=== PATIENT | male | born 1955 | race Caucasian/White ===

== ENCOUNTER 2019-06-05 08:30 | Outpatient (RCR) | payer OTHER, SELFPAY | END 2019-07-03 23:59 | disposition home or self-care (01) | LOC: WOUND 08:30 | PROVIDERS: Family Provider Internal Medicine; PCP Internal Medicine; Visit Provider Surgery | DX: E11.621 Type 2 diabetes mellitus with foot ulcer (principal); L97.512 Non-pressure chronic ulcer of other part of right foot with fat layer exposed | CPT/HCPCS: 99212 ==

== ENCOUNTER → 2019-09-10 11:40 | Outpatient (BNVA) | payer OTHER, SELFPAY | PROVIDERS: Family Provider Internal Medicine; PCP Internal Medicine; Referring Provider Family Medicine; Visit Provider Podiatrist Foot & Ankle Surgery | DX: M79.672 Pain in left foot (principal); M85.872 Other specified disorders of bone density and structure, left ankle and foot; M77.32 Calcaneal spur, left foot | CPT/HCPCS: 73630 ==

== ENCOUNTER → 2019-12-29 08:36 | Outpatient (BNVA) | payer OTHER, SELFPAY | PROVIDERS: Family Provider Internal Medicine; PCP Internal Medicine; Referring Provider Family Medicine; Visit Provider Anesthesiology Pain Medicine | DX: M51.36 Other intervertebral disc degeneration, lumbar region (principal); M47.816 Spondylosis without myelopathy or radiculopathy, lumbar region; M43.10 Spondylolisthesis, site unspecified; M54.9 Dorsalgia, unspecified; M62.830 Muscle spasm of back; F17.210 Nicotine dependence, cigarettes, uncomplicated | CPT/HCPCS: 99204 ==

== ENCOUNTER → 2020-01-06 14:04 | Outpatient (BNVA) | payer OTHER, SELFPAY | PROVIDERS: Family Provider Internal Medicine; PCP Family Medicine; Visit Provider Anesthesiology Pain Medicine | DX: M47.816 Spondylosis without myelopathy or radiculopathy, lumbar region (principal); M54.9 Dorsalgia, unspecified; F17.210 Nicotine dependence, cigarettes, uncomplicated | CPT/HCPCS: 64493; 64494; 64495; J3490 ==

== ENCOUNTER → 2020-01-21 08:56 | Outpatient (BNVA) | payer OTHER, SELFPAY | PROVIDERS: Family Provider Internal Medicine; PCP Family Medicine; Visit Provider Anesthesiology Pain Medicine | DX: M47.816 Spondylosis without myelopathy or radiculopathy, lumbar region (principal); M51.36 Other intervertebral disc degeneration, lumbar region; M43.10 Spondylolisthesis, site unspecified; M54.9 Dorsalgia, unspecified; M62.830 Muscle spasm of back; F17.210 Nicotine dependence, cigarettes, uncomplicated | CPT/HCPCS: 99213 ==

== ENCOUNTER 2020-01-25 09:04 | Outpatient (CLI) | payer OTHER, SELFPAY ==
--- NOTE | 2020-01-25 09:30 | CT_ITS ---
WS: [id number] CT ANGIOGRAPHY ABDOMEN AORTA, with and without contrast. HISTORY: Abdomen aortic aneurysm, status post repair TECHNIQUE: Noncontrast CT first performed. CT angiogram is performed during IV injection. Reformation images reviewed. All CT scans at [facility] use at least one of these dose optimization t echniques: automated exposure control; mA and/or kV adjustment per patient size (includes targeted ex ams where dose is matched to clinical indication); or iterative reconstruction. CONTRAST: Omnipaque 350; 150 mL IV. DLP: 2895.33 mGycm COMPARISON: No similar studies. Hyperexpanded lung bases with changes of emphysema. There is some very mild peripheral groundglass at tenuation bilaterally and areas of linear atelectasis. 5 mm nodule at the LEFT lung base. Abdominal aorta: Status post endovascular grafting of the abdominal aorta. Bilateral common iliac art shabbir stents. Maximum transverse diameter of the [place] aneurysm is 5.4 cm. There is no extravasation o f contrast from the center of the graft. No endovascular leak. There is mild enhancement through the lumen. Only mild enhancement is due to phase of injection. Mild atherosclerotic plaque at the origin of the celiac axis and SMA. No occlusions. Poor opacificati on of the renal arteries. The kidneys are enhancing normally. No atrophy or ischemia. No periaortic h ematoma. Mild enlargement of the liver. Spleen is normal size. Normal pancreas and adrenal glands. No renal ob struction or mass. No adenopathy or fluid. Mild increase in lumbar lordosis. No bone destruction. CT/CT angio abdomen 20395 IMPRESSION: 1. Status post endovascular stent graft repair with no complications. No endol uminal leak. 2. No prior CT evaluation. As compared to prior ultrasound and [place] aneurysm has not significantly increased in size. 3. 5 mm noncalcified LEFT lower lobe pulmonary nodule. Recommend follow-up non contrast chest CT in 6-12 months.
[2020-01-25 09:36] LABS: Blood Urea Nitrogen 18 mg/dL (8-23); Glomerular Filtration Rate 85.5 mL/min (90-130)
[2020-01-25] MEDS: iohexol 350 mg/mL 100 mL Btl IV (10:00)
== END 2020-01-25 09:05 | disposition home or self-care (01) ==
LOC: RADWPI 09:06
PROVIDERS: Family Provider Family Medicine; PCP Family Medicine; Visit Provider Internal Medicine Cardiovascular Disease
DX: I71.4 Abdominal aortic aneurysm, without rupture (principal); I48.19 Other persistent atrial fibrillation; R91.1 Solitary pulmonary nodule
CPT/HCPCS: 74175; 82565; 84520; Q9967

== ENCOUNTER 2020-03-21 16:44 | Emergency (ER) | payer OTHER, SELFPAY ==
[2020-03-21 16:59] VITALS: BP 180/84; PULSE 72; RESP 18; TEMP 36.7; O2SAT 96; BMI 37.6
--- NOTE | 2020-03-21 17:29 | XRR_ITS ---
PROCEDURE INFORMATION: Exam: XR Chest, 1 View Exam date and time: 03/21/2020 6:32 PM Age: 64 years old Clinical indication: Shortness of breath; Prior surgery; Surgery type: 2 quad bipass; Additional info: SOB TECHNIQUE: Imaging protocol: XR of the chest Views: 1 view. COMPARISON: CR Chest 1 [place] [id number] 03/31/2018 2:38 PM FINDINGS: Lungs: There is scattered bilateral interstitial pulmonary fibrosis. There is no focal acute consolidation. Pleural space: The right costophrenic angle is blunted but stable in consistent with mild pleural fibrosis. No pneumothorax is seen. Heart/Mediastinum: The patient has undergone coronary bypass surgery. A permanent pacemaker appears intact. The cardiac silhouette is enlarged but unchanged. Bones/joints: Unremarkable. XR/XR chest 1V portable [id number] IMPRESSION: 1. Stable cardiac enlargement. 2. Bilateral pulmonary fibrotic changes. No acute abnormality.
--- NOTE | 2020-03-21 18:30 | ECG_ITS ---
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 Measurements Intervals [place] Rate: 65 P: 49 HI: 161 QRS: -48 QRSD: 120 T: -60 QT: 441 QTc: 461 Interpretive Statements SINUS RHYTHM LEFT AXIS DEVIATION [QRS AXIS < -30] SEPTAL MYOCARDIAL INFARCTION , OF INDETERMINATE AGE [40+ ms Q WAVE IN V1/V2] Compared to ECG 03/31/2018 14:25:46 Left-axis deviation now present Atrial-paced complex(es) or rhythm no longer present Myocardial infarct finding still present Electronically Signed On 03-21-2020 21:45:07 CDT by Miladys Armstrong M.D. [id number]
--- NOTE | 2020-03-21 18:38 | ED_ITS ---
HPI - General Adult General: Chief complaint: General Medical Stated complaint: possible anema Time Seen by Provider: 03/21/20 18:24 Source: patient Mode of arrival: ambulatory Limitations: no limitations History of Present Illness: HPI narrative: 64-year-old male history of congestive heart failure states he has had increased swelling in his legs over the last week. He takes Bumex at home 2.5 mg daily. He states he has had increased dyspnea and pain. Denies any worsening improving factors. He states that his ankles are swollen significantly over the last 5 to 7 days. Associated symptoms: Reports chest pain and dyspnea; Deny headache(s), nausea, rash or vomiting Review of Systems Const: Denies: fever(s), chills, body aches or change in appetite Eyes: Denies: blurry vision or eye discomfort ENMT: Denies: throat pain or dental pain Card: Reports: chest pain Resp: Reports: dyspnea GI: Denies: abdominal pain, nausea, vomiting or diarrhea : Denies: dysuria Musc: Reports: extremity swelling Skin/Breast: Denies: rash Neuro: Denies: headache(s) Psych: Denies: depression Adan/Lymph: Denies: easy bruising All/Imm: Denies: urticaria PFSH ED PFSH: Medical History Abdominal aortic aneurysm (AAA) 3.0 cm to 5.5 cm in diameter in male Allergic rhinitis ASHD (arteriosclerotic heart disease) Atherosclerotic heart disease of [place] coronary artery with other forms of an aretha pectoris Atrial fibrillation Cardiomyopathy CHF (congestive heart failure) DDD (degenerative disc disease) Diabetes Hyperlipidemia Hypertension Presence of permanent cardiac pacemaker Surgical History History of atherectomy History of cardiac radiofrequency ablation Hx of CABG S/P AAA repair October 2017 at the [facility] Family History Other CAD (coronary artery disease) Cancer Social History Smoking and tobacco status: current every day smoker cigarettes [ Other cigarette details: 1/2 pck day ] Alcohol intake: never Physical Exam Const: COMMON NORMALS: no acute distress, patient oriented x3 and healthy appearing HENMT: COMMON NORMALS: normocephalic and atraumatic HEAD & SCALP: normocephalic and atraumatic Eye: COMMON NORMALS: Equal, round and reactive pupils present and EOMs intact bilaterally PUPIL: Yes Equal, round and reactive pupils present Neck/C-Spine: COMMON NORMALS: full ROM and supple Chest: COMMONS NORMALS: normal inspection of the chest and normal palpation of entire chest wall Resp: COMMON NORMALS: normal respiratory effort, No retractions, No use of accessory muscles and clear to auscultation bilaterally AUSCULTATION: clear to auscultation bilaterally Cardio: COMMON NORMALS: regular rate, regular rhythm and No murmurs present (Cardio) RATE: regular rate RHYTHM: regular rhythm GI: COMMON NORMALS: Normal to inspection, nondistended, normoactive bowel sounds present, Soft to palpation, non-tender and no masses PALPATION: Yes Soft to palpation Extremity: COMMON NORMALS: full ROM NARRATIVE EXTREMITY EXAM: 2+ edema bilaterally Neuro: COMMON NORMALS: patient oriented x3, moves all extremities and no focal motor deficits Psych: COMMON NORMALS: mental status grossly normal, Normal thought process present and cooperative THOUGHT PROCESS: Normal thought process present Skin: COMMON NORMALS: no rashes or lesions noted and no wounds GENERAL SKIN EXAM: no rashes or lesions noted Course Vital Signs: Vital signs: Vital Signs Temperature 98.1 F 03/21/20 16:59 Pulse Rate 72 03/21/20 16:59 Respiratory Rate 20 H 03/21/20 19:45 Blood Pressure 178/74 03/21/20 19:45 Pulse Oximetry 95 03/21/20 19:45 MDM - General Adult MDM Narrative: Medical decision making narrative: Patient presents with leg edema with a history of congestive heart failure. Patient is in no respiratory distress here. Patient had a large amount of urination after IV Lasix and states he feels much improved and like to go home. I will double his bumetanide dose and he is to follow-up his PCP in 3 to 5 days. He is to watch his weight and if he has any water weight gain he is to return if worsening. Lab Data: Labs: Lab Results 03/21/20 03/21/20 03/21/20 Range/Units 18:35 18:35 18:35 WBC 8.8 (4.0-10.0) 10^3/ uL RBC 4.62 (4.1-5.3) 10^6/u L Hgb 11.4 L (11.7-16.6) g/dL Hct 39.6 L (42.0-52.0) % MCV 85.7 (80-94) fL MCH 24.7 L (28.0-34.0) pg MCHC 28.8 L (30.0-36.0) g/dL RDW 19.3 H (12.1-15.1) % Plt Count 359 (130-400) 10^3/c mm MPV 10.8 H (7.4-10.4) fL Neut % (Auto) 70.9 % Lymph % (Auto) 20.4 % Walsh % (Auto) 6.6 % Eos % (Auto) 1.6 % Baso % (Auto) 0.3 % Neut # (Auto) 6.24 (1.8-7.7) 10^3/u L Lymph # (Auto) 1.8 (0.8-4.8) 10^3/u L Walsh # (Auto) 0.6 (0.2-0.9) 10^3/u L Eos # (Auto) 0.1 (0.0-0.8) 10^3/u L Baso # (Auto) 0.0 (0.0-0.1) 10^3/u L Nucleated RBC % (a uto) 0 % Nucleated RBCs # 0.0 /100WBC Sodium 138 (136-145) mmol/L Potassium 3.9 (3.5-5.1) mmol/L Chloride 99 (98-107) mmol/L Carbon Dioxide 28 (22-29) mmol/L Anion Gap 14.9 (5-19) BUN 17 (8-23) mg/dL Creatinine 1.0 (0.7-1.2) mg/dL GFR Calculation 75.7 L (90-130) mL/min Glucose 183 H (65-115) mg/dL Calculated Osmolal ity 292 (285-295) mOsm/k g Calcium 8.8 (8.5-10.5) mg/dL Total Bilirubin 0.3 (0.15-1.2) mg/dL AST 27 (0-40) U/L ALT 31 (0-41) U/L Alkaline Phosphata se 139 H (40-130) IU/L Troponin T Baselin e 20 H (0-15) ng/L Troponin T 120 Min [place] (0-15) ng/L Delta Troponin T (0-10) ABS# NT-Pro-B Natriuret Pep 2338 H (0-125) pg/mL Total Protein 7.5 (6.6-8.7) g/dL Albumin 3.9 (3.5-5.2) g/dL Globulin 3.6 (1.3-4.6) g/dL 03/21/20 Range/Units 20:50 WBC (4.0-10.0) 10^3/ uL RBC (4.1-5.3) 10^6/u L Hgb (11.7-16.6) g/dL Hct (42.0-52.0) % MCV (80-94) fL MCH (28.0-34.0) pg MCHC (30.0-36.0) g/dL RDW (12.1-15.1) % Plt Count (130-400) 10^3/c mm MPV (7.4-10.4) fL Neut % (Auto) % Lymph % (Auto) % Walsh % (Auto) % Eos % (Auto) % Baso % (Auto) % Neut # (Auto) (1.8-7.7) 10^3/u L Lymph # (Auto) (0.8-4.8) 10^3/u L Walsh # (Auto) (0.2-0.9) 10^3/u L Eos # (Auto) (0.0-0.8) 10^3/u L Baso # (Auto) (0.0-0.1) 10^3/u L Nucleated RBC % (a uto) % Nucleated RBCs # /100WBC Sodium (136-145) mmol/L Potassium (3.5-5.1) mmol/L Chloride (98-107) mmol/L Carbon Dioxide (22-29) mmol/L Anion Gap (5-19) BUN (8-23) mg/dL Creatinine (0.7-1.2) mg/dL GFR Calculation (90-130) mL/min Glucose (65-115) mg/dL Calculated Osmolal ity (285-295) mOsm/k g Calcium (8.5-10.5) mg/dL Total Bilirubin (0.15-1.2) mg/dL AST (0-40) U/L ALT (0-41) U/L Alkaline Phosphata se (40-130) IU/L Troponin T Baselin e (0-15) ng/L Troponin T 120 Min [place] 20.77 H (0-15) ng/L Delta Troponin T 0.77 (0-10) ABS# NT-Pro-B Natriuret Pep (0-125) pg/mL Total Protein (6.6-8.7) g/dL Albumin (3.5-5.2) g/dL Globulin (1.3-4.6) g/dL Imaging Data^: CXR: Attestation: I personally reviewed and interpreted this imaging study as follows: My impression: Congestive heart failure with slight pulmonary edema EKG Data^: EKG 1: Attestation: I personally reviewed and interpreted this EKG as follows: EKG interpretation date: 03/21/20 EKG interpretation time: 18:51 Interpretation: nsr hr [address] or t wave abnormalities qrs 120 qtc 453 Discharge Plan Discharge Patient Disposition: Home Clinical Impression: CHF (congestive heart failure) Qualifiers: Heart failure type: unspecified Heart failure chronicity: acute on chronic Qualified Code(s): I50.9 - Heart failure, unspecified Condition: Stable Prescriptions: New bumetanide 2 mg tablet 2 mg PO BID Qty: 30 RF: 0 No Action cetirizine [Zyrtec] 10 mg tablet 10 mg PO DAILY RF: 0 pantoprazole [Protonix] 40 mg tablet,delayed release (DR/EC) 40 mg PO DAILY RF: 0 calcium carbonate [Calcium 500] 500 mg calcium (1,250 mg) tablet 500 mg PO DAILY RF: 0 magnesium oxide 400 mg magnesium tablet 400 mg PO BID RF: 0 isosorbide mononitrate 30 mg tablet extended release 24 hr 30 mg PO BID RF: 0 metoprolol tartrate 100 mg tablet 100 mg PO BID RF: 0 ferrous sulfate 325 mg (65 mg iron) tablet 325 mg PO DAILY RF: 0 allopurinol 300 mg tablet 300 mg PO DAILY RF: 0 omega-3 fatty acids 1,000 mg capsule 1,000 mg PO DAILY RF: 0 amiodarone 200 mg tablet 200 mg PO DAILY RF: 0 multivitamin Tablet 1 tab PO DAILY RF: 0 lisinopril-hydrochlorothiazide 10-12.5 mg tablet 1 tab PO DAILY RF: 0 glipizide 10 mg tablet 10 mg PO BID RF: 0 acarbose 50 mg tablet 25 mg PO TID RF: 0 vitamin B complex [B Complex-Vitamin B12] Tablet 1 tab PO DAILY RF: 0 folic acid 1 mg tablet 1 mg PO DAILY RF: 0 gemfibrozil 600 mg tablet 600 mg PO BID RF: 0 cholecalciferol (vitamin D3) 4,000 unit capsule 4,000 unit PO DAILY RF: 0 montelukast [Singulair] 10 mg tablet 10 mg PO DAILY RF: 0 nitroglycerin [Nitrostat] 0.4 mg tablet, sublingual 0.4 mg SUBLINGUAL Q5M PRNRF: 0 aspirin [Adult Low Dose Aspirin] 81 mg tablet,delayed release (DR/EC) 81 mg PO DAILY RF: 0 insulin glargine 100 unit/mL solution 64 unit SUBCUT BID RF: 0 mupirocin 2 % ointment 1 applic TOPICAL BID Qty: 30 RF: 0 pregabalin [Lyrica] 150 mg capsule 150 mg PO BID RF: 0 fluticasone propionate 50 mcg/actuation spray,suspension 1 spray INTRANASAL DAILY RF: 0 albuterol sulfate [ProAir HFA] 90 mcg/actuation HFA aerosol inhaler 1 inh INHALATION ONCE RF: 0 bumetanide 2 mg tablet 2 mg PO DAILY RF: 0 warfarin 2 mg tablet 2 mg PO DAILY RF: 0 budesonide-formoterol [Symbicort] 160-4.5 mcg/actuation HFA aerosol inhaler 2 puff INHALATION BID RF: 0 Spiriva Respimat 2.5 mcg/actuation mist 2 puff INHALATION DAILY RF: 0 tizanidine 4 mg tablet 4 mg PO BID PRN (Reason: muscle spasticity) Qty: 60 RF: 2 Discharge Orders: Discharge Order (Routine); Ordered 03/21/20 Ordered By: Kosta Chester Referrals: Carla Manriquez MD [Primary Care Provider] - 1-3 days Discharge Diet: Advance as tolerated Discharge Activity: Resume usual activity Patient Instructions: Heart Failure (ED), Leg Edema (ED) Activity Restrictions/Additional Instructions: Take 2 pills of your bumetanide daily follow-up with your PCP in 3 to 5 days return if worsening. 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
[2020-03-21 18:44] LABS: Basophils % 0.3 %; Eosinophils # 0.1 10^3/uL (0.0-0.8); Eosinophils % 1.6 %; Hematocrit 39.6 % (42.0-52.0); Hemoglobin 11.4 g/dL (11.7-16.6); Lymphocytes # 1.8 10^3/uL (0.8-4.8); Lymphocytes % 20.4 %; Mean Corpuscular HGB Conc 28.8 g/dL (30.0-36.0); Mean Corpuscular Hemoglobin 24.7 pg (28.0-34.0); Mean Corpuscular Volume 85.7 fL (80-94); Mean Platelet Volume 10.8 fL (7.4-10.4); Monocytes # 0.6 10^3/uL (0.2-0.9); Monocytes % 6.6 %; Neutrophils # 6.24 10^3/uL (1.8-7.7); Neutrophils % 70.9 %; Nucleated Red Blood Cells % 0 %; Platelet Count 359 10^3/cmm (130-400); Red Blood Count 4.62 10^6/uL (4.1-5.3); Red Cell Distribution Width 19.3 % (12.1-15.1); White Blood Count 8.8 10^3/uL (4.0-10.0)
[2020-03-21 19:13] LABS: Alanine Aminotransferase 31 U/L (0-41); Albumin Level 3.9 g/dL (3.5-5.2); Alkaline Phosphatase 139 IU/L (40-130); Anion Gap 14.9 (5-19); Aspartate Amino Transferase 27 U/L (0-40); Blood Urea Nitrogen 17 mg/dL (8-23); Calcium 8.8 mg/dL (8.5-10.5); Carbon Dioxide 28 mmol/L (22-29); Chloride 99 mmol/L (98-107); Globulin 3.6 g/dL (1.3-4.6); Glomerular Filtration Rate 75.7 mL/min (90-130); Glucose 183 mg/dL (65-115); NT Pro B Type Natriuretic Pept 2338 pg/mL (0-125); Osmolality Calculated 292 mOsm/kg (285-295); Potassium 3.9 mmol/L (3.5-5.1); Sodium 138 mmol/L (136-145); Total Bilirubin 0.3 mg/dL (0.15-1.2); Total Protein 7.5 g/dL (6.6-8.7)
[2020-03-21 19:28] LABS: Troponin(5th) Baseline 20 ng/L (0-15)
[2020-03-21 19:34] VITALS: RESP 18; O2SAT 94
[2020-03-21] MEDS: FUROsemide 10 mg/mL SDV 10mL 60 MG IVP (19:34)
[2020-03-21] MEDS: morphine 4 mg/mL SDV 1 mL IVP (19:34)
[2020-03-21 19:45] VITALS: BP 178/74; RESP 20; O2SAT 95
--- NOTE | 2020-03-21 20:30 | ECG_ITS ---
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 Measurements Intervals [place] Rate: 66 P: 49 IA: 169 QRS: -42 QRSD: 125 T: 0 QT: 442 QTc: 465 Interpretive Statements SINUS RHYTHM MARKED LEFT AXIS DEVIATION [QRS AXIS < -30] SEPTAL MYOCARDIAL INFARCTION [40+ ms Q WAVE IN V1/V2], OF INDETERMINATE AGE WARNING: DATA QUALITY MAY AFFECT INTERPRETATION Diffuse nonspecific ST-T changes Compared to ECG 03/31/2018 14:25:46 Left-axis deviation now present Atrial-paced complex(es) or rhythm no longer present Myocardial infarct finding still present Electronically Signed On 03-21-2020 21:48:03 CDT by Miladys Armstrong M.D. [id number] f
[2020-03-21 22:03] LABS: Troponin 5 2HR 20.77 ng/L (0-15); Troponin 5 2HR Delta 0.77 ABS# (0-10)
== END 2020-03-21 23:26 | disposition home or self-care (01) ==
PROVIDERS: Physician Assistant; Emergency Provider Emergency Medicine; PCP Family Medicine
DX: I11.0 Hypertensive heart disease with heart failure (principal); I50.9 Heart failure, unspecified; Z79.01 Long term (current) use of anticoagulants; Z79.82 Long term (current) use of aspirin; Z79.4 Long term (current) use of insulin; I48.91 Unspecified atrial fibrillation; E11.9 Type 2 diabetes mellitus without complications; E78.5 Hyperlipidemia, unspecified; Z95.0 Presence of cardiac pacemaker; F17.210 Nicotine dependence, cigarettes, uncomplicated
CPT/HCPCS: 12345; 36415; 71045; 80053; 83880; 84484; 85025; 93005; 96374; 96375; 99283; J1940; J2270

== ENCOUNTER → 2020-04-14 08:14 | Outpatient (BNVA) | payer OTHER, SELFPAY | PROVIDERS: PCP Family Medicine; Visit Provider Anesthesiology Pain Medicine | DX: Z79.899 Other long term (current) drug therapy (principal); M54.9 Dorsalgia, unspecified; M51.36 Other intervertebral disc degeneration, lumbar region; M62.830 Muscle spasm of back; M47.816 Spondylosis without myelopathy or radiculopathy, lumbar region; F17.210 Nicotine dependence, cigarettes, uncomplicated | CPT/HCPCS: 99213 ==

== ENCOUNTER → 2020-04-21 10:54 | Outpatient (BNVA) | payer OTHER, SELFPAY | PROVIDERS: PCP Family Medicine; Visit Provider Internal Medicine Cardiovascular Disease | DX: R06.02 Shortness of breath (principal); Z95.0 Presence of cardiac pacemaker; I50.33 Acute on chronic diastolic (congestive) heart failure; E11.42 Type 2 diabetes mellitus with diabetic polyneuropathy; E78.2 Mixed hyperlipidemia; I25.118 Atherosclerotic heart disease of native coronary artery with other forms of angina pectoris; I48.19 Other persistent atrial fibrillation; I11.0 Hypertensive heart disease with heart failure; I71.4 Abdominal aortic aneurysm, without rupture | CPT/HCPCS: 80048; 83880 ==

== ENCOUNTER → 2020-05-10 10:50 | Outpatient (BNVA) | payer OTHER, SELFPAY | PROVIDERS: PCP Family Medicine; Visit Provider Internal Medicine Cardiovascular Disease | DX: I50.9 Heart failure, unspecified; I11.0 Hypertensive heart disease with heart failure; I25.10 Atherosclerotic heart disease of native coronary artery without angina pectoris | CPT/HCPCS: 80048; 83880 ==

== ENCOUNTER → 2020-05-24 10:31 | Outpatient (BNVA) | payer OTHER, SELFPAY | PROVIDERS: PCP Family Medicine; Visit Provider Internal Medicine Cardiovascular Disease | DX: I25.10 Atherosclerotic heart disease of native coronary artery without angina pectoris; I50.9 Heart failure, unspecified; I11.0 Hypertensive heart disease with heart failure | CPT/HCPCS: 83880 ==

== ENCOUNTER → 2020-07-07 08:53 | Outpatient (BNVA) | payer OTHER, SELFPAY | PROVIDERS: PCP Family Medicine; Visit Provider Anesthesiology Pain Medicine | DX: M51.36 Other intervertebral disc degeneration, lumbar region (principal); M47.816 Spondylosis without myelopathy or radiculopathy, lumbar region; M43.10 Spondylolisthesis, site unspecified; M54.9 Dorsalgia, unspecified; M62.830 Muscle spasm of back; F17.210 Nicotine dependence, cigarettes, uncomplicated | CPT/HCPCS: 99215 ==

== ENCOUNTER → 2020-07-27 12:43 | Outpatient (BNVA) | payer OTHER, SELFPAY | PROVIDERS: PCP Family Medicine; Visit Provider Anesthesiology Pain Medicine | DX: M47.816 Spondylosis without myelopathy or radiculopathy, lumbar region (principal); M54.9 Dorsalgia, unspecified | CPT/HCPCS: 64493; 64494; 64495; J1030; J3490 ==

== ENCOUNTER → 2020-08-09 08:22 | Outpatient (BNVA) | payer OTHER, SELFPAY | PROVIDERS: PCP Family Medicine; Visit Provider Anesthesiology Pain Medicine | DX: G89.29 Other chronic pain (principal); M54.9 Dorsalgia, unspecified; M51.36 Other intervertebral disc degeneration, lumbar region; M47.816 Spondylosis without myelopathy or radiculopathy, lumbar region; M43.10 Spondylolisthesis, site unspecified; M62.830 Muscle spasm of back; F17.210 Nicotine dependence, cigarettes, uncomplicated | CPT/HCPCS: 99214 ==

== ENCOUNTER → 2020-08-15 13:54 | Outpatient (BNVA) | payer OTHER, SELFPAY | PROVIDERS: PCP Family Medicine; Visit Provider Anesthesiology Pain Medicine | DX: G89.29 Other chronic pain (principal); M53.3 Sacrococcygeal disorders, not elsewhere classified; M54.9 Dorsalgia, unspecified; F17.210 Nicotine dependence, cigarettes, uncomplicated | CPT/HCPCS: 77003; G0260; J1030; J3490 ==

== ENCOUNTER → 2020-09-01 08:19 | Outpatient (BNVA) | payer OTHER, SELFPAY | PROVIDERS: PCP Family Medicine; Visit Provider Anesthesiology Pain Medicine | DX: M48.062 Spinal stenosis, lumbar region with neurogenic claudication (principal); M47.816 Spondylosis without myelopathy or radiculopathy, lumbar region; M51.36 Other intervertebral disc degeneration, lumbar region; M53.3 Sacrococcygeal disorders, not elsewhere classified; M54.9 Dorsalgia, unspecified; M62.830 Muscle spasm of back; F17.210 Nicotine dependence, cigarettes, uncomplicated | CPT/HCPCS: 99214 ==

== ENCOUNTER 2020-09-01 09:44 | Outpatient (CLI) | payer OTHER, SELFPAY ==
--- NOTE | 2020-09-01 09:51 | XR_ITS ---
WS: [id number] LUMBAR SPINE FLEXION AND EXTENSION TECHNIQUE: 3 views of the lumbar spine: Lateral neutral, flexion, and extension views. CLINICAL INFORMATION: M47.816 - Spondylosis without myelopathy or radiculopathy, lumbar region COMPARISON: None. FINDINGS: Osteopenia. Slight anterolisthesis L5 on S1 measuring 5 mm. This increases on flexion to 6.3 mm and d ecreases on extension to 2 mm. Partially visualized aortic endograft. Moderate facet arthropathy L4-L 5 and L5-S1. XR/XR lumbar spine f/e only [id number] IMPRESSION: Grade 1 anterolisthesis L5 on S1 measuring 5 mm with mild instability on flexio n extension.
== END 2020-09-01 09:45 | disposition home or self-care (01) ==
PROVIDERS: PCP Family Medicine; Visit Provider Anesthesiology Pain Medicine
DX: M47.816 Spondylosis without myelopathy or radiculopathy, lumbar region (principal); M53.2X6 Spinal instabilities, lumbar region
CPT/HCPCS: 72120

== ENCOUNTER → 2020-09-16 08:44 | Outpatient (BNVA) | payer OTHER, SELFPAY | PROVIDERS: PCP Family Medicine; Visit Provider Anesthesiology Pain Medicine | DX: M51.36 Other intervertebral disc degeneration, lumbar region (principal); M47.816 Spondylosis without myelopathy or radiculopathy, lumbar region; M54.9 Dorsalgia, unspecified; M62.830 Muscle spasm of back; M43.10 Spondylolisthesis, site unspecified; F17.210 Nicotine dependence, cigarettes, uncomplicated | CPT/HCPCS: 99214 ==

== ENCOUNTER → 2020-10-14 09:07 | Outpatient (BNVA) | payer OTHER, SELFPAY | PROVIDERS: PCP Family Medicine; Visit Provider Anesthesiology Pain Medicine | DX: G89.29 Other chronic pain (principal); M54.9 Dorsalgia, unspecified; M25.561 Pain in right knee; M25.562 Pain in left knee; F17.210 Nicotine dependence, cigarettes, uncomplicated | CPT/HCPCS: 99214 ==

== ENCOUNTER 2020-10-25 12:07 | Emergency (ER) | payer OTHER, SELFPAY ==
[2020-10-25 12:22] VITALS: BP 149/70; PULSE 59; RESP 18; TEMP 36.2; O2SAT 95; BMI 38.0
[2020-10-25 12:28] VITALS: BP 101/69; PULSE 63; PULSE 65; RESP 18; O2SAT 97
--- NOTE | 2020-10-25 13:00 | W.ED.EXTPRO ---
HPI - Extremity Problem General: Chief complaint: Extremity Injury, Lower Stated complaint: LLE PAIN, UNABLE TO BEAR MUCH WEIGHT, SENT BY [place] Time Seen by Provider: 10/25/20 13:00 History of Present Illness: HPI Narrative: Patient comes in for complaints of pain left lower extremity. Patient reports that 2 weeks ago he injured his back when he stood up causing some significant back discomfort. Since then he has been using a cane to walk and about a week ago he hyperextended his left knee which has been persisting and seems to be worsening with pain over the last 2 days. Complaint: extremity pain Onset (ago): day(s) Pain Consistency: intermittent Location: left and knee Quality: aching and sharp Radiation: none Relieving factors: rest Exacerbating factors: range of motion and weight bearing Associated symptoms: Reports arthralgias Review of Systems General: Reports: 10 or more systems reviewed and unremarkable except in HPI and below Musc: Reports: other (Left knee pain) PFS ED PFSH: Medical History Abdominal aortic aneurysm (AAA) 3.0 cm to 5.5 cm in diameter in male Allergic rhinitis ASHD (arteriosclerotic heart disease) Atherosclerotic heart disease of [place] coronary artery with other forms of angina pectoris Atrial fibrillation Cardiomyopathy CHF (congestive heart failure) DDD (degenerative disc disease) Diabetes Hyperlipidemia Hypertension Presence of permanent cardiac pacemaker Surgical History History of atherectomy History of cardiac radiofrequency ablation Hx of CABG S/P AAA repair October 2017 at the [facility] Family History Father Anesthesia complication Cancer Mother CAD (coronary artery disease) Chronic kidney disease (CKD) Brother Diabetes Grandmother Lung disease Denies family history of Clotting disorder Dementia Suicide Bleeding disorder Stroke Social History Smoking and tobacco status: current every day smoker cigarettes [ Other cigarette details: 1/2 pck day ] Alcohol intake: never Lives independently: Yes History of recent travel: No Physical Exam Const: COMMON NORMALS: no acute distress and patient oriented x3 GENERAL APPEARANCE: cooperative HENMT: COMMON NORMALS: normocephalic and Normal external nose present HEAD & SCALP: normal to inspection and normocephalic NOSE: Normal external nose present MOUTH: Normal oral and palatal mucosa present Eye: GENERAL EYE: appearance normal, both eyes and all related structures Neck/C-Spine: COMMON NORMALS: full ROM Lymph: LYMPHATIC: no lymphadenopathy noted Chest: COMMONS NORMALS: normal inspection of the chest Resp: COMMON NORMALS: normal respiratory effort EFFORT & INSPECTION: Yes able to speak in complete sentences Cardio: COMMON NORMALS: regular rate and regular rhythm RATE: regular rate RHYTHM: regular rhythm GI: COMMON NORMALS: non-tender Back/Pelvis: LUMBAR SPINE/LOWER BACK: Yes paraspinal muscle spasm Extremity: OTHER: Tenderness to the proximal joint line on the medial side of the left knee. Guarded movement. Minimal to no swelling. Distal pulses are intact. Neuro: COMMON NORMALS: patient oriented x3 and moves all extremities Psych: COMMON NORMALS: mental status grossly normal and cooperative Skin: COMMON NORMALS: no rashes or lesions noted GENERAL SKIN EXAM: no rashes or lesions noted Course Vital Signs: Vital signs: Vital Signs Temperature 97.1 F L 10/25/20 12:22 Pulse Rate 63 10/25/20 12:28 Respiratory Rate 18 10/25/20 12:28 Blood Pressure 101/69 10/25/20 12:28 Pulse Oximetry 97 10/25/20 12:28 MDM - Extremity (Nontraumatic) MDM Narrative: Medical decision making narrative: 65-year-old male patient comes in with left knee pain. Patient reports hyperextending it about a week ago. Patient was seen at his primary care office, the [facility], and was referred to the ER for further evaluation of the knee. On exam patient has some mild swelling and some guarded range of motion of the knee. Patient has some tenderness to palpation. No obvious deformity or dislocation is noted. Differential diagnosis includes meniscal injury, degenerative joint disease, sprain. X-ray noted significant tricompartmental degenerative joint disease of the knee. Reviewed exam with patient with recommendations for treatment for pain. Patient was recommended to follow-up with primary care for further instruction and referral to orthopedist for further evaluation and treatment. Discharge Plan Discharge Patient Disposition: Home Clinical Impression: Osteoarthritis of left knee Qualifiers: Osteoarthritis type: unspecified Qualified Code(s): M17.12 - Unilateral primary osteoarthritis, left knee Condition: Stable Prescriptions: New hydrocodone-acetaminophen 5-325 mg tablet 1 tab PO Q6H PRN (Reason: pain) Qty: 14 RF: 0 No Action cetirizine [Zyrtec] 10 mg tablet 10 mg PO DAILY RF: 0 pantoprazole [Protonix] 40 mg tablet,delayed release (DR/EC) 40 mg PO DAILY RF: 0 calcium carbonate [Calcium 500] 500 mg calcium (1,250 mg) tablet 500 mg PO DAILY RF: 0 magnesium oxide 400 mg magnesium tablet 400 mg PO BID RF: 0 isosorbide mononitrate 30 mg tablet extended release 24 hr 30 mg PO BID RF: 0 metoprolol tartrate 100 mg tablet 100 mg PO BID RF: 0 ferrous sulfate 325 mg (65 mg iron) tablet 325 mg PO DAILY RF: 0 allopurinol 300 mg tablet 300 mg PO DAILY RF: 0 omega-3 fatty acids 1,000 mg capsule 1,000 mg PO DAILY RF: 0 amiodarone 200 mg tablet 200 mg PO DAILY RF: 0 multivitamin Tablet 1 tab PO DAILY RF: 0 glipizide 10 mg tablet 10 mg PO BID RF: 0 acarbose 50 mg tablet 25 mg PO TID RF: 0 vitamin B complex [B Complex-Vitamin B12] Tablet 1 tab PO DAILY RF: 0 folic acid 1 mg tablet 1 mg PO DAILY RF: 0 gemfibrozil 600 mg tablet 600 mg PO BID RF: 0 cholecalciferol (vitamin D3) 4,000 unit capsule 4,000 unit PO DAILY RF: 0 montelukast [Singulair] 10 mg tablet 10 mg PO DAILY RF: 0 nitroglycerin [Nitrostat] 0.4 mg tablet, sublingual 0.4 mg SUBLINGUAL Q5M PRNRF: 0 aspirin [Adult Low Dose Aspirin] 81 mg tablet,delayed release (DR/EC) 81 mg PO DAILY RF: 0 insulin glargine 100 unit/mL solution 64 unit SUBCUT BID RF: 0 mupirocin 2 % ointment 1 applic TOPICAL BID Qty: 30 RF: 0 fluticasone propionate 50 mcg/actuation spray,suspension 1 spray INTRANASAL DAILY RF: 0 albuterol sulfate [ProAir HFA] 90 mcg/actuation HFA aerosol inhaler 1 inh INHALATION ONCE RF: 0 bumetanide 2 mg tablet 2 mg PO BID RF: 0 levothyroxine [Synthroid] 75 mcg tablet 75 mcg PO DAILY RF: 0 budesonide-formoterol [Symbicort] 160-4.5 mcg/actuation HFA aerosol inhaler 2 puff INHALATION BID RF: 0 Spiriva Respimat 2.5 mcg/actuation mist 2 puff INHALATION DAILY RF: 0 Xarelto 2.5 mg tablet 2.5 mg PO BID RF: 0 lorazepam [Ativan] 0.5 mg tablet 0.5 mg PO DAILY PRN (Reason: anxiety) Qty: 2 RF: 0 methylprednisolone acetate [Depo-Medrol] 40 mg/mL suspension 40 mg intra-articular ONCE Qty: 1 RF: 0 lidocaine (PF) 10 mg/mL (1 %) solution 10 mg intra-articular ONCE Qty: 1 RF: 0 spironolactone 25 mg tablet 25 mg PO DAILY Qty: 90 RF: 3 tizanidine 4 mg tablet 4 mg PO BID PRN (Reason: muscle spasticity) Qty: 60 RF: 2 pregabalin [Lyrica] 150 mg capsule 150 mg PO BID Qty: 60 RF: 2 bumetanide 2 mg tablet 2 mg PO BID Qty: 30 RF: 0 Discharge Orders: Discharge ED (Routine); Ordered 10/25/20 Ordered By: Kane Hartman Referrals: Carla Manriquez MD [Primary Care Provider] - Discharge Diet: Usual diet Discharge Activity: Increase activity as tolerated Patient Instructions: Osteoarthritis (ED), Opioid Safety Activity Restrictions/Additional Instructions: Activity as tolerated. Continue with medication as directed. Use hydrocodone for breakthrough pain. Use acetaminophen 650 mg 3 times a day for control of pain. Follow-up with primary care in 1 week for recheck. Return to the emergency department for new concerns. 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
--- NOTE | 2020-10-25 13:08 | XR_ITS ---
WS: [id number] Exam: XR knee LT 3V* [id number] Date/Time of Exam: 10/25/2020 1:11 PM Reason For Exam: injury No acute fracture or dislocation. Moderate tricompartmental DJD noted. No joint effusion. Spurring of the anterior patella and anterior tibial tubercle. Surgical clips seen in the medial soft tissues of the upper tibia. XR/XR knee LT 3V* [id number] IMPRESSION: 1. Tricompartmental degenerative change. No fracture or dislocation.
[2020-10-25] MEDS: HYDROcodone-acetaminophen 7.5-325 mg Tablet 1 TAB PO (13:22)
[2020-10-25 13:55] VITALS: BP 141/73; PULSE 18; RESP 18; TEMP 36.6; O2SAT 96
== END 2020-10-25 13:57 | disposition home or self-care (01) ==
PROVIDERS: Emergency Provider Nurse Practitioner Family; PCP Family Medicine
DX: M17.12 Unilateral primary osteoarthritis, left knee (principal); Z79.82 Long term (current) use of aspirin; Z79.84 Long term (current) use of oral hypoglycemic drugs; I25.10 Atherosclerotic heart disease of native coronary artery without angina pectoris; I48.91 Unspecified atrial fibrillation; I11.0 Hypertensive heart disease with heart failure; I50.9 Heart failure, unspecified; E11.9 Type 2 diabetes mellitus without complications; E78.5 Hyperlipidemia, unspecified; Z95.0 Presence of cardiac pacemaker; Z95.1 Presence of aortocoronary bypass graft; F17.210 Nicotine dependence, cigarettes, uncomplicated
CPT/HCPCS: 73562; 99283

== ENCOUNTER 2020-11-09 13:12 | Outpatient (CLI) | payer OTHER, SELFPAY ==
--- NOTE | 2020-11-09 13:00 | CT_ITS ---
WS: [id number] CT LUMBAR SPINE TECHNIQUE: Noncontrast CT of the lumbar spine with coronal and sagittal reformatted images. CLINICAL INFORMATION: M54.16 - Radiculopathy, lumbar region COMPARISON: None. DLP: 2153.[address] scans at [facility] use at least one of these dose optimization techniques: automat ed exposure control; mA and/or kV adjustment per patient size (includes targeted exams where dose is matched to clinical indication); or iterative reconstruction. FINDINGS: Mild lumbar curve convex left. No acute compression. Grade 1 anterolisthesis L5 on S1 measuring 3 mm. L1-L2: No significant disc bulging. Moderate facet arthropathy. Spinal canal and foramen are patent. L2-L3: Mild disc bulging with slight narrowing subarticular recess bilaterally. Moderate facet arthro aaron. Spinal canal and foramen are patent. L3-L4: Mild disc bulging with slight effacement of ventral thecal sac. Spinal canal and foramen are p atent. Advanced facet arthropathy. Foramen are patent. L4-L5: Mild disc bulging with osteophytic ridging. Advanced facet arthropathy. Left foraminal disc os teophyte protrusion impinges the proximal exiting left L4 nerve root with moderate left foraminal asher rowing. Right foramen is patent. Advanced facet arthropathy. L5-S1: Mild disc osteophytic ridging. Advanced facet arthropathy worse in the right. Spinal canal and foramen are patent. Partially visualized aortic endograft with biiliac extension. Visualized pelvic bony structures: Normal. Paravertebral soft tissues: Normal. CT/CT lumbar spine wo con* [id number] IMPRESSION: 1. Mild lumbar curve. Grade 1 anterolisthesis L5 on S1. 2. Left foraminal disc osteophyte protrusion L4-5 impinges the proximal exitin g left L4 nerve root with moderate left foraminal narrowing. 3. Advanced facet arthropathy L4-L5 and L5-S1 worse in the right. 4. Partially visualized aortic endograft with biiliac extension.
== END 2020-11-09 13:13 | disposition home or self-care (01) ==
PROVIDERS: PCP Family Medicine; Visit Provider Anesthesiology Pain Medicine
DX: M54.16 Radiculopathy, lumbar region (principal); M25.78 Osteophyte, vertebrae; M51.26 Other intervertebral disc displacement, lumbar region; M47.816 Spondylosis without myelopathy or radiculopathy, lumbar region; M47.817 Spondylosis without myelopathy or radiculopathy, lumbosacral region
CPT/HCPCS: 72131

== ENCOUNTER → 2020-11-11 10:50 | Outpatient (BNVA) | payer OTHER, SELFPAY | PROVIDERS: PCP Family Medicine; Visit Provider Anesthesiology Pain Medicine | DX: G89.29 Other chronic pain (principal); M54.9 Dorsalgia, unspecified; M47.816 Spondylosis without myelopathy or radiculopathy, lumbar region; F17.210 Nicotine dependence, cigarettes, uncomplicated | CPT/HCPCS: 99215 ==

== ENCOUNTER 2020-11-15 07:51 | Outpatient (CLI) | payer OTHER, SELFPAY ==
[2020-11-15 08:06] VITALS: BMI 37.1
--- NOTE | 2020-11-15 08:08 | ECG_ITS ---
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 Interpretive Statements NAME OF STUDY: LEXISCAN SESTAMIBI STRESS TEST INDICATION: Chest Pain PROCEDURE: At the baseline, the EKG revealed normal sinus rhythm with poor R wave progression ;diffuse nonspecific T wave changes. Left axis deviation.. The baseline blood pressure was 157/95 mm Hg with a heart rate of 61 beats/min. Lexiscan was infused over a period of 20 seconds. A total of 0.4 milligrams of Lexiscan was infused. The stress phase was continued for a total of 5 minutes. Heart rate at the end of the stress phase was 60 with a blood pressure 148/67. The EKG at the peak infusion revealed no significant changes. Sestamibi was injected 20 seconds after the Lexiscan infusion. Blood pressure at the end of the recovery phase was 149/77 with a heart rate of 60 per minute. CONCLUSION: 1. No significant EKG changes with the LexiScan infusion 2. No LexiScan induced chest pain or cardiac arrhythmia 3. Normal blood pressure and heart rate response 4. Sestamibi/sestamibi perfusion scan pending; see separate report. Electronically Signed On 11-18-2020 16:19:50 CDT by Miladys Armstrong M.D. [id number]
--- NOTE | 2020-11-15 08:08 | NMCV_ITS ---
NM josette perf SPECT r/s* [id number] Art Madrigal Age: 65 Gender: M : 1955 Exam Date: 11/15/2020 09:05 Ordering Phys: Miladys Armstrong MD ([email or web address]) Technologist: FAWAD Caldwell Exam Location: [facility] [address] Indications: SHORTNESS OF BREATH STRESS TEST Please see separate stress test report in [facility] for full findings IMAGE PROTOCOL Rest/Stress 1 Lexiscan Day Radiopharmaceutical Dose (mCi) Administration Site Administered by Rest: Tc-99m 10.6 IV FAWAD Molina Sestamibi Stress:Tc-99m 33.0 IV FAWAD Molina Sestamibi Rest: 15-Nov-2020 60 Discovery 630 Stress: 15-Nov-2020 30 Discovery 630 0.4mg Lexiscan. Supine position only as patient was unable to lay prone. SPECT RESULTS Technical Quality: Excellent Raw Data Analysis: Soft tissue attenuation Image Corrections: No attenuation or motion correction applied Summed Stress Score: 11 Summed Rest Score: 8 Summed Difference Score: 3 PERFUSION FINDINGS Small to moderate area of decreases uptake in the mid and apical anterior and all the apical segments, including the LV apex. Some reversibility was noted in the mid anterior and apical inferior region FUNCTIONAL RESULTS (calculated via Gated SPECT) Stress Image LV EF (%): 42 Stress EDV (mL):277 TID: 0.99 Stress ESV (mL):160 FUNCTIONAL FINDINGS: Segmental wall motion analysis revealing severe hypokinesia of the mid and apical anterior and the septal segments. IMPRESSIONS 1. Myocardial perfusion imaging revealing small to moderate area of moderately decreased tracer uptake in the mid and apical anterior and all the apical segments including the LV apex with some reversibility in the mid anterior and apical inferior regions, suggestive of myocardial scarring with ischemia in the distribution of the left anterior descending artery predominantly with some involvement of the distal right coronary artery. 2. Diminished LV ejection fraction of 42%. 3. Multiple wall motion normalities as mentioned above. 4. Moderately dilated LV cavity with an end-systolic volume of 160 mL No similar previous studies are available for comparison Dr Miladys Armstrong MD [facility] (Electronically Signed) Final Date: 15 November 2020 12:53 S
[2020-11-15] MEDS: regadenoson 0.4 Mg/5 ml Syringe IVP (10:18)
[2020-11-15 10:37] VITALS: BP 149/77; PULSE 60
== END 2020-11-15 07:52 | disposition home or self-care (01) ==
LOC: CDL 07:52
PROVIDERS: PCP Family Medicine; Visit Provider Internal Medicine Cardiovascular Disease
DX: R07.9 Chest pain, unspecified (principal)
CPT/HCPCS: 78452; 93017; A9500; J2785

== ENCOUNTER → 2020-11-29 13:14 | Outpatient (BNVA) | payer OTHER, SELFPAY | PROVIDERS: PCP Family Medicine; Visit Provider Anesthesiology Pain Medicine | DX: Z01.812 Encounter for preprocedural laboratory examination (principal); E11.9 Type 2 diabetes mellitus without complications; M47.816 Spondylosis without myelopathy or radiculopathy, lumbar region; M54.9 Dorsalgia, unspecified; F17.210 Nicotine dependence, cigarettes, uncomplicated | CPT/HCPCS: 64635; 64636 ==

== ENCOUNTER → 2020-12-08 11:39 | Outpatient (BNVA) | payer OTHER, SELFPAY | PROVIDERS: PCP Family Medicine; Referring Provider Internal Medicine Cardiovascular Disease; Visit Provider Internal Medicine Cardiovascular Disease | DX: Z01.818 Encounter for other preprocedural examination (principal); I65.21 Occlusion and stenosis of right carotid artery; I25.118 Atherosclerotic heart disease of native coronary artery with other forms of angina pectoris; Z20.822 Contact with and (suspected) exposure to COVID-19; R06.02 Shortness of breath; Z79.01 Long term (current) use of anticoagulants | CPT/HCPCS: 80048; 85025; 85610; 86850; 86900; 87635 ==

== ENCOUNTER 2020-12-13 08:02 | Day surgery (SDC) | payer OTHER, SELFPAY ==
[2020-12-13] VITALS (15 sets, daily range): BP systolic 126–157; BP diastolic 55–84; PULSE 60–68; RESP 13–20; TEMP 36.9; O2SAT 90–98; BMI 37.3
--- NOTE | 2020-12-13 07:30 | XACV_ITS ---
Ht: 201 cm Wt: 151 kg BSA: 2.94 m2 Gender: Male : 1955 Any Known Allergies: Other Exam Priority: Routine Procedure(s): Procedure Description: Diagnostic procedure Procedure Description: Left Heart Catheterization Procedure Description: Coronary Angiography Diagnostic Cath Status: Elective Diagnostic Findings * The left main appears to be totally occluded near the ostium. * The right coronary artery also appeared to be totally occluded at the ostium. * Sequential venous graft to the diagonal/obtuse marginal artery was found to be widely patent with no significant stenotic lesions. * Saphenous venous graft to the right coronary artery is subtotally occluded with some trickling of flow. The venous graft appears to be diffusely diseased. * The left internal mammary artery graft to the left artery descending artery was found to be patent. The PRADHAN itself was found to be very tortuous. No significant stenotic lesions were noted. Conclusions 1. Patient has prior CABG. 2. This is a 65-year-old white male with history of hypertension, diabetes, dyslipidemia, atrial fibrillation, status post four-vessel coronary bypass surgery approximately 15 years ago, is present with complaints of chest pain. He had a myocardial perfusion imaging which revealed areas of reversible and reversible defects. Ischemia was found to be mostly in the distribution of the left anterior descending artery with some involvement of the right coronary artery. Because of the patient's ongoing worsening symptoms, in order to further evaluate his coronary status as well as the graft status, a cardiac catheterization was recommended. Patient underwent left heart catheterization with left and right coronary angiogram and graft angiogram today. The findings are as follows.. 3. Left main was totally occluded near the ostium. The right coronary artery was found to be flush occluded at the ostium. The PRADHAN to the LAD was found to be patent. Sequential venous graft to diagonal/obtuse marginal artery also was found to be patent. The venous graft to the distal RCA was found to be subtotally occluded with some trickling of flow into the graft. The graft was found to be diffusely diseased.. 4. I reviewed and discussed the cardiac residual data with the Dr. Heath. Based on the above findings, it was thought to be appropriate to optimize medical treatment at this point. The femoral arteriotomy site was closed with a Perclose device, by Dr. Heath. Patient was transferred back to [facility] for stable condition. Recommendations * Continue current medical management and risk factor modification. Diagnostic RX Recommendation: medical therapy and/or counseling LV EDP: 18 mmHg Left Ventriculography Findings: * The LV gram was not performed. LVEDP was 18 mmHg. Pressures Phase:Rest AO : 114 / 69 ( 87 ) @ 8:45:00 AM LV : 112 / -5 / 18 @ 8:57:00 AM Clinical Evaluation EBL: 5mL-10mL Procedural Details Procedure Consent Obtained. Pre-Procedure Time Out. Identified patient by full name and date of as verbalized by the patient/guarantor. Does the consent match the physician's order: Yes. Accurate & Complete Informed Consent: Yes. Inpatient/Outpatient History & Physical on Chart: Yes. If H&P is completed, is and addenduem needed: N/A; If yes, is the addendum complete: N/A. Visualize and Verify Site with Patient/Guarantor: N/A. Relevant Radiology Images available: Yes. Pre-op teaching completed and patient verbalized understanding. The risks, benefits, and alternatives of sedation and/or procedure were discussed by physician. The patient agrees to continue. Procedure started. Correct patient, site and procedure confirmed by cath team. PERRLA. Strong, equal hand rec therapist bilaterally. Lungs clear x 5 lobes. IV Site on Arrival: 20 gauge in the left anticubital. IV Fluids: 0.9% NaCl at KVO. 0 mL infused prior to agriculture laboratory technician. Pre Procedural Pulses: bilateral dorsalis pedis was 2+. Pre Procedural Pulses: bilateral posterior tibial was 1+. Pre Procedural Pulses: bilateral radial was 3+. Oxygen started at 2liters/min via nasal canula. bilateral groins was prepped with chloroprep then draped in the usual sterile fashion. Physician notified. Equipment: 6F - Femoral. Cardiac Cath Pack. ACIST Manifold Kit Model BT 2000. Heparinized Saline (2 units/mL), 1000 mL bag. Kit, Micropuncture. Baseline sample Acquired. HR: 61 BPM. Physician arrived. Physician scrubbed in. Immediate Pre-Procedure Time Out. Correct Patient: Yes; Correct Procedure: Yes; Correct Site: Yes; Correct Patient Position: Yes; Correct Supplies: Yes; Dried Flammable Prep: Yes; Blood Products Available: No;. Lidocaine 1% infiltrated to the right groin. Arterial access obtained with micropuncture set. A 5 romanian JL4 catheter in over wire. Catheter out. A 5 romanian JL5 catheter in over wire. Multiple views taken of left coronary artery. Catheter out. A 5 romanian JR4 catheter in over wire. SVG's to Diaganol visualized and patent. exchange wire inserted. Inventory is Standard Exchange J-Tip Guidewire .035 260cm. wire out. PRADHAN to LAD visualized. wire inserted. Catheter out. A 5 romanian IM catheter in over wire. Catheter removed over the exchange wire. A 5 romanian RCB catheter in over wire. SVG to RCA occluded. Dr. Heath called. Catheter out. A 5 romanian Angled Pig catheter in over wire. EDP Sample taken: LV Off; HR: 60 BPM; SpO2: 90%. EDP Sample taken: LV 112/-6,18; HR: 60 BPM; SpO2: 95%. Pullback taken: LV Off; AO Off; Mean: , Peak to Peak: , SEP: ; HR: 60 BPM; SpO2: 93%. Side port of sheath attached to Normal Saline flush at KVO to maintain patency. Dr. Heath arrived. ACT drawn. Results 109 seconds. Therapeutic limits - pre-heparin administration 90-150 seconds and monitoring heparin during a vascular procedure >[address] Heath scrubbed in to perform intervention. groin shot. [facility] Clinical Fraility Score: 4: Vulnerable. Cotton Chopper Indications: Worsening Angina. Chest Pain Symptom Assessment: Atypical Angina. Cardiovascular Instability: No. Post-op diagnosis: total occluded svg to rca. A Mynx was successful obtaining hemostatsis at the Right Femoral artery insertion site. Mynx placed without complications. No signs or symptoms of hematoma noted. Sterile dressing applied per usual sterile fashion. Post Procedure: Pulses reassessed and unchanged. PERRLA. Strong, equal hand rec therapist bilaterally. No VTE prophylaxis required. Fluoro: 16:06. Contrast type used: Omnipaque 300 mgI/mL, 500 mL bottle. [id number]. Complications: none. Estimated blood loss: 5mL-10mL. Medication's Wasted: Lidocaine 1% = 2 mL. Medication's Wasted: Heparin = 4500 units. Total IV fluids: 75 mL. Patient transferred by bed to CPRU. Procedure completed. Vital chart was stopped. Access Site Site: Right Femoral artery Sheath Size: 5 Fr Hemostasis Method: Mynx Hemostasis Success: Successful Procedure Medications Start: 9:17 AM Stop: 9:17 AM Medication: Fentanyl Amount: 50 mcg Route: I.V. Start: 9:23 AM Stop: 9:23 AM Medication: Versed Amount: 1 mg Route: I.V. Start: 9:17 AM Stop: 9:17 AM Medication: Versed Amount: 1 mg Route: I.V. Start: 9:27 AM Stop: 9:27 AM Medication: Heparin Amount: 1500 units Route: I.V. Start: 9:31 AM Stop: 9:31 AM Medication: Versed Amount: 1 mg Route: I.V. Start: 9:31 AM Stop: 9:31 AM Medication: Fentanyl Amount: 50 mcg Route: I.V. Start: 9:53 AM Stop: 9:53 AM Medication: Versed Amount: 1 mg Route: I.V. I, the attending physician, have reviewed and verified all procedure medications. Yes, all medications given per verbal order History/Risk Factors Hypertension: Yes Dyslipidemia: Yes Tobacco Use: Current/Recent(w/in 1 year) Prior Interventions CABG: Yes Report Signatures Finalized by Dr Miladys Armstrong MD [facility] on 12/13/2020 11:44 PM
[2020-12-13] MEDS: diphenhydrAMINE 50 mg Capsule PO (08:18)
--- NOTE | 2020-12-13 09:13 | W.PM.OPSUD ---
Surgery/Procedure H&P Update DATE OF PROCEDURE: December 13, 2020 DATE H&P PERFORMED: 11/22/20 H&P UPDATE INFORMATION: I have reviewed H&P completed within last 30 days, I have examined patient prior to procedure and No changes to prior documentation PREOP DIAGNOSIS: ASHDASHD PRIMARY INDICATION FOR PROCEDURE: Chest pain/abnormal MPI PLANNED PROCEDURE: Operation Date: 12/13/20 08:30 Proposed Procedures p left Cardiac Catheterization 91851 i25.10(Left) - Miladys Armstrong MD PATIENT REASSESSED PRIOR TO SEDATION, WITH NO CHANGE NOTED: Yes PHYSICAL EXAM: alert, oriented x 3 and regular rate & rhythm AIRWAY EVAL/ANESTHESIA PLAN: normal airway, see other exam findings, ASA III, Monitored Anesthesia, Local Anesthesia, Risks, benefits & alternatives of sedation and/or procedure discussed and Patient agrees to continue as planned
--- NOTE | 2020-12-13 10:45 | PC.NURSE ---
received pt from blood bank laboratory professional post diagnostic angiogram. mynx closure in place. dressing in place right groin. pt complains of no pain. pt educated on laying still. hooked to monitor and will continue vitals per protocol.
--- NOTE | 2020-12-13 13:49 | PC.NURSE ---
dr fernandez verbal order to change dose of isosorbide mononitrate from 30 mg bid to 60 mg bid. jeferson in called and stated she will get new script to [facility].
== END 2020-12-13 14:10 | disposition home or self-care (01) ==
PROVIDERS: PCP Family Medicine; Visit Provider Internal Medicine Cardiovascular Disease
DX: I25.10 Atherosclerotic heart disease of native coronary artery without angina pectoris (principal); I25.82 Chronic total occlusion of coronary artery; R07.9 Chest pain, unspecified; Z95.1 Presence of aortocoronary bypass graft; I10 Essential (primary) hypertension; E11.9 Type 2 diabetes mellitus without complications; E78.5 Hyperlipidemia, unspecified; I48.91 Unspecified atrial fibrillation
CPT/HCPCS: 36415; 85347; 93459; C1760; C1769; C1887; C1894; J1644; J2250; J3010; J7030; Q0163; Q9967

== ENCOUNTER → 2020-12-20 09:53 | Outpatient (BNVA) | payer OTHER, SELFPAY | PROVIDERS: PCP Family Medicine; Visit Provider Nurse Practitioner Family | DX: I25.118 Atherosclerotic heart disease of native coronary artery with other forms of angina pectoris (principal); Z95.0 Presence of cardiac pacemaker; I50.9 Heart failure, unspecified; F17.200 Nicotine dependence, unspecified, uncomplicated; Z79.891 Long term (current) use of opiate analgesic | CPT/HCPCS: 80048 ==

== ENCOUNTER → 2020-12-22 13:51 | Outpatient (BNVA) | payer OTHER, SELFPAY | PROVIDERS: PCP Family Medicine; Visit Provider Anesthesiology Pain Medicine | DX: Z01.812 Encounter for preprocedural laboratory examination (principal); E11.9 Type 2 diabetes mellitus without complications; M47.816 Spondylosis without myelopathy or radiculopathy, lumbar region | CPT/HCPCS: 64635; 64636 ==

== ENCOUNTER → 2020-12-28 09:47 | Outpatient (BNVA) | payer OTHER, SELFPAY | PROVIDERS: PCP Family Medicine; Visit Provider Internal Medicine Cardiovascular Disease | DX: I25.118 Atherosclerotic heart disease of native coronary artery with other forms of angina pectoris (principal); I50.9 Heart failure, unspecified | CPT/HCPCS: 80048 ==

== ENCOUNTER 2021-01-02 09:41 | Outpatient (RCR) | payer OTHER, SELFPAY | END 2021-01-31 23:59 | disposition home or self-care (01) | LOC: CR 09:41 | PROVIDERS: PCP Family Medicine; Referring Provider Internal Medicine Cardiovascular Disease; Visit Provider Internal Medicine Cardiovascular Disease | DX: I25.118 Atherosclerotic heart disease of native coronary artery with other forms of angina pectoris (principal); I50.9 Heart failure, unspecified | CPT/HCPCS: 93798 ==

== ENCOUNTER → 2021-01-11 10:19 | Outpatient (BNVA) | payer OTHER, SELFPAY | PROVIDERS: PCP Family Medicine; Visit Provider Anesthesiology Pain Medicine | DX: M47.816 Spondylosis without myelopathy or radiculopathy, lumbar region (principal); M51.36 Other intervertebral disc degeneration, lumbar region; M79.604 Pain in right leg; M79.605 Pain in left leg | CPT/HCPCS: 99214 ==

== ENCOUNTER 2021-02-02 13:36 | Outpatient (RCR) | payer OTHER, SELFPAY | END 2021-03-02 23:59 | disposition home or self-care (01) | LOC: CR 13:36 | PROVIDERS: PCP Family Medicine; Referring Provider Internal Medicine Cardiovascular Disease; Visit Provider Internal Medicine Cardiovascular Disease | DX: I50.9 Heart failure, unspecified (principal) | CPT/HCPCS: 93798 ==

== ENCOUNTER 2021-02-13 12:00 | Outpatient (CLI) | payer OTHER, SELFPAY ==
--- NOTE | 2021-02-13 12:00 | USCV_ITS ---
Art Madrigal Age: 65 Gender: M : 1955 Exam Date: 02/13/2021 12:23 Ordering Phys: Miladys Armstrong MD ([email or web address]) Technologist: Paty Gonzalez Exam Location: [facility] [place] Indication: OCCLUSION AND STENOSIS OF CAROTID ARTERIES Risk Factors: Previous Vascular Surgery: Right Brachial BP: / Left Brachial BP: / Right Left Velocity (cm/s) Spectral Plaque Velocity (cm/s) Spectral Plaque Syst/Diast Broadening Syst/Diast Broadening 86.90/ 15.05 Prox CCA 102.60/ 20.50 90.50/ 22.90 Mid CCA 79.10 / 19.80 78.20/ 21.00 Distal CCA 68.70 / 21.80 152.75/47.00 Prox ICA 282.80/ 57.10 206.80/47.30 Mid ICA 117.30/ 35.20 241.55/56.55 Distal ICA 105.50/ 30.80 208.70 ECA 233.20 2.96 ICA/CCA 4.10 Antegrade Vertebral Antegrade 35.40/ 11.80 cm/s 41.10/ 14.50 cm/s Bi Subclavian Bi 166.9 246.5 0 0 FINDINGS Moderate to heavy plaques of the right bifurcation and internal carotid artery. Moderate to heavy diffuse plaques in the right internal carotid artery Heavy heterogeneous plaques of the left bifurcation and proximal lower carotid artery Antegrade flow in the vertebral arteries bilaterally Limited velocities in the external carotid arteries bilaterally Elevated velocity in the left subclavian artery CONCLUSIONS 1. Heavy heterogeneous plaques at the left bifurcation and proximal lower carotid artery with elevated velocities, suggesting greater than 70% stenosis. 2. Moderate to heavy plaques at the right bifurcation and internal carotid artery with elevated velocity, suggesting 50 to 69% stenosis. The distal internal carotid artery on the right side also appears to have hemodynamically significant stenosis. 3. Elevated velocities in the external carotid arteries on both sides, suggestive hemodynamically significant stenosis. 4. Elevated velocity in the left subclavian artery, possibly related to tortuosity. Consider CTA, to better evaluate the distal ICA Mi Roach previous studies available for comparison Dr Miladys Armstrong MD [facility] (Electronically Signed) Final Date: 16 February 2021 23:21 S
== END 2021-02-13 12:01 | disposition home or self-care (01) ==
LOC: US 12:02
PROVIDERS: PCP Family Medicine; Visit Provider Internal Medicine Cardiovascular Disease
DX: I77.9 Disorder of arteries and arterioles, unspecified (principal); I65.23 Occlusion and stenosis of bilateral carotid arteries
CPT/HCPCS: 93880

== ENCOUNTER 2021-02-14 09:35 | Emergency (ER) | payer OTHER, MEDICARE, SELFPAY ==
--- NOTE | 2021-02-14 09:38 | XR_ITS ---
WS: [id number] XR chest 1V portable [id number] REASON FOR EXAM: chest pain FINDINGS: Previous sternotomy, coronary artery bypass surgery. Battery pack overlying the left lateral upper chest with transvenous right subclavian vein leads to t he right atrium and right ventricular apex. The heart is mildly enlarged. Compared to multiple previous examinations there are subtle interstitial changes in both lower lungs that could represent an early congestive heart failure or pneumonitis. Follow-up examination recommen ded. XR/XR chest 1V portable [id number] IMPRESSION: Subtle findings in the lung bases as above. Follow-up chest x-ray recommended.
--- NOTE | 2021-02-14 09:38 | ECG_ITS ---
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 Measurements Intervals [place] Rate: 64 P: 241 AR: 218 QRS: -39 QRSD: 122 T: 87 QT: 462 QTc: 478 Interpretive Statements ELECTRONIC ATRIAL PACEMAKER LEFT AXIS DEVIATION [QRS AXIS < -30] MODERATE INTRAVENTRICULAR CONDUCTION DELAY [110+ ms QRS DURATION] NONSPECIFIC ST & T-WAVE ABNORMALITY PROLONGED QT INTERVAL Compared to ECG 03/21/2020 18:51:33 Intraventricular conduction delay now present T-wave abnormality now present Prolonged QT interval now present Sinus rhythm no longer present Myocardial infarct finding no longer present Electronically Signed On 02-14-2021 23:11:56 CDT by Miladys Armstrong M.D. [id number]
[2021-02-14 09:47] VITALS: BP 123/57; PULSE 61; RESP 20; TEMP 36.6; O2SAT 98; BMI 36.0
[2021-02-14 10:15] VITALS: BP 129/51; PULSE 60; RESP 15; O2SAT 99
[2021-02-14 10:27] LABS: Basophils # 0.1 10^3/uL (0.0-0.1); Basophils % 0.5 %; Eosinophils # 0.2 10^3/uL (0.0-0.8); Hematocrit 32.1 % (42.0-52.0); Lymphocytes # 1.5 10^3/uL (0.8-4.8); Lymphocytes % 16.5 %; Mean Corpuscular Hemoglobin 22.4 pg (28.0-34.0); Mean Corpuscular Volume 79.9 fl (80-94); Mean Platelet Volume 10.7 fL (7.4-10.4); Monocytes # 0.6 10^3/uL (0.2-0.9); Monocytes % 6.9 %; Neutrophils # 6.88 10^3/uL (1.8-7.7); Neutrophils % 73.7 %; Nucleated Red Blood Cells % 0 %; Platelet Count 438 10^3/cmm (130-400); Red Blood Count 4.02 10^6/uL (4.1-5.3); Red Cell Distribution Width 20.2 % (12.1-15.1); White Blood Count 9.3 10^3/uL (4.0-10.0)
--- NOTE | 2021-02-14 10:31 | W.ED.CHESTPA ---
HPI - Chest Pain General: Chief Complaint: Chest Pain Stated Complaint: Chest Pain Time Seen by Provider: 02/14/21 09:56 History of Present Illness: HPI narrative: 65-year-old male with a known history of coronary disease is being treated medically. He still gets chest pain on a fairly regular basis. He states he gets about 2-3 episodes a week requiring sublingual nitro. Earlier this summer about a month ago he had a angiogram done which showed diffuse disease there is no intervention done was decided to treat medically. He went into see his primary care doctor today at the [facility] and had chest discomfort and they advised him to come here. He did take a baby aspirin this morning he is not taken any sublingual nitro at the time I seen the patient symptoms have completely resolved. He had some mild shortness of breath with it MD complaint: chest pain Pertinent past history: coronary artery disease Onset (ago): minute(s) Timing of current episode: episodic Prior episodes: Yes Onset: during exertion Pain location: substernal and left chest Severity: similar to previous episodes Quality: aching and heaviness Relieving factors: nothing Exacerbating factors: exertion Associated symptoms: Reports diaphoresis and dyspnea; Deny abdominal pain, fever(s), leg edema, nausea, palpitations, sense of impending doom, syncope or vomiting Treatment prior to arrival: aspirin Review of Systems Const: Reports: diaphoresis; Denies: fever(s) ENMT: Denies: throat pain, ear or mastoid pain, nasal discharge or nasal congestion Card: Denies: palpitations or syncope Resp: Reports: dyspnea GI: Denies: abdominal pain, nausea or vomiting : Denies: flank pain, dysuria, urinary frequency or urinary urgency Skin/Breast: Denies: rash or pruritus PFSH ED PFSH: Medical History Abdominal aortic aneurysm (AAA) 3.0 cm to 5.5 cm in diameter in male Allergic rhinitis ASHD (arteriosclerotic heart disease) Atherosclerotic heart disease of [place] coronary artery with other forms of angina pectoris Atrial fibrillation Cardiomyopathy CHF (congestive heart failure) DDD (degenerative disc disease) Diabetes Hyperlipidemia Hypertension Opioid contract exists Pacemaker Presence of permanent cardiac pacemaker Smoker Surgical History History of atherectomy History of cardiac radiofrequency ablation Hx of CABG S/P AAA repair October 2017 at the [facility] Family History Father Anesthesia complication Cancer Mother CAD (coronary artery disease) Chronic kidney disease (CKD) Brother Diabetes Grandmother Lung disease Denies family history of Clotting disorder Dementia Suicide Bleeding disorder Stroke Social History Alcohol intake: never Lives independently: Yes History of recent travel: No Physical Exam Const: COMMON NORMALS: no acute distress GENERAL APPEARANCE: cooperative and comfortable ORIENTATION/CONSCIOUSNESS: Yes awake, Yes oriented to person, Yes oriented to place and Yes oriented to time HENMT: COMMON NORMALS: normocephalic, atraumatic and hearing grossly normal bilaterally HEAD & SCALP: normocephalic and atraumatic Neck/C-Spine: COMMON NORMALS: no JVD Resp: COMMON NORMALS: normal respiratory effort, No retractions, No use of accessory muscles and clear to auscultation bilaterally AUSCULTATION: clear to auscultation bilaterally Cardio: COMMON NORMALS: no JVD, regular rate, regular rhythm and No murmurs present (Cardio) RATE: regular rate RHYTHM: regular rhythm GI: COMMON NORMALS: Soft to palpation and No hepatosplenomegaly present AUSCULTATION: Yes normoactive bowel sounds PALPATION: Yes Soft to palpation, No Tenderness to palpation present (GI), No Guarding due to palpation present (GI) and Yes No hepatosplenomegaly present Extremity: COMMON NORMALS: normal to inspection, capillary refill normal, no clubbing, cyanosis or edema, no calf tenderness and no pedal edema Neuro: SENSORIUM/ORIENTATION: Yes oriented to person, Yes oriented to place and Yes oriented to time Skin: COMMON NORMALS: no rashes or lesions noted GENERAL SKIN EXAM: no rashes or lesions noted Course Vital Signs: Vital signs: Vital Signs Temperature 98 F 02/14/21 09:47 Pulse Rate 60 02/14/21 14:35 Respiratory Rate 15 02/14/21 14:35 Blood Pressure 152/59 02/14/21 14:35 Pulse Oximetry 96 02/14/21 14:35 MDM - Chest Pain MDM Narrative: Medical decision making narrative: Reviewed labs and EKGs and imaging on the chart. Discussed the EKG with Dr. Hinds. He is not concerned about the QT prolongation patient has no further symptoms he like to go home he gets recurring episodes of angina. An angiogram earlier this year was decided because of his multivessel disease to treat him medically. He is symptom-free now wishes to go home encourage him to follow-up with Dr. Armstrong later this week return if has further problems. Lab Data: Labs: Lab Results 02/14/21 02/14/21 02/14/21 Range/Units 10:15 10:15 10:15 WBC 9.3 (4.0-10.0) 10^3/ uL RBC 4.02 L (4.1-5.3) 10^6/u L Hgb 9.0 L (11.7-16.6) g/dL Hct 32.1 L (42.0-52.0) % MCV 79.9 L (80-94) fl MCH 22.4 L (28.0-34.0) pg MCHC 28.0 L (30.0-36.0) g/dL RDW 20.2 H (12.1-15.1) % Plt Count 438 H (130-400) 10^3/c mm MPV 10.7 H (7.4-10.4) fL Neut % (Auto) 73.7 % Lymph % (Auto) 16.5 % [place] % (Auto) 6.9 % Eos % (Auto) 2.0 % Baso % (Auto) 0.5 % Neut # (Auto) 6.88 (1.8-7.7) 10^3/u L Lymph # (Auto) 1.5 (0.8-4.8) 10^3/u L [place] # (Auto) 0.6 (0.2-0.9) 10^3/u L Eos # (Auto) 0.2 (0.0-0.8) 10^3/u L Baso # (Auto) 0.1 (0.0-0.1) 10^3/u L Nucleated RBC % (a uto) 0 % Nucleated RBCs # 0.0 /100WBC Sodium 140 (136-145) mmol/L Potassium 4.1 (3.5-5.1) mmol/L Chloride 100 (98-107) mmol/L Carbon Dioxide 29 (22-29) mmol/L Anion Gap 15.1 (5-19) BUN 18 (8-23) mg/dL Creatinine 1.1 (0.7-1.2) mg/dL GFR Calculation 67.6 L (90-130) mL/min Glucose 114 (65-115) mg/dL Calculated Osmolal ity 293 (285-295) mOsm/k g Calcium 8.5 (8.5-10.5) mg/dL Total Bilirubin 0.4 (0.15-1.2) mg/dL AST 34 (0-40) U/L ALT 47 H (0-41) U/L Alkaline Phosphata se 119 (40-130) IU/L Troponin T Baselin e 14 (0-15) ng/L Troponin T 120 Min sun'aq (0-15) ng/L Delta Troponin T (0-10) ABS# Total Protein 7.1 (6.6-8.7) g/dL Albumin 4.0 (3.5-5.2) g/dL Globulin 3.1 (1.3-4.6) g/dL 02/14/21 Range/Units 12:46 WBC (4.0-10.0) 10^3/ uL RBC (4.1-5.3) 10^6/u L Hgb (11.7-16.6) g/dL Hct (42.0-52.0) % MCV (80-94) fl MCH (28.0-34.0) pg MCHC (30.0-36.0) g/dL RDW (12.1-15.1) % Plt Count (130-400) 10^3/c mm MPV (7.4-10.4) fL Neut % (Auto) % Lymph % (Auto) % [place] % (Auto) % Eos % (Auto) % Baso % (Auto) % Neut # (Auto) (1.8-7.7) 10^3/u L Lymph # (Auto) (0.8-4.8) 10^3/u L [place] # (Auto) (0.2-0.9) 10^3/u L Eos # (Auto) (0.0-0.8) 10^3/u L Baso # (Auto) (0.0-0.1) 10^3/u L Nucleated RBC % (a uto) % Nucleated RBCs # /100WBC Sodium (136-145) mmol/L Potassium (3.5-5.1) mmol/L Chloride (98-107) mmol/L Carbon Dioxide (22-29) mmol/L Anion Gap (5-19) BUN (8-23) mg/dL Creatinine (0.7-1.2) mg/dL GFR Calculation (90-130) mL/min Glucose (65-115) mg/dL Calculated Osmolal ity (285-295) mOsm/k g Calcium (8.5-10.5) mg/dL Total Bilirubin (0.15-1.2) mg/dL AST (0-40) U/L ALT (0-41) U/L Alkaline Phosphata se (40-130) IU/L Troponin T Baselin e (0-15) ng/L Troponin T 120 Min sun'aq 12.67 (0-15) ng/L Delta Troponin T -1.33 L (0-10) ABS# Total Protein (6.6-8.7) g/dL Albumin (3.5-5.2) g/dL Globulin (1.3-4.6) g/dL Discharge Plan Discharge Patient Disposition: Home Clinical Impression: Stable angina, ASHD (arteriosclerotic heart disease), Diabetes, Hypertension Condition: Stable Prescriptions: No Action cetirizine [Zyrtec] 10 mg tablet 10 mg PO DAILY RF: 0 pantoprazole [Protonix] 40 mg tablet,delayed release (DR/EC) 40 mg PO DAILY RF: 0 calcium carbonate [Calcium 500] 500 mg calcium (1,250 mg) tablet 500 mg PO DAILY RF: 0 allopurinol 300 mg tablet 300 mg PO DAILY RF: 0 multivitamin Tablet 1 tab PO DAILY RF: 0 glipizide 10 mg tablet 10 mg PO BID RF: 0 acarbose 50 mg tablet 25 mg PO TID RF: 0 vitamin B complex [B Complex-Vitamin B12] Tablet 1 tab PO DAILY RF: 0 folic acid 1 mg tablet 2 mg PO DAILY RF: 0 montelukast [Singulair] 10 mg tablet 10 mg PO DAILY RF: 0 insulin glargine 100 unit/mL solution 64 unit SUBCUT BID RF: 0 fluticasone propionate 50 mcg/actuation spray,suspension 1 spray INTRANASAL DAILY RF: 0 albuterol sulfate [ProAir HFA] 90 mcg/actuation HFA aerosol inhaler 1 inh INHALATION QID PRN (Reason: shortness of breath or wheezing) RF: 0 levothyroxine [Synthroid] 75 mcg tablet 75 mcg PO DAILY RF: 0 budesonide-formoterol [Symbicort] 160-4.5 mcg/actuation HFA aerosol inhaler 2 puff INHALATION BID RF: 0 Spiriva Respimat 2.5 mcg/actuation mist 2 puff INHALATION DAILY RF: 0 tizanidine 4 mg tablet 4 mg PO BID PRN (Reason: muscle spasticity) Qty: 60 RF: 2 Xarelto 20 mg tablet 20 mg PO DAILY Qty: 90 RF: 3 isosorbide mononitrate 60 mg tablet extended release 24 hr 60 mg PO BID Qty: 180 RF: 3 amiodarone 200 mg tablet 200 mg PO DAILY Qty: 90 RF: 3 aspirin [Adult Low Dose Aspirin] 81 mg tablet,delayed release (DR/EC) 81 mg PO DAILY Qty: 90 RF: 3 bumetanide 2 mg tablet 2 mg PO BID Qty: 180 RF: 3 gemfibrozil 600 mg tablet 600 mg PO BID Qty: 180 RF: 3 magnesium oxide 400 mg magnesium tablet 400 mg PO BID Qty: 180 RF: 3 metoprolol tartrate 100 mg tablet 100 mg PO BID Qty: 180 RF: 3 nitroglycerin [Nitrostat] 0.4 mg tablet, sublingual 0.4 mg SUBLINGUAL Q5M PRN (Reason: Chest Pain) Qty: 50 RF: 3 omega-3 fatty acids 1,000 mg capsule 1,000 mg PO DAILY Qty: 90 RF: 3 pregabalin [Lyrica] 150 mg capsule 150 mg PO BID Qty: 60 RF: 2 Vitamin D3 50 mcg (2,000 unit) Tablet 50 mcg PO DAILY RF: 0 selenium 100 mcg Tablet 100 mcg PO DAILY RF: 0 Proventil HFA 90 mcg/actuation Hfa Aerosol Inhaler 2 puff INHALATION QID RF: 0 potassium gluconate 595 mg (99 mg) Tablet 595 mg PO DAILY RF: 0 melatonin 10 mg Tablet 10 mg PO BEDTIME RF: 0 Discharge Orders: Discharge ED (Routine); Ordered 02/14/21 Ordered By: Villa Herman Referrals: Carla Manriquez MD [Primary Care Provider] - Patient Instructions: Opioid Safety Activity Restrictions/Additional Instructions: Case management will contact you to get you in for follow-up with Dr. Armstrong within the week. Return to the emergency room for further problems. Coding Level of Care Code ED Vp [employer] for Roxanne Hartman Exam Comprehensive
[2021-02-14 10:53] LABS: Troponin(5th) Baseline 14 ng/L (0-15)
[2021-02-14 10:58] VITALS: BP 136/56; PULSE 60; RESP 17; O2SAT 96
[2021-02-14 10:58] LABS: Alanine Aminotransferase 47 U/L (0-41); Alkaline Phosphatase 119 IU/L (40-130); Anion Gap 15.1 (5-19); Aspartate Amino Transferase 34 U/L (0-40); Blood Urea Nitrogen 18 mg/dL (8-23); Calcium 8.5 mg/dL (8.5-10.5); Carbon Dioxide 29 mmol/L (22-29); Chloride 100 mmol/L (98-107); Globulin 3.1 g/dL (1.3-4.6); Glomerular Filtration Rate 67.6 mL/min (90-130); Glucose 114 mg/dL (65-115); Osmolality Calculated 293 mOsm/kg (285-295); Potassium 4.1 mmol/L (3.5-5.1); Sodium 140 mmol/L (136-145); Total Bilirubin 0.4 mg/dL (0.15-1.2); Total Protein 7.1 g/dL (6.6-8.7)
[2021-02-14 11:38] VITALS: BP 162/64; PULSE 60; RESP 17; O2SAT 95
--- NOTE | 2021-02-14 11:38 | ECG_ITS ---
[facility] Test Date: 2021-02-14 Pat Name: Art Madrigal Department: Room: Gender: Male [employer] Operator: : 1955 Requested By: Sangita Dean Order Number: [id number] [place] MD: Miladys Armstrong M.D. Measurements Intervals [place] Rate: 63 P: 110 GA: 214 QRS: -39 QRSD: 125 T: 202 QT: 477 QTc: 489 Interpretive Statements ELECTRONIC ATRIAL PACEMAKER LEFT AXIS DEVIATION [QRS AXIS < -30] MODERATE INTRAVENTRICULAR CONDUCTION DELAY [110+ ms QRS DURATION] MODERATE T-WAVE ABNORMALITY, CONSIDER ANTERIOR ISCHEMIA [-0.1+ mV T-WAVE IN V3/V4] Compared to ECG 02/14/2021 09:45:50 Possible ischemia now present Prolonged QT interval no longer present T-wave abnormality still present Electronically Signed On 02-14-2021 23:51:03 CDT by Miladys Armstrong M.D. [id number]
[2021-02-14 12:55] VITALS: BP 144/59; PULSE 60; RESP 16; O2SAT 97
[2021-02-14 13:35] LABS: Troponin 5 2HR 12.67 ng/L (0-15); Troponin 5 2HR Delta -1.33 ABS# (0-10)
[2021-02-14 14:35] VITALS: BP 152/59; PULSE 60; RESP 15; O2SAT 96
--- NOTE | 2021-02-15 09:24 | DCPLANNER ---
ready to wear department manager had message to schedule a follow up appointment for patient with [facility]. ready to wear department manager called [facility], spoke with Johana, gave clinic patients information. A follow up appointment was scheduled for , February 16, 2021 at 2:[address] Armstrong. ready to wear department manager called patient and gave patient the appointment information. Patient has [facility] insurance, case management director emailed patients information to September with [facility], for the authorization process to be started.
--- NOTE | 2021-02-24 08:46 | DCPLANNER ---
Patient had a follow up appointment scheduled for 02.16.21 with [facility] - patient did attend appointment.
== END 2021-02-14 14:36 | disposition home or self-care (01) ==
PROVIDERS: Physician Assistant; Emergency Provider Family Medicine; PCP Family Medicine
DX: I25.118 Atherosclerotic heart disease of native coronary artery with other forms of angina pectoris (principal); E11.9 Type 2 diabetes mellitus without complications; Z79.82 Long term (current) use of aspirin; Z79.4 Long term (current) use of insulin; I11.0 Hypertensive heart disease with heart failure; I50.9 Heart failure, unspecified; E78.5 Hyperlipidemia, unspecified; Z95.0 Presence of cardiac pacemaker; Z95.1 Presence of aortocoronary bypass graft
CPT/HCPCS: 71045; 80053; 84484; 85025; 93005; 99283

== ENCOUNTER 2021-03-03 09:29 | Outpatient (RCR) | payer OTHER, SELFPAY | END 2021-04-02 23:59 | disposition home or self-care (01) | LOC: CR 09:29 | PROVIDERS: PCP Family Medicine; Referring Provider Internal Medicine Cardiovascular Disease; Visit Provider Internal Medicine Cardiovascular Disease | DX: I50.9 Heart failure, unspecified (principal) | CPT/HCPCS: 93798 ==

== ENCOUNTER → 2021-03-13 08:43 | Outpatient (BNVA) | payer OTHER, SELFPAY | PROVIDERS: PCP Family Medicine; Visit Provider Anesthesiology Pain Medicine | DX: G89.29 Other chronic pain (principal); M47.816 Spondylosis without myelopathy or radiculopathy, lumbar region; M51.36 Other intervertebral disc degeneration, lumbar region | CPT/HCPCS: 99212; 99213 ==

== ENCOUNTER 2021-03-23 07:50 | Outpatient (CLI) | payer OTHER, SELFPAY ==
--- NOTE | 2021-03-23 08:00 | CT_ITS ---
WS: [id number] CT ANGIOGRAM CEREBRAL AND CAROTID ARTERIES HISTORY: I65.23 - Occlusion and stenosis of bilateral carotid arteries TECHNIQUE: CT angiogram is performed of the carotid and cerebral arteries. During arterial injection imaging is obtained from the skull vertex to the aortic arch in 1.25 mm imaging. Coronal and sagittal reformats are submitted. Additional multi planar reformats of the carotid and cerebral arteries are submitted, MIP imaging also reviewed. NASCET criteria utilized. [facility] at least one of these dose optimization techniques: automated exposure control; mA and/or kV adjust ment per patient size (includes targeted exams where dose is matched to clinical indication); or iter ative reconstruction. CONTRAST: Omnipaque 350; 95 mL IV. DLP: 3247.94 mGy.cm COMPARISON: Carotid ultrasound 02/13/[address] evaluation is negative for acute intracranial hemorrhage. Mild edema and mild chronic microvascular ischemic disease. Lacunar infarcts in the RIGHT basal ganglia. Carotid Angiogram: Right carotid: Common carotid artery: Focal stenosis in the mid RIGHT common carotid artery. Stenosis calculated at 45%. Internal carotid artery: There is a large amount intimal thickening and plaque beginning at the carot id bifurcation extending into the internal and external carotid arteries. Stenosis calculated at 66%. External carotid artery: Calcified plaque at the proximal artery. Left carotid: Common carotid artery: Scattered calcified plaque and intimal thickening. No high-grade stenosis. Internal carotid artery: Heavy calcified plaque with intimal thickening and high-grade stenosis begin rona at the bifurcation. Stenosis calculated at 68%. External carotid artery: Calcified plaque and intimal thickening at the origin. Right vertebral artery: Unremarkable. Left vertebral artery: No stenosis. Very mild narrowing at the origin of the LEFT vertebral artery. Subclavian arteries: Mild plaque in the subclavian arteries bilaterally. Slightly greater plaque and intimal thickening on the LEFT. No high-grade stenosis. Upper thorax: RIGHT apical pleural thickening and fibrosis. Thyroid gland: Normal. Osseous structures: Cervical spondylosis. Most significant disc space narrowing and osteophytosis at C6-7 and C7-T1. CEREBRAL ANGIOGRAM: Intracranial vertebral arteries: Normal with no significant atherosclerosis. Basilar artery: No significant stenosis or occlusion. No aneurysm. Intracranial Internal carotid arteries: Scattered calcified plaque through the petrous portions of th e intracranial carotid arteries. Calcified plaque and intimal thickening continues through the cavern ous sinuses and supraclinoid carotid arteries. No high-grade stenosis. No aneurysm. Middle cerebral arteries: Normal. Anterior cerebral arteries and ACOM: Normal. Posterior cerebral arteries and PCOM's: Normal. Dural venous sinuses are normally enhancing. Mastoid air cells: Normal. Paranasal sinuses: Normal. Calvarium: Normal. CT/CT angio headneck* [id number] IMPRESSION: 1. LEFT ICA stenosis at the bifurcation and proximal ICA 68%. 2. RIGHT ICA stenosis at the bifurcation and proximal ICA 66%. 3. Mid RIGHT common carotid artery stenosis 45%. 4. Mixture of calcified and noncalcified plaque at the bifurcations causes angelo nosis. 5. Mild atherosclerosis subclavian arteries but no high-grade stenosis.
== END 2021-03-23 07:51 | disposition home or self-care (01) ==
PROVIDERS: PCP Family Medicine; Visit Provider Internal Medicine Cardiovascular Disease
DX: I65.23 Occlusion and stenosis of bilateral carotid arteries (principal); I70.8 Atherosclerosis of other arteries
CPT/HCPCS: 70496; 70498; Q9967

== ENCOUNTER 2021-04-04 13:29 | Outpatient (RCR) | payer OTHER, SELFPAY | END 2021-05-02 23:59 | disposition home or self-care (01) | LOC: CR 13:29 | PROVIDERS: PCP Family Medicine; Referring Provider Internal Medicine Cardiovascular Disease; Visit Provider Internal Medicine Cardiovascular Disease | DX: I50.21 Acute systolic (congestive) heart failure (principal) | CPT/HCPCS: 93798 ==

== ENCOUNTER 2021-04-10 07:35 | Outpatient (CLI) | payer OTHER, SELFPAY ==
[2021-04-10 09:17] LABS: Basophils # 0.1 10^3/uL (0.0-0.1); Basophils % 0.6 %; Eosinophils # 0.2 10^3/uL (0.0-0.8); Eosinophils % 2.2 %; Hematocrit 39.2 % (42.0-52.0); Hemoglobin 11.4 g/dL (11.7-16.6); Lymphocytes # 1.3 10^3/uL (0.8-4.8); Lymphocytes % 16.4 %; Mean Corpuscular HGB Conc 29.1 g/dL (30.0-36.0); Mean Corpuscular Hemoglobin 25.8 pg (28.0-34.0); Mean Corpuscular Volume 88.7 fl (80-94); Mean Platelet Volume 10.8 fL (7.4-10.4); Monocytes # 0.5 10^3/uL (0.2-0.9); Monocytes % 6.3 %; Neutrophils # 5.71 10^3/uL (1.8-7.7); Nucleated Red Blood Cells % 0 %; Platelet Count 420 10^3/cmm (130-400); Red Blood Count 4.42 10^6/uL (4.1-5.3); Red Cell Distribution Width 25.9 % (12.1-15.1); Reticulocyte % 3.9 % (0.5-2.0); White Blood Count 7.7 10^3/uL (4.0-10.0)
[2021-04-10 09:40] LABS: Alanine Aminotransferase 57 U/L (0-41); Albumin Level 3.9 g/dL (3.5-5.2); Alkaline Phosphatase 103 IU/L (40-130); Anion Gap 16.9 (5-19); Aspartate Amino Transferase 58 U/L (0-40); Blood Urea Nitrogen 11 mg/dL (8-23); Calcium 9.1 mg/dL (8.5-10.5); Carbon Dioxide 26 mmol/L (22-29); Chloride 97 mmol/L (98-107); Globulin 3.8 g/dL (1.3-4.6); Glomerular Filtration Rate 85.2 mL/min (90-130); Glucose 134 mg/dL (65-115); Lactate Dehydrogenase 171 U/L (135-225); Osmolality Calculated 283 mOsm/kg (285-295); Potassium 3.9 mmol/L (3.5-5.1); Sodium 136 mmol/L (136-145); Thyroid Stimulating Hormone 1.67 uIU/mL (0.27-4.20); Total Bilirubin 0.5 mg/dL (0.15-1.2); Total Protein 7.7 g/dL (6.6-8.7)
[2021-04-10 10:31] LABS: Ferritin 38 ng/mL (30-400); Iron 144 ug/dL (59-158); Percent Saturation 36.4 % (20-50); Total Iron Binding Capacity 395 mcg/dl; Unsaturated Iron Binding 251 ug/dL (112-347); Vitamin B12 852 pg/mL (232-1245)
--- NOTE | 2021-04-10 12:03 | ONC CON_ITS ---
Dr. Cordoba New Patient Note Patient: Art Madrigal Unit #: [id number]: 1955 Dicatated By: Moise Cordoba M.D.Date of Visit: Apr 10, 2021 Onc MED New Patient/Consult Referring Physician: Carla Manriquez Chief Complaint: Anemia. History of Present Illness: This is a 65-year-old man with moderately severe anemia. The patient has multiple medical illnesses including hypertension, hyperlipidemia, type 2 diabetes, chronic kidney disease, and coronary artery disease. He has associated cardiomyopathy and atrial fibrillation. He has undergone coronary artery bypass surgery on 2 occasions and is undergone repair of abdominal aortic aneurysm on 3 occasions. Other illnesses include COPD, obstructive sleep apnea, and degenerative arthritis. I am asked to see in regard to a moderately severe anemia. The available records from the [facility] include CBC from 02/16/2021 which showed hemoglobin low at 9.2 g with hematocrit 32.4%. The red cell indices were borderline low with MCV 82 and MCH 23. The white blood cell count was 8200 and the platelet count was 437,000. His comprehensive metabolic profile showed elevated creatinine at 1.60 mg/dL and slightly elevated SGOT and SGPT levels. The bilirubin was normal at 0.5 mg/dL. He was started on oral iron supplementation with ferrous sulfate. He indicates that his stool was tested and was Hemoccult negative, though I do not have the actual report available. He has scheduled to have a colonoscopy with Dr. Fuller on 05 May. He says his energy is poor. He has very limited activity, he does just very minimal work at home. His ECOG score is 2. He has good appetite. He does not have fever or night sweats. He has some allergy related sinus symptoms and he does have chronic cough, attributable to COPD. He is short of breath with any activity. He sometimes has chest pain. He does not complain of nausea and he does not had acid reflux symptoms. His bowel movements have been regular. He has not been aware of any blood in the stool. He has nocturia 2 or 3 times. He has no other complaints. He has arthritis pain in his hands and knees, and he also has chronic back pain. He does not complain of headache. He has numbness in his hands and feet associated with diabetic neuropathy. Past Medical History: His medical history includes abdominal aortic aneurysm, anxiety, atrial fibrillation, cardiomyopathy, chronic kidney disease, chronic obstructive pulmonary disease, coronary artery disease, degenerative arthritis, hyperlipidemia, hypertension, obstructive sleep apnea, type II diabetes, and venous insufficiency. Past Surgical History: His surgical/procedural history consists of coronary artery bypass surgery in 1993 and in 2004, excision of cyst from back, left knee repair, left rotator cuff repair, pacemaker placement, repair of dissecting abdominal aortic aneurysm, and repair of skull fracture. Medications: 1Rivaroxaban 1 Tablet (of 20 mg) Oral daily, Albuterol Sulfate HFA 2 Puff(s) (of 108 (90 base) mcg/act) Aerosol, solution Inhalation four times a day PRN, Amiodarone HCl 1 Tablet (of 200 mg) Oral daily, B-12 1 Tablet (of 1000 mcg) Oral daily, Cetirizine HCl 1 Tablet (of 10 mg) Oral daily, Empagliflozin 1 Tablet (of 10 mg) Oral daily, Ferrous Sulfate 1 Tablet (of 325 (65 fe) mg) Oral daily, Fish Oil 2 Capsule (of 1000 mg) Oral daily, Folic Acid 2 Tablet (of 1 mg) Oral daily, glipiZIDE 1 Tablet (of 10 mg) Oral b.i.d., Insulin Glargine 64 Unit(s) (of 100 Units/mL) Subcutaneous b.i.d., Ipratropium [place] HFA 2 Puff(s) (of 17 mcg/act) Aerosol, solution Inhalation four times a day, Isosorbide Mononitrate ER 1 Tablet (of 60 mg) Tablet SR 24 HR Oral b.i.d., Levothyroxine Sodium 1 Tablet (of 100 mcg) Oral every am, Mupirocin (2 %) Ointment Topical t.i.d., Nitroglycerin 1 Tablet (of 0.4 mg) Tablet, sublingual Sublingual q 5 minutes for 2 doses PRN, Pantoprazole Sodium 1 Tablet (of 40 mg) Tablet, enteric coated Oral ac am, Pregabalin 1 Capsule (of 150 mg) Oral b.i.d., Ranolazine ER 1 Tablet (of 500 mg) Tablet SR 12 HR Oral b.i.d., tiZANidine HCl 1 Tablet (of 4 mg) Oral b.i.d. Allergies: Bee Stings and Statins. Social History: Mr. Madrigal is . 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 He is disabled. He has history of smoking since age 12, previously up to 2 packs of cigarettes daily. He has now cut down to 1/2 pack/day. He currently does not drink alcohol. He has had alcohol use in the past, but never heavy. Family History: Father of ALS at age 72. Mother at 82, reportedly of old age . A brother has diabetes and heart disease. A sister at age 33, reportedly due to her blood having jelled . One other sister is in good health. Review Of Symptoms: Constitutional - His energy is poor. He does only minimal work at home. He has good appetite. He has no fever or night sweats. ECOG score is 2, Eyes - No change in vision, ENMT - No hearing loss. He has tinnitus. He has allergy related sinus symptoms. No mouth sores. No sore throat or difficulty swallowing, Hematologic/Lymphatic - No abnormal bruising or bleeding, Respiratory - He is short of breath with any activity. He has chronic cough productive of white sputum. No pleuritic pain or hemoptysis, Cardiovascular - He sometimes has chest pain. He has atrial fibrillation, Gastrointestinal - No nausea or vomiting. No heartburn or acid reflux. His bowel movements are regular. He has not been aware of any blood in the stool or black stools, Genitourinary (M) - No dysuria or hematuria. No urinary frequency. He has nocturia 2 or 3 times. No urgency or incontinence, Musculoskeletal - He has arthritis pain in his knees and hands, and he has chronic back pain, Integumentary - No skin rash or other skin changes, Neurologic - No headache. He is lightheaded if he gets up too quick. He has numbness in his hands and feet. No other focal neurologic symptoms, Psychiatric - No anxiety or depression. He sometimes has difficulty sleeping. Vital Signs: Performed on Apr 10, 2021 08:13: 0, 5, 35.10 (HIGH), 2.75 sq.m, 79 in, 96 %, 82 /min, 18 /min, 138/74 mm(hg), 98.0 F (LOW), and 311.6 lbs (HIGH). Physical Examination: Constitutional - He appears generally weak, and he appears short of breath with effort, Eyes - Sclerae nonicteric. Conjunctivae clear, ENMT - No lesions noted in the oral cavity, Neck - No mass or thyromegaly, Hematologic/Lymphatic - No cervical, clavicular, or axillary adenopathy, Respiratory - Lungs are clear with some decrease in air movement bilaterally, Cardiovascular - Heart rhythm is irregular. There is a II/ systolic murmur. There is no gallop or rub noted, Abdomen - Mildly distended. Liver and spleen are not enlarged. There is no abdominal mass or ascites noted and there is no inguinal adenopathy, Back/Spine - No spine or CVA tenderness noted, Extremities - Slight edema. I am not able to palpate pedal pulses, Integumentary - No rashes. No suspicious skin lesions noted, Neurologic - No focal neurologic deficits noted. Problem List: 1. Moderately severe anemia, most likely iron deficiency. 2. Hypertension. 3. Hyperlipidemia. 4. Type 2 diabetes with neuropathy. 5. Chronic kidney disease. 6. Coronary artery disease with cardiomyopathy. 7. Atrial fibrillation. 8. COPD. 9. Obstructive sleep apnea. 10. He has undergone repair of abdominal aortic aneurysm. 11. Degenerative arthritis. Problems Addressed with this Encounter and Plan: Patient with moderately severe anemia. Based on the red cell indices with his CBC in February 2021, this appears likely to be due to iron deficiency, but I not see where serum iron studies were actually documented. He has been on oral iron supplementation with ferrous sulfate, and he reportedly had a negative stool Hemoccult. At this point I will repeat his CBC along with comprehensive metabolic profile, reticulocyte count, LDH level, serum iron studies, ferritin, B12 and folate levels, and TSH level. If his studies show that he is iron deficient despite oral iron supplementation, he will be given the option to have parenteral iron replacement. Signed By: Moise Cordoba M.D. <<Signature on File>>
== END 2021-04-10 07:36 | disposition home or self-care (01) ==
PROVIDERS: PCP Family Medicine; Visit Provider Internal Medicine Medical Oncology
DX: D50.9 Iron deficiency anemia, unspecified (principal); I10 Essential (primary) hypertension; E78.5 Hyperlipidemia, unspecified; E11.42 Type 2 diabetes mellitus with diabetic polyneuropathy; E11.22 Type 2 diabetes mellitus with diabetic chronic kidney disease; N18.9 Chronic kidney disease, unspecified; E11.59 Type 2 diabetes mellitus with other circulatory complications; I25.10 Atherosclerotic heart disease of native coronary artery without angina pectoris; I42.9 Cardiomyopathy, unspecified; I48.91 Unspecified atrial fibrillation; J44.9 Chronic obstructive pulmonary disease, unspecified; G47.33 Obstructive sleep apnea (adult) (pediatric); I71.4 Abdominal aortic aneurysm, without rupture; M19.90 Unspecified osteoarthritis, unspecified site; Z79.899 Other long term (current) drug therapy
CPT/HCPCS: 36415; 80053; 82607; 82728; 82747; 83540; 83550; 83615; 84443; 85025; 85045; 99204

== ENCOUNTER 2021-04-20 13:05 | Outpatient (CLI) | payer OTHER, SELFPAY ==
[2021-04-20 13:21] VITALS: BP 128/78; PULSE 61; RESP 20; TEMP 36.9; O2SAT 94; BMI 35.0
[2021-04-20 14:08] VITALS: BP 108/64; PULSE 60; RESP 20; TEMP 36.2; O2SAT 95
--- NOTE | 2021-04-20 14:22 | PC.NURSE ---
Assessments and interventions performed by MALINI Valadez and YEIMY Guerra/ Documented by YEIMY Freeman
[2021-04-20 15:05] VITALS: BP 116/64; PULSE 60; RESP 20; TEMP 36.8; O2SAT 93
== END 2021-04-20 13:06 | disposition home or self-care (01) ==
LOC: OPS 13:11
PROVIDERS: PCP Family Medicine; Visit Provider Family Medicine
DX: U07.1 COVID-19 (principal)
CPT/HCPCS: 96365

== ENCOUNTER → 2021-05-08 09:00 | Outpatient (BNVA) | payer OTHER, SELFPAY | PROVIDERS: PCP Family Medicine; Visit Provider Anesthesiology Pain Medicine | DX: G89.29 Other chronic pain (principal); M47.816 Spondylosis without myelopathy or radiculopathy, lumbar region; M51.36 Other intervertebral disc degeneration, lumbar region; M79.604 Pain in right leg; M79.605 Pain in left leg; F17.200 Nicotine dependence, unspecified, uncomplicated | CPT/HCPCS: 99214 ==

== ENCOUNTER 2021-05-12 09:09 | Outpatient (CLI) | payer OTHER, SELFPAY ==
[2021-05-12 09:47] LABS: Basophils % 0.4 %; Eosinophils # 0.3 10^3/uL (0.0-0.8); Eosinophils % 3.3 %; Hematocrit 41.7 % (42.0-52.0); Hemoglobin 12.3 g/dL (11.7-16.6); Lymphocytes # 1.8 10^3/uL (0.8-4.8); Lymphocytes % 23.1 %; Mean Corpuscular HGB Conc 29.5 g/dL (30.0-36.0); Mean Corpuscular Hemoglobin 26.4 pg (28.0-34.0); Mean Corpuscular Volume 89.5 fl (80-94); Mean Platelet Volume 11.3 fL (7.4-10.4); Monocytes # 0.5 10^3/uL (0.2-0.9); Monocytes % 6.8 %; Neutrophils # 5.16 10^3/uL (1.8-7.7); Neutrophils % 66.1 %; Nucleated Red Blood Cells % 0 %; Platelet Count 366 10^3/cmm (130-400); Red Blood Count 4.66 10^6/uL (4.1-5.3); Red Cell Distribution Width 21.2 % (12.1-15.1); White Blood Count 7.8 10^3/uL (4.0-10.0)
[2021-05-12 10:07] LABS: Alanine Aminotransferase 84 U/L (0-41); Albumin Level 3.9 g/dL (3.5-5.2); Alkaline Phosphatase 107 IU/L (40-130); Anion Gap 13.1 (5-19); Aspartate Amino Transferase 73 U/L (0-40); Blood Urea Nitrogen 17 mg/dL (8-23); Calcium 8.5 mg/dL (8.5-10.5); Carbon Dioxide 30 mmol/L (22-29); Chloride 97 mmol/L (98-107); Ferritin 37 ng/mL (30-400); Globulin 4.7 g/dL (1.3-4.6); Glomerular Filtration Rate 85.2 mL/min (90-130); Glucose 176 mg/dL (65-115); Iron 46 ug/dL (59-158); Osmolality Calculated 288 mOsm/kg (285-295); Percent Saturation 11.9 % (20-50); Potassium 4.1 mmol/L (3.5-5.1); Sodium 136 mmol/L (136-145); Total Bilirubin 0.4 mg/dL (0.15-1.2); Total Iron Binding Capacity 385 mcg/dl; Total Protein 8.6 g/dL (6.6-8.7); Unsaturated Iron Binding 339 ug/dL (112-347)
== END 2021-05-12 09:10 | disposition home or self-care (01) ==
LOC: ONCMED 09:11
PROVIDERS: PCP Family Medicine; Visit Provider Internal Medicine Medical Oncology
DX: D64.9 Anemia, unspecified (principal); Z79.899 Other long term (current) drug therapy
CPT/HCPCS: 36415; 80053; 82728; 83540; 83550; 85025

== ENCOUNTER → 2021-05-15 09:49 | Outpatient (BNVA) | payer OTHER, SELFPAY | PROVIDERS: PCP Family Medicine; Visit Provider Surgery | DX: Z20.822 Contact with and (suspected) exposure to COVID-19 (principal) | CPT/HCPCS: 87635 ==

== ENCOUNTER 2021-05-16 06:31 | Outpatient (CLI) | payer OTHER, SELFPAY ==
--- NOTE | 2021-05-20 08:13 | ONC FU_ITS ---
Dr. Cordoba Patient Follow-Up Note Patient: Art Madrigal Unit #: [id number]: 1955 Dicatated By: Moise Cordoba M.D.Date of Visit:May 16, 2021 Onc Med Follow-up/Prog Note Chief Complaint: Anemia. History of Present Illness: This is a 65-year-old man with mild anemia. He has multiple medical illnesses including hypertension, hyperlipidemia, type 2 diabetes, chronic kidney disease, and coronary artery disease. He has associated cardiomyopathy and atrial fibrillation. He has undergone coronary artery bypass surgery on 2 occasions and is undergone repair of abdominal aortic aneurysm on 3 occasions. Other illnesses include COPD, obstructive sleep apnea, and degenerative arthritis. I had seen him initially in April 2021 in regard to moderately severe anemia. [facility] which showed hemoglobin low at 9.2 g with hematocrit 32.4%. The red cell indices were borderline low with MCV 82 and MCH 23. The white blood cell count was 8200 and the platelet count was 437,000. His comprehensive metabolic profile showed elevated creatinine at 1.60 mg/dL and slightly elevated SGOT and SGPT levels. The bilirubin was normal at 0.5 mg/dL. At the time of his visit in April he had started on oral iron supplementation with ferrous sulfate. His hemoglobin ahd increased to 11.4 g. His serum iron studies showed normal transferrin saturation at 36.4%, but his ferritin was still relatively low at 38 ng/mL. B12 was normal 852 pg/mL. He had been scheduled to have a colonoscopy with Dr. Fuller in May. With his anemia improving, he continued his oral iron supplement, which he was tolerating without adverse effects. He is seen for a follow-up visit. He says he feels all right, he just gets tired very quickly. He has limited activity, but he is going to be restarting his cardiac rehab. His ECOG score is 2. His appetite is fair. He has no fever or night sweats. He has some sinus drainage and cough. He is short of breath with activity. He sometimes has chest pain. He has no GI or complaints. He has joint pain, including the knees, elbows, and hands. He also has chronic back pain. He does not complain of headache. He sometimes has dizziness. He has neuropathy in his feet and to a lesser extent in his arms/hands. Medications: 1Rivaroxaban 1 Tablet (of 20 mg) Oral daily, Albuterol Sulfate HFA 2 Puff(s) (of 108 (90 base) mcg/act) Aerosol, solution Inhalation four times a day PRN, Amiodarone HCl 1 Tablet (of 200 mg) Oral daily, B-12 1 Tablet (of 1000 mcg) Oral daily, Cetirizine HCl 1 Tablet (of 10 mg) Oral daily, Empagliflozin 1 Tablet (of 10 mg) Oral daily, Ferrous Sulfate 1 Tablet (of 325 (65 fe) mg) Oral daily, Fish Oil 2 Capsule (of 1000 mg) Oral daily, Folic Acid 2 Tablet (of 1 mg) Oral daily, glipiZIDE 1 Tablet (of 10 mg) Oral b.i.d., Insulin Glargine 64 Unit(s) (of 100 Units/mL) Subcutaneous b.i.d., Ipratropium [place] HFA 2 Puff(s) (of 17 mcg/act) Aerosol, solution Inhalation four times a day, Isosorbide Mononitrate ER 1 Tablet (of 60 mg) Tablet SR 24 HR Oral b.i.d., Levothyroxine Sodium 1 Tablet (of 100 mcg) Oral every am, Mupirocin (2 %) Ointment Topical t.i.d., Nitroglycerin 1 Tablet (of 0.4 mg) Tablet, sublingual Sublingual q 5 minutes for 2 doses PRN, Pantoprazole Sodium 1 Tablet (of 40 mg) Tablet, enteric coated Oral ac am, Pregabalin 1 Capsule (of 150 mg) Oral b.i.d., Ranolazine ER 1 Tablet (of 500 mg) Tablet SR 12 HR Oral b.i.d., tiZANidine HCl 1 Tablet (of 4 mg) Oral b.i.d. Allergies: Bee Stings and Statins. Vital Signs: Performed on May 16, 2021 09:35 Height - 79.00 in Weight - 303.8 lbs (LOW) BSA - 2.72 sq.m BMI - 34.22 (HIGH) Temperature - 98.3 F (LOW) Pulse - 94 /min Respiration - 20 /min BP - 126/74 mm(hg) O2 Sat - 95 % (LOW) Pain - 4 Fatigue - 7 Physical Examination: Constitutional - He appears generally weak, Eyes - Sclerae nonicteric. Conjunctivae clear, ENMT - No lesions noted in the oral cavity, Hematologic/Lymphatic - No cervical or clavicular adenopathy, Respiratory - Lungs souond clear with diminished air movement bilaterally, Cardiovascular - Heart rhythm is irregular. There is a II/ systolic murmur. There is no gallop or rub noted, Breasts - There is mild gynecomastia, both breasts are slightly tender. There is no mass palpable. There is no axillary adenopathy noted, Abdomen - Mildly distended. There is tenderness in the right upper quadrant medially. Liver and spleen are not enlarged. There is no abdominal mass or ascites noted and there is no inguinal adenopathy, Extremities - No edema, Neurologic - No focal neurologic deficits noted. Lab/Imaging: Test performed on May 12, 2021 09:22 Ferritin 37 ng/mL Iron 46 mcg/dL Sodium 136 mmol/L Iron Binding Capacity (TIBC) 385 mcg/dl Potassium 4.1 mmol/L % Iron Saturation 11.9 % Chloride 97 mmol/L CO2 30 mmol/L UIBC 339 mcg/dL Anion Gap 13.1 BUN 17 mg/dL Creatinine 0.9 mg/dL Cr Clearance (Est) 167.9500 mL/min eGFR 85.2 mL/min Glucose 176 mg/dL Osmolality - Calculated 288 mOsm/kg Calcium 8.5 mg/dL Protein, Total 8.6 g/dL Albumin 3.9 g/dL Globulin 4.7 g/dL Bilirubin, Total 0.4 mg/dL ALT (SGPT) 84 U/L AST (SGOT) 73 U/L Alkaline Phosphatase 107 IU/L WBC 7.8 10 3/uL RBC 4.66 10 6/uL HGB 12.3 g/dL HCT 41.7 % MCV 89.5 fl MCH 26.4 pg MCHC 29.5 g/dL RDW 21.2 % Platelet Count 366 10 3/cmm MPV 11.3 fL Neutrophils 5.16 10 3/uL Lymphocytes 1.8 10 3/uL Monocytes 0.5 10 3/uL Eosinophils 0.3 10 3/uL Basophils 0.0 10 3/uL Neutrophil % 66.1 % Lymphocyte % 23.1 % Monocyte % 6.8 % Eosinophil % 3.3 % Basophils % 0.4 % NRBC % 0 % Problem List: 1. Iron deficiency anemia. 2. Hypertension. 3. Hyperlipidemia. 4. Type 2 diabetes with neuropathy. 5. Chronic kidney disease. 6. Coronary artery disease with cardiomyopathy. 7. Atrial fibrillation. 8. COPD. 9. Obstructive sleep apnea. 10. He has undergone repair of abdominal aortic aneurysm. 11. Degenerative arthritis. Problems Addressed with this Encounter and Plan: Patient with moderately severe anemia. His laboratory findings were consistent with iron deficiency, and his anemia has been showing gradual correction on oral iron supplementation. As such, he will continue ferrous sulfate 325 mg daily. He has seen Dr. Fuller, and he is scheduled to have GI endoscopy studies this month. I will see him for a follow-up visit in 3 months. Signed By: Moise Cordoba M.D. <<Signature on File>>
== END 2021-05-16 06:32 | disposition home or self-care (01) ==
LOC: ONCMED 06:32
PROVIDERS: PCP Family Medicine; Visit Provider Internal Medicine Medical Oncology
DX: D50.9 Iron deficiency anemia, unspecified (principal); I10 Essential (primary) hypertension; E78.5 Hyperlipidemia, unspecified; E11.40 Type 2 diabetes mellitus with diabetic neuropathy, unspecified; I12.9 Hypertensive chronic kidney disease with stage 1 through stage 4 chronic kidney disease, or unspecified chronic kidney disease; N18.9 Chronic kidney disease, unspecified; I25.10 Atherosclerotic heart disease of native coronary artery without angina pectoris; J44.9 Chronic obstructive pulmonary disease, unspecified; I48.91 Unspecified atrial fibrillation; Z79.84 Long term (current) use of oral hypoglycemic drugs; Z79.899 Other long term (current) drug therapy
CPT/HCPCS: G0463

== ENCOUNTER 2021-05-19 06:09 | Day surgery (SDC) | payer OTHER, SELFPAY ==
[2021-05-17 13:40] VITALS: BMI 34.9
--- NOTE | 2021-05-19 07:11 | ANES.PREANE2 ---
Pre-Anesthetic Assessment Pre-Anesthetic Assessment: Height/Weight: Height 2.01 m Weight 140.614 kg Preop Diagnosis: diagnostic Proposed Procedure: Operation Date: 05/19/21 08:15 Proposed Procedures p EGD/Colon 46658 D50.9(Not Applicable) - Abdoul Fuller MD s Colonoscopy 50690 D50.9(Not Applicable) - Abdoul Fuller MD Was Beta Otis taken within 24 hours: Yes Was Clonidine taken within 24 hours: N/A Social: Social History: Tobacco and No alcohol Exam: Pre-Anes Outpt Exam: alert, oriented x 3, clear to auscultation bilaterally and regular rate & rhythm Airway: Submandibular: WNL Cervical ROM: WNL MP: 2 Dentition: False Pulmonary: Pulmonary: COPD CV/HEM: CV/HEM: Afib, Anemia, CAD, CHF, HTN and PVD Comments: Pacemaker, AAA GI: GI: GERD Metabolic: Metabolic: DM, Morbid obesity and Thyroid Musc/skel: Musc/skel: Lower Back Pain and OA/DJD Neuropsych: Neuropsych: Neuropathy Anesthetic Plan: ASA status: 3 Anesthesia: MAC Risk of > 500 ml blood loss (7ml/kg in children): No PFSH Anesthesia PFSH: Medical History Abdominal aortic aneurysm (AAA) 3.0 cm to 5.5 cm in diameter in male Allergic rhinitis ASHD (arteriosclerotic heart disease) Atherosclerotic heart disease of [place] coronary artery with other forms of angina pectoris Atrial fibrillation CHF (congestive heart failure) DDD (degenerative disc disease) Diabetes Hyperlipidemia Hypertension Surgical History History of atherectomy History of cardiac radiofrequency ablation History of colonoscopy Hx of CABG Hx of knee surgery Hx of shoulder surgery Pacemaker S/P AAA repair October 2017 at the [facility] Family History Father Anesthesia complication Cancer Mother CAD (coronary artery disease) Chronic kidney disease (CKD) Brother Diabetes Grandmother Lung disease Denies family history of Clotting disorder Dementia Suicide Bleeding disorder Stroke Social History Alcohol intake: never Lives independently: Yes History of recent travel: No Data Anesthesia Cardiac Studies: No Data to Display
[2021-05-19 07:30] VITALS: BP 152/71; PULSE 76; RESP 18; TEMP 36.1; O2SAT 98
[2021-05-19] MEDS: sodium chloride 0.9% 1,000 ML 30 ML IV (07:30)
--- NOTE | 2021-05-19 08:12 | P.HP_ITS ---
Same Day Surgery H&P Indication for Procedure/HPI DATE OF PROCEDURE: May 19, 2021 CHIEF COMPLAINT/INDICATIONFOR SURGICAL PROCEDURE: egd/colon PREOP DIAGNOSIS: diagnostic PLANNED PROCEDRUE: Operation Date: 05/19/21 08:15 Proposed Procedures p EGD/Colon 15608 D50.9(Not Applicable) - Abdoul Fuller MD s Colonoscopy 88984 D50.9(Not Applicable) - Abdoul Fuller MD Medications/Allergies* Home Medications Medication Instructions Recorded Confirmed Type acarbose 50 mg tablet 25 mg PO TID tab 08/06/19 05/19/21 History allopurinol 300 mg tablet 300 mg PO DAILY 08/06/19 05/19/21 History calcium carbonate 500 mg calcium 500 mg PO DAILY 08/06/19 05/19/21 History (1,250 mg) tablet cetirizine 10 mg tablet 10 mg PO DAILY 08/06/19 05/19/21 History folic acid 1 mg tablet 2 mg PO DAILY 08/06/19 05/19/21 History glipizide 10 mg tablet 10 mg PO BID 08/06/19 05/19/21 History montelukast 10 mg tablet 10 mg PO DAILY 08/06/19 05/19/21 History multivitamin 1 tab PO DAILY 08/06/19 05/19/21 History pantoprazole 40 mg tablet,delayed 40 mg PO DAILY 08/06/19 05/19/21 History release vitamin B complex 1 tab PO DAILY 08/06/19 05/19/21 History fluticasone propionate 50 1 spray INTRANASAL DAILY 12/29/19 05/19/21 History mcg/actuation nasal spray,suspension budesonide-formoterol HFA 160 2 puff INHALATION BID 01/21/20 05/19/21 History mcg-4.5 mcg/actuation aerosol inhaler tiotropium bromide 2.5 2 puff INHALATION DAILY 01/21/20 05/19/21 History mcg/actuation mist for inhalation insulin glargine 100 unit/mL 64 unit SUBCUT BID ml 02/11/20 05/19/21 History subcutaneous solution levothyroxine 75 mcg tablet 75 mcg PO DAILY 09/01/20 05/19/21 History albuterol sulfate 90 mcg/actuation 1 inh INHALATION QID PRN g 11/22/20 05/19/21 History aerosol inhaler albuterol sulfate [Proventil HFA] 2 puff INHALATION QID 02/14/21 05/19/21 History cholecalciferol (vitamin D3) 50 mcg PO DAILY 02/14/21 05/19/21 History [Vitamin D3] melatonin 10 mg PO BEDTIME 02/14/21 05/19/21 History potassium gluconate 595 mg PO DAILY 02/14/21 05/19/21 History selenium 100 mcg PO DAILY 02/14/21 05/19/21 History ferrous sulfate 325 mg (65 mg 325 mg PO DAILY 03/13/21 05/19/21 History iron) tablet isosorbide mononitrate 60 mg PO BID 05/17/21 05/19/21 History omega-3 fatty acids 2,000 mg PO DAILY 05/17/21 05/19/21 History tizanidine 10 mg PO BID PRN 05/17/21 05/19/21 History Allergies/Adverse Reactions Allergy/AdvReac Type Severity Reaction Status Date / Time bee venom protein (honey bee) Allergy Severe SOB, Verified 05/17/21 13:34 SWELLING AT SITE Mxahynm-[id number]-CmR Reductase Allergy Unknown unknown Verified 05/17/21 13:34 Inhibitor [Jzbeywk-Twl-Uop Reductase Inhibitor] Current Medications: Generic Name Dose Route Start Last Admin Trade Name Freq PRN Reason Stop Dose Admin Sodium Chloride 1,000 mls @ 30 mls/hr 05/19/21 06:15 05/19/21 07:30 Sodium Chloride 0.9% IV 05/20/21 06:14 30 mls/hr .Q24H ADARSH Administration Pertinent History/Comorbid Conditions* Medical History (Updated 03/28/21 @ 09:13 by Abdoul Fuller MD) Abdominal aortic aneurysm (AAA) 3.0 cm to 5.5 cm in diameter in male Allergic rhinitis ASHD (arteriosclerotic heart disease) Atherosclerotic heart disease of [place] coronary artery with other forms of angina pectoris Atrial fibrillation CHF (congestive heart failure) DDD (degenerative disc disease) Diabetes Hyperlipidemia Hypertension Surgical History (Updated 03/28/21 @ 09:11 by Abdoul Fuller MD) History of atherectomy History of cardiac radiofrequency ablation History of colonoscopy Hx of CABG Hx of knee surgery Hx of shoulder surgery Pacemaker S/P AAA repair October 2017 at the [facility] Family History (Updated 10/19/20 @ 11:59 by Tierra Londono RN) Diabetes Brother CAD (coronary artery disease) Mother Chronic kidney disease (CKD) Mother Anesthesia complication Father Lung disease Grandmother Cancer Father Denies family history of Clotting disorder Dementia Suicide Bleeding disorder Stroke Social History Alcohol intake: never Lives independently: Yes History of recent travel: No Pertinent Exam Findings alert, oriented x 3 and regular rate & rhythm Recommendations Surgery/Procedure today Coding Level of Care Code Acute Storage Management Architect for Roxanne Hartman
[2021-05-19 08:53] VITALS: BP 104/64; PULSE 68; RESP 18; TEMP 36.1; O2SAT 93
[2021-05-19 09:07] VITALS: BP 114/68; PULSE 63; RESP 17; O2SAT 94
--- NOTE | 2021-05-19 13:19 | ANE.PACU2 ---
Inpatient post-anesthesia follow up: Airway intact: Yes Vital signs: Temperature 97.0 F Pulse Rate 63 Respiratory Rate 17 Blood Pressure 114/68 Pulse Oximetry 94 Oxygen Delivery Me thod Room Air Oxygen Flow Rate 6 Fraction of Inspir ed Oxygen Hydration adequate: Yes Nausea and vomiting: No Pain level: 1 Mental status: Baseline
== END 2021-05-19 09:19 | disposition home or self-care (01) ==
PROVIDERS: PCP Family Medicine; Visit Provider Surgery
PROC: 0DJ08ZZ Inspection of Upper Intestinal Tract, Via Natural or Artificial Opening Endoscopic (ICD-10-PCS; CPT 43235; principal; 2021-05-19 08:15)
PROC: 0DJD8ZZ Inspection of Lower Intestinal Tract, Via Natural or Artificial Opening Endoscopic (ICD-10-PCS; CPT 45378; 2021-05-19 08:15)
DX: D50.9 Iron deficiency anemia, unspecified (principal); Z79.01 Long term (current) use of anticoagulants; D12.2 Benign neoplasm of ascending colon; K64.8 Other hemorrhoids; K29.70 Gastritis, unspecified, without bleeding; J44.9 Chronic obstructive pulmonary disease, unspecified; I48.91 Unspecified atrial fibrillation; I25.10 Atherosclerotic heart disease of native coronary artery without angina pectoris; I11.0 Hypertensive heart disease with heart failure; I50.9 Heart failure, unspecified; Z95.0 Presence of cardiac pacemaker; E11.40 Type 2 diabetes mellitus with diabetic neuropathy, unspecified; E78.5 Hyperlipidemia, unspecified
CPT/HCPCS: 43239; 45380; 88305; 96360; 96361; J2704; J7030

== ENCOUNTER 2021-07-19 09:15 | Outpatient (CLI) | payer OTHER, SELFPAY ==
--- NOTE | 2021-07-19 09:30 | USCV_ITS ---
Art Madrigal Age: 66 Gender: M : 1955 Exam Date: 07/19/2021 09:44 Ordering Phys: Miladys Armstrong MD ([email or web address]) Technologist: NISSA Exam Location: [facility] [place] Indication: c/o CHRONIC shortness of breath. Hx CABG 1993. Hx CABG 2004. s/p 5 Ablations. Has Pacer since 2017. BP: / HR: 59 Rhythm: Sinus Technical Quality: Adequate MEASUREMENTS (Male / Female) Normal Values 2D ECHO LV Diastolic Diameter PLAX 5.6 cm 4.2 - 5.9 / 3.9 - 5.3 cm LV Systolic Diameter PLAX 4.2 cm IVS Diastolic Thickness 1.5 cm 0.6 - 1.0 / 0.6 - 0.9 cm IVS Systolic Thickness 2.0 cm LVPW Diastolic Thickness 1.7 cm 0.6 - 1.0 / 0.6 - 0.9 cm LVPW Systolic Thickness 1.6 cm LVOT Diameter 2.4 cm LV Ejection Fraction 2D Teich 49.1 % LV Ejection Fraction MOD 2C 37.5 % LV Ejection Fraction 2C AL 36.0 % LA Diameter 5.5 cm LA Width 5.6 cm LA Height 7.0 cm RA Width 4.9 cm RA Height 4.5 cm Aorta at Sinotubular Diameter 3.5 cm M-MODE Aortic Annulus Diameter 4.4 cm LA Ao Ratio MM 1.3 MV E Point Septal Separation 1.1 cm DOPPLER AV Peak Velocity 127.0 cm/s LVOT Peak Velocity 73.0 cm/s AV Area Cont Eq vti 2.5 cm squared AV Area Cont Eq pk 2.5 cm squared MV Area PHT 2.3 cm squared Mitral E to A Ratio 1.2 MV E' Velocity 53.5 cm/s Mitral E to MV E' Ratio 16.9 Mitral E to LV E' Lateral Ratio 26.4 Mitral E to LV E' Septal Ratio 12.4 TV Peak E Velocity 35.0 cm/s PV Peak Velocity 94.0 cm/s RV Acceleration Time 0.1 s RV Ejection Time 0.4 s RV AcT/ET 0.2 FINDINGS Left Ventricle Normal left ventricular size. LV systolic function is mild to moderately reduced with EF of 40-45%. Mild to moderate global hypokinesis is noted Right Ventricle The right ventricle is normal in size and function. Likely pacemaker wire seen in the RV Right Atrium The right atrium is normal in size. Likely pacemaker wire seen in the RA Left Atrium The left atrium is severely dilated Mitral Valve Structurally normal mitral valve without significant stenosis or prolapse. There is no mitral regurgitation. Aortic Valve Thickened aortic valve without significant stenosis. There is no aortic regurgitation. Tricuspid Valve Grossly normal. Insufficient TR jet to calculate RVSP Pulmonic Valve Not well visualized Pericardium Normal pericardium without effusion. Aorta Normal ascending aorta dimension. CONCLUSIONS LV systolic function is mild to moderately reduced with EF of 40-45%. Mild to moderate global hypokinesis noted Left atrium is severely dilated Aortic valve is thickened. Compared to prior echocardiogram from 04/05/2016, no significant changes are noted Contreras Carvajal MD (Electronically Signed) Final Date: 25 July 2021 11:08 S
== END 2021-07-19 09:16 | disposition home or self-care (01) ==
LOC: RAD 09:18
PROVIDERS: PCP Family Medicine; Visit Provider Internal Medicine Cardiovascular Disease
DX: I25.5 Ischemic cardiomyopathy (principal); R06.00 Dyspnea, unspecified; Z95.1 Presence of aortocoronary bypass graft; Z95.0 Presence of cardiac pacemaker; I35.8 Other nonrheumatic aortic valve disorders
CPT/HCPCS: 93306

== ENCOUNTER → 2021-08-07 09:36 | Outpatient (BNVA) | payer OTHER, SELFPAY | PROVIDERS: PCP Family Medicine; Visit Provider Anesthesiology Pain Medicine | DX: M47.816 Spondylosis without myelopathy or radiculopathy, lumbar region (principal); M51.36 Other intervertebral disc degeneration, lumbar region; F17.210 Nicotine dependence, cigarettes, uncomplicated | CPT/HCPCS: 99214 ==

== ENCOUNTER 2021-08-28 08:28 | Outpatient (CLI) | payer OTHER, SELFPAY ==
[2021-08-28 09:07] LABS: Basophils # 0.1 10^3/uL (0.0-0.1); Basophils % 0.7 %; Eosinophils # 0.2 10^3/uL (0.0-0.8); Eosinophils % 3.1 %; Hematocrit 43.5 % (42.0-52.0); Hemoglobin 13.2 g/dL (11.7-16.6); Lymphocytes # 1.8 10^3/uL (0.8-4.8); Mean Corpuscular HGB Conc 30.3 g/dL (30.0-36.0); Mean Corpuscular Hemoglobin 27.6 pg (28.0-34.0); Mean Platelet Volume 10.7 fL (7.4-10.4); Monocytes # 0.6 10^3/uL (0.2-0.9); Neutrophils # 4.69 10^3/uL (1.8-7.7); Neutrophils % 63.8 %; Nucleated Red Blood Cells % 0 %; Platelet Count 352 10^3/cmm (130-400); Red Blood Count 4.78 10^6/uL (4.1-5.3); Red Cell Distribution Width 20.1 % (12.1-15.1); White Blood Count 7.4 10^3/uL (4.0-10.0)
[2021-08-28 09:34] LABS: Alanine Aminotransferase 45 U/L (0-41); Alkaline Phosphatase 118 IU/L (40-130); Anion Gap 17.9 (5-19); Aspartate Amino Transferase 29 U/L (0-40); Blood Urea Nitrogen 17 mg/dL (8-23); Calcium 9.5 mg/dL (8.5-10.5); Carbon Dioxide 26 mmol/L (22-29); Chloride 97 mmol/L (98-107); Ferritin 36 ng/mL (30-400); Globulin 4.3 g/dL (1.3-4.6); Glomerular Filtration Rate 75.2 mL/min (90-130); Glucose 136 mg/dL (65-115); Iron 35 ug/dL (59-158); Osmolality Calculated 288 mOsm/kg (285-295); Percent Saturation 9.1 % (20-50); Potassium 3.9 mmol/L (3.5-5.1); Sodium 137 mmol/L (136-145); Total Bilirubin 0.3 mg/dL (0.15-1.2); Total Iron Binding Capacity 382 mcg/dl; Total Protein 8.3 g/dL (6.6-8.7); Unsaturated Iron Binding 347 ug/dL (112-347)
--- NOTE | 2021-09-05 18:37 | ONC FU_ITS ---
Rosi Hackett Progress Note Patient: Art Madrigal Unit #: [id number]: 1955 Dicatated By: Rosi Hackett N.P.Date of Visit:Aug 28, 2021 Onc MED Follow-up/Prog Note Chief Complaint: Anemia. History of Present Illness: This is a 65-year-old man with mild anemia. He has multiple medical illnesses including hypertension, hyperlipidemia, type 2 diabetes, chronic kidney disease, and coronary artery disease. He has associated cardiomyopathy and atrial fibrillation. He has undergone coronary artery bypass surgery on 2 occasions and is undergone repair of abdominal aortic aneurysm on 3 occasions. Other illnesses include COPD, obstructive sleep apnea, and degenerative arthritis. I had seen him initially in April 2021 in regard to moderately severe anemia. The available records from the [facility] included a CBC from 02/16/2021 which showed hemoglobin low at 9.2 g with hematocrit 32.4%. The red cell indices were borderline low with MCV 82 and MCH 23. The white blood cell count was 8200 and the platelet count was 437,000. His comprehensive metabolic profile showed elevated creatinine at 1.60 mg/dL and slightly elevated SGOT and SGPT levels. The bilirubin was normal at 0.5 mg/dL. At the time of his visit in April he had started on oral iron supplementation with ferrous sulfate. His hemoglobin ahd increased to 11.4 g. His serum iron studies showed normal transferrin saturation at 36.4%, but his ferritin was still relatively low at 38 ng/mL. B12 was normal 852 pg/mL. He had been scheduled to have a colonoscopy with Dr. Fuller in May. With his anemia improving, he continued his oral iron supplement, which he was tolerating without adverse effects. He presents today for a follow-up visit. He continues to have moderate fatigue. his appetite has been good. No shortness of breath or cough. No GI or problems. He has chronic joint and back pain. He has neuropathy in bilateral lower extremities. He has been taking oral iron.His iron studies continue to be low with his iron saturation at 9.1 and his iron at 35. His ferritin is normal at 36. Review Of Symptoms: see above. Past Medical History: Abdominal aortic aneurysm Anxiety Atrial fibrillation Cardiomyopathy Chronic kidney disease Chronic obstructive pulmonary disease Coronary artery disease Degenerative arthritis Hyperlipidemia Hypertension Obstructive sleep apnea Type II diabetes Venous insufficiency Covid virus in 2020 Past Surgical History: Coronary artery bypass surgery in 1993 and in 2004 Excision of cyst from back Left knee repair Left rotator cuff repair Pacemaker placement Repair of dissecting abdominal aortic aneurysm Repair of skull fracture Allergies: Bee Stings and Statins. Medications: 1Rivaroxaban 1 Tablet (of 20 mg) Oral daily Albuterol Sulfate HFA 2 Puff(s) (of 108 (90 base) mcg/act) Aerosol, solution Inhalation four times a day PRN Amiodarone HCl 1 Tablet (of 200 mg) Oral daily B-12 1 Tablet (of 1000 mcg) Oral daily Cetirizine HCl 1 Tablet (of 10 mg) Oral daily Empagliflozin 1 Tablet (of 10 mg) Oral daily Ferrous Sulfate 1 Tablet (of 325 (65 fe) mg) Oral daily Fish Oil 2 Capsule (of 1000 mg) Oral daily Folic Acid 2 Tablet (of 1 mg) Oral daily glipiZIDE 1 Tablet (of 10 mg) Oral b.i.d. Insulin Glargine 64 Unit(s) (of 100 Units/mL) Subcutaneous b.i.d. Ipratropium [place] HFA 2 Puff(s) (of 17 mcg/act) Aerosol, solution Inhalation four times a day Isosorbide Mononitrate ER 1 Tablet (of 60 mg) Tablet SR 24 HR Oral b.i.d. Levothyroxine Sodium 1 Tablet (of 100 mcg) Oral every am Mupirocin (2 %) Ointment Topical t.i.d. Nitroglycerin 1 Tablet (of 0.4 mg) Tablet, sublingual Sublingual q 5 minutes for 2 doses PRN Pantoprazole Sodium 1 Tablet (of 40 mg) Tablet, enteric coated Oral ac am Pregabalin 1 Capsule (of 150 mg) Oral b.i.d. Ranolazine ER 1 Tablet (of 500 mg) Tablet SR 12 HR Oral b.i.d. tiZANidine HCl 1 Tablet (of 4 mg) Oral b.i.d. Family History: Mr. Madrigal's mother at age 82. Mr. Madrigal's father at age 72: Carole Gehrigs disease. Father of ALS at age 72. Mother at 82, reportedly of old age . A brother has diabetes and heart disease. A sister at age 33, reportedly due to her blood having jelled . One other sister is in good health. Social History: Mr. Madrigal is and he is retired. He is a daily smoker who has smoked 0.5 packs/day for 54 years. He has indicated exposure to the following products: cigarettes. 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 He is disabled. He has history of smoking since age 12, previously up to 2 packs of cigarettes daily. He has now cut down to 1/2 pack/day. He currently does not drink alcohol. He has had alcohol use in the past, but never heavy. Physical Examination: Performed on Aug 28, 2021 10:58: Height - 79.00 in, Weight - 301.8 lbs (LOW), BSA - 2.71 sq.m, BMI - 34.00 (HIGH), Temperature - 98.6 F, Pulse - 92 /min, Respiration - 16 /min, BP - 129/74 mm(hg), O2 Sat - 96 %, Pain - 6, and Fatigue - 5. Performance Status: 2 - Ambulatory/capable of all self-care, unable to perform any work activities. Up and about more than 50% of waking hours. (ECOG) Constitutional Alert, cooperative, oriented. Mood and affect appropriate. Appears close to chronological age. Well nourished. Well developed. Head Normocephalic; no scars. Respiratory Lungs are clear to auscultation without rhonchi or wheezing. Cardiovascular Regular rate and rhythm of heart without murmurs, gallops or rubs. Abdomen Non-tender, non-distended, no masses, ascites or hepatosplenomegaly. Good bowel sounds. No guarding or rebound tenderness. Musculoskeletal No tenderness or swelling, normal range of motion without obvious weakness. Psychiatric Alert and oriented times three. Coherent speech. Verbalizes understanding of our discussions today. Laboratory: Test performed on Aug 28, 2021 08:56 Ferritin 36 ng/mL Iron 35 mcg/dL Sodium 137 mmol/L Iron Binding Capacity (TIBC) 382 mcg/dl Potassium 3.9 mmol/L % Iron Saturation 9.1 % Chloride 97 mmol/L CO2 26 mmol/L UIBC 347 mcg/dL Anion Gap 17.9 BUN 17 mg/dL Creatinine 1.0 mg/dL Cr Clearance (Est) 144.50 mL/min eGFR 75.2 mL/min Glucose 136 mg/dL Osmolality - Calculated 288 mOsm/kg Calcium 9.5 mg/dL Protein, Total 8.3 g/dL Albumin 4.0 g/dL Globulin 4.3 g/dL Bilirubin, Total 0.3 mg/dL ALT (SGPT) 45 U/L AST (SGOT) 29 U/L Alkaline Phosphatase 118 IU/L WBC 7.4 10 3/uL RBC 4.78 10 6/uL HGB 13.2 g/dL HCT 43.5 % MCV 91.0 fl MCH 27.6 pg MCHC 30.3 g/dL RDW 20.1 % Platelet Count 352 10 3/cmm MPV 10.7 fL Neutrophils 4.69 10 3/uL Lymphocytes 1.8 10 3/uL Monocytes 0.6 10 3/uL Eosinophils 0.2 10 3/uL Basophils 0.1 10 3/uL Neutrophil % 63.8 % Lymphocyte % 24.0 % Monocyte % 8.0 % Eosinophil % 3.1 % Basophils % 0.7 % NRBC % 0 % Test performed on Apr 10, 2021 08:50 LDH (Total) 171 U/L TSH 1.67 uIU/mL Vitamin B12 852 pg/mL Retic Count % 3.9 % Impression: 1. Iron deficiency anemia. 2. Hypertension. 3. Hyperlipidemia. 4. Type 2 diabetes with neuropathy. 5. Chronic kidney disease. 6. Coronary artery disease with cardiomyopathy. 7. Atrial fibrillation. 8. COPD. 9. Obstructive sleep apnea. 10. He has undergone repair of abdominal aortic aneurysm. 11. Degenerative arthritis. Plan: Patient presents today with moderately severe iron deficiency anemia. He has been taking oral iron for more than 3 months. He continues to be iron deficient. We will plan 1 dose of Injectafer 750 mg and he will return to the clinic in 1 month with CBC and iron studies. Signed By: Rosi Lew, N.P. <<Signature on File>>
== END 2021-08-28 08:29 | disposition home or self-care (01) ==
PROVIDERS: PCP Family Medicine; Visit Provider Nurse Practitioner Family
DX: D50.9 Iron deficiency anemia, unspecified (principal); E78.5 Hyperlipidemia, unspecified; E11.40 Type 2 diabetes mellitus with diabetic neuropathy, unspecified; I12.9 Hypertensive chronic kidney disease with stage 1 through stage 4 chronic kidney disease, or unspecified chronic kidney disease; N18.9 Chronic kidney disease, unspecified; I25.10 Atherosclerotic heart disease of native coronary artery without angina pectoris; I48.91 Unspecified atrial fibrillation; J44.9 Chronic obstructive pulmonary disease, unspecified; G47.33 Obstructive sleep apnea (adult) (pediatric); Z79.899 Other long term (current) drug therapy
CPT/HCPCS: 36415; 80053; 82728; 83540; 83550; 85025; 99214

== ENCOUNTER 2021-08-29 12:24 | Outpatient (CLI) | payer OTHER, SELFPAY ==
[2021-08-29] MEDS: sodium chloride 0.9% (100 ml) 100 ML 75 ML (13:45)
[2021-08-29] MEDS: ferric carboxy (IVPB) 750 MG in sodium chloride 0.9% (100 ml) 100 ML 460 MG IV (13:45)
== END 2021-08-29 12:25 | disposition home or self-care (01) ==
PROVIDERS: PCP Family Medicine; Visit Provider Internal Medicine Medical Oncology
DX: D50.9 Iron deficiency anemia, unspecified (principal)
CPT/HCPCS: 96365; J1439

== ENCOUNTER 2021-09-19 10:20 | Outpatient (RCR) | payer OTHER, SELFPAY | END 2021-09-30 23:59 | disposition home or self-care (01) | LOC: SPT 10:20 | PROVIDERS: PCP Family Medicine; Referring Provider Family Medicine; Visit Provider Family Medicine | DX: M54.50 Low back pain, unspecified (principal) | CPT/HCPCS: 97161 ==

== ENCOUNTER 2021-09-27 11:19 | Outpatient (CLI) | payer OTHER, SELFPAY ==
[2021-09-27 11:42] LABS: Basophils # 0.1 10^3/uL (0.0-0.1); Basophils % 0.7 %; Eosinophils # 0.3 10^3/uL (0.0-0.8); Eosinophils % 2.9 %; Hematocrit 47.7 % (42.0-52.0); Hemoglobin 14.5 g/dL (11.7-16.6); Lymphocytes % 22.2 %; Mean Corpuscular HGB Conc 30.4 g/dL (30.0-36.0); Mean Corpuscular Hemoglobin 28.4 pg (28.0-34.0); Mean Corpuscular Volume 93.5 fl (80-94); Mean Platelet Volume 11.3 fL (7.4-10.4); Monocytes # 0.6 10^3/uL (0.2-0.9); Monocytes % 6.4 %; Neutrophils # 6.01 10^3/uL (1.8-7.7); Neutrophils % 67.5 %; Nucleated Red Blood Cells % 0 %; Platelet Count 321 10^3/cmm (130-400); Red Cell Distribution Width 19.7 % (12.1-15.1); White Blood Count 8.9 10^3/uL (4.0-10.0)
[2021-09-27 12:37] LABS: Ferritin 102 ng/mL (30-400); Iron 75 ug/dL (59-158); Percent Saturation 21.8 % (20-50); Total Iron Binding Capacity 343 mcg/dl; Unsaturated Iron Binding 268 ug/dL (112-347)
--- NOTE | 2021-09-27 13:23 | ONC FU_ITS ---
Rosi Hackett Progress Note Patient: Art Madrigla Unit #: [id number]: [id number] Dicatated By: Rosi Hackett N.P.Date of Visit:Sep 27, 2021 Onc MED Follow-up/Prog Note Chief Complaint: Anemia. History of Present Illness: This is a 65-year-old man with mild anemia. He has multiple medical illnesses including hypertension, hyperlipidemia, type 2 diabetes, chronic kidney disease, and coronary artery disease. He has associated cardiomyopathy and atrial fibrillation. He has undergone coronary artery bypass surgery on 2 occasions and is undergone repair of abdominal aortic aneurysm on 3 occasions. Other illnesses include COPD, obstructive sleep apnea, and degenerative arthritis. I had seen him initially in April 2021 in regard to moderately severe anemia. The available records from the [facility] included a CBC from 02/16/2021 which showed hemoglobin low at 9.2 g with hematocrit 32.4%. The red cell indices were borderline low with MCV 82 and MCH 23. The white blood cell count was 8200 and the platelet count was 437,000. His comprehensive metabolic profile showed elevated creatinine at 1.60 mg/dL and slightly elevated SGOT and SGPT levels. The bilirubin was normal at 0.5 mg/dL. At the time of his visit in April he had started on oral iron supplementation with ferrous sulfate. His hemoglobin ahd increased to 11.4 g. His serum iron studies showed normal transferrin saturation at 36.4%, but his ferritin was still relatively low at 38 ng/mL. B12 was normal 852 pg/mL. He had been scheduled to have a colonoscopy with Dr. Fuller in May. With his anemia improving, he continued his oral iron supplement, which he was tolerating without adverse effects. Patient presents today for follow-up. He continues to have fatigue although he thinks it is a little bit better. His appetite has been good. He denies fever, chills, night sweats. No sinus drainage or mouth sores. No shortness of breath, cough, chest pain. He has been having trouble with constipation in the past but that is now resolved since he no longer has to take iron tablets. No urinary problems. He has low back pain which is chronic in nature. No headaches or dizziness. He received Injectafer 1 month ago and is here for follow-up for that. Review Of Symptoms: See above. Past Medical History: Abdominal aortic aneurysm Anxiety Atrial fibrillation Cardiomyopathy Chronic kidney disease Chronic obstructive pulmonary disease Coronary artery disease Degenerative arthritis Hyperlipidemia Hypertension Obstructive sleep apnea Type II diabetes Venous insufficiency Covid virus in 2020 Past Surgical History: Coronary artery bypass surgery in 1993 and in 2004 Excision of cyst from back Left knee repair Left rotator cuff repair Pacemaker placement Repair of dissecting abdominal aortic aneurysm Repair of skull fracture Allergies: Bee Stings and Statins. Medications: 1Rivaroxaban 1 Tablet (of 20 mg) Oral daily Albuterol Sulfate HFA 2 Puff(s) (of 108 (90 base) mcg/act) Aerosol, solution Inhalation four times a day PRN Amiodarone HCl 1 Tablet (of 200 mg) Oral daily B-12 1 Tablet (of 1000 mcg) Oral daily Cetirizine HCl 1 Tablet (of 10 mg) Oral daily Empagliflozin 1 Tablet (of 10 mg) Oral daily Ferrous Sulfate 1 Tablet (of 325 (65 fe) mg) Oral daily Fish Oil 2 Capsule (of 1000 mg) Oral daily Folic Acid 2 Tablet (of 1 mg) Oral daily glipiZIDE 1 Tablet (of 10 mg) Oral b.i.d. Insulin Glargine 64 Unit(s) (of 100 Units/mL) Subcutaneous b.i.d. Ipratropium [place] HFA 2 Puff(s) (of 17 mcg/act) Aerosol, solution Inhalation four times a day Isosorbide Mononitrate ER 1 Tablet (of 60 mg) Tablet SR 24 HR Oral b.i.d. Levothyroxine Sodium 1 Tablet (of 100 mcg) Oral every am Mupirocin (2 %) Ointment Topical t.i.d. Nitroglycerin 1 Tablet (of 0.4 mg) Tablet, sublingual Sublingual q 5 minutes for 2 doses PRN Pantoprazole Sodium 1 Tablet (of 40 mg) Tablet, enteric coated Oral ac am Pregabalin 1 Capsule (of 150 mg) Oral b.i.d. Ranolazine ER 1 Tablet (of 500 mg) Tablet SR 12 HR Oral b.i.d. tiZANidine HCl 1 Tablet (of 4 mg) Oral b.i.d. Family History: Mr. Madrigal's mother at age 82. Mr. Madrigal's father at age 72: Carole Gehrigs disease. Father of ALS at age 72. Mother at 82, reportedly of old age . A brother has diabetes and heart disease. A sister at age 33, reportedly due to her blood having jelled . One other sister is in good health. Social History: Mr. Madrigal is and he is retired. He is a daily smoker who has smoked 0.5 packs/day for 54 years. He has indicated exposure to the following products: cigarettes. 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 He is disabled. He has history of smoking since age 12, previously up to 2 packs of cigarettes daily. He has now cut down to 1/2 pack/day. He currently does not drink alcohol. He has had alcohol use in the past, but never heavy. Physical Examination: Performed on Sep 27, 2021 13:03: Height - 79.00 in, Weight - 305.8 lbs (HIGH), BSA - 2.73 sq.m, BMI - 34.45 (HIGH), Temperature - 99.0 F (HIGH), Pulse - 88 /min, Respiration - 17 /min, BP - 145/81 mm(hg) (HIGH), O2 Sat - 98 %, Pain - 8, and Fatigue - 7. Performance Status: 1 - No physically strenuous activity, but ambulatory and able to carry out light or sedentary work (e.g. office work, light house work). (ECOG) Constitutional Alert, cooperative, oriented. Mood and affect appropriate. Appears close to chronological age. Well nourished. Well developed. Head Normocephalic; no scars. Respiratory Lungs are clear to auscultation without rhonchi or wheezing. Cardiovascular Regular rate and rhythm of heart without murmurs, gallops or rubs. Abdomen Non-tender, non-distended, no masses, ascites or hepatosplenomegaly. Good bowel sounds. No guarding or rebound tenderness. Musculoskeletal No tenderness or swelling, normal range of motion without obvious weakness. Psychiatric Alert and oriented times three. Coherent speech. Verbalizes understanding of our discussions today. Laboratory: Test performed on Sep 27, 2021 11:30 Ferritin 102 ng/mL Iron 75 mcg/dL Iron Binding Capacity (TIBC) 343 mcg/dl % Iron Saturation 21.8 % UIBC 268 mcg/dL WBC 8.9 10 3/uL RBC 5.10 10 6/uL HGB 14.5 g/dL HCT 47.7 % MCV 93.5 fl MCH 28.4 pg MCHC 30.4 g/dL RDW 19.7 % Platelet Count 321 10 3/cmm MPV 11.3 fL Neutrophils 6.01 10 3/uL Lymphocytes 2.0 10 3/uL Monocytes 0.6 10 3/uL Eosinophils 0.3 10 3/uL Basophils 0.1 10 3/uL Neutrophil % 67.5 % Lymphocyte % 22.2 % Monocyte % 6.4 % Eosinophil % 2.9 % Basophils % 0.7 % NRBC % 0 % Test performed on Aug 28, 2021 08:56 Sodium 137 mmol/L Potassium 3.9 mmol/L Chloride 97 mmol/L CO2 26 mmol/L Anion Gap 17.9 BUN 17 mg/dL Creatinine 1.0 mg/dL Cr Clearance (Est) 144.50 mL/min eGFR 75.2 mL/min Glucose 136 mg/dL Osmolality - Calculated 288 mOsm/kg Calcium 9.5 mg/dL Protein, Total 8.3 g/dL Albumin 4.0 g/dL Globulin 4.3 g/dL Bilirubin, Total 0.3 mg/dL ALT (SGPT) 45 U/L AST (SGOT) 29 U/L Alkaline Phosphatase 118 IU/L Test performed on Apr 10, 2021 08:50 LDH (Total) 171 U/L TSH 1.67 uIU/mL Vitamin B12 852 pg/mL Retic Count % 3.9 % Impression: 1. Iron deficiency anemia. 2. Hypertension. 3. Hyperlipidemia. 4. Type 2 diabetes with neuropathy. 5. Chronic kidney disease. 6. Coronary artery disease with cardiomyopathy. 7. Atrial fibrillation. 8. COPD. 9. Obstructive sleep apnea. 10. He has undergone repair of abdominal aortic aneurysm. 11. Degenerative arthritis. Plan: Patient presents today for follow-up. He has a history of iron deficiency anemia and was taking oral iron but it was not effective. It was also causing severe constipation. He was given 1 dose of Injectafer on 08/29/2021 and his lab studies are now within normal limits with his iron at 75 and his iron saturation at 21.8%. Patient was instructed to discontinue oral iron due to intolerance. He will return to the clinic in 3 months with CBC and iron studies. Signed By: Rosi Hackett N.P. <<Signature on File>> 8
== END 2021-09-27 11:20 | disposition home or self-care (01) ==
PROVIDERS: PCP Family Medicine; Visit Provider Nurse Practitioner Family
DX: D50.9 Iron deficiency anemia, unspecified (principal); I12.9 Hypertensive chronic kidney disease with stage 1 through stage 4 chronic kidney disease, or unspecified chronic kidney disease; E11.22 Type 2 diabetes mellitus with diabetic chronic kidney disease; N18.9 Chronic kidney disease, unspecified; E11.40 Type 2 diabetes mellitus with diabetic neuropathy, unspecified; F17.210 Nicotine dependence, cigarettes, uncomplicated; I25.10 Atherosclerotic heart disease of native coronary artery without angina pectoris; I42.9 Cardiomyopathy, unspecified; I48.91 Unspecified atrial fibrillation; J44.9 Chronic obstructive pulmonary disease, unspecified; G47.33 Obstructive sleep apnea (adult) (pediatric); Z95.828 Presence of other vascular implants and grafts; M19.90 Unspecified osteoarthritis, unspecified site
CPT/HCPCS: 36415; 82728; 83540; 83550; 85025; 99214

== ENCOUNTER → 2021-09-29 09:14 | Outpatient (BNVA) | payer OTHER, SELFPAY | PROVIDERS: PCP Family Medicine; Visit Provider Internal Medicine Critical Care Medicine | DX: J43.9 Emphysema, unspecified (principal); J84.10 Pulmonary fibrosis, unspecified; I25.5 Ischemic cardiomyopathy; G47.33 Obstructive sleep apnea (adult) (pediatric); F17.210 Nicotine dependence, cigarettes, uncomplicated; I10 Essential (primary) hypertension; E78.5 Hyperlipidemia, unspecified; E11.8 Type 2 diabetes mellitus with unspecified complications | CPT/HCPCS: 99204 ==

== ENCOUNTER 2021-10-01 06:00 | Outpatient (RCR) | payer OTHER, SELFPAY | END 2021-10-31 23:59 | disposition home or self-care (01) | LOC: SPT 06:00 | PROVIDERS: PCP Family Medicine; Referring Provider Family Medicine; Visit Provider Family Medicine | DX: M54.50 Low back pain, unspecified (principal) | CPT/HCPCS: 97113 ==

== ENCOUNTER 2021-11-01 06:00 | Outpatient (RCR) | payer OTHER, SELFPAY | END 2021-11-30 23:59 | disposition home or self-care (01) | LOC: SPT 06:00 | PROVIDERS: PCP Family Medicine; Referring Provider Family Medicine; Visit Provider Family Medicine | DX: M54.50 Low back pain, unspecified (principal) | CPT/HCPCS: 97113 ==

== ENCOUNTER 2021-11-07 12:53 | Outpatient (CLI) | payer OTHER, SELFPAY ==
--- NOTE | 2021-11-07 13:10 | CT_ITS ---
WS: [id number] CT CHEST CT-HIGH RESOLUTION, NONCONTRAST. HISTORY: Interstitial lung disease. Technique: High-resolution chest CT is performed in inspiration, expiration, supine and prone positio rona. All CT scans at [facility] use at least one of these dose optimization techniques: automated exposure control; mA and/or kV adjustment per patient size (includes targeted exams where dose is mat ched to clinical indication); or iterative reconstruction. DLP: 2298.59 mGy-cm. COMPARISON: Lung screening 08/22/2021 Findings: Hyperexpanded lungs. There are mild bilateral peripheral prominent reticulations throughout both lungs but greatest towards the lung bases and continued within the periphery. No honeycombing o r bronchiectasis. No dense area of consolidation. There is mild thickening and very slight nodularity along the fissures, greatest involving the RIGHT middle lobe fissure. No focal area of persistent or worsening groundglass attenuation. No mass. With expiration no mosaic pattern or air trapping is identified. There is normal loss of volume with expiration. No significant change with prone positioning of the peripheral reticulations. No mediastinal or hilar adenopathy. Prior CABG. Mild cardiomegaly. Mild atherosclerosis aorta. No per icardial or pleural effusions. No adrenal mass. The visualized liver is negative. CT/CT chest wo con [id number] Impression: 1. No evidence for UIP at this time. There is no honeycombing or bronchiectasi s. 2. Mild peripheral septal thickening with reticulations throughout the lungs. Probably due to pulmonary fibrosis. 3. No adenopathy. 4. No air trapping.
== END 2021-11-07 12:54 | disposition home or self-care (01) ==
LOC: RAD 12:56
PROVIDERS: PCP Family Medicine; Visit Provider Internal Medicine Critical Care Medicine
DX: R06.02 Shortness of breath (principal)
CPT/HCPCS: 71250

== ENCOUNTER → 2021-11-10 09:23 | Outpatient (BNVA) | payer OTHER, SELFPAY | PROVIDERS: PCP Family Medicine; Visit Provider Internal Medicine Critical Care Medicine | DX: R06.02 Shortness of breath (principal); J43.9 Emphysema, unspecified; J84.10 Pulmonary fibrosis, unspecified; I25.5 Ischemic cardiomyopathy; G47.33 Obstructive sleep apnea (adult) (pediatric); F17.210 Nicotine dependence, cigarettes, uncomplicated; I25.10 Atherosclerotic heart disease of native coronary artery without angina pectoris; I10 Essential (primary) hypertension; E11.8 Type 2 diabetes mellitus with unspecified complications | CPT/HCPCS: 82085; 82550; 84182; 85651; 86038; 86140; 86200; 86235; 86431; 99214 ==

== ENCOUNTER 2021-11-23 07:46 | Outpatient (CLI) | payer OTHER, SELFPAY ==
--- NOTE | 2021-11-23 08:36 | MM_ITS ---
WS: [id number] DIAGNOSTIC BILATERAL DIGITAL BREAST TOMOSYNTHESIS MAMMOGRAPHY WITH CAD LEFT breast ultrasound, limited. HISTORY: LT BREAST Nodule; gynecomastia COMPARISON: 09/03/2014 RIGHT mammogram. TECHNIQUE: Bilateral craniocaudad, mediolateral oblique, and mediolateral views are submitted with to mosjolynn and SM. Computer aided detection utilized. Breast composition: There are scattered areas of fibroglandular density. Marker is placed in the cent ral LEFT breast near 3:00. This nodular area is not posterior or close to the nipple. No underlying m ass identified. Dense fibroglandular tissue bilaterally within each breast posterior to the nipple re lated to gynecomastia. Patient is not describing any interval change in these areas. LEFT breast ultrasound, limited. Ultrasound is directed to the palpable area only. At 3:00, 2 cm from nipple no abnormality is identif ied. MM/[place] [id number] IMPRESSION: BI-RADS: 2-Benign FOLLOW UP: See Report No abnormality noted at the palpable site, 3:00 LEFT breast.
== END 2021-11-23 07:47 | disposition home or self-care (01) ==
LOC: RAD 07:47
PROVIDERS: PCP Family Medicine; Visit Provider Family Medicine
DX: N63.0 Unspecified lump in unspecified breast (principal); N62 Hypertrophy of breast
CPT/HCPCS: 76642; 77062

== ENCOUNTER 2021-11-23 07:46 | Outpatient (CLI) | payer OTHER, SELFPAY ==
--- NOTE | 2021-11-23 14:34 | PFTS_ITS ---
Date of Study:11/23/21 Date of Dictation: MECHANICS: Forced vital capacity (FVC) is reduced. Forced expiratory volume in one second (FEV1) is reduced. FEV1/FVC is normal. FLOW VOLUME LOOP: Reduced flow at all lung volumes without significant scooping. LUNG VOLUMES: Total lung capacity (TLC) is normal. Residual volume (RV) is normal. DIFFUSING CAPACITY FOR CARBON MONOXIDE: Normal. INTERPRETATION: The pulmonary function tests are consistent with nonspecific ventilatory limitations. There is no significant postbronchodilator response. The spirometry is consistent with mild restriction however the lung volumes are normal. Gas exchange (DLCO) is normal. MTDD
== END 2021-11-23 07:47 | disposition home or self-care (01) ==
LOC: RT 07:47
PROVIDERS: PCP Family Medicine; Visit Provider Internal Medicine Critical Care Medicine
DX: J43.9 Emphysema, unspecified (principal)
CPT/HCPCS: 94060; 94618; 94726; 94729; J7614

== ENCOUNTER → 2021-11-28 13:57 | Outpatient (BNVA) | payer OTHER, SELFPAY | PROVIDERS: PCP Family Medicine; Visit Provider Internal Medicine Cardiovascular Disease | DX: I25.118 Atherosclerotic heart disease of native coronary artery with other forms of angina pectoris (principal); Z98.890 Other specified postprocedural states; I65.21 Occlusion and stenosis of right carotid artery; I25.5 Ischemic cardiomyopathy; G47.33 Obstructive sleep apnea (adult) (pediatric); J84.10 Pulmonary fibrosis, unspecified; E78.2 Mixed hyperlipidemia; E11.42 Type 2 diabetes mellitus with diabetic polyneuropathy; I48.19 Other persistent atrial fibrillation; Z95.0 Presence of cardiac pacemaker; F17.210 Nicotine dependence, cigarettes, uncomplicated; Z95.1 Presence of aortocoronary bypass graft; Z79.4 Long term (current) use of insulin | CPT/HCPCS: 99214 ==

== ENCOUNTER 2021-12-01 06:00 | Outpatient (RCR) | payer OTHER, SELFPAY | END 2021-12-31 23:59 | disposition home or self-care (01) | LOC: SPT 06:00 | PROVIDERS: PCP Family Medicine; Referring Provider Family Medicine; Visit Provider Family Medicine | DX: M54.50 Low back pain, unspecified (principal) | CPT/HCPCS: 97113 ==

== ENCOUNTER → 2021-12-11 08:13 | Outpatient (BNVA) | payer OTHER, SELFPAY | PROVIDERS: PCP Family Medicine; Visit Provider Anesthesiology Pain Medicine | DX: M47.816 Spondylosis without myelopathy or radiculopathy, lumbar region (principal); M51.36 Other intervertebral disc degeneration, lumbar region; M79.604 Pain in right leg; M79.605 Pain in left leg; F17.210 Nicotine dependence, cigarettes, uncomplicated; Z79.891 Long term (current) use of opiate analgesic | CPT/HCPCS: 99214 ==

== ENCOUNTER → 2021-12-15 11:10 | Outpatient (BNVA) | payer OTHER, SELFPAY | PROVIDERS: PCP Family Medicine; Visit Provider Internal Medicine Cardiovascular Disease | DX: Z45.010 Encounter for checking and testing of cardiac pacemaker pulse generator [battery] (principal) | CPT/HCPCS: 93280 ==

== ENCOUNTER → 2021-12-25 13:46 | Outpatient (BNVA) | payer OTHER, SELFPAY | PROVIDERS: PCP Family Medicine; Visit Provider Anesthesiology Pain Medicine | DX: M54.16 Radiculopathy, lumbar region (principal); F17.210 Nicotine dependence, cigarettes, uncomplicated; Z79.891 Long term (current) use of opiate analgesic | CPT/HCPCS: 64483; 64484; J1100; J3490 ==

== ENCOUNTER 2021-12-25 18:27 | Emergency (ER) | payer OTHER, SELFPAY ==
[2021-12-25 18:32] VITALS: BP 129/88; PULSE 89; RESP 16; TEMP 36.3; O2SAT 94; BMI 34.7
--- NOTE | 2021-12-25 18:36 | CTR_ITS ---
PROCEDURE INFORMATION: Exam: CT Head Without Contrast Exam date and time: 12/25/2021 7:04 PM Age: 66 years old Clinical indication: Injury or trauma; Fall; Laceration; Without loss of consciousness; Without residual foreign body; Forehead; Prior surgery; Surgery date: 6+ months; Surgery type: Skull surgery; Additional info: Head injury TECHNIQUE: Imaging protocol: Computed tomography of the head without contrast. Radiation optimization: All CT scans at this facility use at least one of these dose optimization techniques: automated exposure control; mA and/or kV adjustment per patient size (includes targeted exams where dose is matched to clinical indication); or iterative reconstruction. COMPARISON: CT angio headneck* [id number] 03/23/2021 8:03 AM RADIATION DOSE METRICS: Total DLP (mGy-cm): 1101.18 FINDINGS: Brain: The brain is unremarkable. There is no mass effect or significant white matter disease. There is no acute intracranial hemorrhage. Cerebral ventricles: There is no significant ventricular dilation. The basal cisterns are unremarkable. Paranasal sinuses: The paranasal sinuses are clear. Mastoid air cells: The mastoid air cells are clear. Bones/joints: Intact repair of the left frontal calvarium. Intact repair of the left maxilla. No acute fracture. Soft tissues: Left frontal scalp laceration. CT/CT head wo con* [id number] IMPRESSION: No acute intracranial abnormality.
--- NOTE | 2021-12-25 18:37 | XRR_ITS ---
PROCEDURE INFORMATION: Exam: XR Right Knee Exam date and time: 12/25/2021 7:17 PM Age: 66 years old Clinical indication: Pain; Knee; Right; Additional info: Fall, knee injury TECHNIQUE: Imaging protocol: Radiologic exam of the Right knee. Views: 3 views. COMPARISON: No relevant prior studies available. FINDINGS: Bones/joints: Bones are osteopenic. Alignment is normal. No acute fracture. No joint effusion. There is smooth endosteal cortical thickening along the posterior aspect of the femoral shaft which is partially imaged. Soft tissues: Vascular calcification is present. Visible soft tissues are unremarkable otherwise. XR/XR knee RT 3V* [id number] IMPRESSION: 1. No acute findings. 2. Abnormal thickening in the femoral diaphyseal cortex. Recommend follow-up radiographs of the right femur.
--- NOTE | 2021-12-25 19:07 | ED_ITS ---
HPI - Fall General: Chief Complaint: Fall Stated Complaint: KNEE PAIN/ HEAD LAC Time Seen by Provider: 12/25/21 19:06 History of Present Illness: 66-year-old male patient was going outside when his right knee gave out on him causing him to fall into the screen door. Patient sustained a laceration to the left parietal scalp and complaints of right knee pain. Patient reports that he has had problems with his knee for the last month and is scheduled to see a orthopedist in [place], [place] on Saturday. Associated symptoms-after fall: Denies abdominal pain Review of Systems General: Reports: 10 or more systems reviewed and unremarkable except in HPI and below Resp: Denies: dyspnea GI: Denies: abdominal pain : Denies: difficulty urinating Musc: Reports: joint pain (Right knee pain) Skin/Breast: Reports: new lesions PFSH ED PFSH: Medical History Abdominal aortic aneurysm (AAA) 3.0 cm to 5.5 cm in diameter in male Allergic rhinitis ASHD (arteriosclerotic heart disease) Atherosclerotic heart disease of [place] coronary artery with other forms of a ngina pectoris Atrial fibrillation CHF (congestive heart failure) DDD (degenerative disc disease) Diabetes Hyperlipidemia Hypertension Surgical History H/O esophagogastroduodenoscopy (05/19/21) History of atherectomy History of cardiac radiofrequency ablation History of colonoscopy Hx of CABG Hx of knee surgery Hx of shoulder surgery Pacemaker S/P AAA repair October 2017 at the [facility] Status post colonoscopy (05/19/21) Family History Father Anesthesia complication Cancer Mother CAD (coronary artery disease) Chronic kidney disease (CKD) Brother Diabetes Grandmother Lung disease Denies family history of Clotting disorder Dementia Suicide Bleeding disorder Stroke Social History Smoking and tobacco status: current every day smoker cigarettes Packs smoked per day: 0.5 Years cigarettes smoked: 50 [ Other cigarette details: Started at age 15] Alcohol intake: never Lives independently: Yes History of recent travel: No Physical Exam Const: COMMON NORMALS: alert HENMT: COMMON NORMALS: Normal external nose present HEAD & SCALP: laceration (Irregular 4 cm left parietal scalp) NOSE: Normal external nose present MOUTH: Normal oral and palatal mucosa present Eye: GENERAL EYE: appearance normal, both eyes and all related structures Neck/C-Spine: COMMON NORMALS: full ROM CERVICAL SPINE: No Cervical spine tenderness Resp: COMMON NORMALS: normal respiratory effort and clear to auscultation bilaterally AUSCULTATION: clear to auscultation bilaterally Cardio: COMMON NORMALS: regular rate and regular rhythm RATE: regular rate RHYTHM: regular rhythm Extremity: RIGHT LOWER EXTREMITY: Yes knee joint (Tenderness to palpation, minimal swelling) Right knee: Yes inspection, Yes palpation and Yes ROM (Decreased range of motion due to pain) Neuro: SENSORIUM/ORIENTATION: Yes alert Skin: TRAUMA: laceration (Left side irregular parietal scalp laceration 4 cm) Procedures Laceration Laceration 1: Site: scalp Side (If applicable): left Size (cm): 4 Description: irregular Depth: simple, single layer Local Anesthetic: lidocaine 2% and with epi Amount of anesthesia used (mL): 6 Pre-repair: wound explored and irrigated extensively Skin layer closed with: nylon Size (cm): 5-0 Number of sutures: 8 Course Vital Signs: Vital signs: Vital Signs Temperature 98.1 F 12/25/21 19:24 Pulse Rate 75 12/25/21 20:30 Respiratory Rate 18 12/25/21 20:30 Blood Pressure 136/83 12/25/21 20:30 Pulse Oximetry 94 12/25/21 20:30 MDM - Fall Medical Decision Making 66-year-old comes in today after a fall at home. On exam patient has no neck pain on palpation of the cervical spine. No rib pain is noted on palpation. Abdomen soft nontender. Patient moves all extremities well. Patient also has a irregular 4 cm laceration to the scalp left parietal side. Differential diagnosis includes skull fracture, intracranial bleeding, knee injury, fracture. Laceration was repaired with sutures. X-rays of the knee and CT of the head indicated no fractures or intracranial bleeding. X-ray of the knee recommended a femur x-ray to rule out fracture due to a abnormality of the distal femur. X- ray showed no signs of fracture. Reviewed exam with patient with recommendations for treatment and follow-up. Patient reported understanding and agreed to plan. Lab Data Radiology Impressions Head CT 12/25/21 18:36 IMPRESSION: No acute intracranial abnormality. Knee X-Ray 12/25/21 18:37 IMPRESSION: 1. No acute findings. 2. Abnormal thickening in the femoral diaphyseal cortex. Recommend follow-up radiographs of the right femur. Femur X-Ray 12/25/21 20:05 IMPRESSION: No acute fracture or dislocation. Discharge Plan Discharge Patient Disposition: Home Clinical Impression: Fall Qualifiers: Encounter type: initial encounter Qualified Code(s): W19.XXXA - Unspecified fall, initial encounter Laceration of scalp Qualifiers: Encounter type: initial encounter Qualified Code(s): S01.01XA - Laceration without foreign body of scalp, initial encounter Knee pain, right Qualifiers: Chronicity: unspecified Qualified Code(s): M25.561 - Pain in right knee Condition: Stable Prescriptions: New hydrocodone-acetaminophen 5-325 mg tablet 1 tab PO Q6H PRN (Reason: pain (scale score 7-10)) Qty: 14 0RF No Action cetirizine [Zyrtec] 10 mg tablet 10 mg PO DAILY 0RF pantoprazole [Protonix] 40 mg tablet,delayed release (DR/EC) 40 mg PO DAILY 0RF calcium carbonate [Calcium 500] 500 mg calcium (1,250 mg) tablet 500 mg PO DAILY 0RF allopurinol 300 mg tablet 300 mg PO DAILY 0RF multivitamin Tablet 1 tab PO DAILY 0RF glipizide 10 mg tablet 10 mg PO BID 0RF acarbose 50 mg tablet 25 mg PO TID 0RF folic acid 1 mg tablet 2 mg PO DAILY 0RF montelukast [Singulair] 10 mg tablet 10 mg PO DAILY 0RF insulin glargine 100 unit/mL solution 64 unit SUBCUT BID 0RF fluticasone propionate 50 mcg/actuation spray,suspension 1 spray INTRANASAL DAILY 0RF Rx Instructions: administer into each nostril albuterol sulfate [ProAir HFA] 90 mcg/actuation HFA aerosol inhaler 1 inh INHALATION QID PRN (Reason: shortness of breath or wheezing) 0RF levothyroxine [Synthroid] 75 mcg tablet 75 mcg PO DAILY 0RF tramadol 50 mg tablet 50 mg PO BID PRN (Reason: pain) Qty: 45 0RF budesonide-formoterol [Symbicort] 160-4.5 mcg/actuation HFA aerosol inhaler 2 puff INHALATION BID 0RF Spiriva Respimat 2.5 mcg/actuation mist 2 puff INHALATION DAILY 0RF cyanocobalamin (vitamin B-12) 1,000 mcg/15 mL liquid 1,000 mcg PO DAILY 0RF amiodarone 200 mg tablet 200 mg PO DAILY Qty: 90 3RF albuterol sulfate 2.5 mg /3 mL (0.083 %) solution for nebulization 2.5 mg inhalation QID PRN (Reason: shortness of breath or wheezing) 30 Days Qty: 360 4RF (DME) nebulizer See Rx Instructions .Route .MEDSUPPLY Qty: 1 0RF Rx Instructions: Nebulizer and supplies As directed tramadol 50 mg tablet 50 mg PO BID PRN (Reason: pain) 7 Days Qty: 14 0RF dexamethasone sodium phos (PF) 10 mg/mL solution 8 mg Infiltration ONCE Qty: 0.8 0RF Xarelto 20 mg tablet 20 mg PO DAILY Qty: 90 3RF Rx Instructions: must administer with evening meal aspirin [Adult Low Dose Aspirin] 81 mg tablet,delayed release (DR/EC) 81 mg PO DAILY Qty: 90 3RF bumetanide 2 mg tablet 2 mg PO BID Qty: 180 3RF gemfibrozil 600 mg tablet 600 mg PO BID Qty: 180 3RF magnesium oxide 400 mg magnesium tablet 400 mg PO BID Qty: 180 3RF metoprolol tartrate 100 mg tablet 100 mg PO BID Qty: 180 3RF nitroglycerin [Nitrostat] 0.4 mg tablet, sublingual 0.4 mg SUBLINGUAL Q5M PRN (Reason: Chest Pain) Qty: 50 3RF Jardiance 10 mg tablet 10 mg PO DAILY Qty: 90 3RF Entresto 24-26 mg tablet 1 tab PO BID Qty: 180 1RF ranolazine 500 mg tablet extended release 12 hr See Rx Instructions .ROUTE .COMPLEX Qty: 180 3RF Dose Instruction: TAKE ONE TABLET BY MOUTH TWICE A DAY FOR HEART. *SWALLOW WHOLE- DO NOT CRUSH,BREAK OR CHEW* Rx Instructions: TAKE ONE TABLET BY MOUTH TWICE A DAY FOR HEART. *SWALLOW WHOLE- DO NOT CRUSH,BREAK OR CHEW* cholecalciferol (vitamin D3) [Vitamin D3] 50 mcg (2,000 unit) Tablet 50 mcg PO DAILY 0RF selenium 100 mcg Tablet 100 mcg PO DAILY 0RF potassium gluconate 595 mg (99 mg) Tablet 595 mg PO DAILY 0RF melatonin 10 mg Tablet 10 mg PO BEDTIME 0RF omega-3 fatty acids 1,000 mg capsule 2,000 mg PO DAILY 0RF tizanidine 4 mg tablet 10 mg PO BID PRN (Reason: muscle spasticity) 0RF isosorbide mononitrate 60 mg tablet extended release 24 hr 60 mg PO BID 0RF Discharge Orders: Discharge ED (Routine); Ordered 12/25/21 Ordered By: Kane Hartman Referrals: Carla Manriquez MD [Primary Care Provider] - Discharge Diet: Usual diet Discharge Activity: Increase activity as tolerated Patient Instructions: Laceration (ED) Activity Restrictions/Additional Instructions: Keep wound clean and dry. Activity as tolerated. Take medications as directed. Follow-up with primary care for further instructions. Return to ER for new concerns Coding Level of Care Code ED Help Desk Support for Roxanne Fwd Exam Comprehensive
[2021-12-25 19:24] VITALS: BP 138/8; PULSE 62; RESP 18; TEMP 36.7; O2SAT 96
[2021-12-25] MEDS: HYDROcodone-acetaminophen 7.5-325 mg Tablet 1 TAB PO (19:46)
[2021-12-25 19:59] VITALS: BP 138/68; PULSE 60; RESP 18; O2SAT 100
--- NOTE | 2021-12-25 20:05 | XRR_ITS ---
PROCEDURE INFORMATION: Exam: XR Right Femur Exam date and time: 12/25/2021 8:15 PM Age: 66 years old Clinical indication: Injury or trauma; Fall; Blunt trauma; Thigh or upper leg; Right TECHNIQUE: Imaging protocol: Radiologic exam of the Right femur. Views: 2 views. COMPARISON: CR (LOW EXM, ) 12/25/2021 7:17 PM FINDINGS: Bones/joints: There are moderate to severe degenerative changes in the right hip and knee. Postoperative clips are noted medial to the knee. No knee joint effusion. No acute fracture or dislocation. Incidental note is made of 0 prominent nutrient vascular channel posterior mid diaphysis of the femur on the lateral view. No acute fracture or dislocation. Soft tissues: Unremarkable. Vasculature: There are vascular calcifications. XR/XR femur RT min 2V* [id number] IMPRESSION: No acute fracture or dislocation.
[2021-12-25 20:30] VITALS: BP 136/83; PULSE 75; RESP 18; O2SAT 94
[2021-12-25 22:07] VITALS: BP 136/74; PULSE 64; RESP 18; O2SAT 94
== END 2021-12-25 22:12 | disposition home or self-care (01) ==
PROVIDERS: Emergency Provider Nurse Practitioner Family; PCP Family Medicine
DX: S01.01XA Laceration without foreign body of scalp, initial encounter (principal); M25.561 Pain in right knee; Z79.84 Long term (current) use of oral hypoglycemic drugs; Z79.82 Long term (current) use of aspirin; Z79.4 Long term (current) use of insulin; I25.10 Atherosclerotic heart disease of native coronary artery without angina pectoris; I11.0 Hypertensive heart disease with heart failure; I50.9 Heart failure, unspecified; E11.9 Type 2 diabetes mellitus without complications; E78.5 Hyperlipidemia, unspecified; Z95.1 Presence of aortocoronary bypass graft; F17.210 Nicotine dependence, cigarettes, uncomplicated; W18.39XA Other fall on same level, initial encounter
CPT/HCPCS: 12002; 70450; 73552; 73562; 99285

== ENCOUNTER 2022-01-08 13:46 | Oncology outpatient (recurring) (ONCR) | payer OTHER, SELFPAY ==
[2022-01-08 14:36] LABS: Basophils # 0.1 10^3/uL (0.0-0.1); Basophils % 0.6 %; Eosinophils # 0.2 10^3/uL (0.0-0.8); Eosinophils % 1.7 %; Hematocrit 44.4 % (42.0-52.0); Hemoglobin 13.8 g/dL (11.7-16.6); Lymphocytes # 2.1 10^3/uL (0.8-4.8); Lymphocytes % 20.9 %; Mean Corpuscular HGB Conc 31.1 g/dL (30.0-36.0); Mean Corpuscular Hemoglobin 27.7 pg (28.0-34.0); Mean Platelet Volume 11.2 fL (7.4-10.4); Monocytes # 0.8 10^3/uL (0.2-0.9); Monocytes % 7.8 %; Neutrophils # 6.75 10^3/uL (1.8-7.7); Neutrophils % 68.7 %; Nucleated Red Blood Cells % 0 %; Platelet Count 351 10^3/cmm (130-400); Red Blood Count 4.99 10^6/uL (4.1-5.3); Red Cell Distribution Width 19.7 % (12.1-15.1); White Blood Count 9.8 10^3/uL (4.0-10.0)
[2022-01-08 16:44] LABS: Ferritin 30 ng/mL (30-400); Iron 42 ug/dL (59-158); Percent Saturation 12.1 % (20-50); Total Iron Binding Capacity 346 mcg/dl; Unsaturated Iron Binding 304 ug/dL (112-347)
== END 2022-01-31 23:59 | disposition home or self-care (01) ==
PROVIDERS: Nurse Practitioner Family; PCP Family Medicine; Visit Provider Internal Medicine Medical Oncology
DX: D50.9 Iron deficiency anemia, unspecified (principal); F17.210 Nicotine dependence, cigarettes, uncomplicated; K29.60 Other gastritis without bleeding
CPT/HCPCS: 36415; 82728; 83540; 83550; 85025; 99214; G0463

== ENCOUNTER → 2022-01-09 08:40 | Outpatient (BNVA) | payer OTHER, SELFPAY | PROVIDERS: PCP Family Medicine; Visit Provider Internal Medicine | DX: R76.8 Other specified abnormal immunological findings in serum (principal); M25.9 Joint disorder, unspecified; R53.1 Weakness; Z11.59 Encounter for screening for other viral diseases | CPT/HCPCS: 36415; 72100; 73120; 73522; 80053; 81003; 82533; 82550; 82607; 83516; 83735; 84100; 84403; 84443; 85651; 86140; 86160; 86162; 86200; 86235; 86255; 86376; 86431; 86704; 86803; 87340; 99204 ==

== ENCOUNTER → 2022-01-17 08:41 | Outpatient (BNVA) | payer OTHER, SELFPAY | PROVIDERS: PCP Family Medicine; Visit Provider Anesthesiology Pain Medicine | DX: M25.551 Pain in right hip (principal); F17.210 Nicotine dependence, cigarettes, uncomplicated; M47.816 Spondylosis without myelopathy or radiculopathy, lumbar region; M51.36 Other intervertebral disc degeneration, lumbar region | CPT/HCPCS: 99214 ==

== ENCOUNTER → 2022-01-25 09:15 | Outpatient (BNVA) | payer OTHER, SELFPAY | PROVIDERS: PCP Family Medicine; Visit Provider Nurse Practitioner Family | DX: I11.0 Hypertensive heart disease with heart failure (principal); I50.9 Heart failure, unspecified; I48.19 Other persistent atrial fibrillation; I25.10 Atherosclerotic heart disease of native coronary artery without angina pectoris; F17.210 Nicotine dependence, cigarettes, uncomplicated | CPT/HCPCS: 99214 ==

== ENCOUNTER 2022-01-30 16:07 | Outpatient (CLI) | payer OTHER, SELFPAY ==
--- NOTE | 2022-01-30 17:15 | USCV_ITS ---
Art Madrigal Age: 66 Gender: M : 1955 Exam Date: 01/30/2022 16:25 Ordering Phys: Miladys Armstrong MD ([email or web address]) Technologist: MOE Exam Location: [facility] [place] Indication: CAROTID STENOSIS Risk Factors: Previous Vascular Surgery: Right Brachial BP: / Left Brachial BP: / Right Left Velocity (cm/s) Spectral Plaque Velocity (cm/s) Spectral Plaque Syst/Diast Broadening Syst/Diast Broadening 61.10/ 15.80 Prox CCA 80.30 / 17.90 105.10/22.20 Mid CCA 88.90 / 22.20 109.40/19.70 Distal CCA 99.10 / 23.10 137.80/36.40 Prox ICA 340.80/ 59.20 141.10/35.30 Mid ICA 98.10 / 29.80 87.00/ 24.90 Distal ICA 81.50 / 21.10 206.60 ECA 234.70 1.29 ICA/CCA 3.44 Vertebral 31.60/ 7.60 cm/s 38.60/ 12.90 cm/s Subclavian 249.8 143.5 0 0 FINDINGS Comparison:. 02/13/21. Diffuse bilateral scattered calcified plaque and intimal thickening throughout the common carotid arteries and extending through the bifurcation. Surface of the plaque is irregular. Antegrade vertebal arteries. Elevated velocity with turbulence, bilateral but greater on the left. Left ICA stensois similar to the prior exam. Right ICA velocity is not as elevated. CONCLUSIONS Left ICA stenosis 70-99%. Closer to 70% , no diastolic velocity increase. Right ICA stenosis < 50%. Diffuse atherosclerotic plaque. Dr. Anupama Goldsmith DO (Electronically Signed) Final Date: 31 January 2022 08:10 S
== END 2022-01-30 16:08 | disposition home or self-care (01) ==
LOC: RAD 16:09
PROVIDERS: PCP Family Medicine; Visit Provider Internal Medicine Cardiovascular Disease
DX: I65.23 Occlusion and stenosis of bilateral carotid arteries (principal); I77.9 Disorder of arteries and arterioles, unspecified
CPT/HCPCS: 93880

== ENCOUNTER 2022-02-01 06:00 | Outpatient (RCR) | payer OTHER, SELFPAY | END 2022-03-02 23:59 | disposition home or self-care (01) | LOC: SPT 06:00 | PROVIDERS: PCP Family Medicine; Referring Provider Family Medicine; Visit Provider Family Medicine | DX: M54.50 Low back pain, unspecified (principal) | CPT/HCPCS: 97113 ==

== ENCOUNTER → 2022-02-15 08:46 | Outpatient (BNVA) | payer OTHER, SELFPAY | PROVIDERS: PCP Family Medicine; Visit Provider Anesthesiology Pain Medicine | DX: M47.816 Spondylosis without myelopathy or radiculopathy, lumbar region (principal); M51.36 Other intervertebral disc degeneration, lumbar region; M79.604 Pain in right leg; M79.605 Pain in left leg; F17.210 Nicotine dependence, cigarettes, uncomplicated | CPT/HCPCS: 99214 ==

== ENCOUNTER 2022-02-21 11:30 | Outpatient (CLI) | payer OTHER, SELFPAY ==
[2022-02-21 12:30] LABS: Blood Urea Nitrogen 23 mg/dL (8-23); Glomerular Filtration Rate 55.6 mL/min (90-130)
== END 2022-02-21 11:31 | disposition home or self-care (01) ==
PROVIDERS: Absent Provider Nurse Practitioner Family; PCP Family Medicine; Visit Provider Internal Medicine Cardiovascular Disease
DX: Z01.812 Encounter for preprocedural laboratory examination (principal)
CPT/HCPCS: 82565; 84520

== ENCOUNTER → 2022-02-22 14:46 | Outpatient (BNVA) | payer OTHER, SELFPAY | PROVIDERS: PCP Family Medicine; Visit Provider Internal Medicine | DX: R94.31 Abnormal electrocardiogram [ECG] [EKG] (principal); Z95.0 Presence of cardiac pacemaker; I25.2 Old myocardial infarction; R76.8 Other specified abnormal immunological findings in serum; M25.9 Joint disorder, unspecified; R53.1 Weakness; N18.9 Chronic kidney disease, unspecified; R79.89 Other specified abnormal findings of blood chemistry | CPT/HCPCS: 93005; 99214 ==

== ENCOUNTER 2022-02-27 06:07 | Outpatient (CLI) | payer OTHER, SELFPAY ==
--- NOTE | 2022-02-27 06:30 | CT_ITS ---
WS: [id number] CT ANGIOGRAM CEREBRAL AND CAROTID ARTERIES HISTORY: Carotid occlusion TECHNIQUE: CT angiogram is performed of the carotid and cerebral arteries. During arterial injection imaging is obtained from the skull vertex to the aortic arch in 1.25 mm imaging. Coronal and sagittal reformats are submitted. Additional multi planar reformats of the carotid and cerebral arteries are submitted, MIP imaging also reviewed. NASCET criteria utilized. All CT scans at [facility] us e at least one of these dose optimization techniques: automated exposure control; mA and/or kV adjust ment per patient size (includes targeted exams where dose is matched to clinical indication); or iter ative reconstruction. CONTRAST: Omnipaque 350; 95 mL IV. DLP: 626.83 mGy.cm COMPARISON: 03/23/[address] head is first performed. No significant mass effect or hemorrhage. Carotid Angiogram: Right carotid: Common carotid artery: Atherosclerotic plaque and intimal thickening beginning within the mid common carotid artery and extends to the bifurcation. Stenosis in the common carotid artery is less than 50% . Internal carotid artery: Increasing plaque and stenosis involving the RIGHT bifurcation. High-grade s tenosis involving the origin of the RIGHT ICA is approximately 70% without a significant increase. External carotid artery: Patent. Left carotid: Common carotid artery: Calcification at the origin of the common carotid artery from the aorta. Internal carotid artery: Intimal thickening and calcified plaque at the bifurcation high-grade stenos is at the origin of the LEFT ICA is approximately 70%. External carotid artery: Patent. Right vertebral artery: Unremarkable. Left vertebral artery: Unremarkable. Arises normally from the subclavian artery. Subclavian arteries: RIGHT subclavian is poorly visualized due to the incoming contrast causing artif act. Intimal thickening and calcification in the LEFT subclavian but no high-grade stenosis or occlus ion. Upper thorax: Chronic emphysema. Atherosclerosis aortic arch. Thyroid gland: Normal. Osseous structures: Moderate spondylitic changes throughout the cervical spine. CEREBRAL ANGIOGRAM: Intracranial vertebral arteries: Normal with no significant atherosclerosis. Basilar artery: No significant stenosis or occlusion. No aneurysm. Intracranial Internal carotid arteries: Scattered plaque throughout the intracranial carotid arteries . Greater distribution in the cavernous sinuses. No occlusion. Stenosis less than 50%. Middle cerebral arteries: Normal. Anterior cerebral arteries and ACOM: Normal. Posterior cerebral arteries and PCOM's: Normal. Dural venous sinuses are normally enhancing. Mastoid air cells: Normal. Paranasal sinuses: Normal. Calvarium: Prior LEFT frontal sinus repair. CT/CT angio headneck* [id number] IMPRESSION: 1. Bilateral significant stenoses involving the origins of the cervical wildlife biology internship al carotid arteries at 70%. Not significantly progressed since the prior study. Stenosis due to combination of calcified plaque and intimal thickening. 2. Mild atherosclerotic plaque through the intracranial carotid arteries but n o high-grade stenosis or occlusion. 3. Atherosclerotic plaque at the arch of the thoracic aorta. 4. Focal mild atherosclerotic plaque in the mid RIGHT common carotid artery is unchanged.
[2022-02-27] MEDS: iohexol 350 mg/mL 100 mL Btl IV (06:44)
== END 2022-02-27 06:08 | disposition home or self-care (01) ==
LOC: RAD 06:08
PROVIDERS: PCP Family Medicine; Visit Provider Internal Medicine Cardiovascular Disease
DX: I65.23 Occlusion and stenosis of bilateral carotid arteries (principal); I70.0 Atherosclerosis of aorta
CPT/HCPCS: 70496; 70498

== ENCOUNTER 2022-03-03 06:00 | Outpatient (RCR) | payer OTHER, SELFPAY | END 2022-04-02 23:59 | disposition home or self-care (01) | LOC: SPT 06:00 | PROVIDERS: PCP Family Medicine; Visit Provider Family Medicine | DX: M54.50 Low back pain, unspecified (principal) | CPT/HCPCS: 97113 ==

== ENCOUNTER → 2022-03-09 10:52 | Outpatient (BNVA) | payer OTHER, SELFPAY | PROVIDERS: PCP Family Medicine; Visit Provider Internal Medicine Critical Care Medicine | DX: R06.02 Shortness of breath (principal); J84.10 Pulmonary fibrosis, unspecified; I25.5 Ischemic cardiomyopathy; G47.33 Obstructive sleep apnea (adult) (pediatric); J43.2 Centrilobular emphysema; F17.210 Nicotine dependence, cigarettes, uncomplicated; Z95.1 Presence of aortocoronary bypass graft | CPT/HCPCS: 99214 ==

== ENCOUNTER → 2022-03-19 13:09 | Outpatient (BNVA) | payer OTHER, SELFPAY | PROVIDERS: PCP Family Medicine; Visit Provider Anesthesiology Pain Medicine | DX: M47.816 Spondylosis without myelopathy or radiculopathy, lumbar region (principal); E11.42 Type 2 diabetes mellitus with diabetic polyneuropathy; Z79.4 Long term (current) use of insulin; F17.210 Nicotine dependence, cigarettes, uncomplicated | CPT/HCPCS: 36416; 64635; 64636; 82962; J1030 ==

== ENCOUNTER → 2022-04-05 14:26 | Outpatient (BNVA) | payer OTHER, SELFPAY | PROVIDERS: PCP Family Medicine; Visit Provider Thoracic Surgery (Cardiothoracic Vascular Surgery) | DX: I65.23 Occlusion and stenosis of bilateral carotid arteries (principal); F17.210 Nicotine dependence, cigarettes, uncomplicated | CPT/HCPCS: 99203 ==

== ENCOUNTER → 2022-04-09 13:17 | Outpatient (BNVA) | payer OTHER, SELFPAY | PROVIDERS: PCP Family Medicine; Visit Provider Anesthesiology Pain Medicine | DX: M47.816 Spondylosis without myelopathy or radiculopathy, lumbar region (principal); M51.36 Other intervertebral disc degeneration, lumbar region; F17.210 Nicotine dependence, cigarettes, uncomplicated | CPT/HCPCS: 64635; 99214 ==

== ENCOUNTER → 2022-04-11 09:27 | Outpatient (BNVA) | payer OTHER, SELFPAY | PROVIDERS: PCP Family Medicine; Visit Provider Internal Medicine | DX: R76.8 Other specified abnormal immunological findings in serum (principal); R79.89 Other specified abnormal findings of blood chemistry; M25.9 Joint disorder, unspecified; R53.1 Weakness; N18.9 Chronic kidney disease, unspecified; J84.10 Pulmonary fibrosis, unspecified | CPT/HCPCS: 85651; 86140; 99214 ==

== ENCOUNTER 2022-04-25 11:34 | Oncology outpatient (recurring) (ONCR) | payer OTHER, SELFPAY ==
[2022-04-11 14:34] LABS: Erythrocyte Sedimentation Rate 22 mm/hr (0-10)
[2022-04-11 14:56] LABS: C Reactive Protein 25.5 mg/L (0.0-4.9)
[2022-04-25 11:51] LABS: Basophils % 0.4 %; Eosinophils # 0.1 10^3/uL (0.0-0.8); Hematocrit 42.3 % (42.0-52.0); Hemoglobin 12.7 g/dL (11.7-16.6); Lymphocytes # 1.9 10^3/uL (0.8-4.8); Lymphocytes % 27.3 %; Mean Corpuscular Hemoglobin 26.8 pg (28.0-34.0); Mean Corpuscular Volume 89.4 fl (80-94); Mean Platelet Volume 10.1 fL (7.4-10.4); Monocytes # 0.7 10^3/uL (0.2-0.9); Monocytes % 9.8 %; Neutrophils # 4.13 10^3/uL (1.8-7.7); Neutrophils % 60.4 %; Nucleated Red Blood Cells % 0 %; Platelet Count 370 10^3/cmm (130-400); Red Blood Count 4.73 10^6/uL (4.1-5.3); Red Cell Distribution Width 19.8 % (12.1-15.1); White Blood Count 6.9 10^3/uL (4.0-10.0)
[2022-04-25 12:17] LABS: Alanine Aminotransferase 11 U/L (0-41); Albumin Level 3.8 g/dL (3.5-5.2); Alkaline Phosphatase 134 U/L (40-130); Anion Gap 15.1 (5-19); Aspartate Amino Transferase 15 U/L (0-40); Blood Urea Nitrogen 21 mg/dL (8-23); Calcium 9.2 mg/dL (8.5-10.5); Carbon Dioxide 27 mmol/L (22-29); Chloride 99 mmol/L (98-107); Ferritin 55 ng/mL (30-400); Globulin 4.5 g/dL (1.3-4.6); Glucose 125 mg/dL (65-115); Iron 48 ug/dL (59-158); Osmolality Calculated 288 mOsm/kg (285-295); Percent Saturation 13.9 % (20-50); Potassium 4.1 mmol/L (3.5-5.1); Sodium 137 mmol/L (136-145); Total Bilirubin 0.3 mg/dL (0.15-1.2); Total Iron Binding Capacity 344 mcg/dl; Total Protein 8.3 g/dL (6.6-8.7); Unsaturated Iron Binding 296 ug/dL (112-347)
== END 2022-05-02 23:59 | disposition home or self-care (01) ==
PROVIDERS: Internal Medicine; PCP Family Medicine; Visit Provider Internal Medicine Medical Oncology
DX: D50.9 Iron deficiency anemia, unspecified (principal); F17.210 Nicotine dependence, cigarettes, uncomplicated; K52.9 Noninfective gastroenteritis and colitis, unspecified; R53.83 Other fatigue; Z79.899 Other long term (current) drug therapy
CPT/HCPCS: 36415; 80053; 82728; 83540; 83550; 85025; 99214

== ENCOUNTER → 2022-05-10 14:34 | Outpatient (BNVA) | payer OTHER, SELFPAY | PROVIDERS: PCP Family Medicine; Visit Provider Thoracic Surgery (Cardiothoracic Vascular Surgery) | DX: I65.23 Occlusion and stenosis of bilateral carotid arteries (principal); F17.210 Nicotine dependence, cigarettes, uncomplicated | CPT/HCPCS: 99213 ==

== ENCOUNTER 2022-05-11 10:00 | Oncology outpatient (recurring) (ONCR) | payer OTHER, SELFPAY ==
[2022-05-04] MEDS: ferric carboxy (IVPB) 750 MG in sodium chloride 0.9% (100 ml) 100 ML 345 MG IV (10:00)
[2022-05-04 10:25] VITALS: BP 103/59; PULSE 65; RESP 16; TEMP 36.7; O2SAT 94
[2022-05-11] MEDS: ferric carboxy (IVPB) 750 MG in sodium chloride 0.9% (100 ml) 100 ML 345 MG IV (10:30)
[2022-05-11] MEDS: sodium chloride 0.9% 250 ML 100 ML IV (10:30)
[2022-05-11 11:03] VITALS: BP 148/65; PULSE 71; TEMP 36.2; O2SAT 97
== END 2022-06-02 23:59 | disposition home or self-care (01) ==
PROVIDERS: PCP Family Medicine; Visit Provider Internal Medicine Medical Oncology
DX: D50.8 Other iron deficiency anemias (principal); Z79.899 Other long term (current) drug therapy; Z53.9 Procedure and treatment not carried out, unspecified reason
CPT/HCPCS: 96365; J1439; J7050

== ENCOUNTER 2022-05-15 06:00 | Outpatient (RCR) | payer OTHER, SELFPAY | END 2022-06-02 23:59 | disposition home or self-care (01) | LOC: TPT 06:00 | PROVIDERS: PCP Family Medicine; Visit Provider Orthopaedic Surgery | DX: Z47.1 Aftercare following joint replacement surgery (principal); Z96.651 Presence of right artificial knee joint | CPT/HCPCS: 97110; 97162 ==

== ENCOUNTER 2022-06-03 06:00 | Outpatient (RCR) | payer OTHER, SELFPAY | END 2022-07-03 23:59 | disposition home or self-care (01) | LOC: TPT 06:00 | PROVIDERS: PCP Family Medicine; Visit Provider Orthopaedic Surgery | DX: Z47.1 Aftercare following joint replacement surgery (principal); Z96.651 Presence of right artificial knee joint | CPT/HCPCS: 97110; 97140 ==

== ENCOUNTER → 2022-06-05 14:16 | Outpatient (BNVA) | payer OTHER, SELFPAY | PROVIDERS: PCP Family Medicine; Referring Provider Internal Medicine; Visit Provider Internal Medicine | DX: Z12.5 Encounter for screening for malignant neoplasm of prostate (principal); E11.9 Type 2 diabetes mellitus without complications; I25.118 Atherosclerotic heart disease of native coronary artery with other forms of angina pectoris; E78.2 Mixed hyperlipidemia; R79.89 Other specified abnormal findings of blood chemistry | CPT/HCPCS: 99204 ==

== ENCOUNTER 2022-06-06 09:25 | Outpatient (CLI) | payer OTHER, SELFPAY ==
[2022-06-06 11:17] LABS: Chol HDL Ratio 6.16 mg/dL (1.0-5.00); Cholesterol 197 mg/dL (0-200); HDL Cholesterol 32 mg/dL (60-100); Prostate Specific Antigen Scr 0.32 ng/mL (0-4); Testosterone Total 171.7 ng/dL (193-740); Triglycerides 436 mg/dL (0-150)
[2022-06-06 11:30] LABS: LDL Cholesterol Direct 97 mg/dL (0-100)
[2022-06-06 14:23] LABS: Luteinizing Hormone 7.5 mIU/mL (1.7-8.6)
[2022-06-11 04:39] LABS: Testosterone, Free 22.5 pg/mL (46.0-224.0)
== END 2022-06-06 09:26 | disposition home or self-care (01) ==
LOC: LAB 09:28
PROVIDERS: PCP Family Medicine; Visit Provider Internal Medicine
DX: Z12.5 Encounter for screening for malignant neoplasm of prostate (principal); E78.2 Mixed hyperlipidemia; R79.89 Other specified abnormal findings of blood chemistry; I25.10 Atherosclerotic heart disease of native coronary artery without angina pectoris
CPT/HCPCS: 80061; 83001; 83002; 83721; 84146; 84402; 84403; G0103

== ENCOUNTER 2022-06-11 12:00 | Outpatient (CLI) | payer OTHER, SELFPAY ==
[2022-06-11 12:40] LABS: Basophils % 0.4 %; Eosinophils # 0.1 10^3/uL (0.0-0.8); Eosinophils % 1.5 %; Hematocrit 46.6 % (42.0-52.0); Hemoglobin 14.5 g/dL (11.7-16.6); Lymphocytes % 27.2 %; Mean Corpuscular HGB Conc 31.1 g/dL (30.0-36.0); Mean Corpuscular Hemoglobin 28.6 pg (28.0-34.0); Mean Corpuscular Volume 91.9 fl (80-94); Mean Platelet Volume 11.1 fL (7.4-10.4); Monocytes # 0.6 10^3/uL (0.2-0.9); Monocytes % 7.8 %; Neutrophils # 4.56 10^3/uL (1.8-7.7); Neutrophils % 62.8 %; Nucleated Red Blood Cells % 0 %; Platelet Count 364 10^3/cmm (130-400); Red Blood Count 5.07 10^6/uL (4.1-5.3); White Blood Count 7.3 10^3/uL (4.0-10.0)
[2022-06-11 13:08] LABS: Ferritin 150 ng/mL (30-400); Iron 73 ug/dL (59-158); Percent Saturation 28.2 % (20-50); Total Iron Binding Capacity 258 mcg/dl; Unsaturated Iron Binding 185 ug/dL (112-347)
== END 2022-06-11 12:01 | disposition home or self-care (01) ==
PROVIDERS: PCP Family Medicine; Visit Provider Internal Medicine Medical Oncology
DX: D50.8 Other iron deficiency anemias (principal)
CPT/HCPCS: 36415; 82728; 83540; 83550; 85025

== ENCOUNTER 2022-06-11 12:57 | Oncology outpatient (recurring) (ONCR) | payer OTHER, SELFPAY | END 2022-07-03 23:59 | disposition home or self-care (01) | LOC: ONCMED 12:57 | PROVIDERS: PCP Family Medicine; Visit Provider Internal Medicine Medical Oncology | DX: Z79.899 Other long term (current) drug therapy; F17.210 Nicotine dependence, cigarettes, uncomplicated; D50.9 Iron deficiency anemia, unspecified; R53.83 Other fatigue | CPT/HCPCS: 99213 ==

== ENCOUNTER → 2022-06-13 10:40 | Outpatient (BNVA) | payer OTHER, SELFPAY | PROVIDERS: PCP Family Medicine; Visit Provider Internal Medicine Cardiovascular Disease | DX: I65.23 Occlusion and stenosis of bilateral carotid arteries (principal); G47.33 Obstructive sleep apnea (adult) (pediatric); J84.10 Pulmonary fibrosis, unspecified; I13.0 Hypertensive heart and chronic kidney disease with heart failure and stage 1 through stage 4 chronic kidney disease, or unspecified chronic kidney disease; E11.22 Type 2 diabetes mellitus with diabetic chronic kidney disease; N18.9 Chronic kidney disease, unspecified; I50.9 Heart failure, unspecified; F17.210 Nicotine dependence, cigarettes, uncomplicated; Z79.84 Long term (current) use of oral hypoglycemic drugs; I25.5 Ischemic cardiomyopathy; Z79.01 Long term (current) use of anticoagulants; Z98.890 Other specified postprocedural states; I25.118 Atherosclerotic heart disease of native coronary artery with other forms of angina pectoris; E11.42 Type 2 diabetes mellitus with diabetic polyneuropathy; E78.2 Mixed hyperlipidemia; E11.65 Type 2 diabetes mellitus with hyperglycemia; I48.19 Other persistent atrial fibrillation; Z95.0 Presence of cardiac pacemaker | CPT/HCPCS: 99214 ==

== ENCOUNTER → 2022-06-19 09:30 | Outpatient (BNVA) | payer OTHER, SELFPAY | PROVIDERS: PCP Family Medicine; Visit Provider Anesthesiology Pain Medicine | DX: M47.816 Spondylosis without myelopathy or radiculopathy, lumbar region (principal); M51.36 Other intervertebral disc degeneration, lumbar region; M79.604 Pain in right leg; M79.605 Pain in left leg; Z12.5 Encounter for screening for malignant neoplasm of prostate; R79.89 Other specified abnormal findings of blood chemistry; E78.2 Mixed hyperlipidemia; I25.118 Atherosclerotic heart disease of native coronary artery with other forms of angina pectoris; Z79.890 Hormone replacement therapy | CPT/HCPCS: 99214 ==

== ENCOUNTER 2022-07-04 06:00 | Outpatient (RCR) | payer OTHER, SELFPAY | END 2022-07-31 23:59 | disposition home or self-care (01) | LOC: TPT 06:00 | PROVIDERS: PCP Family Medicine; Visit Provider Orthopaedic Surgery | DX: Z47.1 Aftercare following joint replacement surgery (principal); Z96.651 Presence of right artificial knee joint | CPT/HCPCS: 97110 ==

== ENCOUNTER → 2022-07-05 10:51 | Day surgery (SDC) | payer OTHER, SELFPAY ==
[2022-06-21 09:53] VITALS: BMI 34.3
--- NOTE | 2022-06-21 10:20 | ECG_ITS ---
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 Measurements Intervals Tol[place]oy Rate: 60 P: 180 GA: 233 QRS: 109 QRSD: 130 T: -31 QT: 460 QTc: 460 Interpretive Statements ELECTRONIC ATRIAL PACEMAKER RIGHT AXIS DEVIATION [QRS AXIS > 100] SEPTAL MYOCARDIAL INFARCTION , OF INDETERMINATE AGE [40+ ms Q WAVE IN V1/V2] POSSIBLE INFERIOR MYOCARDIAL INFARCTION , OF INDETERMINATE AGE [30 ms Q WAVE IN II/aVF] Compared to ECG 02/14/2021 12:11:23 Right-axis deviation now present Myocardial infarct finding now present Left-axis deviation no longer present Intraventricular conduction delay no longer present T-wave abnormality no longer present Possible ischemia no longer present Electronically Signed On 06-21-2022 14:47:43 INSIDE SALES PERSON by Contreras Carvajal M.D. [id number]
[2022-06-21 11:03] LABS: INR 1.49 (0.8-1.2)
[2022-06-21 11:10] LABS: Alanine Aminotransferase 13 U/L (0-41); Albumin Level 4.3 g/dL (3.5-5.2); Alkaline Phosphatase 146 U/L (40-130); Anion Gap 16.1 (5-19); Aspartate Amino Transferase 12 U/L (0-40); Blood Urea Nitrogen 17 mg/dL (8-23); Carbon Dioxide 26 mmol/L (22-29); Chloride 98 mmol/L (98-107); Globulin 3.3 g/dL (1.3-4.6); Glomerular Filtration Rate 75.2 mL/min (90-130); Glucose 143 mg/dL (65-115); Osmolality Calculated 286 mOsm/kg (285-295); Potassium 4.1 mmol/L (3.5-5.1); Sodium 136 mmol/L (136-145); Total Bilirubin 0.4 mg/dL (0.15-1.2); Total Protein 7.6 g/dL (6.6-8.7)
--- NOTE | 2022-06-21 15:46 | ANES.PREANE2 ---
Pre-Anesthetic Assessment Height/Weight: Height 2.01 m Weight 138.346 kg Preop Diagnosis: diagnostic Operation Date: 06/26/22 07:00 Proposed Procedures p LEFT CAROTID 62740,I65.23(Left) - Kane Be MD Familial anesthetic complications: none Was Beta Otis taken within 24 hours: Yes Was Clonidine taken within 24 hours: N/A Social No alcohol and No tobacco (h/o smoking) Exam alert, oriented x 3 and regular rate & rhythm Airway Submandibular: within normal limits Cervical ROM: within normal limits Mallampati: Class II Dentition: false Pulmonary Chronic Obstructive Pulmonary Disease and Sleep Apnea pulmonary fibrosis CV/HEM Coronary Artery Disease (CABG), Congestive Heart Failure, Hypertension and Peripheral Vascular Disease (AAA, carotid dz) Pacemaker CONCLUSIONS ?LV systolic function is mild to moderately reduced with EF of ?40-45%. Mild to moderate global hypokinesis noted ?Left atrium is severely dilated ?Aortic valve is thickened. ?Compared to prior echocardiogram from 04/05/2016, no significant ?changes are noted ?Contreras Carvajal MD ?(Electronically Signed) ?Final Date:? ? ? 25 July 2021 ?CONCLUSIONS ?Left ICA stenosis 70-99%.? Closer to 70% , no diastolic velocity? ?increase. ?Right ICA stenosis < 50%. ?Diffuse atherosclerotic plaque. ?Dr. Anupama Goldsmith DO ?(Electronically Signed) ?Final Date:? ? ? 31 January 2022 Chronic Renal Insufficiency Metabolic Diabetes Mellitus, Morbid Obesity and Thyroid Disease [facility]/skel Lower Back Pain, Osteoarthritis/DJD and Weakness Anesthetic Plan ASA status: 3 Anesthesia: General Other: A.line Medications/Allergies Home Medications Medication Instructions Recorded Confirmed Last Taken Type allopurinol 300 mg tablet 300 mg PO DAILY 08/06/19 06/21/22 05/18/21 History calcium carbonate 500 mg calcium 500 mg PO DAILY 08/06/19 06/21/22 05/18/21 History (1,250 mg) tablet (Calcium 500) cetirizine 10 mg tablet (Zyrtec) 10 mg PO DAILY 08/06/19 06/21/22 05/18/21 History folic acid 1 mg tablet 2 mg PO DAILY 08/06/19 06/21/22 05/18/21 History glipizide 10 mg tablet 10 mg PO BID 08/06/19 06/21/22 05/18/21 History montelukast 10 mg tablet 10 mg PO DAILY 08/06/19 06/21/22 05/18/21 History (Singulair) multivitamin 1 tab PO DAILY 08/06/19 06/21/22 05/18/21 History pantoprazole 40 mg tablet,delayed 40 mg PO DAILY 08/06/19 06/21/22 05/18/21 History release (Protonix) fluticasone propionate 50 1 spray intranasal DAILY 12/29/19 06/21/22 05/18/21 History mcg/actuation nasal spray,suspension budesonide-formoterol HFA 160 2 puff inhalation BID 01/21/20 06/21/22 05/18/21 History mcg-4.5 mcg/actuation aerosol inhaler (Symbicort) tiotropium bromide 2.5 2 puff inhalation DAILY 01/21/20 06/21/22 05/18/21 History mcg/actuation mist for inhalation (Spiriva Respimat) levothyroxine 75 mcg tablet 75 mcg PO DAILY 09/01/20 06/21/22 05/19/21 History (Synthroid) albuterol sulfate 90 mcg/actuation 1 inh inhalation QID PRN shortness 11/22/20 06/21/22 05/18/21 History aerosol inhaler (ProAir HFA) of breath or wheezing cholecalciferol (vitamin D3) 50 50 mcg PO DAILY 02/14/21 06/21/22 05/18/21 History mcg (2,000 unit) tablet (Vitamin D3) melatonin 10 mg tablet 10 mg PO BEDTIME 02/14/21 06/21/22 05/18/21 History selenium 100 mcg tablet 100 mcg PO DAILY 02/14/21 06/21/22 05/18/21 History cyanocobalamin (vitamin B-12) 1,000 mcg PO DAILY 08/07/21 06/21/22 Unknown History 1,000 mcg/15 mL oral liquid nebulizer #1 ea 11/10/21 06/19/22 Unknown Rx empagliflozin 10 mg tablet 10 mg PO DAILY #90 tabs 01/25/22 06/21/22 Unknown Rx (Jardiance) gemfibrozil 600 mg tablet 600 mg PO BID #180 tabs 01/25/22 06/21/22 Unknown Rx sulfasalazine 500 mg tablet 0.5 g PO DAILY #90 tabs 03/12/22 06/21/22 Unknown Rx albuterol sulfate 2.5 mg/3 mL 2.5 mg (3 mL) inhalation QID PRN 05/10/22 06/21/22 Unknown Rx (0.083 %) solution for nebulization shortness of breath or wheezing #360 mL aspirin 81 mg tablet,delayed See Rx Instructions .Route 05/10/22 06/21/22 Unknown Rx release .COMPLEX #100 tabs bumetanide 1 mg tablet 2 mg PO BID #360 tabs 05/10/22 06/21/22 Unknown Rx insulin glargine 100 unit/mL 52 unit SUBCUT BID 05/10/22 06/21/22 Unknown History subcutaneous solution magnesium oxide 400 mg (241.3 mg See Rx Instructions .Route 05/10/22 06/21/22 Unknown Rx magnesium) tablet .COMPLEX #240 tabs rivaroxaban 20 mg tablet (Xarelto) 20 mg PO DAILY #90 tabs 05/10/22 06/21/22 Unknown Rx Milk thisle PO 06/13/22 06/19/22 Unknown History Tumeric 1,500 mg PO DAILY 06/13/22 06/21/22 Unknown History amiodarone 200 mg tablet 200 mg PO DAILY #90 tabs 06/13/22 06/21/22 Unknown Rx isosorbide mononitrate 60 mg 60 mg PO BID #180 tabs 06/13/22 06/21/22 Unknown Rx tablet,extended release 24 hr metoprolol tartrate 50 mg tablet 50 mg PO BID #180 tabs 06/13/22 06/21/22 Unknown Rx nitroglycerin 0.4 mg sublingual 0.4 mg sublingual Q5M PRN Chest 06/13/22 06/21/22 Unknown Rx tablet (Nitrostat) Pain #50 tabs omega-3 fatty acids 1,000 mg 2,000 mg PO BID 06/13/22 06/21/22 Unknown History capsule ranolazine 500 mg tablet,extended See Rx Instructions .Route 06/13/22 06/21/22 Unknown Rx release,12 hr .COMPLEX #180 tabs sacubitril 49 mg-valsartan 51 mg 1 tab PO BID #180 tabs 06/13/22 06/21/22 Unknown Rx tablet testosterone 2 mg/24 hour 1 patch transdermal DAILY #60 ea 06/19/22 06/21/22 Unknown Rx transdermal 24 hour patch tramadol 50 mg tablet 50 mg PO BID PRN pain #60 tabs 06/19/22 06/21/22 Unknown Rx Allergies Allergy/AdvReac Type Severity Reaction Status Date / Time bee venom protein (honey bee) Allergy Severe SOB, Verified 06/19/22 14:37 SWELLING AT SITE Yjjhwvc-SEC-NwB Reductase Allergy Unknown unknown Verified 06/19/22 14:37 Inhibitor [Jeqqtaa-Yxy-Idn Reductase Inhibitor] [facility] Anesthesia Medical History Abdominal aortic aneurysm (AAA) 3.0 cm to 5.5 cm in diameter in male Allergic rhinitis Anxiety ASHD (arteriosclerotic heart disease) Atrial fibrillation Carotid stenosis, right CHF (congestive heart failure) COPD (chronic obstructive pulmonary disease) DDD (degenerative disc disease) Degenerative arthritis Hyperlipidemia Hypertension Iron deficiency anemia Ischemic cardiomyopathy Obstructive sleep apnea Peripheral neuropathy Prolonged QT interval Pulmonary fibrosis Type 2 diabetes mellitus Venous insufficiency Surgical History H/O esophagogastroduodenoscopy (05/19/21) History of atherectomy History of cardiac radiofrequency ablation History of colonoscopy History of cranioplasty Hx of CABG Hx of knee surgery Hx of shoulder surgery Pacemaker S/P AAA repair October 2017 at the [facility] Status post colonoscopy (05/19/21) Family History Father Anesthesia complication Cancer Mother CAD (coronary artery disease) Chronic kidney disease (CKD) Brother Diabetes Grandmother Lung disease Denies family history of Clotting disorder Dementia Suicide Bleeding disorder Stroke Social History Smoking and tobacco status: current every day smoker cigarettes Packs smoked per day: 0.5 Years cigarettes smoked: 50 [ Other cigarette details: Started at age 15] Alcohol intake: never Lives independently: Yes History of recent travel: No Data Anesthesia 06/21/22 10:25 BMP 06/21/22 10:25 Sodium 136 Potassium 4.1 Chloride 98 Carbon Dioxide 26 BUN 17 Creatinine 1.0 Glucose 143 H Calcium 9.0 Liver Function 06/21/22 Range/Units 10:25 Total Bilirubin 0.4 (0.15-1.2) mg/dL AST 12 (0-40) U/L ALT 13 (0-41) U/L Alkaline Phosphatase 146 H (40-130) U/L Albumin 4.3 (3.5-5.2) g/dL Blood Bank 06/21/22 10:25 Blood Type O Positive Rho(D) Type Positive Antibody Screen Negative Coags 06/21/22 10:25 PT 18.40 H INR 1.49 H Cardiac Studies: Echocardiogram 07/19/21 Sestamibi Stress Test (Cardiology) 11/15/20
== END ==
PROVIDERS: Anesthesiology; PCP Family Medicine; Visit Provider Thoracic Surgery (Cardiothoracic Vascular Surgery)
DX: Z01.818 Encounter for other preprocedural examination (principal)
CPT/HCPCS: 80053; 85610; 86850; 86900; 86920; 93005

== ENCOUNTER → 2022-07-24 09:24 | Outpatient (BNVA) | payer OTHER, SELFPAY | PROVIDERS: PCP Family Medicine; Visit Provider Anesthesiology Pain Medicine | DX: M47.816 Spondylosis without myelopathy or radiculopathy, lumbar region (principal); M51.36 Other intervertebral disc degeneration, lumbar region | CPT/HCPCS: 99214 ==

== ENCOUNTER 2022-08-08 06:00 | Outpatient (RCR) | payer OTHER, SELFPAY | END 2022-08-31 23:59 | disposition home or self-care (01) | LOC: TPT 06:00 | PROVIDERS: PCP Family Medicine; Visit Provider Family Medicine | DX: M25.562 Pain in left knee (principal); M25.561 Pain in right knee | CPT/HCPCS: 97110; 97161 ==

== ENCOUNTER → 2022-08-21 10:07 | Outpatient (BNVA) | payer OTHER, SELFPAY | PROVIDERS: PCP Family Medicine; Visit Provider Anesthesiology Pain Medicine | DX: M47.816 Spondylosis without myelopathy or radiculopathy, lumbar region (principal); M51.36 Other intervertebral disc degeneration, lumbar region | CPT/HCPCS: 99214 ==

== ENCOUNTER 2022-09-01 06:00 | Outpatient (RCR) | payer OTHER, SELFPAY | END 2022-09-30 23:59 | disposition home or self-care (01) | LOC: TPT 06:00 | PROVIDERS: PCP Family Medicine; Visit Provider Family Medicine | DX: M25.569 Pain in unspecified knee (principal) | CPT/HCPCS: 97110 ==

== ENCOUNTER → 2022-09-06 12:19 | Outpatient (BNVA) | payer OTHER, SELFPAY | PROVIDERS: PCP Family Medicine; Visit Provider Internal Medicine Pulmonary Disease | DX: J43.2 Centrilobular emphysema (principal); F17.210 Nicotine dependence, cigarettes, uncomplicated; J84.10 Pulmonary fibrosis, unspecified; I25.5 Ischemic cardiomyopathy; G47.33 Obstructive sleep apnea (adult) (pediatric) | CPT/HCPCS: 99214 ==

== ENCOUNTER → 2022-09-12 13:50 | Outpatient (BNVA) | payer OTHER, SELFPAY | PROVIDERS: PCP Family Medicine; Visit Provider Internal Medicine | DX: M25.9 Joint disorder, unspecified (principal); R76.8 Other specified abnormal immunological findings in serum; M47.816 Spondylosis without myelopathy or radiculopathy, lumbar region; R79.89 Other specified abnormal findings of blood chemistry; R94.31 Abnormal electrocardiogram [ECG] [EKG]; N18.9 Chronic kidney disease, unspecified; R53.1 Weakness | CPT/HCPCS: 36415; 80053; 82657; 85025; 85651; 86140; 99214 ==

== ENCOUNTER → 2022-09-25 10:08 | Outpatient (BNVA) | payer OTHER, SELFPAY | PROVIDERS: PCP Family Medicine; Visit Provider Internal Medicine Cardiovascular Disease | DX: Z01.810 Encounter for preprocedural cardiovascular examination (principal); I25.118 Atherosclerotic heart disease of native coronary artery with other forms of angina pectoris; I77.9 Disorder of arteries and arterioles, unspecified; G47.33 Obstructive sleep apnea (adult) (pediatric); J84.10 Pulmonary fibrosis, unspecified; I25.5 Ischemic cardiomyopathy; Z79.01 Long term (current) use of anticoagulants; Z98.890 Other specified postprocedural states; E11.42 Type 2 diabetes mellitus with diabetic polyneuropathy; E78.2 Mixed hyperlipidemia; E11.65 Type 2 diabetes mellitus with hyperglycemia; I11.0 Hypertensive heart disease with heart failure; I50.9 Heart failure, unspecified; I48.19 Other persistent atrial fibrillation; Z95.0 Presence of cardiac pacemaker; F17.210 Nicotine dependence, cigarettes, uncomplicated; Z79.4 Long term (current) use of insulin | CPT/HCPCS: 99214 ==

== ENCOUNTER 2022-10-01 06:00 | Outpatient (RCR) | payer OTHER, SELFPAY | END 2022-10-12 23:59 | disposition home or self-care (01) | LOC: TPT 06:00 | PROVIDERS: PCP Family Medicine; Visit Provider Family Medicine | DX: M25.562 Pain in left knee (principal); M25.561 Pain in right knee | CPT/HCPCS: 97110 ==

== ENCOUNTER 2022-10-11 07:49 | Outpatient (CLI) | payer OTHER, SELFPAY ==
[2022-10-11 08:14] VITALS: PULSE 69; RESP 18; O2SAT 98
[2022-10-11] MEDS: albuterol 2.5 mg/3 mL Neb INHALATION (08:14)
[2022-10-11 08:19] VITALS: PULSE 66
== END 2022-10-11 07:50 | disposition home or self-care (01) ==
PROVIDERS: PCP Family Medicine; Visit Provider Internal Medicine Critical Care Medicine
DX: J43.9 Emphysema, unspecified (principal); J84.10 Pulmonary fibrosis, unspecified; R06.02 Shortness of breath
CPT/HCPCS: 94060; 94618; 94726; 94729; J7613

== ENCOUNTER → 2022-11-01 09:18 | Outpatient (BNVA) | payer OTHER, SELFPAY | PROVIDERS: PCP Family Medicine; Referring Provider Family Medicine; Visit Provider Orthopaedic Surgery | DX: M43.17 Spondylolisthesis, lumbosacral region (principal); M54.9 Dorsalgia, unspecified; M48.061 Spinal stenosis, lumbar region without neurogenic claudication; M51.36 Other intervertebral disc degeneration, lumbar region; M47.816 Spondylosis without myelopathy or radiculopathy, lumbar region | CPT/HCPCS: 72110; 99204 ==

== ENCOUNTER → 2022-11-21 09:22 | Outpatient (BNVA) | payer OTHER, SELFPAY | PROVIDERS: PCP Family Medicine; Visit Provider Anesthesiology Pain Medicine | DX: M51.36 Other intervertebral disc degeneration, lumbar region (principal); M47.816 Spondylosis without myelopathy or radiculopathy, lumbar region; M54.16 Radiculopathy, lumbar region | CPT/HCPCS: 99214 ==

== ENCOUNTER 2022-11-27 09:18 | Oncology outpatient (recurring) (ONCR) | payer OTHER, SELFPAY ==
[2022-11-27 09:30] VITALS: BP 101/55; PULSE 78; RESP 18; TEMP 36.4; O2SAT 94
[2022-11-27 09:45] LABS: Basophils % 0.5 %; Eosinophils # 0.1 10^3/uL (0.0-0.8); Eosinophils % 1.9 %; Hematocrit 35.1 % (42.0-52.0); Hemoglobin 10.1 g/dL (11.7-16.6); Lymphocytes # 1.1 10^3/uL (0.8-4.8); Lymphocytes % 15.3 %; Mean Corpuscular HGB Conc 28.8 g/dL (30.0-36.0); Mean Corpuscular Hemoglobin 25.1 pg (28.0-34.0); Mean Corpuscular Volume 87.3 fl (80-94); Monocytes # 0.6 10^3/uL (0.2-0.9); Monocytes % 7.9 %; Neutrophils # 5.46 10^3/uL (1.8-7.7); Nucleated Red Blood Cells % 0 %; Platelet Count 335 10^3/cmm (130-400); Red Blood Count 4.02 10^6/uL (4.1-5.3); Red Cell Distribution Width 18.2 % (12.1-15.1); White Blood Count 7.4 10^3/uL (4.0-10.0)
[2022-11-27 10:03] LABS: Alanine Aminotransferase 14 U/L (0-41); Albumin Level 4.3 g/dL (3.5-5.2); Alkaline Phosphatase 102 U/L (40-130); Anion Gap 15.6 (5-19); Aspartate Amino Transferase 14 U/L (0-40); Blood Urea Nitrogen 20 mg/dL (8-23); Calcium 8.4 mg/dL (8.5-10.5); Carbon Dioxide 26 mmol/L (22-29); Chloride 99 mmol/L (98-107); Ferritin 9 ng/mL (30-400); Globulin 3.3 g/dL (1.3-4.6); Glomerular Filtration Rate 55.4 mL/min (90-130); Glucose 138 mg/dL (65-115); Iron 36 ug/dL (59-158); Osmolality Calculated 289 mOsm/kg (285-295); Percent Saturation 9.6 % (20-50); Potassium 3.6 mmol/L (3.5-5.1); Sodium 137 mmol/L (136-145); Total Bilirubin 0.3 mg/dL (0.15-1.2); Total Iron Binding Capacity 374 mcg/dl; Total Protein 7.6 g/dL (6.6-8.7); Unsaturated Iron Binding 338 ug/dL (112-347)
[2022-11-27 11:49] VITALS: BP 103/56; PULSE 84; RESP 16; TEMP 36.6; O2SAT 96
[2022-11-27] MEDS: ferric carboxy (IVPB) 750 MG in sodium chloride 0.9% (100 ml) 100 ML 345 MG IV (12:26)
[2022-11-27 13:48] VITALS: BP 102/47; PULSE 63; RESP 16; TEMP 36.9; O2SAT 94
== END 2022-11-30 23:59 | disposition home or self-care (01) ==
PROVIDERS: PCP Family Medicine; Visit Provider Internal Medicine Medical Oncology
DX: Z79.899 Other long term (current) drug therapy (principal); F17.210 Nicotine dependence, cigarettes, uncomplicated; D50.9 Iron deficiency anemia, unspecified
CPT/HCPCS: 80053; 82728; 83540; 83550; 85025; 96365; 99214; J1439

== ENCOUNTER 2022-12-05 07:35 | Oncology outpatient (recurring) (ONCR) | payer OTHER, SELFPAY ==
[2022-12-05 08:07] VITALS: BP 115/61; PULSE 60; RESP 18; TEMP 36.1; O2SAT 96
[2022-12-05] MEDS: ferric carboxy (IVPB) 750 MG in sodium chloride 0.9% (100 ml) 100 ML 345 MG IV (08:31)
[2022-12-05 09:07] VITALS: BP 109/59; PULSE 61; RESP 18; TEMP 36.4; O2SAT 97
== END 2022-12-31 23:59 | disposition home or self-care (01) ==
PROVIDERS: PCP Family Medicine; Visit Provider Internal Medicine Medical Oncology
DX: D50.8 Other iron deficiency anemias (principal)
CPT/HCPCS: 96365; J1439

== ENCOUNTER 2022-12-13 06:20 | Outpatient (CLI) | payer OTHER, SELFPAY ==
[2022-12-13 06:41] VITALS: BMI 35.4
--- NOTE | 2022-12-13 06:42 | NMCV_ITS ---
NM josette perf SPECT r/s* [id number] Art Madrigal Age: 67 Gender: M : 1955 Exam Date: 12/13/2022 07:43 Ordering Phys: Baljit Guerra MD ([email or web address]) Technologist: FAWAD Caldwell Exam Location: [facility] Indications: ATHEROSCLEROTIC HEART DISEASE STRESS TEST [facility] IMAGE PROTOCOL Rest/Stress 1 Lexiscan Day Radiopharmaceutical Dose (mCi) Administration Site Administered by Rest: Tc-99m 10.9 IV FAWAD Molina Sestamibi Stress:Tc-99m 33.0 IV FAWAD Molina Sestamibi Rest: 13-Dec-2022 60 Discovery 630 Stress: 13-Dec-2022 30 Discovery 630 0.4mg Lexiscan. Images obtained in supine and prone position. SPECT RESULTS Technical Quality: Excellent Raw Data Analysis: Normal Image Corrections: No attenuation or motion correction applied Summed Stress Score: 7 Summed Rest Score: 3 Summed Difference Score: 5 PERFUSION FINDINGS Small sized perfusion abnormality of moderate severity of mid inferolateral and apical anterior wall on rest images with reversibility in basal to apical anterior and apical zhou on stress images. FUNCTIONAL RESULTS (calculated via Gated SPECT) Stress Image LV EF (%): 38 Stress EDV (mL):237 TID: 1.1 Stress ESV (mL):146 FUNCTIONAL FINDINGS: The left ventricle is normal in size. Transient Ischemia Dilatation of 1.1. The left ventricular ejection fraction is moderately reduced with a value of 38%. There is moderate global hypokinesis with severe hypokinesis of mid to apical anterior zhou. Markedly increased end-diastolic and end-systolic volumes. IMPRESSIONS 1. Small sized reversible perfusion abnormality of moderate severity of basal to apical anterior and apical zhou. This is suggestive of ischemia in left anterior descending artery territory. 2. The left ventricular ejection fraction is moderately reduced with a value of 38%. 3. There is moderate global hypokinesis with severe hypokinesis of mid to apical anterior zhou. 4. No EKG changes with Lexiscan infusion. Refer to separate report for details. Lashon Enriquez MD (Electronically Signed) Final Date: 13 December 2022 15:35 S
--- NOTE | 2022-12-13 06:42 | ECG_ITS ---
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 Interpretive Statements NAME OF STUDY: LEXISCAN SESTAMIBI STRESS TEST INDICATION: Pre Operative Clearance PROCEDURE: At the baseline, the blood pressure was 107/79 mmHg with a heart rate of 61 bpm. The electrocardiogram showed A paced rhythm, left anterior fascicular block. Possible old anteroseptal infarct. The Lexiscan was infused over a period of 20 seconds. A total of 0.4 milligrams of Lexiscan was infused. The stress phase was continued for a total of 5 minutes. Heart rate at the end of the stress phase was 62 bpm with a blood pressure 99/50 mmHg. The EKG at the peak infusion revealed no significant ST-T wave changes. Sestamibi was injected 20 seconds after the Lexiscan infusion. Blood pressure at the end of the recovery phase was 100/55 mmHg with a heart rate of 60 beats per minute. CONCLUSION: 1. No significant EKG changes with the LexiScan infusion. 2. No LexiScan induced chest pain or cardiac arrhythmia. 3. Normal blood pressure and heart rate response. 4. Sestamibi/sestamibi perfusion scan pending; see separate report. SEND RESULTS TO DR. BARRERA PER DR. GUERRA ORDERS Electronically Signed On 12-13-2022 15:36:14 CDT by Lashon Enriquez M.D. [id number]
[2022-12-13] MEDS: regadenoson 0.4 Mg/5 ml Syringe IVP (08:15)
[2022-12-13 08:38] VITALS: BP 100/55; PULSE 60
== END 2022-12-13 06:21 | disposition home or self-care (01) ==
LOC: CDL 06:22
PROVIDERS: PCP Family Medicine; Visit Provider Internal Medicine Cardiovascular Disease
DX: Z01.818 Encounter for other preprocedural examination (principal); I51.89 Other ill-defined heart diseases
CPT/HCPCS: 36415; 78452; 93017; 96374; 99214; A9500; J2785

== ENCOUNTER 2022-12-14 16:30 | Outpatient (CLI) | payer OTHER, SELFPAY ==
--- NOTE | 2022-12-14 17:00 | CTR_ITS ---
PROCEDURE INFORMATION: Exam: CT Lumbar Spine Without Contrast Exam date and time: 12/14/2022 4:44 PM Age: 67 years old Clinical indication: Low back pain; Additional info: M51.36 - other intervertebral disc degeneration, lumbar R. . . TECHNIQUE: Imaging protocol: Computed tomography of the lumbar spine without contrast. Radiation optimization: All CT scans at this facility use at least one of these dose optimization techniques: automated exposure control; mA and/or kV adjustment per patient size (includes targeted exams where dose is matched to clinical indication); or iterative reconstruction. REPORTING DATA: Count of CT and Cardiac NM exams in prior 12 months: This patient has received 6 known CTs and 0 known cardiac nuclear medicine studies in the 12 months prior to the current study. COMPARISON: CT lumbar spine wo con* [id number] 11/09/2020 1:32 PM RADIATION DOSE METRICS: Total DLP (mGy-cm): 1288.1 FINDINGS: Tubes, catheters and devices: There is a bifurcated endograft within the distal abdominal aortic aneurysm with greatest transverse measurement of 5.3 cm decreased from 5.5 cm previously. No retroperitoneal fluid. Bones/joints: Mild interval progression of severe facet degenerative changes L4-L5 and especially L5-S1. No acute fracture. Unchanged minimal grade 1 spondylolisthesis of L5 on S1. At L2-L3, there is unchanged mild disc bulge without stenosis or significant foraminal narrowing. At L3-L4, unchanged mild disc bulge with mild flattening of the ventral thecal sac but no critical central canal stenosis and unchanged mild bilateral foraminal narrowing mostly due to facet hypertrophy. At L4-L5, unchanged disc left lateral osteophyte complex with minimal narrowing of the central canal and unchanged severe left foraminal narrowing accentuated by facet hypertrophy. At L5-S1, there is unchanged facet arthropathy but no disc protrusion or critical stenosis. Kidneys and ureters: There is punctate right nephrolithiasis. No hydronephrosis. Soft tissues: Unremarkable. CT/CT lumbar spine wo con* [id number] IMPRESSION: 1. Mild interval progression of severe facet degenerative changes L4-L5 and especially L5-S1. No acute fracture. 2. No new disc bulge protrusion or stenosis. Unchanged marked left foraminal narrowing at L4-L5 due to disc osteophyte complex and facet hypertrophy.
== END 2022-12-14 16:31 | disposition home or self-care (01) ==
LOC: RAD 16:32
PROVIDERS: PCP Family Medicine; Visit Provider Anesthesiology Pain Medicine
DX: M47.816 Spondylosis without myelopathy or radiculopathy, lumbar region (principal); M51.36 Other intervertebral disc degeneration, lumbar region; M54.16 Radiculopathy, lumbar region
CPT/HCPCS: 72131

== ENCOUNTER → 2022-12-18 14:21 | Outpatient (BNVA) | payer OTHER, SELFPAY | PROVIDERS: PCP Family Medicine; Visit Provider Anesthesiology Pain Medicine | DX: M47.816 Spondylosis without myelopathy or radiculopathy, lumbar region (principal); M51.36 Other intervertebral disc degeneration, lumbar region | CPT/HCPCS: 64493; 64494; 64495; J1030; J3490 ==

== ENCOUNTER → 2022-12-26 10:03 | Outpatient (BNVA) | payer OTHER, SELFPAY | PROVIDERS: PCP Family Medicine; Visit Provider Internal Medicine Cardiovascular Disease | DX: I25.118 Atherosclerotic heart disease of native coronary artery with other forms of angina pectoris (principal); Z98.890 Other specified postprocedural states; E11.42 Type 2 diabetes mellitus with diabetic polyneuropathy; E78.2 Mixed hyperlipidemia; I48.19 Other persistent atrial fibrillation; I65.21 Occlusion and stenosis of right carotid artery; F17.210 Nicotine dependence, cigarettes, uncomplicated; I11.0 Hypertensive heart disease with heart failure; I50.9 Heart failure, unspecified; Z95.1 Presence of aortocoronary bypass graft; Z79.4 Long term (current) use of insulin | CPT/HCPCS: 99214 ==

== ENCOUNTER → 2023-01-03 11:00 | Outpatient (BNVA) | payer OTHER, SELFPAY | PROVIDERS: PCP Family Medicine; Visit Provider Anesthesiology Pain Medicine | DX: M47.816 Spondylosis without myelopathy or radiculopathy, lumbar region; M51.36 Other intervertebral disc degeneration, lumbar region | CPT/HCPCS: 99214 ==

== ENCOUNTER → 2023-01-07 13:39 | Outpatient (BNVA) | payer OTHER, SELFPAY | PROVIDERS: PCP Family Medicine; Visit Provider Internal Medicine Pulmonary Disease | DX: J43.9 Emphysema, unspecified; J84.10 Pulmonary fibrosis, unspecified; I25.5 Ischemic cardiomyopathy; G47.33 Obstructive sleep apnea (adult) (pediatric); F17.210 Nicotine dependence, cigarettes, uncomplicated | CPT/HCPCS: 99214 ==

== ENCOUNTER 2023-01-08 08:03 | Outpatient (CLI) | payer OTHER, MEDICAID, SELFPAY ==
--- NOTE | 2023-01-08 08:00 | CTR_ITS ---
PROCEDURE INFORMATION: Exam: CTA Abdomen and Pelvis With Contrast Exam date and time: 01/08/2023 8:21 AM Age: 67 years old Clinical indication: Condition or disease; Other: Aaa repair; Prior surgery; Surgery date: 6+ months; Surgery type: Aaa, heart, pacemaker TECHNIQUE: Imaging protocol: Computed tomographic angiography of the abdomen and pelvis with contrast. Exam focused on the arteries. 3D rendering (Not supervised by radiologist): MIP and/or 3D reconstructed images were created by the technologist. Radiation optimization: All CT scans at this facility use at least one of these dose optimization techniques: automated exposure control; mA and/or kV adjustment per patient size (includes targeted exams where dose is matched to clinical indication); or iterative reconstruction. Contrast material: OMNI 350; Contrast volume: 200 ml; Contrast route: INTRAVENOUS (IV); REPORTING DATA: Count of CT and Cardiac NM exams in prior 12 months: This patient has received 6 known CTs and 0 known cardiac nuclear medicine studies in the 12 months prior to the current study. COMPARISON: CT angio abdomen [id number] 01/25/2020 9:41 AM RADIATION DOSE METRICS: Total DLP (mGy-cm): 3998.87 FINDINGS: Tubes, catheters and devices: There is a bifurcated aortoiliac endograft. The [place] sac measures up to 5.2 x 4.6 cm, unchanged since 10/26/2022. There is no contrast filling of the [place] sac to suggest endoleak. Lungs: Minimal subpleural scarring or atelectasis in the lung bases. Heart: Unremarkable. No cardiomegaly. No pericardial effusion. Aorta: There is mild aortic atherosclerotic disease. Celiac trunk and mesenteric arteries: The inferior mesenteric artery is occluded at its origin but is filled by the [place]. Superior mesenteric artery is widely patent. There is less than 50% stenosis at the celiac artery origin. Hepatic and splenic arteries are patent. Renal arteries: Bilateral renal arteries are patent. No stenosis is visible. The vessel origins are poorly evaluated due to the aortic graft. Right iliac arteries: Patent right common iliac artery. Mild calcific plaque without significant stenosis in the distal right common iliac and right external iliac arteries. Right internal iliac artery is patent. Left iliac arteries: Patent left common iliac artery stent. Mild calcific plaque in the left common and external iliac arteries without significant stenosis. Left internal iliac artery is patent. Liver: The liver has a nodular surface and there is relative hypertrophy of the left and caudate lobe consistent with cirrhosis. There is no focal liver abnormality. Gallbladder and bile ducts: The gallbladder is normal. There is no biliary dilation. Pancreas: The pancreas is unremarkable. Spleen: The spleen is unremarkable. Adrenal glands: The adrenal glands are unremarkable. Kidneys and ureters: There is a nonobstructive stone in the right kidney. There is no hydronephrosis or ureteral dilation. The left kidney and ureter are unremarkable. Stomach and bowel: The stomach is decompressed, preventing meaningful evaluation of wall thickness. The small bowel is nondilated. There is mild sigmoid colonic diverticulosis without evidence of diverticulitis. Appendix: The appendix is normal. Intraperitoneal space: There is no free air or significant intraperitoneal free fluid. Lymph nodes: There is no lymphadenopathy in the retroperitoneum, mesentery, pelvis or inguinal regions. Urinary bladder: The urinary bladder is unremarkable. Reproductive: The prostate and seminal vesicles are unremarkable. Bones/joints: There is mild degenerative disease in the lumbar spine. There is mild degenerative disease of both hips. The bony pelvis is intact. Soft tissues: There is a small fat containing left inguinal hernia. CT/CT angio abdomen pelvis [id number] IMPRESSION: 1. Patent bifurcated aortoiliac endograft with stable size of the [place] sac and no sign of endoleak. 2. Morphologic features of the liver are consistent with cirrhosis. 3. Incidental findings above.
--- NOTE | 2023-01-08 08:11 | XR_ITS ---
WS: [id number] XR thoracic spine 3V* [id number] REASON FOR EXAM: M54.6 - Pain in thoracic spine FINDINGS: No significant scoliosis or kyphosis. Moderate wedge-shaped compression deformity of T7. This compression deformity is present on the previ ous CT scan of the chest 09/07/2022. Mild narrowing of the disc spaces with mild anterior osteophytosis in the mid and lower thoracic spin e. IMPRESSION: Degenerative spondylosis. Compression deformity of T7 present on examination of 09/07/2022.
[2023-01-08] MEDS: iohexol 350 mg/mL 500 mL Btl (per mL) IV (08:40)
== END 2023-01-08 08:04 | disposition home or self-care (01) ==
PROVIDERS: PCP Family Medicine; Referring Provider Anesthesiology Pain Medicine; Visit Provider Internal Medicine Cardiovascular Disease
DX: Z98.890 Other specified postprocedural states (principal); Z86.79 Personal history of other diseases of the circulatory system; M47.814 Spondylosis without myelopathy or radiculopathy, thoracic region; M48.54XA Collapsed vertebra, not elsewhere classified, thoracic region, initial encounter for fracture; Z95.828 Presence of other vascular implants and grafts
CPT/HCPCS: 72072; 74174; 99214; Q9967

== ENCOUNTER 2023-01-08 14:00 | Oncology outpatient (recurring) (ONCR) | payer OTHER, SELFPAY ==
[2023-01-02 12:07] VITALS: BMI 35.6
[2023-01-02 12:08] VITALS: BP 76/40; PULSE 80; RESP 17; TEMP 36.8; O2SAT 94
[2023-01-02 12:33] LABS: Basophils % 0.5 %; Eosinophils # 0.1 10^3/uL (0.0-0.8); Eosinophils % 1.7 %; Hematocrit 42.1 % (42.0-52.0); Lymphocytes # 1.1 10^3/uL (0.8-4.8); Mean Corpuscular HGB Conc 30.9 g/dL (30.0-36.0); Mean Corpuscular Hemoglobin 28.5 pg (28.0-34.0); Mean Corpuscular Volume 92.3 fl (80-94); Mean Platelet Volume 10.4 fL (7.4-10.4); Monocytes # 0.6 10^3/uL (0.2-0.9); Monocytes % 7.2 %; Neutrophils # 5.92 10^3/uL (1.8-7.7); Neutrophils % 76.2 %; Nucleated Red Blood Cells % 0 %; Platelet Count 309 10^3/cmm (130-400); Red Blood Count 4.56 10^6/uL (4.1-5.3); Red Cell Distribution Width 23.8 % (12.1-15.1); White Blood Count 7.8 10^3/uL (4.0-10.0)
[2023-01-02 13:03] LABS: Alanine Aminotransferase 17 U/L (0-41); Albumin Level 3.9 g/dL (3.5-5.2); Alkaline Phosphatase 98 U/L (40-130); Anion Gap 18.4 (5-19); Aspartate Amino Transferase 12 U/L (0-40); Blood Urea Nitrogen 21 mg/dL (8-23); Calcium 9.1 mg/dL (8.5-10.5); Carbon Dioxide 23 mmol/L (22-29); Chloride 99 mmol/L (98-107); Ferritin 63 ng/mL (30-400); Globulin 3.3 g/dL (1.3-4.6); Glomerular Filtration Rate 55.4 mL/min (90-130); Glucose 191 mg/dL (65-115); Iron 55 ug/dL (59-158); Osmolality Calculated 290 mOsm/kg (285-295); Percent Saturation 18.5 % (20-50); Potassium 4.4 mmol/L (3.5-5.1); Sodium 136 mmol/L (136-145); Total Bilirubin 0.2 mg/dL (0.15-1.2); Total Iron Binding Capacity 296 mcg/dl; Total Protein 7.2 g/dL (6.6-8.7); Unsaturated Iron Binding 241 ug/dL (112-347)
[2023-01-08 14:30] VITALS: BP 98/60; PULSE 69; RESP 18; TEMP 36.7; O2SAT 95
[2023-01-08] MEDS: ferric carboxy (IVPB) 750 MG in sodium chloride 0.9% (100 ml) 100 ML 345 MG IV (14:34)
[2023-01-08 15:00] VITALS: BP 126/62; PULSE 63; RESP 17; TEMP 36.2; O2SAT 94
== END 2023-01-31 23:59 | disposition home or self-care (01) ==
PROVIDERS: PCP Family Medicine; Visit Provider Internal Medicine Medical Oncology
DX: E61.1 Iron deficiency (principal); D50.9 Iron deficiency anemia, unspecified; E11.9 Type 2 diabetes mellitus without complications; Z79.899 Other long term (current) drug therapy
CPT/HCPCS: 80053; 82728; 83540; 83550; 85025; 96365; 99214; J1439

== ENCOUNTER → 2023-01-17 14:11 | Outpatient (BNVA) | payer OTHER, MEDICAID, SELFPAY | PROVIDERS: PCP Family Medicine; Visit Provider Internal Medicine | DX: M25.9 Joint disorder, unspecified; R76.8 Other specified abnormal immunological findings in serum; R53.1 Weakness; N18.9 Chronic kidney disease, unspecified; J44.9 Chronic obstructive pulmonary disease, unspecified; F17.210 Nicotine dependence, cigarettes, uncomplicated; E29.1 Testicular hypofunction | CPT/HCPCS: 99214 ==

== ENCOUNTER 2023-01-18 10:47 | Outpatient (CLI) | payer OTHER, MEDICAID, SELFPAY ==
--- NOTE | 2023-01-18 10:57 | XR_ITS ---
WS: [id number] Lateral views of cervical spine in the flexion, extension and neutral positions. 01/18/2023 Clinical Data: M62.830 - Muscle spasm of back Comparison: Cervical spine, 02/05/2007 Findings: There is degenerative disc narrowing at C5-C6 and C6-C7 with anterior osteophytes. No prevertebral so ft tissue swelling is seen. On flexion and extension there is no subluxation but there is slight limi tation of motion. The patient has had surgery in the maxillary region with a small plate and screws. There are radiopaque items overlying the C1 level and mastoid region. Impression: 1. Degenerative disc narrowing at C5-C6 with anterior osteophytes. 2. On flexion and extension there is no subluxation but there is slight limitation of motion.
== END 2023-01-18 10:48 | disposition home or self-care (01) ==
PROVIDERS: PCP Family Medicine; Visit Provider Internal Medicine
DX: M62.830 Muscle spasm of back (principal); M50.322 Other cervical disc degeneration at C5-C6 level; M43.10 Spondylolisthesis, site unspecified; M47.816 Spondylosis without myelopathy or radiculopathy, lumbar region; M25.78 Osteophyte, vertebrae
CPT/HCPCS: 72040

== ENCOUNTER 2023-01-29 08:01 | Outpatient (CLI) | payer OTHER, SELFPAY ==
--- NOTE | 2023-01-29 09:00 | CT_ITS ---
WS: [id number] CT LUMBAR SPINE TECHNIQUE: Contrast-enhanced CT of the lumbar spine with coronal and sagittal reformatted images. CLINICAL INFORMATION: patient cant do an MRI due to a pacemaker COMPARISON: Noncontrast CT 12/14/2022 DLP: 1533.[address] scans at [facility] use at least one of these dose optimization techniques: automated e xposure control; mA and/or kV adjustment per patient size (includes targeted exams where dose is matc hed to clinical indication); or iterative reconstruction. FINDINGS: Partially visualized aortic endograft. Adrenal glands are normal. Slight anterolisthesis L5 on S1 amy suring 4 mm. L1-L2: Normal. L2-L3: Moderate facet arthropathy. Spinal canal and foramen are patent. L3-L4: Slight retrolisthesis. Mild annular bulging with slight effacement of the thecal sac. Moderate facet arthropathy. Tiny RIGHT foraminal protrusion with mild RIGHT foraminal narrowing. LEFT foramen is patent. L4-L5: Mild annular bulging with osteophytic ridging. Slight effacement of the ventral thecal sac. Mo derate LEFT foraminal narrowing impinges the exiting L4 nerve root. RIGHT foramen is patent. Moderate facet arthropathy. L5-S1: Grade 1 anterolisthesis. Moderate to advanced facet arthropathy. Foramen are patent. Spinal ca nal is patent. Visualized pelvic bony structures: Normal. Paravertebral soft tissues: Normal. IMPRESSION: 1. Grade 1 anterolisthesis L5 on S1. 2. LEFT foraminal protrusion L4-5 with osteophytic ridging impinges the exiting LEFT L4 nerve root w ith moderate LEFT foraminal narrowing. 3. Tiny RIGHT foraminal protrusion L3-4 with mild RIGHT foraminal narrowing and slight contact exiti ng RIGHT L3 nerve root. 4. Moderate facet arthropathy L4-L5 and advanced facet arthropathy L5-S1. 5. Partially evaluated aortic endograft with excluded aneurysm sac stable since the recent CTA 023.
--- NOTE | 2023-01-29 09:00 | IR_ITS ---
WS: [id number] MYELOGRAM LUMBAR SPINE Fluoroscopic guided lumbar myelogram CLINICAL INFORMATION: Patient cant do the MRI due to pacemaker COMPARISON: None. TECHNIQUE: The procedure, including risks, benefits, and complications, were discussed with the patie nt who agreed to proceed. A timeout was performed to confirm correct patient, procedure, and site. Using sterile technique, the patient was prepped and draped in the usual sterile fashion. After admin istration of local anesthesia using 1% preservative-free lidocaine and using fluoroscopic guidance, a 22-gauge spinal needle was advanced into the subarachnoid space at the L3-L4 level. Subsequently 12 cc of Omnipaque 300 was administered into the thecal sac. The needle was removed and hemostasis was a chieved. Spot fluoroscopic images were obtained. FLUOROSCOPIC TIME: 3min [id number] # of spot films: Spot fluoroscopic images demonstrate aortic endograft biiliac extension. Grade 1 anterolisthesis L5 o n S1. Disc space heights are well-preserved. No acute compression fractures. Mild lumbar curve. Osteo penia. Advanced arthropathy lower lumbar spine. IMPRESSION: Uncomplicated lumbar myelogram. Please see CT myelogram report for additional detail.
== END 2023-01-29 08:02 | disposition home or self-care (01) ==
PROVIDERS: PCP Family Medicine; Visit Provider Orthopaedic Surgery
DX: M47.816 Spondylosis without myelopathy or radiculopathy, lumbar region (principal)
CPT/HCPCS: 62304; 72132; Q9967

== ENCOUNTER 2023-02-05 09:46 | Oncology outpatient (recurring) (ONCR) | payer OTHER, SELFPAY ==
[2023-02-05 10:32] VITALS: BP 121/68; PULSE 77; RESP 18; TEMP 36.8; O2SAT 93
[2023-02-05 10:54] LABS: Basophils % 0.4 %; Eosinophils # 0.1 10^3/uL (0.0-0.8); Eosinophils % 0.9 %; Lymphocytes % 11.7 %; Mean Corpuscular HGB Conc 31.3 g/dL (30-55); Mean Corpuscular Hemoglobin 29.2 pg (27-33); Mean Corpuscular Volume 93.2 fl (82-101); Mean Platelet Volume 10.1 fL (7.4-10.4); Monocytes # 0.6 10^3/uL (0.2-0.9); Monocytes % 6.8 %; Neutrophils # 6.74 10^3/uL (1.8-7.7); Neutrophils % 79.6 %; Nucleated Red Blood Cells % 0 %; Platelet Count 269 10^3/cmm (157-399); Red Blood Count 4.83 10^6/uL (3.85-5.65); Red Cell Distribution Width 20.6 % (12.1-15.1); White Blood Count 8.47 10^3/uL (3.29-11.43)
[2023-02-05 11:09] LABS: Ferritin 92 ng/mL (30-400); Iron 73 ug/dL (59-158); Percent Saturation 27.1 % (20-50); Total Iron Binding Capacity 269 mcg/dl; Unsaturated Iron Binding 196 ug/dL (112-347)
== END 2023-03-02 23:59 | disposition home or self-care (01) ==
PROVIDERS: Nurse Practitioner Family; PCP Family Medicine; Visit Provider Internal Medicine Medical Oncology
DX: E61.1 Iron deficiency (principal); R53.83 Other fatigue; E11.42 Type 2 diabetes mellitus with diabetic polyneuropathy; Z79.899 Other long term (current) drug therapy; F17.210 Nicotine dependence, cigarettes, uncomplicated; Z79.4 Long term (current) use of insulin; Z79.84 Long term (current) use of oral hypoglycemic drugs; M47.816 Spondylosis without myelopathy or radiculopathy, lumbar region; M51.36 Other intervertebral disc degeneration, lumbar region; Z53.9 Procedure and treatment not carried out, unspecified reason
CPT/HCPCS: 36415; 82728; 83540; 83550; 85025; 99214

== ENCOUNTER → 2023-02-12 08:17 | Outpatient (BNVA) | payer OTHER, SELFPAY | PROVIDERS: PCP Family Medicine; Visit Provider Podiatrist Foot & Ankle Surgery | DX: E11.42 Type 2 diabetes mellitus with diabetic polyneuropathy (principal); L60.3 Nail dystrophy; L81.9 Disorder of pigmentation, unspecified; L84 Corns and callosities; Z79.4 Long term (current) use of insulin | CPT/HCPCS: 11055; 11721 ==

== ENCOUNTER 2023-03-18 13:26 | Oncology outpatient (recurring) (ONCR) | payer OTHER, SELFPAY ==
[2023-03-18 13:51] VITALS: BP 143/75; PULSE 78; RESP 20; TEMP 37.1; O2SAT 95
[2023-03-18 14:04] LABS: Basophils # 0.1 10^3/uL (0.0-0.1); Basophils % 0.7 %; Eosinophils # 0.1 10^3/uL (0.0-0.8); Eosinophils % 1.5 %; Hematocrit 44.8 % (37-53); Lymphocytes # 1.7 10^3/uL (0.8-4.8); Lymphocytes % 23.2 %; Mean Corpuscular HGB Conc 30.8 g/dL (30-55); Mean Corpuscular Hemoglobin 28.5 pg (27-33); Mean Corpuscular Volume 92.6 fl (82-101); Mean Platelet Volume 10.1 fL (7.4-10.4); Monocytes # 0.6 10^3/uL (0.2-0.9); Monocytes % 7.8 %; Neutrophils # 4.85 10^3/uL (1.8-7.7); Neutrophils % 66.4 %; Nucleated Red Blood Cells % 0 %; Platelet Count 261 10^3/cmm (157-399); Red Blood Count 4.84 10^6/uL (3.85-5.65); Red Cell Distribution Width 17.2 % (12.1-15.1)
[2023-03-18 14:26] LABS: Alanine Aminotransferase 14 U/L (0-41); Albumin Level 4.1 g/dL (3.5-5.2); Alkaline Phosphatase 104 U/L (40-130); Anion Gap 15.5 (5-19); Aspartate Amino Transferase 13 U/L (0-40); Blood Urea Nitrogen 20 mg/dL (8-23); Calcium 9.1 mg/dL (8.5-10.5); Carbon Dioxide 27 mmol/L (22-29); Chloride 102 mmol/L (98-107); Creatinine Clr Calc Pharmacy 92.8642; Glomerular Filtration Rate 60.8 mL/min (90-130); Glucose 159 mg/dL (65-115); Osmolality Calculated 296 mOsm/kg (285-295); Potassium 4.5 mmol/L (3.5-5.1); Sodium 140 mmol/L (136-145); Total Bilirubin 0.2 mg/dL (0.15-1.2); Total Protein 7.1 g/dL (6.6-8.7)
[2023-03-18 15:53] LABS: Ferritin 48 ng/mL (30-400); Iron 52 ug/dL (59-158); Percent Saturation 19.6 % (20-50); Total Iron Binding Capacity 265 mcg/dl; Unsaturated Iron Binding 213 ug/dL (112-347)
== END 2023-04-02 23:59 | disposition home or self-care (01) ==
PROVIDERS: Nurse Practitioner Family; PCP Family Medicine; Visit Provider Internal Medicine Medical Oncology
DX: D50.9 Iron deficiency anemia, unspecified
CPT/HCPCS: 36415; 80053; 82728; 83540; 83550; 85025; 99214

== ENCOUNTER → 2023-04-08 10:03 | Outpatient (BNVA) | payer OTHER, SELFPAY | PROVIDERS: PCP Family Medicine; Visit Provider Anesthesiology Pain Medicine | DX: M47.816 Spondylosis without myelopathy or radiculopathy, lumbar region; M51.36 Other intervertebral disc degeneration, lumbar region; M43.16 Spondylolisthesis, lumbar region | CPT/HCPCS: 99214 ==

== ENCOUNTER → 2023-04-15 13:08 | Outpatient (BNVA) | payer OTHER, SELFPAY | PROVIDERS: PCP Family Medicine; Visit Provider Podiatrist Foot & Ankle Surgery | DX: E11.42 Type 2 diabetes mellitus with diabetic polyneuropathy (principal); L60.3 Nail dystrophy; L81.9 Disorder of pigmentation, unspecified; L85.1 Acquired keratosis [keratoderma] palmaris et plantaris; Z79.4 Long term (current) use of insulin | CPT/HCPCS: 11721; 17110 ==

== ENCOUNTER 2023-04-17 12:17 | Oncology outpatient (recurring) (ONCR) | payer OTHER, SELFPAY ==
[2023-04-17 13:10] VITALS: BP 102/62; PULSE 87; RESP 16; TEMP 36.8; O2SAT 95
[2023-04-17 13:18] LABS: Basophils % 0.4 %; Eosinophils # 0.1 10^3/uL (0.0-0.8); Eosinophils % 1.2 %; Hematocrit 42.8 % (37-53); Lymphocytes % 14.1 %; Mean Corpuscular HGB Conc 31.8 g/dL (30-55); Mean Corpuscular Hemoglobin 28.3 pg (27-33); Mean Corpuscular Volume 89.2 fl (82-101); Mean Platelet Volume 10.6 fL (7.4-10.4); Monocytes # 0.5 10^3/uL (0.2-0.9); Monocytes % 7.3 %; Neutrophils # 5.65 10^3/uL (1.8-7.7); Neutrophils % 76.7 %; Nucleated Red Blood Cells % 0 %; Platelet Count 301 10^3/cmm (157-399); Red Cell Distribution Width 18.4 % (12.1-15.1); White Blood Count 7.37 10^3/uL (3.29-11.43)
[2023-04-17 13:37] LABS: Ferritin 53 ng/mL (30-400); Iron 103 ug/dL (59-158); Percent Saturation 37.8 % (20-50); Total Iron Binding Capacity 272 mcg/dl; Unsaturated Iron Binding 169 ug/dL (112-347)
== END 2023-05-02 23:59 | disposition home or self-care (01) ==
LOC: ONCMED 12:18
PROVIDERS: Nurse Practitioner Family; PCP Family Medicine; Visit Provider Internal Medicine Medical Oncology
DX: D50.8 Other iron deficiency anemias (principal)
CPT/HCPCS: 36415; 82728; 83540; 83550; 85025

== ENCOUNTER → 2023-04-18 12:06 | Outpatient (BNVA) | payer OTHER, SELFPAY | PROVIDERS: PCP Family Medicine; Visit Provider Internal Medicine | DX: M54.2 Cervicalgia (principal); M25.9 Joint disorder, unspecified; R76.8 Other specified abnormal immunological findings in serum; N18.9 Chronic kidney disease, unspecified; R79.89 Other specified abnormal findings of blood chemistry; M47.816 Spondylosis without myelopathy or radiculopathy, lumbar region | CPT/HCPCS: 64493; 64494; 64495; 99214; J1030; J3490 ==

== ENCOUNTER → 2023-05-08 09:24 | Outpatient (BNVA) | payer OTHER, SELFPAY | PROVIDERS: PCP Family Medicine; Visit Provider Anesthesiology Pain Medicine | DX: M47.816 Spondylosis without myelopathy or radiculopathy, lumbar region; M51.36 Other intervertebral disc degeneration, lumbar region; M51.26 Other intervertebral disc displacement, lumbar region; M43.16 Spondylolisthesis, lumbar region | CPT/HCPCS: 99214 ==

== ENCOUNTER 2023-05-15 13:01 | Oncology outpatient (recurring) (ONCR) | payer OTHER, SELFPAY ==
[2023-05-15 13:56] VITALS: BP 119/72; PULSE 64; RESP 18; TEMP 36.6; O2SAT 97
[2023-05-15 14:22] LABS: Basophils % 0.4 %; Eosinophils # 0.1 10^3/uL (0.0-0.8); Eosinophils % 0.6 %; Lymphocytes # 0.7 10^3/uL (0.8-4.8); Lymphocytes % 8.6 %; Mean Corpuscular HGB Conc 31.2 g/dL (30-55); Mean Corpuscular Hemoglobin 29.1 pg (27-33); Mean Corpuscular Volume 93.2 fl (82-101); Mean Platelet Volume 10.4 fL (7.4-10.4); Monocytes # 0.5 10^3/uL (0.2-0.9); Monocytes % 5.7 %; Neutrophils # 7.07 10^3/uL (1.8-7.7); Neutrophils % 84.3 %; Nucleated Red Blood Cells % 0 %; Platelet Count 275 10^3/cmm (157-399); Red Cell Distribution Width 18.6 % (12.1-15.1); White Blood Count 8.38 10^3/uL (3.29-11.43)
[2023-05-15 14:40] LABS: Alanine Aminotransferase 15 U/L (0-41); Alkaline Phosphatase 98 U/L (40-130); Anion Gap 17.4 (5-19); Aspartate Amino Transferase 18 U/L (0-40); Blood Urea Nitrogen 12 mg/dL (8-23); Calcium 8.6 mg/dL (8.5-10.5); Carbon Dioxide 25 mmol/L (22-29); Chloride 99 mmol/L (98-107); Ferritin 43 ng/mL (30-400); Globulin 2.8 g/dL (1.3-4.6); Glomerular Filtration Rate 55.4 mL/min (90-130); Glucose 197 mg/dL (65-115); Osmolality Calculated 291 mOsm/kg (285-295); Potassium 3.4 mmol/L (3.5-5.1); Sodium 138 mmol/L (136-145); Total Bilirubin 0.4 mg/dL (0.15-1.2); Total Protein 6.8 g/dL (6.6-8.7)
[2023-05-15 16:11] LABS: Iron 55 ug/dL (59-158); Total Iron Binding Capacity 261 mcg/dl; Unsaturated Iron Binding 206 ug/dL (112-347)
== END 2023-06-02 23:59 | disposition home or self-care (01) ==
LOC: ONCMED 13:02
PROVIDERS: PCP Family Medicine; Visit Provider Internal Medicine Medical Oncology
DX: E61.1 Iron deficiency (principal)
CPT/HCPCS: 36415; 80053; 82728; 83540; 83550; 85025

== ENCOUNTER → 2023-06-20 09:10 | Outpatient (BNVA) | payer OTHER, SELFPAY | PROVIDERS: PCP Family Medicine; Visit Provider Internal Medicine | DX: E78.2 Mixed hyperlipidemia (principal); R79.89 Other specified abnormal findings of blood chemistry; I25.118 Atherosclerotic heart disease of native coronary artery with other forms of angina pectoris; Z79.4 Long term (current) use of insulin | CPT/HCPCS: 99214 ==

== ENCOUNTER 2023-06-21 07:56 | Outpatient (CLI) | payer OTHER, SELFPAY ==
[2023-06-21 09:00] LABS: Basophils # 0.1 10^3/uL (0.0-0.1); Basophils % 0.8 %; Eosinophils # 0.2 10^3/uL (0.0-0.8); Eosinophils % 2.5 %; Hematocrit 44.2 % (37-53); Lymphocytes # 1.4 10^3/uL (0.8-4.8); Lymphocytes % 22.1 %; Mean Corpuscular HGB Conc 30.8 g/dL (30-55); Mean Corpuscular Hemoglobin 28.2 pg (27-33); Mean Corpuscular Volume 91.5 fl (82-101); Mean Platelet Volume 10.1 fL (7.4-10.4); Monocytes # 0.6 10^3/uL (0.2-0.9); Monocytes % 9.5 %; Neutrophils # 4.06 10^3/uL (1.8-7.7); Neutrophils % 64.6 %; Nucleated Red Blood Cells % 0 %; Platelet Count 349 10^3/cmm (157-399); Red Blood Count 4.83 10^6/uL (3.85-5.65); Red Cell Distribution Width 17.5 % (12.1-15.1); White Blood Count 6.29 10^3/uL (3.29-11.43)
[2023-06-21 09:30] LABS: Alanine Aminotransferase 13 U/L (0-41); Albumin Level 4.1 g/dL (3.5-5.2); Alkaline Phosphatase 106 U/L (40-130); Anion Gap 14.4 (5-19); Aspartate Amino Transferase 14 U/L (0-40); Blood Urea Nitrogen 22 mg/dL (8-23); Calcium 8.8 mg/dL (8.5-10.5); Carbon Dioxide 30 mmol/L (22-29); Chloride 97 mmol/L (98-107); Chol HDL Ratio 6.14 mg/dL (1.0-5.00); Cholesterol 221 mg/dL (0-200); Ferritin 20 ng/mL (30-400); Globulin 3.4 g/dL (1.3-4.6); Glomerular Filtration Rate 55.4 mL/min (90-130); Glucose 118 mg/dL (65-115); HDL Cholesterol 36 mg/dL (60-100); Iron 35 ug/dL (59-158); LDL Cholesterol Calculated 118 mg/dL (50-129); LDL HDL Ratio 3.28 RATIO (0.00-3.22); Osmolality Calculated 290 mOsm/kg (285-295); Percent Saturation 10.6 % (20-50); Potassium 3.4 mmol/L (3.5-5.1); Prostate Specific Antigen Scr 0.27 ng/mL (0-4); Sodium 138 mmol/L (136-145); Total Bilirubin 0.2 mg/dL (0.15-1.2); Total Iron Binding Capacity 329 mcg/dl; Total Protein 7.5 g/dL (6.6-8.7); Triglycerides 334 mg/dL (0-150); Unsaturated Iron Binding 294 ug/dL (112-347)
== END 2023-06-21 07:57 | disposition home or self-care (01) ==
PROVIDERS: PCP Family Medicine; Visit Provider Internal Medicine
DX: E78.2 Mixed hyperlipidemia (principal); R79.89 Other specified abnormal findings of blood chemistry; I25.118 Atherosclerotic heart disease of native coronary artery with other forms of angina pectoris; D50.8 Other iron deficiency anemias
CPT/HCPCS: 36415; 80053; 80061; 82728; 83540; 83550; 85025; G0103

== ENCOUNTER 2023-06-26 11:53 | Oncology outpatient (recurring) (ONCR) | payer OTHER, SELFPAY ==
[2023-06-26 12:23] VITALS: BP 123/67; PULSE 70; RESP 16; TEMP 36.8; O2SAT 93
[2023-06-26 12:43] LABS: Basophils % 0.5 %; Eosinophils # 0.2 10^3/uL (0.0-0.8); Eosinophils % 2.4 %; Hematocrit 45.9 % (37-53); Lymphocytes # 1.5 10^3/uL (0.8-4.8); Lymphocytes % 19.9 %; Mean Corpuscular HGB Conc 30.9 g/dL (30-55); Mean Corpuscular Hemoglobin 27.7 pg (27-33); Mean Corpuscular Volume 89.6 fl (82-101); Mean Platelet Volume 10.6 fL (7.4-10.4); Monocytes # 0.6 10^3/uL (0.2-0.9); Monocytes % 8.3 %; Neutrophils # 5.04 10^3/uL (1.8-7.7); Neutrophils % 68.6 %; Nucleated Red Blood Cells % 0 %; Platelet Count 427 10^3/cmm (157-399); Red Blood Count 5.12 10^6/uL (3.85-5.65); Red Cell Distribution Width 17.4 % (12.1-15.1); White Blood Count 7.35 10^3/uL (3.29-11.43)
[2023-06-26 12:58] LABS: Alanine Aminotransferase 14 U/L (0-41); Albumin Level 4.3 g/dL (3.5-5.2); Alkaline Phosphatase 110 U/L (40-130); Anion Gap 15.2 (5-19); Aspartate Amino Transferase 15 U/L (0-40); Blood Urea Nitrogen 21 mg/dL (8-23); Calcium 9.2 mg/dL (8.5-10.5); Carbon Dioxide 28 mmol/L (22-29); Chloride 97 mmol/L (98-107); Globulin 3.6 g/dL (1.3-4.6); Glomerular Filtration Rate 55.4 mL/min (90-130); Glucose 212 mg/dL (65-115); Osmolality Calculated 291 mOsm/kg (285-295); Potassium 4.2 mmol/L (3.5-5.1); Sodium 136 mmol/L (136-145); Total Bilirubin 0.3 mg/dL (0.15-1.2); Total Protein 7.9 g/dL (6.6-8.7)
[2023-06-26] MEDS: ferric carboxy (IVPB) 750 MG in sodium chloride 0.9% (100 ml) 100 ML 345 MG IV (15:25)
== END 2023-07-03 23:59 | disposition home or self-care (01) ==
LOC: ONCMED 11:53
PROVIDERS: Nurse Practitioner Family; PCP Family Medicine; Visit Provider Internal Medicine Medical Oncology
DX: D50.8 Other iron deficiency anemias (principal); Z79.899 Other long term (current) drug therapy
CPT/HCPCS: 36415; 80053; 85025; 96365; 99214; J1439

== ENCOUNTER 2023-06-28 08:08 | Outpatient (CLI) | payer OTHER, SELFPAY ==
[2023-06-28 09:35] LABS: Testosterone Total 225.9 ng/dL (193-740)
[2023-07-02 15:11] LABS: Testosterone, Free 33.6 pg/mL (46.0-224.0)
== END 2023-06-28 08:09 | disposition home or self-care (01) ==
PROVIDERS: PCP Family Medicine; Visit Provider Internal Medicine
DX: R79.89 Other specified abnormal findings of blood chemistry (principal)
CPT/HCPCS: 84402; 84403

== ENCOUNTER → 2023-07-10 08:45 | Outpatient (BNVA) | payer OTHER, SELFPAY | PROVIDERS: PCP Family Medicine; Visit Provider Nurse Practitioner Family | DX: I48.19 Other persistent atrial fibrillation (principal); I11.0 Hypertensive heart disease with heart failure; I50.9 Heart failure, unspecified; I25.10 Atherosclerotic heart disease of native coronary artery without angina pectoris; Z95.0 Presence of cardiac pacemaker; F17.210 Nicotine dependence, cigarettes, uncomplicated; Z79.01 Long term (current) use of anticoagulants | CPT/HCPCS: 99214 ==

== ENCOUNTER 2023-07-11 15:37 | Outpatient (CLI) | payer OTHER, SELFPAY ==
--- NOTE | 2023-07-11 16:00 | CT_ITS ---
WS: [id number] CT ANGIOGRAM CEREBRAL AND CAROTID ARTERIES HISTORY: Carotid stenosis TECHNIQUE: CT angiogram is performed of the carotid and cerebral arteries. During arterial injection imaging is obtained from the skull vertex to the aortic arch in 1.25 mm imaging. Coronal and sagittal reformats are submitted. Additional multi planar reformats of the carotid and cerebral arteries are submitted, MIP imaging also reviewed. NASCET criteria utilized. [facility] CT [facility] at least one of these dose optimization techniques: automated exposure control; mA and/or kV adjust ment per patient size (includes targeted exams where dose is matched to clinical indication); or iter ative reconstruction. CONTRAST: Omnipaque 350; 100 mL IV. DLP: 1397.90 mGy.cm COMPARISON: 02/27/2022 and 03/23/[address] head: No acute hemorrhage or edema. Mild atrophy and very mild small vessel disease. Carotid Angiogram: Right carotid: Common carotid artery: Normal arises from the innominate artery. There is calcified plaque throughout the cervical carotid artery. There does appear to be a slight progression in the amount of plaque bu t there is no high-grade stenosis. Increasing plaque towards the bifurcation. Internal carotid artery: Increasing calcified plaque and intimal thickening at the carotid bifurcatio n. There is a high-grade stenosis at the origin of the RIGHT carotid artery which is at 70% or just g reater than 70%. Similar to the prior study. I suspect there probably is also a small ulcerated plaqu e present. External carotid artery: Patent with atherosclerotic disease. Left carotid: Common carotid artery: Normally arises from the aorta. Minimal plaque. Internal carotid artery: Increasing plaque at the bifurcation and intimal thickening. There is a high -grade stenosis involving the origin of the LEFT ICA with poststenotic dilatation. External carotid artery: Moderate plaque at the origin of the external carotid artery. Right vertebral artery: Unremarkable. Left vertebral artery: Unremarkable. Arises normally from the subclavian artery. Subclavian arteries: Mild atherosclerotic disease. There is more significant plaque and intimal thick ening involving the LEFT subclavian artery but there is no high-grade stenosis. Upper thorax: Chronic emphysema. Thyroid gland: Normal. Osseous structures: Advanced degenerative changes in the cervical spine. CEREBRAL ANGIOGRAM: Intracranial vertebral arteries: Advanced spondylitic changes in the cervical spine. Basilar artery: No significant stenosis or occlusion. No aneurysm. Intracranial Internal carotid arteries: Increasing plaque through the cavernous sinuses and supraclin oid carotid arteries. There is near 50% stenosis involving the LEFT ICA through the cavernous sinus. Middle cerebral arteries: Normal. Anterior cerebral arteries and ACOM: Normal. Posterior cerebral arteries and PCOM's: Normal. Dural venous sinuses are normally enhancing. Mastoid air cells: Normal. Paranasal sinuses: Normal. Calvarium: Postsurgical plate and screw over the LEFT frontal sinus. No acute osseous abnormality. IMPRESSION: 1. Continued high-grade stenosis around 70% involving the origins of the LEFT and RIGHT ICAs. Mild p oststenotic dilatation on the LEFT. 2. 50% stenosis involving the RIGHT cavernous ICA. 3. No obvious progression of the stenosis. 4. Middle cerebral arteries are patent with no aneurysm or stenosis.
[2023-07-11] MEDS: iohexol 350 mg/mL 500 mL Btl (per mL) IV (16:43)
== END 2023-07-11 15:38 | disposition home or self-care (01) ==
LOC: RAD 15:38
PROVIDERS: PCP Family Medicine; Visit Provider Surgery
DX: I65.23 Occlusion and stenosis of bilateral carotid arteries (principal)
CPT/HCPCS: 70496; 70498; Q9967

== ENCOUNTER → 2023-07-17 12:42 | Outpatient (BNVA) | payer OTHER, SELFPAY | PROVIDERS: PCP Family Medicine; Visit Provider Podiatrist Foot & Ankle Surgery | DX: E11.42 Type 2 diabetes mellitus with diabetic polyneuropathy (principal); L60.3 Nail dystrophy; L81.9 Disorder of pigmentation, unspecified; L85.1 Acquired keratosis [keratoderma] palmaris et plantaris; Z79.4 Long term (current) use of insulin | CPT/HCPCS: 11721; 17110 ==

== ENCOUNTER → 2023-08-07 09:59 | Outpatient (BNVA) | payer OTHER, SELFPAY | PROVIDERS: PCP Family Medicine; Visit Provider Anesthesiology Pain Medicine | DX: M47.816 Spondylosis without myelopathy or radiculopathy, lumbar region; M51.36 Other intervertebral disc degeneration, lumbar region; M43.17 Spondylolisthesis, lumbosacral region; M25.551 Pain in right hip; M25.552 Pain in left hip | CPT/HCPCS: 99214 ==

== ENCOUNTER 2023-08-13 12:51 | Outpatient (CLI) | payer OTHER, SELFPAY ==
--- NOTE | 2023-08-13 12:53 | XRR_ITS ---
PROCEDURE INFORMATION: Exam: XR Bilateral Hips Exam date and time: 08/13/2023 1:09 PM Age: 68 years old Clinical indication: Hip pain; Bilateral; Additional info: M16.9 - osteoarthritis of hip, unspecified TECHNIQUE: Imaging protocol: Radiologic exam of the bilateral hips. Views: 2 views of hips with pelvis when performed. COMPARISON: CT angio abdomen pelvis [id number] 01/08/2023 8:21 AM FINDINGS: Bones/joints: Large bilateral superolateral acetabular lips with slight buttressing of both femoral heads laterally. This can result in femoroacetabular impingement. Mild arthritis both hips. Otherwise, unremarkable. Soft tissues: Otherwise, unremarkable. Vasculature: Arterial calcification. XR/XR hip BI 3-4V wo/w pel [id number] IMPRESSION: 1. Bilateral femoroacetabular impingement is suspected. 2. Mild bilateral hip arthritis.
== END 2023-08-13 12:52 | disposition home or self-care (01) ==
LOC: RAD 12:52
PROVIDERS: PCP Family Medicine; Visit Provider Anesthesiology Pain Medicine
DX: M16.0 Bilateral primary osteoarthritis of hip (principal); R93.6 Abnormal findings on diagnostic imaging of limbs
CPT/HCPCS: 73522

== ENCOUNTER → 2023-09-03 08:51 | Outpatient (BNVA) | payer OTHER, SELFPAY | PROVIDERS: PCP Family Medicine; Referring Provider Family Medicine; Visit Provider Specialist | DX: E11.42 Type 2 diabetes mellitus with diabetic polyneuropathy (principal); E78.2 Mixed hyperlipidemia; R79.89 Other specified abnormal findings of blood chemistry; I25.118 Atherosclerotic heart disease of native coronary artery with other forms of angina pectoris; Z79.890 Hormone replacement therapy; Z79.4 Long term (current) use of insulin; Z79.84 Long term (current) use of oral hypoglycemic drugs | CPT/HCPCS: 36415; 80053; 80061; 84403; 95910; 95913; 99214 ==

== ENCOUNTER 2023-09-29 13:55 | Observation (INO) | payer OTHER, SELFPAY ==
[2023-09-29] VITALS (16 sets, daily range): BP systolic 96–135; BP diastolic 47–82; PULSE 68–95; RESP 16–18; TEMP 36.5–36.8; O2SAT 95–99; BMI 34.9
--- NOTE | 2023-09-29 15:30 | XRR_ITS ---
PROCEDURE INFORMATION: Exam: XR Chest Exam date and time: 09/29/2023 3:56 PM Age: 68 years old Clinical indication: Shortness of breath; Prior surgery; Surgery date: 6+ months; Surgery type: Cabg/pacemaker; Patient HX: SOB; Pain in neck/shoulders; Dizziness; Afib TECHNIQUE: Imaging protocol: Radiologic exam of the chest. Views: 1 view. COMPARISON: CT chest [facility] [id number] 09/07/2022 8:16 AM FINDINGS: Tubes, catheters and devices: Cardiac pacemaker on the left with leads in satisfactory position. Lungs: See Heart/Mediastinum finding. Pleural spaces: Unremarkable. No pleural effusion. No pneumothorax. Heart/Mediastinum: There is evidence of cardiomegaly and both lungs demonstrate chronic interstitial coarsening. No lung mass or infiltrate. Bones/joints: Sternal sutures are noted. XR/XR chest 1V portable [id number] IMPRESSION: No acute findings.
--- NOTE | 2023-09-29 15:43 | ECG_ITS ---
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 Measurements Intervals [place] Rate: 73 P: -7 IN: 152 QRS: -28 QRSD: 116 T: 163 QT: 433 QTc: 479 Interpretive Statements SINUS RHYTHM BORDERLINE LEFT AXIS DEVIATION [QRS AXIS < -20] MODERATE INTRAVENTRICULAR CONDUCTION DELAY [110+ ms QRS DURATION] ST DEVIATION AND MODERATE T-WAVE ABNORMALITY, CONSIDER ANTEROLATERAL ISCHEMIA [-0.1+ mV T-WAVE IN V3-V6] INTERPRETATION BASED ON A DEFAULT AGE OF 40 YEARS Compared to ECG 06/21/2022 10:31:13.Intraventricular conduction delay now present T-wave abnormality now present.Possible ischemia now present Atrial-paced complex(es) or rhythm no longer present.Right-axis deviation no longer present.Myocardial infarct finding no longer present Electronically Signed On 09-29-2023 22:48:19 CDT by Miladys Armstrong M.D. [id number]
--- NOTE | 2023-09-29 15:44 | W.ED.SOB ---
HPI - SOB/Dyspnea General: Chief Complaint: Shortness of Breath/Dyspnea Stated Complaint: dizzy, sob, pain in neck/shoulders Time Seen by Provider: 09/29/23 15:42 History of Present Illness: HPI Narrative: 68-year-old male presents emergency department with complaints of increased fatigue and malaise as well as exertional dyspnea. He states that he feels like he has become much more short of breath over the previous several days. He states he also feels like he has some tightness to his upper back and neck. 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 He states today he was able to walk into his adventism assisted and had to have a wheelchair to take him out at the end of his sermon that he shortened because of his dyspnea. He states he does have an extensive cardiac history and has had several coronary artery bypass grafts, as well as history of hypertension hyperlipidemia, congestive heart failure, COPD iron deficiency anemia and type 2 diabetes. Associated symptoms: Reports dizziness; Deny chest pain Review of Systems General: Reports: 10 or more systems reviewed and unremarkable except in HPI and below Const: Reports: fatigue and malaise Card: Denies: chest pain Resp: Reports: dyspnea; Denies: productive cough or non-productive cough Neuro: Reports: dizziness PFSH ED PFSH: Medical History Cervicalgia Prolonged QT interval COPD (chronic obstructive pulmonary disease) Degenerative arthritis Anxiety Venous insufficiency Peripheral neuropathy Type 2 diabetes mellitus Iron deficiency anemia Obstructive sleep apnea Pulmonary fibrosis Ischemic cardiomyopathy Carotid stenosis, right Abdominal aortic aneurysm (AAA) 3.0 cm to 5.5 cm in diameter in male s/p repair ASHD (arteriosclerotic heart disease) Hyperlipidemia Hypertension DDD (degenerative disc disease) CHF (congestive heart failure) Atrial fibrillation Allergic rhinitis Surgical History History of cranioplasty Status post colonoscopy (05/19/21) H/O esophagogastroduodenoscopy (05/19/21) Hx of knee surgery Hx of shoulder surgery History of colonoscopy Pacemaker Hx of CABG History of atherectomy History of cardiac radiofrequency ablation S/P AAA repair October [address] [facility] Family History Father Anesthesia complication Cancer Mother CAD (coronary artery disease) Chronic kidney disease (CKD) Brother Diabetes Grandmother Lung disease Denies family history of Clotting disorder Dementia Suicide Bleeding disorder Stroke Social History Smoking and tobacco/nicotine status: current every day tobacco/nicotine user cigarettes Packs smoked per day: 0.5 Years cigarettes smoked: 50 [ Other cigarette details: Started at age 15] Alcohol intake: never Substance/Drug Use: never Lives independently: Yes Physical Exam Narrative: EXAM NARRATIVE: Constitutional: the patient appears well nourished and of normal development. Vital signs as documented. No acute distress at present. Alert and oriented-to person, place, time and situation. Head, eyes, ears, nose, mouth, throat: Normocephalic, atraumatic. Pupils-equal, round, reactive to light. No scleral icterus. Normal-appearing external ears. Normal appearing nasal turbinates, no drainage. No obvious oral lesions, posterior oropharynx without erythema or exudates. Neck: Supple, trachea is midline, no lymphadenopathy, no jugular venous distension, thyromegaly, or carotid bruits. Carotid upstrokes are brisk bilaterally. Lungs: clear to auscultation to all lung elizabeth. Symmetrical rise and fall of chest, no obvious signs of increased work of breathing at present. Cardiac: Regular rate and rhythm, positive S1, S2. No murmurs, rubs or gallops that I can appreciate Abdomen: Soft, non-tender to palpation, normal active bowel sounds to all quadrants. No palpable masses, no organomegaly and abdominal bruits. Extremities: 2+ pulses in the upper extremities that are equal bilaterally, 2+ pulses in the lower extremities that are equal bilaterally. Non-edematous. Moves all extremities well, sensation to all extremities are noted. Skin: Warm, dry, intact. Course Vital Signs: Vital signs: Vital Signs Temperature 97.9 F 09/29/23 14:06 Pulse Rate 95 09/29/23 18:00 Respiratory Rate 17 09/29/23 18:00 Blood Pressure 106/50 09/29/23 18:00 Pulse Oximetry 95 09/29/23 18:00 Oxygen Delivery Me thod Room Air 09/29/23 18:00 MDM - SOB/Dyspnea Medical Decision Making Physical exam completed and documented I did did obtain a CBC and CMP as well as cardiac enzymes and twelve-lead EKG and chest x-ray. The patient's hemoglobin is significantly low at 7.9 and his previous hemoglobin on June 26, 2023 was 14.2. He denies any active bleeding. His platelets are 482. He does have a slightly elevated white count at 12.5. CMP was obtained and demonstrates a BUN of 56 and a creatinine of 1.5. He does have a BNP of 1201. patient states he has seen Dr. Cordoba in the past for his chronic anemia. 14: 55 I did discuss the patient's laboratory findings as well as the need to transfuse 2 units of packed red blood cells given his significant cardiac history and his current symptoms of exertional dyspnea. I have contacted the hospital medicine service to request admission and currently we are awaiting a return phone call for acceptance. Medical Records I reviewed the patient's medical records. Lab Data I reviewed the patient's lab results. 09/29/23 18:16 09/29/23 15:57 Labs/Radiology: Radiology Impressions Chest X-Ray 09/29/23 15:30 IMPRESSION: No acute findings. Laboratory Results WBC 12.56 10^3/uL (3.29-11.43) H 09/29/23 15:57 RBC 2.79 10^6/uL (3.85-5.65) L 09/29/23 15:57 Hgb 7.70 g/dL (11.27-16.99) L 09/29/23 18:16 Hct 26.0 % (37-53) L 09/29/23 18:16 MCV 92.1 fl (82-101) 09/29/23 15:57 MCH 28.3 pg (27-33) 09/29/23 15:57 MCHC 30.7 g/dL (30-55) 09/29/23 15:57 RDW 19.8 % (12.1-15.1) H 09/29/23 15:57 Plt Count 482 10^3/cmm (157-399) H 09/29/23 15:57 MPV 10.1 fL (7.4-10.4) 09/29/23 15:57 Neut % (Auto) 76.5 % 09/29/23 15:57 Lymph % (Auto) 15.6 % 09/29/23 15:57 [place] % (Auto) 5.9 % 09/29/23 15:57 Eos % (Auto) 0.6 % 09/29/23 15:57 Baso % (Auto) 0.3 % 09/29/23 15:57 Neut # (Auto) 9.60 10^3/uL (1.8-7.7) H 09/29/23 15:57 Lymph # (Auto) 2.0 10^3/uL (0.8-4.8) 09/29/23 15:57 [place] # (Auto) 0.7 10^3/uL (0.2-0.9) 09/29/23 15:57 Eos # (Auto) 0.1 10^3/uL (0.0-0.8) 09/29/23 15:57 Baso # (Auto) 0.0 10^3/uL (0.0-0.1) 09/29/23 15:57 Nucleated RBC % (auto) 0.2 % 09/29/23 15:57 Nucleated RBCs # 0.0 /100WBC 09/29/23 15:57 PT 17.40 SECONDS (12.1-14.9) H 09/29/23 15:57 INR 1.38 (0.8-1.2) H 09/29/23 15:57 APTT 34.5 SECONDS (23.9-36.7) 09/29/23 15:57 Sodium 138 mmol/L (136-145) 09/29/23 15:57 Potassium 4.1 mmol/L (3.5-5.1) 09/29/23 15:57 Chloride 101 mmol/L (98-107) 09/29/23 15:57 Carbon Dioxide 25 mmol/L (22-29) 09/29/23 15:57 Anion Gap 16.1 (5-19) 09/29/23 15:57 BUN 56 mg/dL (8-23) H 09/29/23 15:57 Creatinine 1.5 mg/dL (0.7-1.2) H 09/29/23 15:57 GFR Calculation 46.8 mL/min (90-130) L 09/29/23 15:57 Glucose 105 mg/dL (65-115) 09/29/23 15:57 Calculated Osmolality 302 mOsm/kg (285-295) H 09/29/23 15:57 Calcium 8.5 mg/dL (8.5-10.5) 09/29/23 15:57 Iron 74 ug/dL (59-158) 09/29/23 15:57 TIBC 315 mcg/dl 09/29/23 15:57 % Saturation 23.4 % (20-50) 09/29/23 15:57 Unsat Iron Binding 241 ug/dL (112-347) 09/29/23 15:57 Ferritin 15 ng/mL (30-400) L 09/29/23 15:57 Total Bilirubin 0.2 mg/dL (0.15-1.2) 09/29/23 15:57 AST 8 U/L (0-40) 09/29/23 15:57 ALT 9 U/L (0-41) 09/29/23 15:57 Alkaline Phosphatase 79 U/L (40-130) 09/29/23 15:57 Troponin T Baseline 22 ng/L (0-15) H 09/29/23 15:57 NT-Pro-B Natriuret Pep 1201 pg/mL (0-125) H 09/29/23 15:57 Total Protein 6.5 g/dL (6.6-8.7) L 09/29/23 15:57 Albumin 3.9 g/dL (3.5-5.2) 09/29/23 15:57 Globulin 2.6 g/dL (1.3-4.6) 09/29/23 15:57 Blood Type O Positive 09/29/23 17:14 Rho(D) Type Rh positive 09/29/23 17:14 Antibody Screen Negative 09/29/23 17:14 Crossmatch See Detail 09/29/23 17:14 All radiology interpretation(s) finalized by discharge EKG Data EKG 1: Interpretation: Twelve-lead EKG obtained at 1417 reviewed at 1420 demonstrates sinus rhythm, ventricular rate of 73 bpm, [place] interval 152, QRS duration 116, QT 433 QTc 459 at present there is no ST elevation or depression to demonstrate acute ischemia or infarction. Patient does have inverted T waves noted in leads V2, V3, V4, V5, and V6. As well as lead I and lead II. Discharge Plan Discharge Patient Disposition: Admitted As Inpatient Clinical Impression: SOUTH (dyspnea on exertion), Acute on chronic kidney failure Anemia Qualifiers: Anemia type: unspecified type Qualified Code(s): D64.9 - Anemia, unspecified Condition: Stable Coding Level of Care Code ED Helicopter Specialist for Roxanne Hartman
[2023-09-29 16:07] LABS: Basophils % 0.3 %; Eosinophils # 0.1 10^3/uL (0.0-0.8); Eosinophils % 0.6 %; Hematocrit 25.7 % (37-53); Lymphocytes % 15.6 %; Mean Corpuscular HGB Conc 30.7 g/dL (30-55); Mean Corpuscular Hemoglobin 28.3 pg (27-33); Mean Corpuscular Volume 92.1 fl (82-101); Mean Platelet Volume 10.1 fL (7.4-10.4); Monocytes # 0.7 10^3/uL (0.2-0.9); Monocytes % 5.9 %; Neutrophils % 76.5 %; Nucleated Red Blood Cells % 0.2 %; Platelet Count 482 10^3/cmm (157-399); Red Blood Count 2.79 10^6/uL (3.85-5.65); Red Cell Distribution Width 19.8 % (12.1-15.1); White Blood Count 12.56 10^3/uL (3.29-11.43)
[2023-09-29 16:32] LABS: Alanine Aminotransferase 9 U/L (0-41); Albumin Level 3.9 g/dL (3.5-5.2); Alkaline Phosphatase 79 U/L (40-130); Anion Gap 16.1 (5-19); Aspartate Amino Transferase 8 U/L (0-40); Blood Urea Nitrogen 56 mg/dL (8-23); Calcium 8.5 mg/dL (8.5-10.5); Carbon Dioxide 25 mmol/L (22-29); Chloride 101 mmol/L (98-107); Globulin 2.6 g/dL (1.3-4.6); Glomerular Filtration Rate 46.8 mL/min (90-130); Glucose 105 mg/dL (65-115); NT Pro B Type Natriuretic Pept 1201 pg/mL (0-125); Osmolality Calculated 302 mOsm/kg (285-295); Potassium 4.1 mmol/L (3.5-5.1); Sodium 138 mmol/L (136-145); Total Bilirubin 0.2 mg/dL (0.15-1.2); Total Protein 6.5 g/dL (6.6-8.7)
[2023-09-29 16:44] LABS: Creatinine Clr Calc Pharmacy 77.0598
[2023-09-29 17:08] LABS: INR 1.38 (0.8-1.2)
[2023-09-29 17:09] LABS: Partial Thromboplastin Time 34.5 SECONDS (23.9-36.7)
[2023-09-29 17:19] LABS: Troponin(5th) Baseline 22 ng/L (0-15)
--- NOTE | 2023-09-29 18:05 | PM.HP ---
Providers/Chief Complaint Primary Care Provider: Carla Manriquez MD Chief Complaint: dizzy, sob, pain in neck/shoulders History of Present Illness Art Madrigal is a 68 year old male with a past medical history of iron deficient anemia, history of anemia, history of type 2 diabetes mellitus recent history of carotid artery surgery, was on therapeutic Lovenox for short while, back on Xarelto, currently on aspirin, Plavix, Xarelto, history of atrial fibrillation, CAD, history of cabg, CHF, who presents to [facility] due to fatigue, malaise, lightheadedness, dizziness, shortness of breath. 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, short of breath with exertion, Review of Systems Const: Reports: fatigue and malaise Card: Reports: chest pain Resp: Reports: dyspnea GI: Denies: abdominal pain : Denies: flank pain Musc: Denies: back pain Neuro: Reports: dizziness; Denies: headache(s) Endo: Denies: polyuria or polydipsia Medications/Allergies Home Medications Medication Instructions Recorded Confirmed Last Taken Type allopurinol 300 mg tablet 300 mg PO DAILY 08/06/19 09/03/23 05/18/21 History calcium carbonate (Calcium 500) 500 mg PO DAILY 08/06/19 09/03/23 05/18/21 History cetirizine 10 mg tablet (Zyrtec) 10 mg PO DAILY 08/06/19 09/03/23 05/18/21 History folic acid 1 mg tablet 2 mg PO DAILY 08/06/19 09/03/23 05/18/21 History glipizide 10 mg tablet 10 mg PO BID 08/06/19 09/03/23 05/18/21 History montelukast 10 mg tablet 10 mg PO DAILY 08/06/19 09/03/23 05/18/21 History (Singulair) multivitamin 1 tab PO DAILY 08/06/19 09/03/23 05/18/21 History pantoprazole 40 mg tablet,delayed 40 mg PO DAILY 08/06/19 09/03/23 05/18/21 History release (Protonix) fluticasone propionate 50 1 spray intranasal DAILY 12/29/19 09/03/23 05/18/21 History mcg/actuation nasal spray,suspension budesonide-formoterol HFA 160 2 puff inhalation BID 01/21/20 09/03/23 05/18/21 History mcg-4.5 mcg/actuation aerosol inhaler (Symbicort) tiotropium bromide 2.5 2 puff inhalation DAILY 01/21/20 09/03/23 05/18/21 History mcg/actuation mist for inhalation (Spiriva Respimat) albuterol sulfate 90 mcg/actuation 1 inh inhalation QID PRN shortness 11/22/20 09/03/23 05/18/21 History aerosol inhaler (ProAir HFA) of breath or wheezing cholecalciferol (vitamin D3) 50 50 mcg PO DAILY 02/14/21 09/03/23 05/18/21 History mcg (2,000 unit) tablet (Vitamin D3) melatonin 10 mg tablet 10 mg PO BEDTIME 02/14/21 09/03/23 05/18/21 History selenium 100 mcg tablet 100 mcg PO DAILY 02/14/21 09/03/23 05/18/21 History cyanocobalamin (vitamin B-12) 1,000 mcg PO DAILY 08/07/21 09/03/23 Unknown History 1,000 mcg/15 mL oral liquid nebulizer #1 ea 11/10/21 09/03/23 Unknown Rx gemfibrozil 600 mg tablet 600 mg PO BID #180 tabs 01/25/22 09/03/23 Unknown Rx albuterol sulfate 2.5 mg/3 mL 2.5 mg (3 mL) inhalation QID PRN 05/10/22 09/03/23 Unknown Rx (0.083 %) solution for nebulization shortness of breath or wheezing #360 mL insulin glargine 100 unit/mL 52 unit SUBCUT BID 05/10/22 09/03/23 Unknown History subcutaneous solution magnesium oxide 400 mg (241.3 mg See Rx Instructions .Route 05/10/22 09/03/23 Unknown Rx magnesium) tablet .COMPLEX #240 tabs rivaroxaban 20 mg tablet (Xarelto) 20 mg PO DAILY #90 tabs 05/10/22 09/03/23 Unknown Rx Milk thisle PO 06/13/22 09/03/23 Unknown History Tumeric 1,500 mg PO DAILY 06/13/22 09/03/23 Unknown History amiodarone 200 mg tablet 200 mg PO DAILY #90 tabs 06/13/22 09/03/23 Unknown Rx isosorbide mononitrate 60 mg 60 mg PO BID #180 tabs 06/13/22 09/03/23 Unknown Rx tablet,extended release 24 hr omega-3 fatty acids 1,000 mg 2,000 mg PO BID 06/13/22 09/03/23 Unknown History capsule ranolazine 500 mg tablet,extended See Rx Instructions .Route 06/13/22 09/03/23 Unknown Rx release,12 hr .COMPLEX #180 tabs levothyroxine 75 mcg tablet 100 mcg PO DAILY 09/25/22 09/03/23 Unknown History (Synthroid) metoprolol tartrate 25 mg tablet 25 mg PO BID 30 days #180 tabs 12/26/22 09/03/23 Unknown Rx prednisone 5 mg tablet 5 mg PO DAILY #30 tabs 01/17/23 09/03/23 Unknown Rx sulfasalazine 500 mg tablet 1 g (2 x 500 mg) PO BID #360 tabs 01/17/23 09/03/23 Unknown Rx empagliflozin 10 mg tablet See Rx Instructions .Route 03/14/23 09/03/23 Unknown Rx (Jardiance) .COMPLEX #90 tabs mometasone-formoterol HFA 200 2 puff inhalation BID 03/18/23 09/03/23 Unknown History mcg-5 mcg/actuation aerosol inhaler (Dulera) 12 pairs of diabetic socks #1 ea 04/15/23 09/03/23 Unknown Rx Diabetic shoes with custom insoles #1 ea 04/15/23 09/03/23 Unknown Rx bumetanide 1 mg tablet 2 mg (2 x 1 mg) PO BID #360 tabs 04/24/23 09/03/23 Unknown Rx prednisone 5 mg tablet See Rx Instructions PO DAILY #30 04/29/23 09/03/23 Unknown Rx tabs sacubitril 49 mg-valsartan 51 mg 1 tab PO BID #180 tabs 06/17/23 09/03/23 Unknown Rx tablet testosterone cypionate 200 mg/mL 50 mg (0.25 mL) SUBCUT Q7D #3 mL 07/03/23 09/03/23 Unknown Rx intramuscular oil (Depo-Testosterone) tramadol 50 mg tablet 50 mg PO BID PRN pain #60 tabs 08/07/23 09/03/23 Unknown Rx nitroglycerin 0.4 mg sublingual 0.4 mg sublingual Q5M PRN Chest 08/21/23 09/03/23 Unknown Rx tablet (Nitrostat) Pain #50 tabs enoxaparin 120 mg/0.8 mL 120 mg (0.8 mL) SUBCUT Q12H #4 mL 09/06/23 Unknown Rx subcutaneous syringe Allergies Allergy/AdvReac Type Severity Reaction Status Date / Time bee venom protein (honey bee) Allergy Severe SOB, Verified 09/03/23 10:48 SWELLING AT SITE Cvmtzbz-VAA-OmJ Reductase Allergy Unknown unknown Verified 09/03/23 10:48 Inhibitor [Vdttcrz-Yee-Tvc Reductase Inhibitor] PFSH Acute PFSH: Medical History Cervicalgia Prolonged QT interval COPD (chronic obstructive pulmonary disease) Degenerative arthritis Anxiety Venous insufficiency Peripheral neuropathy Type 2 diabetes mellitus Iron deficiency anemia Obstructive sleep apnea Pulmonary fibrosis Ischemic cardiomyopathy Carotid stenosis, right Abdominal aortic aneurysm (AAA) 3.0 cm to 5.5 cm in diameter in male s/p repair ASHD (arteriosclerotic heart disease) Hyperlipidemia Hypertension DDD (degenerative disc disease) CHF (congestive heart failure) Atrial fibrillation Allergic rhinitis Surgical History History of cranioplasty Status post colonoscopy (05/19/21) H/O esophagogastroduodenoscopy (05/19/21) Hx of knee surgery Hx of shoulder surgery History of colonoscopy Pacemaker Hx of CABG History of atherectomy History of cardiac radiofrequency ablation S/P AAA repair October 2017 at the [facility] Family History Father Anesthesia complication Cancer Mother CAD (coronary artery disease) Chronic kidney disease (CKD) Brother Diabetes Grandmother Lung disease Denies family history of Clotting disorder Dementia Suicide Bleeding disorder Stroke Social History Smoking and tobacco/nicotine status: current every day tobacco/nicotine user cigarettes Packs smoked per day: 0.5 Years cigarettes smoked: 50 [ Other cigarette details: Started at age 15] Alcohol intake: never Substance/Drug Use: never Lives independently: Yes Vitals/I&O/Wt Last Vital Signs Temp 97.9 F 09/29/23 14:06 Pulse 70 09/29/23 16:00 Resp 16 09/29/23 16:00 BP 132/82 09/29/23 16:00 Pulse Ox 96 09/29/23 16:00 O2 Del Method Room Air 09/29/23 16:00 Weight last 48 hrs Weight 140.614 kg Physical Exam Const: COMMON NORMALS: no acute distress and patient oriented x3 HENMT: COMMON NORMALS: normocephalic HEAD & SCALP: normocephalic OTHER: Right carotid surgery site looks clean and dry Eye: CONJUNCTIVA: Yes conjunctival abnormal OTHER: Conjunctival pallor Neck/C-Spine: COMMON NORMALS: no JVD Resp: COMMON NORMALS: normal respiratory effort, No retractions, No use of accessory muscles and clear to auscultation bilaterally AUSCULTATION: clear to auscultation bilaterally Cardio: COMMON NORMALS: no JVD, regular rate, regular rhythm, S1 normal heart sound present and S2 normal heart sound present RATE: regular rate RHYTHM: regular rhythm HEART SOUNDS: S1 normal heart sound present and S2 normal heart sound present GI: COMMON NORMALS: Normal to inspection, nondistended, normoactive bowel sounds present, Soft to palpation and non-tender Extremity: COMMON NORMALS: no calf tenderness and no pedal edema Neuro: COMMON NORMALS: patient oriented x3, CN's II-XII intact bilaterally and moves all extremities Psych: COMMON NORMALS: mental status grossly normal Data 09/29/23 15:57 09/29/23 15:57 A&P Assessment and plan (1) Acute anemia: (2) CHF (congestive heart failure): Qualifiers: Heart failure type: unspecified Heart failure chronicity: acute on chronic Qualified Code(s): I50.9 - Heart failure, unspecified (3) Ischemic cardiomyopathy: (4) ASHD (arteriosclerotic heart disease): (5) Atrial fibrillation: Qualifiers: Atrial fibrillation type: other persistent Qualified Code(s): I48.19 - Other persistent atrial fibrillation (6) Carotid stenosis, right: (7) Hyperlipidemia: Qualifiers: Hyperlipidemia type: mixed hyperlipidemia Qualified Code(s): E78.2 - Mixed hyperlipidemia (8) Chronic anticoagulation: (9) Diabetes: Qualifiers: Diabetes mellitus type: type 2 Diabetes mellitus care home insulin use: without superintendent [employer] use Diabetes mellitus complication status: with hyperglycemia Qualified Code(s): E11.65 - Type 2 diabetes mellitus with hyperglycemia (10) CKD (chronic kidney disease): (11) Iron deficiency: (12) Pulmonary fibrosis: (13) Obstructive sleep apnea: (14) Acute gastrointestinal hemorrhage: Plan Acute anemia, concerns for slow GI bleed ? Protonix 40 IV twice daily, Carafate 1 g every 6 hours p.o. ? Clear liquids for now ? N.p.o. over midnight ? General surgery consulted for concern for EGD ? Will receive 1 unit PRBC ? Monitor hemoglobin every 4 hours ? Iron studies, will consider iron transfusion based on clinical progress ? Hold all antiplatelet anticoagulant therapy ? Patient does confirm that at home although he uses his aspirin, Plavix, Eliquis he is not using Lovenox currently -LDSS -recent history of right carotid surgery ? Full code ? SCDs for DVT prophylaxis Attestations Medical Necessity Statement*: Patient requires hospitalization for acute anemia, concerns for slow GI bleed, outpatient with observation Diagnoses Acute anemia D64.9 Chronic diastolic congestive heart failure I50.9 Heart failure type: unspecified Heart failure chronicity: acute on chronic Ischemic cardiomyopathy I25.5 ASHD (arteriosclerotic heart disease) I25.10 Other persistent atrial fibrillation I48.19 Atrial fibrillation type: other persistent Carotid stenosis, right I65.21 Mixed hyperlipidemia E78.2 Hyperlipidemia type: mixed hyperlipidemia Chronic anticoagulation Z79.01 Type 2 diabetes mellitus with hyperglycemia, without long-term current use of insulin E11.65 Diabetes mellitus type: type 2 Diabetes mellitus care home insulin use: without superintendent [employer] use Diabetes mellitus complication status: with hyperglycemia CKD (chronic kidney disease) N18.9 Iron deficiency E61.1 Pulmonary fibrosis J84.10 Obstructive sleep apnea G47.33 Acute gastrointestinal hemorrhage K92.2
[2023-09-29 18:24] LABS: Ferritin 15 ng/mL (30-400); Iron 74 ug/dL (59-158); Percent Saturation 23.4 % (20-50); Total Iron Binding Capacity 315 mcg/dl; Unsaturated Iron Binding 241 ug/dL (112-347)
--- NOTE | 2023-09-29 18:33 | PM.CONSULT ---
Providers/Reason For Consult Consulting Physician/Specialty*: General surgery Reason for Consult*: GI bleeding Primary Care Provider: Carla Manriquez MD History of Present Illness History of Present Illness Art Madrigal is a 68 year old male who has history of multiple medical comorbidities the recent carotid intervention for which he takes 3 different anticoagulants. Patient presented today with exertional dyspnea and hemoglobin was noted to be 7, his baseline is 14. Patient states that he also has seen black his stool over the last 48 to 72 hours. Patient last colonoscopy was less than 4 months ago done at [facility] and was negative for evidence of malignancy. Review of Systems General: Reports: 10 or more systems reviewed and unremarkable except in HPI and below Medications/Allergies Home Medications Medication Instructions Recorded Confirmed Last Taken Type allopurinol 300 mg tablet 300 mg PO DAILY 08/06/19 09/03/23 05/18/21 History calcium carbonate (Calcium 500) 500 mg PO DAILY 08/06/19 09/03/23 05/18/21 History cetirizine 10 mg tablet (Zyrtec) 10 mg PO DAILY 08/06/19 09/03/23 05/18/21 History folic acid 1 mg tablet 2 mg PO DAILY 08/06/19 09/03/23 05/18/21 History glipizide 10 mg tablet 10 mg PO BID 08/06/19 09/03/23 05/18/21 History montelukast 10 mg tablet 10 mg PO DAILY 08/06/19 09/03/23 05/18/21 History (Singulair) multivitamin 1 tab PO DAILY 08/06/19 09/03/23 05/18/21 History pantoprazole 40 mg tablet,delayed 40 mg PO DAILY 08/06/19 09/03/23 05/18/21 History release (Protonix) fluticasone propionate 50 1 spray intranasal DAILY 12/29/19 09/03/23 05/18/21 History mcg/actuation nasal spray,suspension budesonide-formoterol HFA 160 2 puff inhalation BID 01/21/20 09/03/23 05/18/21 History mcg-4.5 mcg/actuation aerosol inhaler (Symbicort) tiotropium bromide 2.5 2 puff inhalation DAILY 01/21/20 09/03/23 05/18/21 History mcg/actuation mist for inhalation (Spiriva Respimat) albuterol sulfate 90 mcg/actuation 1 inh inhalation QID PRN shortness 11/22/20 09/03/23 05/18/21 History aerosol inhaler (ProAir HFA) of breath or wheezing cholecalciferol (vitamin D3) 50 50 mcg PO DAILY 02/14/21 09/03/23 05/18/21 History mcg (2,000 unit) tablet (Vitamin D3) melatonin 10 mg tablet 10 mg PO BEDTIME 02/14/21 09/03/23 05/18/21 History selenium 100 mcg tablet 100 mcg PO DAILY 02/14/21 09/03/23 05/18/21 History cyanocobalamin (vitamin B-12) 1,000 mcg PO DAILY 08/07/21 09/03/23 Unknown History 1,000 mcg/15 mL oral liquid nebulizer #1 ea 11/10/21 09/03/23 Unknown Rx gemfibrozil 600 mg tablet 600 mg PO BID #180 tabs 01/25/22 09/03/23 Unknown Rx albuterol sulfate 2.5 mg/3 mL 2.5 mg (3 mL) inhalation QID PRN 05/10/22 09/03/23 Unknown Rx (0.083 %) solution for nebulization shortness of breath or wheezing #360 mL insulin glargine 100 unit/mL 52 unit SUBCUT BID 05/10/22 09/03/23 Unknown History subcutaneous solution magnesium oxide 400 mg (241.3 mg See Rx Instructions .Route 05/10/22 09/03/23 Unknown Rx magnesium) tablet .COMPLEX #240 tabs rivaroxaban 20 mg tablet (Xarelto) 20 mg PO DAILY #90 tabs 05/10/22 09/03/23 Unknown Rx Milk thisle PO 06/13/22 09/03/23 Unknown History Tumeric 1,500 mg PO DAILY 06/13/22 09/03/23 Unknown History amiodarone 200 mg tablet 200 mg PO DAILY #90 tabs 06/13/22 09/03/23 Unknown Rx isosorbide mononitrate 60 mg 60 mg PO BID #180 tabs 06/13/22 09/03/23 Unknown Rx tablet,extended release 24 hr omega-3 fatty acids 1,000 mg 2,000 mg PO BID 06/13/22 09/03/23 Unknown History capsule ranolazine 500 mg tablet,extended See Rx Instructions .Route 06/13/22 09/03/23 Unknown Rx release,12 hr .COMPLEX #180 tabs levothyroxine 75 mcg tablet 100 mcg PO DAILY 09/25/22 09/03/23 Unknown History (Synthroid) metoprolol tartrate 25 mg tablet 25 mg PO BID 30 days #180 tabs 12/26/22 09/03/23 Unknown Rx prednisone 5 mg tablet 5 mg PO DAILY #30 tabs 01/17/23 09/03/23 Unknown Rx sulfasalazine 500 mg tablet 1 g (2 x 500 mg) PO BID #360 tabs 01/17/23 09/03/23 Unknown Rx empagliflozin 10 mg tablet See Rx Instructions .Route 03/14/23 09/03/23 Unknown Rx (Jardiance) .COMPLEX #90 tabs mometasone-formoterol HFA 200 2 puff inhalation BID 03/18/23 09/03/23 Unknown History mcg-5 mcg/actuation aerosol inhaler (Dulera) 12 pairs of diabetic socks #1 ea 04/15/23 09/03/23 Unknown Rx Diabetic shoes with custom insoles #1 ea 04/15/23 09/03/23 Unknown Rx bumetanide 1 mg tablet 2 mg (2 x 1 mg) PO BID #360 tabs 04/24/23 09/03/23 Unknown Rx prednisone 5 mg tablet See Rx Instructions PO DAILY #30 04/29/23 09/03/23 Unknown Rx tabs sacubitril 49 mg-valsartan 51 mg 1 tab PO BID #180 tabs 06/17/23 09/03/23 Unknown Rx tablet testosterone cypionate 200 mg/mL 50 mg (0.25 mL) SUBCUT Q7D #3 mL 07/03/23 09/03/23 Unknown Rx intramuscular oil (Depo-Testosterone) tramadol 50 mg tablet 50 mg PO BID PRN pain #60 tabs 08/07/23 09/03/23 Unknown Rx nitroglycerin 0.4 mg sublingual 0.4 mg sublingual Q5M PRN Chest 08/21/23 09/03/23 Unknown Rx tablet (Nitrostat) Pain #50 tabs enoxaparin 120 mg/0.8 mL 120 mg (0.8 mL) SUBCUT Q12H #4 mL 09/06/23 Unknown Rx subcutaneous syringe Allergies Allergy/AdvReac Type Severity Reaction Status Date / Time bee venom protein (honey bee) Allergy Severe SOB, Verified 09/03/23 10:48 SWELLING AT SITE Rjuttre-LYD-VlO Reductase Allergy Unknown unknown Verified 09/03/23 10:48 Inhibitor [Tzxtufj-Hyc-Ntz Reductase Inhibitor] PFSH Acute PFSH: Medical History Cervicalgia Prolonged QT interval COPD (chronic obstructive pulmonary disease) Degenerative arthritis Anxiety Venous insufficiency Peripheral neuropathy Type 2 diabetes mellitus Iron deficiency anemia Obstructive sleep apnea Pulmonary fibrosis Ischemic cardiomyopathy Carotid stenosis, right Abdominal aortic aneurysm (AAA) 3.0 cm to 5.5 cm in diameter in male s/p repair ASHD (arteriosclerotic heart disease) Hyperlipidemia Hypertension DDD (degenerative disc disease) CHF (congestive heart failure) Atrial fibrillation Allergic rhinitis Surgical History History of cranioplasty Status post colonoscopy (05/19/21) H/O esophagogastroduodenoscopy (05/19/21) Hx of knee surgery Hx of shoulder surgery History of colonoscopy Pacemaker Hx of CABG History of atherectomy History of cardiac radiofrequency ablation S/P AAA repair October 2017 at [facility] Family History Father Anesthesia complication Cancer Mother CAD (coronary artery disease) Chronic kidney disease (CKD) Brother Diabetes Grandmother Lung disease Denies family history of Clotting disorder Dementia Suicide Bleeding disorder Stroke Social History Smoking and tobacco/nicotine status: current every day tobacco/nicotine user cigarettes Packs smoked per day: 0.5 Years cigarettes smoked: 50 [ Other cigarette details: Started at age 15] Alcohol intake: never Substance/Drug Use: never Lives independently: Yes Vitals/I&O/Wt Last Vital Signs Temp 97.9 F 09/29/23 14:06 Pulse 95 09/29/23 18:00 Resp 17 09/29/23 18:00 BP 106/50 09/29/23 18:00 Pulse Ox 95 09/29/23 18:00 O2 Del Method Room Air 09/29/23 18:00 Weight last 48 hrs Weight 310 lb Physical Exam Narrative: General : Patient is well developed , no acute distress, oriented x3 Head : Normal cephalic, a-traumatic. Nose : Mucous membranes are without erythema. Lungs : Equal chest rise bilaterally, no use of accessory muscles, trachea is midline. CV : Rate and rhythm are normal. Abdomen : Soft, ND, NT, no g/r/m Extremities : No edema. Upper extremities are normal bilaterally. Back : non-tender to palpation, no CVA tenderness. Data 09/29/23 18:16 09/29/23 15:57 A&P Assessment and plan (1) Acute gastrointestinal hemorrhage: (2) Chronic anticoagulation: Plan After complete history, physical examination and review of all available clinical data the following is my assessment. Patient symptoms may be related to upper GI bleeding despite the fact that the patient has not Vomited or abdominal pain there is a possibility of a duodenal ulcer that may be causing his symptoms. I have discussed with the patient the possibility of doing an upper endoscopy I discussed all the risk and benefits including the risk of perforation of the esophagus stomach or duodenum requiring surgical intervention and transfer to higher level of care. Patient showed understanding and agrees to proceed with upper endoscopy. Patient will be made n.p.o. after midnight, we will plan for upper endoscopy tomorrow. In the interim patient will receive resuscitation by medical team blood products as needed and will be placed on twice a day PPI. Anticoagulant should be hold. -Upper endoscopy tomorrow, patient Recent colonoscopy, no need for additional lower endoscopy -N.p.o. after midnight -Twice daily PPI, Carafate 4 times a day -Medical management for per hospitalist team -Please hold anticoagulation. Coding Level of Care Code 33998 Diagnoses Acute gastrointestinal hemorrhage K92.2 Chronic anticoagulation Z79.01
[2023-09-29 18:39] LABS: Troponin 5 2HR 18.45 ng/L (0-15); Troponin 5 2HR Delta -3.55 ABS# (0-10)
[2023-09-29 18:40] LABS: Vitamin B12 553 pg/mL (232-1245)
[2023-09-29] MEDS: sodium chloride 0.9% 100 mL Bag 50 ML IV (18:40)
[2023-09-29 18:46] LABS: Folate Level 7.7 ng/mL (4.5-32.2)
--- NOTE | 2023-09-29 18:54 | ECG_ITS ---
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 Measurements Intervals [place] Rate: 71 P: -10 [place]: 158 QRS: -32 QRSD: 119 T: 140 QT: 434 QTc: 472 Interpretive Statements SINUS RHYTHM LEFT AXIS DEVIATION [QRS AXIS < -30] ANTERIOR MYOCARDIAL INFARCTION , OF INDETERMINATE AGE [40+ ms Q WAVE AND/OR ST/T ABNORMALITY IN V3/V4] MODERATE T-WAVE ABNORMALITY, CONSIDER LATERAL ISCHEMIA [-0.1+ mV T-WAVE IN I/aVL/V5/V6] Compared to ECG 09/29/2023 14:17:53 Myocardial infarct finding now present Intraventricular conduction delay no longer present T-wave abnormality still present Possible ischemia still present Electronically Signed On 09-29-2023 22:52:14 CDT by Miladys Armstrong M.D. [id number]
[2023-09-29 20:30] LABS: Glucose Point of Care 150 mg/dL (70-110)
[2023-09-29 20:37] LABS: Thyroid Stimulating Hormone 6.49 uIU/mL (0.27-4.20)
[2023-09-29] MEDS: pantoprazole 40 mg SDV IVP (20:42)
[2023-09-29] MEDS: sucralfate 1 gm/10 mL Oral Liq UDC PO (20:42)
--- NOTE | 2023-09-29 21:08 | ECG_ITS ---
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 Measurements Intervals [place] Rate: 79 P: 0 [place]: 159 QRS: -12 QRSD: 121 T: 128 QT: 440 QTc: 507 Interpretive Statements SINUS RHYTHM WITH OCCASIONAL VENTRICULAR PREMATURE COMPLEXES SEPTAL MYOCARDIAL INFARCTION , OF INDETERMINATE AGE [40+ ms Q WAVE IN V1/V2] MODERATE T-WAVE ABNORMALITY, CONSIDER ANTEROLATERAL ISCHEMIA [-0.1+ mV T-WAVE IN V3-V6] Compared to ECG 09/29/2023 18:20:34 Ventricular premature complex(es) now present Left-axis deviation no longer present Myocardial infarct finding still present T-wave abnormality still present Possible ischemia still present Electronically Signed On 09-29-2023 22:49:48 CDT by Miladys Armstrong M.D. [id number]
[2023-09-29] MEDS: morphine 4 mg/mL SDV 1 mL 2 MG IVP (21:34)
[2023-09-29 22:06] LABS: Troponin 5 6HR 18.78 ng/L (0-15)
[2023-09-29 22:08] LABS: Troponin 5 6HR Delta -3.22 ng/L (0-12)
[2023-09-29 23:33] LABS: Hematocrit 28.3 % (37-53)
[2023-09-30] VITALS (19 sets, daily range): BP systolic 89–151; BP diastolic 43–72; PULSE 69–90; RESP 12–18; TEMP 36.4–36.9; O2SAT 94–100
[2023-09-30] MEDS: morphine 4 mg/mL SDV 1 mL 2 MG IVP (01:02)
[2023-09-30] MEDS: sucralfate 1 gm/10 mL Oral Liq UDC PO ×4 (02:21→23:58)
[2023-09-30 04:59] LABS: Basophils % 0.4 %; Eosinophils # 0.1 10^3/uL (0.0-0.8); Eosinophils % 1.4 %; Hematocrit 26.3 % (37-53); Mean Corpuscular HGB Conc 31.2 g/dL (30-55); Mean Corpuscular Volume 92.9 fl (82-101); Mean Platelet Volume 9.8 fL (7.4-10.4); Monocytes # 0.7 10^3/uL (0.2-0.9); Monocytes % 6.9 %; Neutrophils # 6.99 10^3/uL (1.8-7.7); Neutrophils % 70.4 %; Nucleated Red Blood Cells % 0 %; Platelet Count 357 10^3/cmm (157-399); Red Blood Count 2.83 10^6/uL (3.85-5.65); Red Cell Distribution Width 19.3 % (12.1-15.1); White Blood Count 9.92 10^3/uL (3.29-11.43)
[2023-09-30 05:15] LABS: Anion Gap 13.4 (5-19); Blood Urea Nitrogen 46 mg/dL (8-23); Calcium 7.8 mg/dL (8.5-10.5); Carbon Dioxide 25 mmol/L (22-29); Chloride 102 mmol/L (98-107); Creatinine Clr Calc Pharmacy 88.1691; Glomerular Filtration Rate 55.2 mL/min (90-130); Glucose 101 mg/dL (65-115); Osmolality Calculated 296 mOsm/kg (285-295); Potassium 3.4 mmol/L (3.5-5.1); Sodium 137 mmol/L (136-145)
[2023-09-30 05:29] LABS: NT Pro B Type Natriuretic Pept 682 pg/mL (0-125)
--- NOTE | 2023-09-30 06:29 | P.HPUD_ITS ---
Surgery/Procedure H&P Update DATE OF PROCEDURE: September 30, 2023 DATE H&P PERFORMED: 03/28/21 H&P UPDATE INFORMATION: I have reviewed H&P completed within last 30 days, I have examined patient prior to procedure, No changes to prior documentation and H&P is in [facility] EMR on date indicated PLANNED PROCEDURE: Operation Date: 09/30/23 13:00 Proposed Procedures p EGD(Not Applicable) - John House MD
[2023-09-30 06:41] LABS: Glucose Point of Care 123 mg/dL (70-110)
--- NOTE | 2023-09-30 07:35 | PC.PHAR ---
PT IS [facility] FOR MED LIST 09/30/23 7:35AM
[2023-09-30 08:03] LABS: Glucose Point of Care 151 mg/dL (70-110)
--- NOTE | 2023-09-30 08:03 | P.ANESASSM_ITS ---
Pre-Anesthetic Assessment Height/Weight: Height 2.01 m Weight 138.255 kg Temp Pulse Resp BP Pulse Ox O2 Del Method FiO2 97.6 F 69 17 114/65 97 Room Air 21 09/30/23 04:00 09/30/23 05:05 09/30/23 04:00 09/30/23 04:00 09/30/23 04:00 09/29/23 21:39 09/29/23 21:18 Preop Diagnosis: GI bleed Operation Date: 09/30/23 08:45 Proposed Procedures p EGD(Not Applicable) - Jonh House MD Familial anesthetic complications: bobe Was Beta Otis taken within 24 hours: Yes Was Clonidine taken within 24 hours: N/A Social Tobacco and No alcohol 1 pack(s) per day 50 pack years Exam alert, oriented x 3, clear to auscultation bilaterally and regular rate & rhythm Airway Submandibular: within normal limits Cervical ROM: within normal limits Mallampati: Class I Dentition: false Pulmonary Asthma, Chronic Obstructive Pulmonary Disease, Exertional Dyspnea and Sleep Apnea CV/HEM Anemia, Stable Angina, Coronary Artery Disease, Congestive Heart Failure (40- 45%), Hypertension and Myocardial Infarction CABG surgery x 2 (4 vessel each time per patient) multiple ablations pacemaker carotid stenosis both None reported Hepatic None reported GI Gastroesophageal Reflux Disease Metabolic Diabetes Mellitus, Hyperlipidemia, Morbid Obesity and Thyroid Disease Musc/skel Lower Back Pain and Weakness (bilateral lower extremities) Neuropsych None reported Anesthetic Plan ASA status: 3 Anesthesia: MAC Risk of > 500 ml blood loss (7ml/kg in children): No Medications/Allergies Home Medications Medication Instructions Recorded Confirmed Last Taken Type allopurinol 300 mg tablet 300 mg PO DAILY 08/06/19 09/03/23 05/18/21 History calcium carbonate (Calcium 500) 500 mg PO DAILY 08/06/19 09/03/23 05/18/21 History cetirizine 10 mg tablet (Zyrtec) 10 mg PO DAILY 08/06/19 09/03/23 05/18/21 History folic acid 1 mg tablet 2 mg PO DAILY 08/06/19 09/03/23 05/18/21 History glipizide 10 mg tablet 10 mg PO BID 08/06/19 09/03/23 05/18/21 History montelukast 10 mg tablet 10 mg PO DAILY 0309/03/23 05/18/21 History (Singulair) multivitamin 1 tab PO DAILY 08/06/19 09/03/23 05/18/21 History pantoprazole 40 mg tablet,delayed 40 mg PO DAILY 08/06/19 09/03/23 05/18/21 History release (Protonix) fluticasone propionate 50 1 spray intranasal DAILY 12/29/19 09/03/23 05/18/21 History mcg/actuation nasal spray,suspension budesonide-formoterol HFA 160 2 puff inhalation BID 01/21/20 09/03/23 05/18/21 History mcg-4.5 mcg/actuation aerosol inhaler (Symbicort) tiotropium bromide 2.5 2 puff inhalation DAILY 01/21/20 09/03/23 05/18/21 History mcg/actuation mist for inhalation (Spiriva Respimat) albuterol sulfate 90 mcg/actuation 1 inh inhalation QID PRN shortness 11/22/20 09/03/23 05/18/21 History aerosol inhaler (ProAir HFA) of breath or wheezing cholecalciferol (vitamin D3) 50 50 mcg PO DAILY 02/14/21 09/03/23 05/18/21 History mcg (2,000 unit) tablet (Vitamin D3) melatonin 10 mg tablet 10 mg PO BEDTIME 02/14/21 09/03/23 05/18/21 History selenium 100 mcg tablet 100 mcg PO DAILY 02/14/21 09/03/23 05/18/21 History cyanocobalamin (vitamin B-12) 1,000 mcg PO DAILY 08/07/21 09/03/23 Unknown History 1,000 mcg/15 mL oral liquid nebulizer #1 ea 11/10/21 09/03/23 Unknown Rx gemfibrozil 600 mg tablet 600 mg PO BID #180 tabs 01/25/22 09/03/23 Unknown Rx albuterol sulfate 2.5 mg/3 mL 2.5 mg (3 mL) inhalation QID PRN 05/10/22 09/03/23 Unknown Rx (0.083 %) solution for nebulization shortness of breath or wheezing #360 mL insulin glargine 100 unit/mL 52 unit SUBCUT BID 05/10/22 09/03/23 Unknown History subcutaneous solution magnesium oxide 400 mg (241.3 mg See Rx Instructions .Route 05/10/22 09/03/23 Unknown Rx magnesium) tablet .COMPLEX #240 tabs rivaroxaban 20 mg tablet (Xarelto) 20 mg PO DAILY #90 tabs 05/10/22 09/03/23 Unknown Rx Milk thisle PO 06/13/22 09/03/23 Unknown History Tumeric 1,500 mg PO DAILY 06/13/22 09/03/23 Unknown History amiodarone 200 mg tablet 200 mg PO DAILY #90 tabs 06/13/22 09/03/23 Unknown Rx isosorbide mononitrate 60 mg 60 mg PO BID #180 tabs 06/13/22 09/03/23 Unknown Rx tablet,extended release 24 hr omega-3 fatty acids 1,000 mg 2,000 mg PO BID 06/13/22 09/03/23 Unknown History capsule ranolazine 500 mg tablet,extended See Rx Instructions .Route 06/13/22 09/03/23 Unknown Rx release,12 hr .COMPLEX #180 tabs levothyroxine 75 mcg tablet 100 mcg PO DAILY 09/25/22 09/03/23 Unknown History (Synthroid) metoprolol tartrate 25 mg tablet 25 mg PO BID 30 days #180 tabs 12/26/22 09/03/23 Unknown Rx prednisone 5 mg tablet 5 mg PO DAILY #30 tabs 01/17/23 09/03/23 Unknown Rx sulfasalazine 500 mg tablet 1 g (2 x 500 mg) PO BID #360 tabs 01/17/23 09/03/23 Unknown Rx empagliflozin 10 mg tablet See Rx Instructions .Route 03/14/23 09/03/23 Unknown Rx (Jardiance) .COMPLEX #90 tabs mometasone-formoterol HFA 200 2 puff inhalation BID 03/18/23 09/03/23 Unknown History mcg-5 mcg/actuation aerosol inhaler (Dulera) 12 pairs of diabetic socks #1 ea 04/15/23 09/03/23 Unknown Rx Diabetic shoes with custom insoles #1 ea 04/15/23 09/03/23 Unknown Rx bumetanide 1 mg tablet 2 mg (2 x 1 mg) PO BID #360 tabs 04/24/23 09/03/23 Unknown Rx prednisone 5 mg tablet See Rx Instructions PO DAILY #30 04/29/23 09/03/23 Unknown Rx tabs sacubitril 49 mg-valsartan 51 mg 1 tab PO BID #180 tabs 06/17/23 09/03/23 Unknown Rx tablet testosterone cypionate 200 mg/mL 50 mg (0.25 mL) SUBCUT Q7D #3 mL 07/03/23 09/03/23 Unknown Rx intramuscular oil (Depo-Testosterone) tramadol 50 mg tablet 50 mg PO BID PRN pain #60 tabs 08/07/23 09/03/23 Unknown Rx nitroglycerin 0.4 mg sublingual 0.4 mg sublingual Q5M PRN Chest 08/21/23 09/03/23 Unknown Rx tablet (Nitrostat) Pain #50 tabs enoxaparin 120 mg/0.8 mL 120 mg (0.8 mL) SUBCUT Q12H #4 mL 09/06/23 Unknown Rx subcutaneous syringe Allergies Allergy/AdvReac Type Severity Reaction Status Date / Time bee venom protein (honey bee) Allergy Severe SOB, Verified 09/03/23 10:48 SWELLING AT SITE [id number]-FoC Reductase Allergy Unknown unknown Verified 09/03/23 10:48 Inhibitor [Ojjqinm-Gkb-Tmf Reductase Inhibitor] Current Medications Generic Name Dose Route Start Last Admin Trade Name Freq PRN Reason Stop Dose Admin Sodium Chloride 1,000 mls @ 75 mls/hr 09/29/23 20:04 09/30/23 01:30 Sodium Chloride 0.9% IV Not Given .[id number] ADARSH Sodium Chloride 1,000 mls @ 30 mls/hr 09/29/23 20:27 09/29/23 23:01 Sodium Chloride 0.9% IV 09/30/23 20:26 Not Given .Q24H ONE Pantoprazole Sodium 40 mg 09/29/23 20:04 09/29/23 20:42 Pantoprazole 40 Mg Sdv IVP 40 mg Q12H ADARSH Administration Sodium Chloride 50 ml 09/29/23 16:53 09/29/23 18:40 Sodium Chloride 0.9% 100 Ml Bag IV 09/30/23 16:54 50 ml PRN PRN Administration Blood transfusion prime and flush Sucralfate 1 gm 09/29/23 20:04 09/30/23 02:21 Sucralfate 1 Gm/10 Ml Oral Liq Udc PO 1 gm Q6H ADARSH Administration PFSH Anesthesia Medical History Cervicalgia Prolonged QT interval COPD (chronic obstructive pulmonary disease) Degenerative arthritis Anxiety Venous insufficiency Peripheral neuropathy Type 2 diabetes mellitus Iron deficiency anemia Obstructive sleep apnea Pulmonary fibrosis Ischemic cardiomyopathy Carotid stenosis, right Abdominal aortic aneurysm (AAA) 3.0 cm to 5.5 cm in diameter in male s/p repair ASHD (arteriosclerotic heart disease) Hyperlipidemia Hypertension DDD (degenerative disc disease) CHF (congestive heart failure) Atrial fibrillation Allergic rhinitis Surgical History History of cranioplasty Status post colonoscopy (05/19/21) H/O esophagogastroduodenoscopy (05/19/21) Hx of knee surgery Hx of shoulder surgery History of colonoscopy Pacemaker Hx of CABG History of atherectomy History of cardiac radiofrequency ablation S/P AAA repair October 2017 at the [facility] Family History Father Anesthesia complication Cancer Mother CAD (coronary artery disease) Chronic kidney disease (CKD) Brother Diabetes Grandmother Lung disease Denies family history of Clotting disorder Dementia Suicide Bleeding disorder Stroke Social History Smoking and tobacco/nicotine status: current every day tobacco/nicotine user cigarettes Packs smoked per day: 0.5 Years cigarettes smoked: 50 [ Other cigarette details: Started at age 15] Alcohol intake: never Substance/Drug Use: never Lives independently: Yes Data Anesthesia 09/30/23 04:49 09/30/23 04:49 Short CBC 09/29/23 09/29/23 09/29/23 Range/Units 15:57 18:16 23:26 WBC 12.56 H (3.29-11.43) 10^3/uL Hgb 7.90 L 7.70 L 8.80 L (11.27-16.99) g/dL Hct 25.7 L 26.0 L 28.3 L (37-53) % MCV 92.1 (82-101) fl Plt Count 482 H (157-399) 10^3/cmm Neut % (Auto) 76.5 % Neut # (Auto) 9.60 H (1.8-7.7) 10^3/uL 09/30/23 Range/Units 04:49 WBC 9.92 (3.29-11.43) 10^3/uL Hgb 8.20 L (11.27-16.99) g/dL Hct 26.3 L (37-53) % MCV 92.9 (82-101) fl Plt Count 357 (157-399) 10^3/cmm Neut % (Auto) 70.4 % Neut # (Auto) 6.99 (1.8-7.7) 10^3/uL BMP 09/29/23 09/30/23 15:57 04:49 Sodium 138 137 Potassium 4.1 3.4 L Chloride 101 102 Carbon Dioxide 25 25 BUN 56 H 46 H Creatinine 1.5 H 1.3 H Glucose 105 101 Calcium 8.5 7.8 L Cardiac Enzymes 09/29/23 09/29/23 09/29/23 Range/Units 15:57 18:16 21:43 Troponin T Baseline 22 H (0-15) ng/L Troponin T 120 Minute 18.45 H (0-15) ng/L Delta Troponin T -3.55 L (0-10) ABS# Troponin T Hi Sens 6Hr 18.78 H (0-15) ng/L Troponin T Hi Sens 6Hr Delta -3.22 L (0-12) ng/L NT-Pro-B Natriuret Pep 1201 H (0-125) pg/mL 09/30/23 Range/Units 04:49 Troponin T Baseline (0-15) ng/L Troponin T 120 Minute (0-15) ng/L Delta Troponin T (0-10) ABS# Troponin T Hi Sens 6Hr (0-15) ng/L Troponin T Hi Sens 6Hr Delta (0-12) ng/L NT-Pro-B Natriuret Pep 682 H (0-125) pg/mL Liver Function 09/29/23 Range/Units 15:57 Total Bilirubin 0.2 (0.15-1.2) mg/dL AST 8 (0-40) U/L ALT 9 (0-41) U/L Alkaline Phosphatase 79 (40-130) U/L Albumin 3.9 (3.5-5.2) g/dL Blood Bank 09/29/23 17:14 Blood Type O Positive Rho(D) Type Rh positive Antibody Screen Negative Coags 09/29/23 15:57 PT 17.40 H INR 1.38 H APTT 34.5 Cardiac Studies: 2 Echocardiogram 07/19/21 Sestamibi Stress Test (Cardiology) 12/13
[2023-09-30] MEDS: sodium chloride 0.9% 1,000 ML 30 ML IV (08:30)
--- NOTE | 2023-09-30 08:50 | PM.MISC ---
Miscellaneous Note Purpose of Documentation: Update on patient care Note: Endoscopy was done today, there is evidence of erosive gastritis with multiple erosions in the prepyloric area. No biopsies were taken as patient had a recent anticoagulation there was no currently any significant active bleeding or any other features concerning for malignancy. Patient can continue on twice a day PPI and Carafate 4 times a day for the next 4 to 6 weeks, at that time we will proceed with a repeat upper endoscopy to ensure healing and to obtain biopsies after we stop the anticoagulant for an appropriate amount of time. Can advance diet as tolerated and continue management per medical team from our standpoint.
[2023-09-30] MEDS: sodium chloride 0.9% 1,000 ML 75 ML IV (09:39)
[2023-09-30 09:58] LABS: Hematocrit 27.9 % (37-53)
[2023-09-30 11:14] LABS: Glucose Point of Care 160 mg/dL (70-110)
--- NOTE | 2023-09-30 13:47 | ANE.PACU2 ---
Inpatient post-anesthesia follow up: Vital signs: Temperature 97.7 F Pulse Rate 74 Respiratory Rate 18 Blood Pressure 143/71 Pulse Oximetry 96 Oxygen Delivery Me thod Room Air Oxygen Flow Rate Fraction of Inspir ed Oxygen 21 Hydration adequate: Yes Nausea and vomiting: No Pain level: 4 Mental status: Baseline
--- NOTE | 2023-09-30 13:54 | PM.PN ---
Subjective Subjective: Erosive gastritis Hemoglobin 8.5 Patient tolerating diet Plan to discharge home tomorrow Most likely will discharge him on Eliquis and Plavix discontinue aspirin Biopsy was not done because he was on triple anticoagulating/antiplatelet therapy Vitals/I&O/Wt Last Vital Signs Temp 97.7 F 09/30/23 11:27 Pulse 74 09/30/23 11:27 Resp 18 09/30/23 11:27 BP 143/71 09/30/23 11:27 Pulse Ox 96 09/30/23 11:27 O2 Del Method Room Air 09/30/23 11:27 FiO2 21 09/29/23 21:18 09/29/23 09/30/23 09/30/23 22:59 06:59 14:59 Intake Total 250 / 250 470 / 720 100 / 100 Output Total 1425 / 1425 925 / 2350 500 / 500 Balance -1175 / -1175 -455 / -1630 -400 / -400 Weight last 48 hrs Weight 138.255 kg Weight 140.614 kg Weight 140.614 kg Physical Exam Narrative: Pleasant cooperative Nonfocal neuroexam Sitting at the bedside Hemodynamically stable Getting IV fluids Abdomen soft Pleasant cooperative Abdomen soft S1, S2 Currently on room air Data 09/30/23 09:34 09/30/23 04:49 A&P Assessment and plan (1) Presence of permanent cardiac pacemaker: (2) History of AAA (abdominal aortic aneurysm) repair: (3) Carotid disease, bilateral: (4) SOUTH (dyspnea on exertion): (5) Chronic anticoagulation: (6) Diabetes: Qualifiers: Diabetes mellitus type: type 2 Diabetes mellitus nursing home insulin use: without nursing home use Diabetes mellitus complication status: with hyperglycemia Qualified Code(s): E11.65 - Type 2 diabetes mellitus with hyperglycemia (7) Acute gastrointestinal hemorrhage: (8) Iron deficiency: (9) Anemia: Qualifiers: Anemia type: unspecified type Qualified Code(s): D64.9 - Anemia, unspecified (10) Obstructive sleep apnea: Plan Status post EGD which showed erosive gastritis Biopsy was not done because he was already on antiplatelet anticoagulating agent Will need another EGD outpatient after 6 weeks Hemoglobin stable Monitor for 1 more day Continue Xarelto and Plavix Currently on GI soft diet Plan to discharge home tomorrow Attestations Medical Necessity Statement*: Discharge home tomorrow Diagnoses Presence of permanent cardiac pacemaker Z95.0 History of AAA (abdominal aortic aneurysm) repair Z98.890 Carotid disease, bilateral I77.9 SOUTH (dyspnea on exertion) R06.09 Chronic anticoagulation Z79.01 Type 2 diabetes mellitus with hyperglycemia, without long-term current use of insulin E11.65 Diabetes mellitus type: type 2 Diabetes mellitus 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
[2023-09-30] MEDS: ipratropium-albuterol 3 mL Neb INHALATION ×2 (14:05→20:08)
[2023-09-30] MEDS: morphine 4 mg/mL SDV 1 mL 1 MG IVP ×2 (14:26→23:21)
[2023-09-30 16:04] LABS: Glucose Point of Care 235 mg/dL (70-110)
[2023-09-30] MEDS: magnesium oxide 400 mg tablet PO (17:19)
[2023-09-30] MEDS: insulin lispro 100 unit/1 mL SUBCUT (17:19)
--- NOTE | 2023-09-30 19:34 | PC.NURSE ---
Patient is c/o pain in his shoulders and back. He has PRN Tylenol and PRN Morphine 1 mg q4 hour. He takes Oxy PRN and Tramadol PRN at home, which is not ordered here. Dr. Garcia notified.
[2023-09-30] MEDS: TRAMadol 50 mg Tablet PO (20:00)
[2023-09-30] MEDS: pantoprazole 40 mg SDV IVP (20:00)
[2023-09-30] MEDS: budesonide 0.5 mg/2 mL Neb INHALATION (20:08)
[2023-09-30 20:47] LABS: Glucose Point of Care 191 mg/dL (70-110)
--- NOTE | 2023-09-30 23:00 | ECG_ITS ---
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 Measurements Intervals [place] Rate: 82 P: 66 GA: 171 QRS: -13 QRSD: 130 T: 128 QT: 414 QTc: 485 Interpretive Statements SINUS RHYTHM MODERATE INTRAVENTRICULAR CONDUCTION DELAY [105+ ms QRS DURATION, 80+ ms Q/S IN V1/V2, NO Q AND 60+ ms R IN I/aVL/V5/V6] ST DEVIATION AND MODERATE T-WAVE ABNORMALITY, CONSIDER LATERAL ISCHEMIA [-0.1+ mV T-WAVE IN I/aVL/V5/V6] Compared to ECG 09/29/2023 21:13:24 Intraventricular conduction delay now present Ventricular premature complex(es) no longer present Myocardial infarct finding no longer present T-wave abnormality still present Possible ischemia still present Electronically Signed On 10-01-2023 17:19:57 CDT by Contreras Carvajal M.D. [email or web address]
--- NOTE | 2023-09-30 23:27 | PC.NURSE ---
Patient said the Tramadol didn't help. He said it is in his chest and shoulder blades now. He said it hurts so bad that it is taking his breath away. Patient states he has had this pain for 2 days and hasn't been able to sleep for 2 days because of it. EKG taken. PRN Morphine administered. Patient's heart rate and oxygen saturation WNL. Dr. Garcia notified. Home dose of Oxycodone ordered.
[2023-09-30] MEDS: oxyCODONE 5 mg IR Tab/Cap 10 MG PO (23:55)
[2023-10-01] VITALS (8 sets, daily range): BP systolic 104–124; BP diastolic 70–74; PULSE 67–86; RESP 16–18; TEMP 36.4–37.1; O2SAT 96–100
[2023-10-01] MEDS: acetaminophen 325 mg Tablet 650 MG PO (02:36)
[2023-10-01] MEDS: TRAMadol 50 mg Tablet PO (02:36)
[2023-10-01 05:58] LABS: Basophils % 0.4 %; Eosinophils # 0.1 10^3/uL (0.0-0.8); Eosinophils % 1.2 %; Hematocrit 26.6 % (37-53); Lymphocytes # 1.6 10^3/uL (0.8-4.8); Lymphocytes % 18.5 %; Mean Corpuscular HGB Conc 30.8 g/dL (30-55); Mean Corpuscular Hemoglobin 29.1 pg (27-33); Mean Corpuscular Volume 94.3 fl (82-101); Mean Platelet Volume 10.3 fL (7.4-10.4); Monocytes # 0.7 10^3/uL (0.2-0.9); Monocytes % 8.1 %; Neutrophils # 5.95 10^3/uL (1.8-7.7); Neutrophils % 70.6 %; Nucleated Red Blood Cells % 0 %; Platelet Count 378 10^3/cmm (157-399); Red Blood Count 2.82 10^6/uL (3.85-5.65); Red Cell Distribution Width 20.1 % (12.1-15.1); White Blood Count 8.42 10^3/uL (3.29-11.43)
[2023-10-01] MEDS: oxyCODONE 5 mg IR Tab/Cap 10 MG PO (06:03)
[2023-10-01 06:41] LABS: Glucose Point of Care 157 mg/dL (70-110)
--- NOTE | 2023-10-01 07:06 | PM.DCS ---
Discharge Providers Date of Admission: 09/29/23 18:49 Date of Discharge: October 01, 2023 Attending Provider at Admission: Osmin Poe MD Attending Provider at Discharge: Julianne Brown MD Primary Care Provider: Carla Manriquez MD Diagnoses at Discharge Discharge Diagnosis (1) Presence of permanent cardiac pacemaker: Status: Acute (2) History of AAA (abdominal aortic aneurysm) repair: Status: Acute (3) Carotid disease, bilateral: Status: Acute (4) SOUTH (dyspnea on exertion): Status: Acute (5) Chronic anticoagulation: Status: Acute (6) Diabetes: Status: Acute Qualifiers: Diabetes mellitus complication status: with hyperglycemia Diabetes mellitus snf insulin use: without longwall foreman use Diabetes mellitus type: type 2 Qualified Code(s): E11.65 - Type 2 diabetes mellitus with hyperglycemia (7) Acute gastrointestinal hemorrhage: Status: Acute (8) Iron deficiency: Status: Acute (9) Anemia: Status: Acute Qualifiers: Anemia type: unspecified type Qualified Code(s): D64.9 - Anemia, unspecified (10) Obstructive sleep apnea: Status: Acute Reason for Visit Reason for Visit: dizzy, sob, pain in neck/shoulders Hospital Course Hospital Course 68-year-old male who was admitted for management evaluation of abdominal discomfort, melanotic stools, patient was on dual antiplatelet therapy along with Xarelto. Patient received 1 unit PRBC along Protonix. EGD showed erosive gastritis no significant bleeding ulcers or visible bleeding vessels. Biopsy was not obtained because he was on significant antiplatelet anticoagulating agent. Dr. Virginia Owen is planning for EGD after 6 weeks for biopsy as well, I will discontinue aspirin keep patient on Xarelto and Eliquis at the time of discharge. Physical Exam Narrative: Hemodynamically stable Currently movement Pleasant cooperative GCS 15 S1, S2 Abdomen soft Discharge Data Studies Completed and Pending Completed Studies During Hospitalization Category Date Time Status XR chest 1V portable [id number] Stat Exams 09/29/23 15:30 Completed Pending at discharge Category Date Time Status Leukocyte Reduced RBC Stat Lab 09/29/23 17:14 Results Occult Blood Stool [Immunochemical Fecal OCB] Routine Lab 09/29/23 20:04 Uncollected Type and Screen Stat Lab 09/29/23 17:14 Results Radiology Impressions Chest X-Ray 09/29/23 15:30 IMPRESSION: No acute findings. Laboratory Results WBC 8.42 10^3/uL (3.29-11.43) 10/01/23 04:49 RBC 2.82 10^6/uL (3.85-5.65) L 10/01/23 04:49 Hgb 8.20 g/dL (11.27-16.99) L 10/01/23 04:49 Hct 26.6 % (37-53) L 10/01/23 04:49 MCV 94.3 fl (82-101) 10/01/23 04:49 MCH 29.1 pg (27-33) 10/01/23 04:49 MCHC 30.8 g/dL (30-55) 10/01/23 04:49 RDW 20.1 % (12.1-15.1) H 10/01/23 04:49 Plt Count 378 10^3/cmm (157-399) 10/01/23 04:49 MPV 10.3 fL (7.4-10.4) 10/01/23 04:49 Neut % (Auto) 70.6 % 10/01/23 04:49 Lymph % (Auto) 18.5 % 10/01/23 04:49 [place] % (Auto) 8.1 % 10/01/23 04:49 Eos % (Auto) 1.2 % 10/01/23 04:49 Baso % (Auto) 0.4 % 10/01/23 04:49 Neut # (Auto) 5.95 10^3/uL (1.8-7.7) 10/01/23 04:49 Lymph # (Auto) 1.6 10^3/uL (0.8-4.8) 10/01/23 04:49 [place] # (Auto) 0.7 10^3/uL (0.2-0.9) 10/01/23 04:49 Eos # (Auto) 0.1 10^3/uL (0.0-0.8) 10/01/23 04:49 Baso # (Auto) 0.0 10^3/uL (0.0-0.1) 10/01/23 04:49 Nucleated RBC % (auto) 0 % 10/01/23 04:49 Nucleated RBCs # 0.0 /100WBC 10/01/23 04:49 PT 17.40 SECONDS (12.1-14.9) H 09/29/23 15:57 INR 1.38 (0.8-1.2) H 09/29/23 15:57 APTT 34.5 SECONDS (23.9-36.7) 09/29/23 15:57 Sodium 137 mmol/L (136-145) 09/30/23 04:49 Potassium 3.4 mmol/L (3.5-5.1) L 09/30/23 04:49 Chloride 102 mmol/L (98-107) 09/30/23 04:49 Carbon Dioxide 25 mmol/L (22-29) 09/30/23 04:49 Anion Gap 13.4 (5-19) 09/30/23 04:49 BUN 46 mg/dL (8-23) H 09/30/23 04:49 Creatinine 1.3 mg/dL (0.7-1.2) H 09/30/23 04:49 GFR Calculation 55.2 mL/min (90-130) L 09/30/23 04:49 Glucose 101 mg/dL (65-115) 09/30/23 04:49 POC Glucose 157 mg/dL (70-110) H 10/01/23 06:33 Calculated Osmolality 296 mOsm/kg (285-295) H 09/30/23 04:49 Calcium 7.8 mg/dL (8.5-10.5) L 09/30/23 04:49 Iron 74 ug/dL (59-158) 09/29/23 15:57 TIBC 315 mcg/dl 09/29/23 15:57 % Saturation 23.4 % (20-50) 09/29/23 15:57 Unsat Iron Binding 241 ug/dL (112-347) 09/29/23 15:57 Ferritin 15 ng/mL (30-400) L 09/29/23 15:57 Total Bilirubin 0.2 mg/dL (0.15-1.2) 09/29/23 15:57 AST 8 U/L (0-40) 09/29/23 15:57 ALT 9 U/L (0-41) 09/29/23 15:57 Alkaline Phosphatase 79 U/L (40-130) 09/29/23 15:57 Troponin T Baseline 22 ng/L (0-15) H 09/29/23 15:57 Troponin T 120 Minute 18.45 ng/L (0-15) H 09/29/23 18:16 Delta Troponin T -3.55 ABS# (0-10) L 09/29/23 18:16 Troponin T Hi Sens 6Hr 18.78 ng/L (0-15) H 09/29/23 21:43 Troponin T Hi Sens 6Hr Delta -3.22 ng/L (0-12) L 09/29/23 21:43 NT-Pro-B Natriuret Pep 682 pg/mL (0-125) H 09/30/23 04:49 Total Protein 6.5 g/dL (6.6-8.7) L 09/29/23 15:57 Albumin 3.9 g/dL (3.5-5.2) 09/29/23 15:57 Globulin 2.6 g/dL (1.3-4.6) 09/29/23 15:57 Vitamin B12 553 pg/mL (232-1245) 09/29/23 15:57 Folate 7.7 ng/mL (4.5-32.2) 09/29/23 15:57 TSH 6.49 uIU/mL (0.27-4.20) H 09/29/23 18:16 Blood Type O Positive 09/29/23 17:14 Rho(D) Type Rh positive 09/29/23 17:14 Antibody Screen Negative 09/29/23 17:14 Crossmatch See Detail 09/29/23 17:14 Vitals Last Vital Signs Temp 98.7 F 10/01/23 05:30 Pulse 67 10/01/23 05:30 Resp 16 10/01/23 06:03 BP 124/74 10/01/23 05:30 Pulse Ox 96 10/01/23 05:30 O2 Del Method Room Air 10/01/23 05:30 FiO2 21 09/29/23 21:18 Discharge Plan Discharge Patient Disposition: Home Condition: Stable Prescriptions: New sucralfate 100 mg/mL Suspension 1 g PO BID Qty: 420 1RF pantoprazole [Protonix] 40 mg tablet,delayed release (DR/EC) 40 mg PO BID 56 Days Qty: 112 1RF Continued cetirizine [Zyrtec] 10 mg tablet 10 mg PO DAILY pantoprazole [Protonix] 40 mg tablet,delayed release (DR/EC) 40 mg PO DAILY allopurinol 300 mg tablet 300 mg PO DAILY multivitamin Tablet 1 tab PO DAILY glipizide 10 mg tablet 10 mg PO BID montelukast [Singulair] 10 mg tablet 10 mg PO QPM insulin glargine 100 unit/mL solution 64 unit SUBCUT BID fluticasone propionate 50 mcg/actuation spray,suspension 1 spray INTRANASAL DAILY Rx Instructions: administer into each nostril Spiriva Respimat 2.5 mcg/actuation mist 2 puff INHALATION DAILY cyanocobalamin (vitamin B-12) 1,000 mcg/15 mL liquid 1,000 mcg PO DAILY [place] [place] nebulizer See Rx Instructions .Route .MEDSUPPLY Qty: 1 0RF Rx Instructions: Nebulizer and supplies As directed gemfibrozil 600 mg tablet 600 mg PO BID Qty: 180 3RF Dulera 200-5 mcg/actuation HFA aerosol inhaler 2 puff inhalation BID tramadol 50 mg tablet 50 mg PO BID PRN (Reason: pain) Qty: 60 2RF Milk thisle 500 mg PO DAILY Tumeric capsule 1,500 mg PO DAILY isosorbide mononitrate 60 mg tablet extended release 24 hr 60 mg PO BID Qty: 180 3RF ranolazine 500 mg tablet extended release 12 hr See Rx Instructions .ROUTE .COMPLEX Qty: 180 3RF Dose Instruction: TAKE ONE TABLET BY MOUTH TWICE A DAY FOR HEART. *SWALLOW WHOLE- DO NOT CRUSH,BREAK OR CHEW* Rx Instructions: TAKE ONE TABLET BY MOUTH TWICE A DAY FOR HEART. *SWALLOW WHOLE- DO NOT CRUSH,BREAK OR CHEW* metoprolol tartrate 25 mg tablet 25 mg PO BID 30 Days Qty: 180 3RF sulfasalazine 500 mg tablet 1 g PO BID Qty: 360 1RF Rx Instructions: give with food (meal/snack) [place] [place] 12 pairs of diabetic socks See Rx Instructions .Route .MEDSUPPLY Qty: 1 0RF Rx Instructions: [facility] directed [facility] [place] [place] Diabetic shoes with custom insoles See Rx Instructions .Route .MEDSUPPLY Qty: 1 0RF Rx Instructions: As directed BY ME and [facility] magnesium oxide 400 mg (241.3 mg magnesium) tablet See Rx Instructions .ROUTE .COMPLEX Qty: 240 3RF Dose Instruction: TAKE ONE TABLET BY MOUTH TWICE A DAY Rx Instructions: TAKE ONE TABLET BY MOUTH TWICE A DAY Xarelto 20 mg tablet 20 mg PO DAILY Qty: 90 3RF Rx Instructions: must administer with evening meal sacubitril-valsartan 49-51 mg tablet 1 tab PO BID Qty: 180 3RF nitroglycerin [Nitrostat] 0.4 mg tablet, sublingual 0.4 mg SUBLINGUAL Q5M PRN (Reason: Chest Pain) Qty: 50 3RF testosterone cypionate [Depo-Testosterone] 200 mg/mL oil 50 mg SUBCUT Q7D Qty: 3 0RF cholecalciferol (vitamin D3) [Vitamin D3] 50 mcg (2,000 unit) Tablet 50 mcg PO DAILY melatonin 10 mg Tablet 10 mg PO BEDTIME omega-3 fatty acids 1,000 mg capsule 2,000 mg PO TID ketoconazole 2 % Shampoo See Rx Instructions .ROUTE .COMPLEX Rx Instructions: USE SHAMPOO TO AFFECTED AREAS(S) DIRECTED. A WASH TO AFFECTEDA AREAS ON FACE/SCALP/ LATHER, ALLOW TO SIT 1-2 MINUTES BEFORE RINSING. FOLLOW WITH NORMAL FACE WASH. USE TWICE WEEKLY FOR 4 WEEKS. ketotifen fumarate 0.025 % (0.035 %) Drops 1 drp OPHTHALMIC (EYE) BID Rx Instructions: administer at least 8 hours apart clopidogrel 75 mg Tablet 75 mg PO DAILY Guaifenesin DM 10-100 mg/5 mL Syrup 10 ml PO Q4H PRN (Reason: COUOGH/CONGESTION) guaifenesin 100 mg/5 mL Liquid 200 mg PO QID PRN (Reason: MUCUS) pentoxifylline 400 mg Tablet Extended Release 400 mg PO BID Rx Instructions: must administer with a meal/food levothyroxine 100 mcg Tablet 100 mcg PO QAM Percocet 10-325 mg Tablet 1 tab PO Q4H PRN (Reason: Pain (Scale Score 7-10)) carboxymethylcellulose sodium 0.5 % Drops 1 drp OPHTHALMIC (EYE) QID carbamide peroxide 6.5 % Drops 1 drp otic (ear) .[id number] bumetanide 1 mg Tablet See Rx Instructions .ROUTE .COMPLEX Rx Instructions: TAKE 2 TABLETS BY MOUTH IN THE MORNING AND 1 TABLET EVERY EVENING. ezetimibe 10 mg Tablet 10 mg PO DAILY ipratropium bromide 17 mcg/actuation Hfa Aerosol Inhaler 1 puff INHALATION QID vitamin E (dl, acetate) 180 mg (400 unit) Capsule 180 mg PO DAILY empagliflozin 25 mg Tablet 12.5 mg PO QAM alirocumab 150 mg/mL Pen Injector 150 mg SUBCUT .[id number] Magy Aerosphere 160-9-4.8 mcg/actuation Hfa Aerosol Inhaler 2 inh INHALATION BID Discharge Orders: Discharge Order (Routine); Ordered 10/01/23 Ordered By: Julianne Brown Referrals: John House MD [Physician] - 6 Weeks Carla Manriquez MD [Primary Care Provider] - 10/22/23 8:30 am ([phone] ) Discharge Diet: Low Salt, Low Cholesterol and Low Fat Discharge Activity: Increase activity as tolerated Patient Instructions: GI Discharge Instructions, Opioid Safety Discharge Attestations Time Spent in Discharge Care*: greater than 30 min Quality Metrics Clinical Quality Measures [ No reported AMI, CVA or VTE this stay] Coding Level of Care Code Acute Code for Chg Fwd Diagnoses Presence of permanent cardiac pacemaker Z95.0 History of AAA (abdominal aortic aneurysm) repair Z98.890 Carotid disease, bilateral I77.9 SOUTH (dyspnea on exertion) R06.09 Chronic anticoagulation Z79.01 Type 2 diabetes mellitus with hyperglycemia, without long-term current use of insulin E11.65 Diabetes mellitus complication status: with hyperglycemia Diabetes mellitus longwall foreman insulin use: without snf use Diabetes mellitus type: type 2 Acute gastrointestinal hemorrhage K92.2 Iron deficiency E61.1 Anemia D64.9 Anemia type: unspecified type Obstructive sleep apnea G47.33
[2023-10-01] MEDS: cyanocobalamin 1,000 mcg Tablet 1000 MCG PO (08:03)
[2023-10-01] MEDS: multivitamin therapeutic Tablet 1 TAB PO (08:03)
[2023-10-01] MEDS: amiodarone 200 mg Tablet PO (08:03)
[2023-10-01] MEDS: sucralfate 1 gm/10 mL Oral Liq UDC PO (08:03)
[2023-10-01] MEDS: levothyroxine 50 mcg Tablet 100 MCG PO (08:03)
[2023-10-01] MEDS: magnesium oxide 400 mg tablet PO (08:03)
[2023-10-01] MEDS: folic acid 1 mg Tablet 2 MG PO (08:03)
[2023-10-01] MEDS: clopidogrel 75 mg Tablet PO (08:03)
[2023-10-01] MEDS: rivaroxaban 10 mg Tablet 20 MG PO (08:03)
[2023-10-01] MEDS: insulin lispro 100 unit/1 mL SUBCUT (08:04)
[2023-10-01] MEDS: pantoprazole 40 mg SDV IVP (08:04)
[2023-10-01] MEDS: budesonide 0.5 mg/2 mL Neb INHALATION (08:21)
== END 2023-10-01 11:22 | disposition home or self-care (01) ==
LOC: ER 18:03 → MEDSURG 19:07
PROVIDERS: Emergency Medicine; Internal Medicine; Surgery; Admitting Provider Family Medicine; Emergency Provider Internal Medicine; PCP Family Medicine; Visit Provider Internal Medicine
PROC: 0DJ08ZZ Inspection of Upper Intestinal Tract, Via Natural or Artificial Opening Endoscopic (ICD-10-PCS; CPT 43235; principal; 2023-09-30 08:45)
DX: D64.9 Anemia, unspecified (principal); Z95.0 Presence of cardiac pacemaker; Z98.890 Other specified postprocedural states; I77.9 Disorder of arteries and arterioles, unspecified; R06.09 Other forms of dyspnea; Z79.01 Long term (current) use of anticoagulants; E11.65 Type 2 diabetes mellitus with hyperglycemia; E61.1 Iron deficiency; G47.33 Obstructive sleep apnea (adult) (pediatric); Z79.02 Long term (current) use of antithrombotics/antiplatelets; K29.80 Duodenitis without bleeding; K29.70 Gastritis, unspecified, without bleeding; G47.30 Sleep apnea, unspecified; Z95.1 Presence of aortocoronary bypass graft; I11.0 Hypertensive heart disease with heart failure; I50.9 Heart failure, unspecified; I25.2 Old myocardial infarction; E11.9 Type 2 diabetes mellitus without complications; E66.01 Morbid (severe) obesity due to excess calories; Z68.34 Body mass index [BMI] 34.0-34.9, adult; I48.91 Unspecified atrial fibrillation; F17.210 Nicotine dependence, cigarettes, uncomplicated
CPT/HCPCS: 36415; 36416; 36430; 43235; 71045; 80048; 80053; 82607; 82728; 82746; 82962; 83540; 83550; 83880; 84443; 84484; 85014; 85018; 85025; 85610; 85730; 86850; 86900; 86920; 93005; 94640; 94664; 96372; 99285; C9113; G0378; J1815; J2270; J2371; J2704; J7030; J7626; P9040

== ENCOUNTER 2023-10-02 13:24 | Inpatient (IN) | payer OTHER, SELFPAY ==
[2023-10-02] VITALS (13 sets, daily range): BP systolic 76–129; BP diastolic 40–72; PULSE 60–81; RESP 18–20; TEMP 36.4–36.8; O2SAT 91–100; BMI 34.7
--- NOTE | 2023-10-02 13:26 | XR_ITS ---
WS: [id number] XR chest 1V portable [id number] REASON FOR EXAM: SOB FINDINGS: Sternal sutures. 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 Cardiac device over the left chest with leads trans left subclavian to the right atrium and right dianna tricular apex. Moderate tortuosity to the thoracic aorta. The heart is at the upper limits of normal in size. Promin ent central pulmonary veins. The interstitial lung opacities in both lower lung elizabeth appear to be chronic. XR/XR chest 1V portable [id number] IMPRESSION: Stable abnormal chest. The findings appear to be secondary to chronic congestiv e heart failure. Definite acute abnormality is not readily identifiable.
--- NOTE | 2023-10-02 13:27 | ECG_ITS ---
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 Measurements Intervals [place] Rate: 70 P: 128 [place]: 215 QRS: 14 QRSD: 133 T: 146 QT: 445 QTc: 482 Interpretive Statements ELECTRONIC ATRIAL PACEMAKER INTRAVENTRICULAR CONDUCTION DELAY [130+ ms QRS DURATION] Compared to ECG 09/30/2023 23:07:04 Sinus rhythm no longer present T-wave abnormality no longer present Possible ischemia no longer present Electronically Signed On 10-02-2023 16:48:50 CDT by Contreras Carvajal M.D. [email or web address] [id number]
--- NOTE | 2023-10-02 13:40 | ED_ITS ---
Documented by User: SHILPI Theodore 10/02/23 15:36 HPI - SOB/Dyspnea 2 General: Chief Complaint: Shortness of Breath/Dyspnea Stated Complaint: weakness, SOB Time Seen by Provider: 10/02/23 13:25 Source: patient Mode of arrival: ambulatory Limitations: no limitations History of Present Illness: HPI Narrative: Patient is a 68-year-old male who presents to the emergency department via EMS due to shortness of breath for the past few days. He was initially seen on 09/28 in the emergency department for the same symptoms, was found to be anemic and admitted to the hospital. Here he had transfusion of 1 unit of packed red blood cells, and had EGD with Dr. House that showed erosive gastritis, however biopsies not obtained at that time due to his anticoagulation status. He was discharged on Protonix and discontinued aspirin, and states he felt better until this morning his breathing got worse and is associated with dizziness and weakness. He is not complaining of any chest pain at this time. He notes significant medical history including multiple quadruple bypass surgeries, pacemaker, congestive heart failure, multiple heart attacks, a stroke, and COPD. He is not on O2 at home. He is also reporting a new headache. He states that his shortness of breath began today while at rest, and has been constant. MD elicited complaint: shortness of breath Pertinent past history: COPD and diabetes Onset (ago): hour(s) Context: other (Recent hospitalization for same, found to be anemic) Timing: constant Severity: severe Relieving factors: nothing Known history of: COPD, congestive heart failure and diabetes Associated symptoms: Reports cough and dizziness; Deny abdominal pain, chest pain, fever(s), lightheadedness, nausea, palpitations or vomiting Related Data: Home oxygen amount: none Review of Systems 2 General: Reports: 10 or more systems reviewed and unremarkable except in HPI and below Const: Denies: fever(s), chills or fatigue Eyes: Denies: change in vision ENMT: Denies: throat pain, ear or mastoid pain or nasal discharge Card: Denies: chest pain, palpitations, swelling of feet/ankles or lightheadedness Resp: Reports: dyspnea and non-productive cough; Denies: wheezing GI: Denies: abdominal pain, nausea, vomiting, diarrhea or constipation : Denies: flank pain, difficulty urinating, dysuria or urinary frequency Musc: Denies: neck pain, back pain or joint pain Skin/Breast: Denies: rash Neuro: Reports: headache(s) and dizziness; Denies: numbness in extremities or weakness in extremities PFSH ED 2 PFSH: Medical History (Updated 10/02/23 @ 21:34 by Miladys Armstrong MD) Presence of permanent cardiac pacemaker Carotid disease, bilateral Hyperlipidemia Acute gastrointestinal hemorrhage Acute anemia Anemia Acute on chronic kidney failure SOUTH (dyspnea on exertion) Iron deficiency CKD (chronic kidney disease) Chronic anticoagulation Diabetes Cervicalgia Prolonged QT interval COPD (chronic obstructive pulmonary disease) Degenerative arthritis Anxiety Venous insufficiency Peripheral neuropathy Type 2 diabetes mellitus Iron deficiency anemia Obstructive sleep apnea Pulmonary fibrosis Ischemic cardiomyopathy Carotid stenosis, right Abdominal aortic aneurysm (AAA) 3.0 cm to 5.5 cm in diameter in male s/p repair ASHD (arteriosclerotic heart disease) Hypertension DDD (degenerative disc disease) CHF (congestive heart failure) Atrial fibrillation Allergic rhinitis Surgical History History of AAA (abdominal aortic aneurysm) repair History of cranioplasty Status post colonoscopy (05/19/21) H/O esophagogastroduodenoscopy (05/19/21) Hx of knee surgery Hx of shoulder surgery History of colonoscopy Pacemaker Hx of CABG History of atherectomy History of cardiac radiofrequency ablation S/P AAA repair October 2017 at the [facility] Family History Father Anesthesia complication Cancer Mother CAD (coronary artery disease) Chronic kidney disease (CKD) Brother Diabetes Grandmother Lung disease Denies family history of Clotting disorder Dementia Suicide Bleeding disorder Stroke Social History Smoking and tobacco/nicotine status: current every day tobacco/nicotine user cigarettes Packs smoked per day: 0.5 Years cigarettes smoked: 50 [ Other cigarette details: Started at age 15] Alcohol intake: never Substance/Drug Use: never Lives independently: Yes Physical Exam 2 Const: COMMON NORMALS: patient oriented x3 and no limitations GENERAL APPEARANCE: cooperative and in distress (Respiratory, on oxygen) NUTRITIONAL APPEARANCE: obese ORIENTATION/CONSCIOUSNESS: Yes awake, Yes oriented to person, Yes oriented to place and Yes oriented to time HENMT: COMMON NORMALS: normocephalic, atraumatic and Normal external nose present HEAD & SCALP: normal to inspection, normocephalic and atraumatic F NGOZI & SINUS: normal facial exam NOSE: Normal external nose present MOUTH: Normal oral and palatal mucosa present Eye: COMMON NORMALS: Equal, round and reactive pupils present, EOMs intact bilaterally, conjunctivae normal and no scleral icterus CONJUNCTIVA: Yes conjunctivae normal PUPIL: Yes Equal, round and reactive pupils present Neck/C-Spine: COMMON NORMALS: full ROM, supple, no meningeal signs and no JVD Chest: OTHER: Presence of midline sternotomy scar, pacemaker scar Resp: COMMON NORMALS: No retractions and No use of accessory muscles EFFORT & INSPECTION: Yes able to speak in complete sentences, Yes tachypneic and Yes Actively coughing AUSCULTATION: wheezes expiratory wheezes and throughout Cardio: COMMON NORMALS: no JVD, regular rate (Paced), regular rhythm (Paced) and Peripheral pulses 2+ throughout RATE: regular rate (Paced) RHYTHM: r egular rhythm (Paced) HEART SOUNDS: Murmur heart sound present PERIPHERAL PULSES: Peripheral pulses 2+ throughout GI: COMMON NORMALS: Soft to palpation and non-tender INSPECTION: Yes central obesity and Yes visible herniation PALPATION: Yes Soft to palpation RECTAL EXAM: Yes deferred Extremity: COMMON NORMALS: normal to inspection, full ROM, capillary refill normal and no pedal edema Neuro: COMMON NORMALS: patient oriented x3, moves all extremities, no focal motor deficits and no sensory deficits noted SENSORIUM/ORIENTATION: Yes oriented to person, Yes oriented to place and Yes oriented to time MENINGEAL SIGNS: Yes no meningeal signs Psych: COMMON NORMALS: mental status grossly normal Course 2 Vital Signs: Vital signs: Vital Signs Temperature 98.0 F 10/03/23 04:00 Pulse Rate 68 10/03/23 04:00 Respiratory Rate 20 H 10/03/23 04:00 Blood Pressure 120/64 10/03/23 04:00 Pulse Oximetry 95 10/03/23 04:00 Oxygen Delivery Me thod Room Air 10/03/23 04:00 MDM - SOB/Dyspnea Medical Decision Making This patient was recently discharged from the hospital earlier this week. He was seen in the ED for shortness of breath prior to, found to be anemic. In the hospital he had transfusion of 1 unit of packed red blood cells as well as an EGD showing erosive gastritis. He was scheduled to have repeat EGD in 6 weeks, taken off of aspirin and for biopsy. He was discharged stable, returns today stating shortness of breath that began again and this time worse and associated with some weakness and dizziness. No chest pain at this time. EKG seems stable. Chest x-ray also stable. His troponin was found to be significantly elevated compared to troponin and last ED visit, at 157. BNP also elevated at 6500. Hemoglobin also down to 7.9. His blood pressure has continue to decline despite 2 L of fluids. He still feeling short of breath. I spoke with Dr. Armstrong, gluer and slicer hand, who is aware of patient's case and will consult as needed. He did not recommend heparin at this time. I spoke with Dr. Brown, hospitalist, who accepts patient to [facility] and will consult cardiology as needed. Patient informed of this plan. Lab Data I reviewed the patient's lab results. 10/03/23 04:18 10/03/23 04:18 Labs/Radiology: Radiology Impressions Chest X-Ray 10/02/23 13:26 IMPRESSION: Stable abnormal chest. The findings appear to be secondary to chronic congestive heart failure. Definite acute abnormality is not readily identifiable. Laboratory Results WBC 9.58 10^3/uL (3.29-11.43) 10/02/23 13:45 RBC 2.73 10^6/uL (3.85-5.65) L 10/02/23 13:45 Hgb 7.90 g/dL (11.27-16.99) L 10/02/23 13:45 Hct 26.2 % (37-53) L 10/02/23 13:45 MCV 96.0 fl (82-101) 10/02/23 13:45 MCH 28.9 pg (27-33) 10/02/23 13:45 MCHC 30.2 g/dL (30-55) 10/02/23 13:45 RDW 21.1 % (12.1-15.1) H 10/02/23 13:45 Plt Count 412 10^3/cmm (157-399) H 10/02/23 13:45 MPV 10.1 fL (7.4-10.4) 10/02/23 13:45 Neut % (Auto) 79.2 % 10/02/23 13:45 Lymph % (Auto) 13.0 % 10/02/23 13:45 [place] % (Auto) 5.7 % 10/02/23 13:45 Eos % (Auto) 0.9 % 10/02/23 13:45 Baso % (Auto) 0.3 % 10/02/23 13:45 Neut # (Auto) 7.57 10^3/uL (1.8-7.7) 10/02/23 13:45 Lymph # (Auto) 1.3 10^3/uL (0.8-4.8) 10/02/23 13:45 [place] # (Auto) 0.6 10^3/uL (0.2-0.9) 10/02/23 13:45 Eos # (Auto) 0.1 10^3/uL (0.0-0.8) 10/02/23 13:45 Baso # (Auto) 0.0 10^3/uL (0.0-0.1) 10/02/23 13:45 Nucleated RBC % (auto) 0 % 10/02/23 13:45 Nucleated RBCs # 0.0 /100WBC 10/02/23 13:45 PT 17.50 SECONDS (12.1-14.9) H 10/02/23 13:45 INR 1.39 (0.8-1.2) H 10/02/23 13:45 APTT 40.4 SECONDS (23.9-36.7) H 10/02/23 13:45 Specimen Type Arterial 10/02/23 13:55 Sample Site Radial, left 10/02/23 13:55 ABG pH 7.45 (7.35-7.45) 10/02/23 13:55 ABG pCO2 33.3 mmHg (35-45) L 10/02/23 13:55 ABG pO2 76.0 mmHg (80.0-100.0) L 10/02/23 13:55 ABG PO2/FiO2 Ratio 0 10/02/23 13:55 ABG HCO3 22.9 mmol/L (22-26) 10/02/23 13:55 ABG O2 Saturation 96.1 10/02/23 13:55 ABG Base Excess -1.0 mmol/L (-2.0-2.0) 10/02/23 13:55 Gustavo Test Pos 10/02/23 13:55 A-a O2 Gradient 4.1 mmHg (5-10) L 10/02/23 13:55 Hematocrit 24.0 % (42-52) L 10/02/23 13:55 Hgb O2 Saturation 91.9 % (95-100) L 10/02/23 13:55 Carboxyhemoglobin 3.2 %THgb (0.4-20.1) 10/02/23 13:55 Methemoglobin 1.1 % (0.4-1.5) 10/02/23 13:55 Total Hemoglobin 7.8 g/dL (14-18) L 10/02/23 13:55 Sodium 136.0 mmol/L (131-143) 10/02/23 13:55 Potassium 3.7 mmol/L (3.5-5.0) 10/02/23 13:55 Glucose 165.0 mg/dL (70-115) H 10/02/23 13:55 Ionized Calcium 1.2 mmol/L (1.1-1.4) 10/02/23 13:55 O2 Delivery Device Room air 10/02/23 13:55 FiO2 21.0 % 10/02/23 13:55 Petroleum Terminal Plant Operator ID Cak 10/02/23 13:55 Sodium 135 mmol/L (136-145) L 10/02/23 13:45 Potassium 3.7 mmol/L (3.5-5.1) 10/02/23 13:45 Chloride 100 mmol/L (98-107) 10/02/23 13:45 Carbon Dioxide 22 mmol/L (22-29) 10/02/23 13:45 Anion Gap 16.7 (5-19) 10/02/23 13:45 BUN 30 mg/dL (8-23) H 10/02/23 13:45 Creatinine 1.4 mg/dL (0.7-1.2) H 10/02/23 13:45 GFR Calculation 50.7 mL/min (90-130) L 10/02/23 13:45 Glucose 156 mg/dL (65-115) H 10/02/23 13:45 Calculated Osmolality 289 mOsm/kg (285-295) 10/02/23 13:45 Calcium 8.8 mg/dL (8.5-10.5) 10/02/23 13:45 Total Bilirubin 0.2 mg/dL (0.15-1.2) 10/02/23 13:45 AST 14 U/L (0-40) 10/02/23 13:45 ALT 11 U/L (0-41) 10/02/23 13:45 Alkaline Phosphatase 92 U/L (40-130) 10/02/23 13:45 Troponin T Baseline 157 ng/L (0-15) H* 10/02/23 13:45 Troponin T 120 Minute 143.5 ng/L (0-15) H 10/02/23 15:25 Delta Troponin T -13.5 ABS# (0-10) L 10/02/23 15:25 NT-Pro-B Natriuret Pep 6595 pg/mL (0-125) H 10/02/23 13:45 Total Protein 6.6 g/dL (6.6-8.7) 10/02/23 13:45 Albumin 3.7 g/dL (3.5-5.2) 10/02/23 13:45 Globulin 2.9 g/dL (1.3-4.6) 10/02/23 13:45 Influenza Type A Ag negative (Negative) 10/02/23 13:50 Influenza Type B Ag negative (Negative) 10/02/23 13:50 Blood Type O Positive 10/02/23 15:25 Rho(D) Type Rh positive 10/02/23 15:25 Antibody Screen Negative 10/02/23 15:25 Crossmatch See Detail 10/02/23 15:25 All radiology interpretation(s) finalized by discharge Discharge Plan Discharge Patient Disposition: Admitted As Inpatient Admit Provider: Julianne Brown Clinical Impression: Congestive heart failure, Elevated troponin Condition: Stable Coding Level of Care Code ED Velvet Cutter for Chg Fwd Documented by User: Villa Herman DO 10/03/23 07:10 HPI - SOB/Dyspnea 2 General: Chief Complaint: Shortness of Breath/Dyspnea Stated Complaint: weakness, SOB Time Seen by Provider: 10/02/23 13:25 PFSH ED 2 PFSH: Medical History (Updated 10/02/23 @ 21:34 by Miladys Armstrong MD) Presence of permanent cardiac pacemaker Carotid disease, bilateral Hyperlipidemia Acute gastrointestinal hemorrhage Acute anemia Anemia Acute on chronic kidney failure SOUTH (dyspnea on exertion) Iron deficiency CKD (chronic kidney disease) Chronic anticoagulation Diabetes Cervicalgia Prolonged QT interval COPD (chronic obstructive pulmonary disease) Degenerative arthritis Anxiety Venous insufficiency Peripheral neuropathy Type 2 diabetes mellitus Iron deficiency anemia Obstructive sleep apnea Pulmonary fibrosis Ischemic cardiomyopathy Carotid stenosis, right Abdominal aortic aneurysm (AAA) 3.0 cm to 5.5 cm in diameter in male s/p repair ASHD (arteriosclerotic heart disease) Hypertension DDD (degenerative disc disease) CHF (congestive heart failure) Atrial fibrillation Allergic rhinitis Surgical History History of AAA (abdominal aortic aneurysm) repair History of cranioplasty Status post colonoscopy (05/19/21) H/O esophagogastroduodenoscopy (05/19/21) Hx of knee surgery Hx of shoulder surgery History of colonoscopy Pacemaker Hx of CABG History of atherectomy History of cardiac radiofrequency ablation S/P AAA repair October 2017 at the [facility] Family History Father Anesthesia complication Cancer Mother CAD (coronary artery disease) Chronic kidney disease (CKD) Brother Diabetes Grandmother Lung disease Denies family history of Clotting disorder Dementia Suicide Bleeding disorder Stroke Social History Smoking and tobacco/nicotine status: current every day tobacco/nicotine user cigarettes Packs smoked per day: 0.5 Years cigarettes smoked: 50 [ Other cigarette details: Started at age 15] Alcohol intake: never Substance/Drug Use: never Lives independently: Yes Course 2 Vital Signs: Vital signs: Vital Signs Temperature 98.0 F 10/03/23 04:00 Pulse Rate 68 10/03/23 04:00 Respiratory Rate 20 H 10/03/23 04:00 Blood Pressure 120/64 10/03/23 04:00 Pulse Oximetry 95 10/03/23 04:00 Oxygen Delivery Me thod Room Air 10/03/23 04:00 MDM - SOB/Dyspnea Medical Decision Making This patient was recently discharged from the hospital earlier this week. He was seen in the ED for shortness of breath prior to, found to be anemic. In the hospital he had transfusion of 1 unit of packed red blood cells as well as an EGD showing erosive gastritis. He was scheduled to have repeat EGD in 6 weeks, taken off of aspirin and for biopsy. He was discharged stable, returns today stating shortness of breath that began again and this time worse and associated with some weakness and dizziness. No chest pain at this time. EKG seems stable. Chest x-ray also stable. His troponin was found to be significantly elevated compared to troponin and last ED visit, at 157. BNP also elevated at 6500. Hemoglobin also down to 7.9. His blood pressure has continue to decline despite 2 L of fluids. He still feeling short of breath. I spoke with Dr. Armstrong, gluer and slicer hand, who is aware of patient's case and will consult as needed. He did not recommend heparin at this time. I spoke with Dr. Brown, hospitalist, who accepts patient to [facility] and will consult cardiology as needed. Patient informed of this plan. Chart reviewed Lab Data 10/03/23 04:18 10/03/23 04:18 Labs/Radiology: Radiology Impressions Chest X-Ray 10/02/23 13:26 IMPRESSION: Stable abnormal chest. The findings appear to be secondary to chronic congestive heart failure. Definite acute abnormality is not readily identifiable. Laboratory Results WBC 9.58 10^3/uL (3.29-11.43) 10/02/23 13:45 RBC 2.73 10^6/uL (3.85-5.65) L 10/02/23 13:45 Hgb 7.90 g/dL (11.27-16.99) L 10/02/23 13:45 Hct 26.2 % (37-53) L 10/02/23 13:45 MCV 96.0 fl (82-101) 10/02/23 13:45 MCH 28.9 pg (27-33) 10/02/23 13:45 MCHC 30.2 g/dL (30-55) 10/02/23 13:45 RDW 21.1 % (12.1-15.1) H 10/02/23 13:45 Plt Count 412 10^3/cmm (157-399) H 10/02/23 13:45 MPV 10.1 fL (7.4-10.4) 10/02/23 13:45 Neut % (Auto) 79.2 % 10/02/23 13:45 Lymph % (Auto) 13.0 % 10/02/23 13:45 [place] % (Auto) 5.7 % 10/02/23 13:45 Eos % (Auto) 0.9 % 10/02/23 13:45 Baso % (Auto) 0.3 % 10/02/23 13:45 Neut # (Auto) 7.57 10^3/uL (1.8-7.7) 10/02/23 13:45 Lymph # (Auto) 1.3 10^3/uL (0.8-4.8) 10/02/23 13:45 [place] # (Auto) 0.6 10^3/uL (0.2-0.9) 10/02/23 13:45 Eos # (Auto) 0.1 10^3/uL (0.0-0.8) 10/02/23 13:45 Baso # (Auto) 0.0 10^3/uL (0.0-0.1) 10/02/23 13:45 Nucleated RBC % (auto) 0 % 10/02/23 13:45 Nucleated RBCs # 0.0 /100WBC 10/02/23 13:45 PT 17.50 SECONDS (12.1-14.9) H 10/02/23 13:45 INR 1.39 (0.8-1.2) H 10/02/23 13:45 APTT 40.4 SECONDS (23.9-36.7) H 10/02/23 13:45 Specimen Type Arterial 10/02/23 13:55 Sample Site Radial, left 10/02/23 13:55 ABG pH 7.45 (7.35-7.45) 10/02/23 13:55 ABG pCO2 33.3 mmHg (35-45) L 10/02/23 13:55 ABG pO2 76.0 mmHg (80.0-100.0) L 10/02/23 13:55 ABG PO2/FiO2 Ratio 0 10/02/23 13:55 ABG HCO3 22.9 mmol/L (22-26) 10/02/23 13:55 ABG O2 Saturation 96.1 10/02/23 13:55 ABG Base Excess -1.0 mmol/L (-2.0-2.0) 10/02/23 13:55 Gustavo Test Pos 10/02/23 13:55 A-a O2 Gradient 4.1 mmHg (5-10) L 10/02/23 13:55 Hematocrit 24.0 % (42-52) L 10/02/23 13:55 Hgb O2 Saturation 91.9 % (95-100) L 10/02/23 13:55 Carboxyhemoglobin 3.2 %THgb (0.4-20.1) 10/02/23 13:55 Methemoglobin 1.1 % (0.4-1.5) 10/02/23 13:55 Total Hemoglobin 7.8 g/dL (14-18) L 10/02/23 13:55 Sodium 136.0 mmol/L (131-143) 10/02/23 13:55 Potassium 3.7 mmol/L (3.5-5.0) 10/02/23 13:55 Glucose 165.0 mg/dL (70-115) H 10/02/23 13:55 Ionized Calcium 1.2 mmol/L (1.1-1.4) 10/02/23 13:55 O2 Delivery Device Room air 10/02/23 13:55 FiO2 21.0 % 10/02/23 13:55 Petroleum Terminal Plant Operator ID Cak 10/02/23 13:55 Sodium 135 mmol/L (136-145) L 10/02/23 13:45 Potassium 3.7 mmol/L (3.5-5.1) 10/02/23 13:45 Chloride 100 mmol/L (98-107) 10/02/23 13:45 Carbon Dioxide 22 mmol/L (22-29) 10/02/23 13:45 Anion Gap 16.7 (5-19) 10/02/23 13:45 BUN 30 mg/dL (8-23) H 10/02/23 13:45 Creatinine 1.4 mg/dL (0.7-1.2) H 10/02/23 13:45 GFR Calculation 50.7 mL/min (90-130) L 10/02/23 13:45 Glucose 156 mg/dL (65-115) H 10/02/23 13:45 Calculated Osmolality 289 mOsm/kg (285-295) 10/02/23 13:45 Calcium 8.8 mg/dL (8.5-10.5) 10/02/23 13:45 Total Bilirubin 0.2 mg/dL (0.15-1.2) 10/02/23 13:45 AST 14 U/L (0-40) 10/02/23 13:45 ALT 11 U/L (0-41) 10/02/23 13:45 Alkaline Phosphatase 92 U/L (40-130) 10/02/23 13:45 Troponin T Baseline 157 ng/L (0-15) H* 10/02/23 13:45 Troponin T 120 Minute 143.5 ng/L (0-15) H 10/02/23 15:25 Delta Troponin T -13.5 ABS# (0-10) L 10/02/23 15:25 NT-Pro-B Natriuret Pep 6595 pg/mL (0-125) H 10/02/23 13:45 Total Protein 6.6 g/dL (6.6-8.7) 10/02/23 13:45 Albumin 3.7 g/dL (3.5-5.2) 10/02/23 13:45 Globulin 2.9 g/dL (1.3-4.6) 10/02/23 13:45 Influenza Type A Ag negative (Negative) 10/02/23 13:50 Influenza Type B Ag negative (Negative) 10/02/23 13:50 Blood Type O Positive 10/02/23 15:25 Rho(D) Type Rh positive 10/02/23 15:25 Antibody Screen Negative 10/02/23 15:25 Crossmatch See Detail 10/02/23 15:25 Discharge Plan Discharge Patient Disposition: Admitted As Inpatient Admit Provider: Julianne Brown Clinical Impression: Congestive heart failure, Elevated troponin Condition: Stable Coding Level of Care Code ED Velvet Cutter for Roxanne Hartman
--- NOTE | 2023-10-02 13:40 | PC.PHAR ---
Addendum entered by Heidy Manrique 10/02/23 13:54: MED REC DONE VIA PT LIST FROM 09/30/23 PLUS THE NEW MEDICATIONS ADDED AT DISCHARGE. PT STATES NOTHING HAS CHANGED AND HE TOOK HIS AM MEDICATIONS TODAY 10/02/23 Original Note: faxed [facility] for med list
[2023-10-02 14:06] LABS: ABG PCO2 33.3 mmHg (35-45); ABG PH Result 7.45 (7.35-7.45); Alveolar-Arterial Oxygen Gradi 4.1 mmHg (5-10); Blood Gas Allen Test Pos; Blood Gas Operator Identificat CAK; Blood Gas Sample Site Radial, left; Blood Gas Sample Type Arterial; Carboxyhemoglobin 3.2 %THgb (0.4-20.1); HCO3 ABG 22.9 mmol/L (22-26); HGB O2 Sat 91.9 % (95-100); Ionized Calcium Level - ABG 1.2 mmol/L (1.1-1.4); Methemoglobin 1.1 % (0.4-1.5); Oxygen Device ROOM AIR; Oxygen Saturation ABG 96.1; PO2 FiO2 Ratio Arterial Blood 0; Potassium Level - ABG 3.7 mmol/L (3.5-5.0); Total Hemoglobin 7.8 g/dL (14-18)
[2023-10-02 14:08] LABS: Basophils % 0.3 %; Eosinophils # 0.1 10^3/uL (0.0-0.8); Eosinophils % 0.9 %; Hematocrit 26.2 % (37-53); Lymphocytes # 1.3 10^3/uL (0.8-4.8); Mean Corpuscular HGB Conc 30.2 g/dL (30-55); Mean Corpuscular Hemoglobin 28.9 pg (27-33); Mean Platelet Volume 10.1 fL (7.4-10.4); Monocytes # 0.6 10^3/uL (0.2-0.9); Monocytes % 5.7 %; Neutrophils # 7.57 10^3/uL (1.8-7.7); Neutrophils % 79.2 %; Nucleated Red Blood Cells % 0 %; Platelet Count 412 10^3/cmm (157-399); Red Blood Count 2.73 10^6/uL (3.85-5.65); Red Cell Distribution Width 21.1 % (12.1-15.1); White Blood Count 9.58 10^3/uL (3.29-11.43)
[2023-10-02] MEDS: sodium chloride 0.9% 1,000 ML 999 ML IV ×2 (14:13→14:25)
[2023-10-02 14:17] LABS: INR 1.39 (0.8-1.2)
[2023-10-02 14:18] LABS: Partial Thromboplastin Time 40.4 SECONDS (23.9-36.7)
[2023-10-02 14:23] LABS: Troponin(5th) Baseline 157 ng/L (0-15)
[2023-10-02 14:37] LABS: Alanine Aminotransferase 11 U/L (0-41); Albumin Level 3.7 g/dL (3.5-5.2); Alkaline Phosphatase 92 U/L (40-130); Anion Gap 16.7 (5-19); Aspartate Amino Transferase 14 U/L (0-40); Blood Urea Nitrogen 30 mg/dL (8-23); Calcium 8.8 mg/dL (8.5-10.5); Carbon Dioxide 22 mmol/L (22-29); Chloride 100 mmol/L (98-107); Creatinine Clr Calc Pharmacy 82.2974; Globulin 2.9 g/dL (1.3-4.6); Glomerular Filtration Rate 50.7 mL/min (90-130); Glucose 156 mg/dL (65-115); NT Pro B Type Natriuretic Pept 6595 pg/mL (0-125); Osmolality Calculated 289 mOsm/kg (285-295); Potassium 3.7 mmol/L (3.5-5.1); Sodium 135 mmol/L (136-145); Total Bilirubin 0.2 mg/dL (0.15-1.2); Total Protein 6.6 g/dL (6.6-8.7)
[2023-10-02 14:37] LABS: Influenza A by IFA negative (Negative); Influenza B by IFA negative (Negative)
[2023-10-02 15:58] LABS: Troponin 5 2HR 143.5 ng/L (0-15); Troponin 5 2HR Delta -13.5 ABS# (0-10)
--- NOTE | 2023-10-02 16:01 | ECG_ITS ---
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 Measurements Intervals [place] Rate: 64 P: 15 [place]: 149 QRS: 9 QRSD: 128 T: 151 QT: 456 QTc: 472 Interpretive Statements SINUS RHYTHM MODERATE INTRAVENTRICULAR CONDUCTION DELAY [105+ ms QRS DURATION, 80+ ms Q/S IN V1/V2, NO Q AND 60+ ms R IN I/aVL/V5/V6] MODERATE T-WAVE ABNORMALITY, CONSIDER LATERAL ISCHEMIA [-0.1+ mV T-WAVE IN I/aVL/V5/V6] Compared to ECG 10/02/2023 13:37:40 T-wave abnormality now present Possible ischemia now present Atrial-paced complex(es) or rhythm no longer present Electronically Signed On 10-02-2023 16:53:15 CDT by Contreras Carvajal M.D. [email or web address]
--- NOTE | 2023-10-02 17:29 | PM.HP ---
Providers/Chief Complaint Admitting Physician: Julianne Brown MD Primary Care Provider: Carla Manriquez MD Chief Complaint: weakness, SOB History of Present Illness Art Madrigal is a 68 year old male who was recently discharged from the hospital after an EGD EGD showed gastric erosion without any active signs of bleeding ulcer he was discharged on Eliquis and Plavix, aspirin was discontinued, patient returned secondary to generalized weakness and fatigue along shortness of breath. No active chest pain but he is complaining of shortness of breath on minimal exertion. In the ER he has been diagnosed with non-STEMI baseline troponin above 100 it is around 157 EKG is not showing any ischemic or infarctive changes, EKG showing paced rhythm, cardiology consulted, echo requested, we are not able to do put him on heparin drip as of now because of recent GI bleed requiring blood transfusion. Will go ahead start aspirin and Plavix for now he also has features of congestive heart failure with high BNP and clinical signs of fluid overload Review of Systems Const: Denies: fever(s) Eyes: Denies: change in vision ENMT: Denies: throat pain Card: Denies: chest pain Resp: Reports: dyspnea GI: Denies: abdominal pain : Denies: flank pain Medications/Allergies Home Medications Medication Instructions Recorded Confirmed Last Taken Type allopurinol 300 mg tablet 300 mg PO DAILY 08/06/19 10/02/23 10/02/23 History cetirizine 10 mg tablet (Zyrtec) 10 mg PO DAILY 08/06/19 10/02/23 10/02/23 History glipizide 10 mg tablet 10 mg PO BID 08/06/19 10/02/23 10/02/23 History montelukast 10 mg tablet 10 mg PO QPM 08/06/19 10/02/23 10/01/23 History (Singulair) multivitamin 1 tab PO DAILY 08/06/19 10/02/23 10/02/23 History pantoprazole 40 mg tablet,delayed 40 mg PO DAILY 08/06/19 10/02/23 10/02/23 History release (Protonix) fluticasone propionate 50 1 spray intranasal DAILY 12/29/19 10/02/23 10/02/23 History mcg/actuation nasal spray,suspension cholecalciferol (vitamin D3) 50 50 mcg PO DAILY 02/14/21 10/02/23 10/02/23 History mcg (2,000 unit) tablet (Vitamin D3) melatonin 10 mg tablet 10 mg PO BEDTIME 02/14/21 10/02/23 10/01/23 History cyanocobalamin (vitamin B-12) 1,000 mcg PO DAILY 08/07/21 10/02/23 10/02/23 History 1,000 mcg/15 mL oral liquid nebulizer #1 ea 11/10/21 10/02/23 Unknown Rx gemfibrozil 600 mg tablet 600 mg PO BID #180 tabs 01/25/22 10/02/23 10/02/23 Rx insulin glargine 100 unit/mL 64 unit SUBCUT BID 05/10/22 10/02/23 10/02/23 History subcutaneous solution rivaroxaban 20 mg tablet (Xarelto) 20 mg PO DAILY #90 tabs 05/10/22 10/02/23 10/02/23 Rx Milk thisle 500 mg PO DAILY 06/13/22 10/02/23 10/01/23 History Tumeric 1,500 mg PO DAILY 06/13/22 10/02/23 10/02/23 History isosorbide mononitrate 60 mg 60 mg PO BID #180 tabs 06/13/22 10/02/23 10/02/23 Rx tablet,extended release 24 hr omega-3 fatty acids 1,000 mg 2,000 mg PO TID 06/13/22 10/02/23 10/02/23 History capsule ranolazine 500 mg tablet,extended See Rx Instructions .Route 06/13/22 10/02/23 10/02/23 Rx release,12 hr .COMPLEX #180 tabs metoprolol tartrate 25 mg tablet 25 mg PO BID 30 days #180 tabs 12/26/22 10/02/23 10/02/23 Rx sulfasalazine 500 mg tablet 1 g (2 x 500 mg) PO BID #360 tabs 01/17/23 10/02/23 10/02/23 Rx mometasone-formoterol HFA 200 2 puff inhalation BID 03/18/23 10/02/23 10/02/23 History mcg-5 mcg/actuation aerosol inhaler (Dulera) 12 pairs of diabetic socks #1 ea 04/15/23 10/02/23 Unknown Rx Diabetic shoes with custom insoles #1 ea 04/15/23 10/02/23 Unknown Rx sacubitril 49 mg-valsartan 51 mg 1 tab PO BID #180 tabs 06/17/23 10/02/23 10/02/23 Rx tablet tramadol 50 mg tablet 50 mg PO BID PRN pain #60 tabs 08/07/23 10/02/23 09/29/23 Rx nitroglycerin 0.4 mg sublingual 0.4 mg sublingual Q5M PRN Chest 08/21/23 10/02/23 Unknown Rx tablet (Nitrostat) Pain #50 tabs alirocumab 150 mg/mL subcutaneous 150 mg SUBCUT .[id number] 09/30/23 10/02/23 Unknown History pen injector budesonide 160 mcg-glycopyr 9 2 inh inhalation BID 09/30/23 10/02/23 10/02/23 History mcg-formot 4.8 mcg/actuation HFA inhaler (Breztri Aerosphere) bumetanide 1 mg tablet See Rx Instructions .Route .COMPLEX 09/30/23 10/02/23 10/02/23 History carbamide peroxide 6.5 % ear drops 1 drp otic (ear) .[id number] 09/30/23 10/02/23 Unknown History carboxymethylcellulose sodium 0.5 1 drp ophthalmic (eye) QID 09/30/23 10/02/23 10/02/23 History % eye drops dextromethorphan-guaifenesin 10 10 ml PO Q4H PRN COUOGH/CONGESTION 09/30/23 10/02/23 Unknown History mg-100 mg/5 mL oral syrup empagliflozin 25 mg tablet 12.5 mg PO QAM 09/30/23 10/02/23 10/02/23 History ezetimibe 10 mg tablet 10 mg PO DAILY 09/30/23 10/02/23 10/02/23 History guaifenesin 100 mg/5 mL oral liquid 200 mg PO QID PRN MUCUS 09/30/23 10/02/23 Unknown History ipratropium bromide 17 1 puff inhalation QID 09/30/23 10/02/23 10/02/23 History mcg/actuation HFA aerosol inhaler ketoconazole 2 % shampoo See Rx Instructions .Route .COMPLEX 09/30/23 10/02/23 Unknown History ketotifen fumarate 0.025 % (0.035 1 drp ophthalmic (eye) BID 09/30/23 10/02/23 10/02/23 History %) eye drops levothyroxine 100 mcg tablet 100 mcg PO QAM 09/30/23 10/02/23 10/02/23 History oxycodone-acetaminophen 10 mg-325 1 tab PO Q4H PRN Pain (Scale Score 09/30/23 10/02/23 Unknown History mg tablet (Percocet) 7-10) pentoxifylline 400 mg 400 mg PO BID 09/30/23 10/02/23 10/02/23 History tablet,extended release vitamin E (dl, acetate) 180 mg 180 mg PO DAILY 09/30/23 10/02/23 10/02/23 History (400 unit) capsule pantoprazole 40 mg tablet,delayed 40 mg PO BID 8 weeks #112 tabs 10/01/23 10/02/23 10/02/23 Rx release (Protonix) sucralfate 100 mg/mL oral 1 g (10 mL) PO BID #420 mL 10/01/23 10/02/23 10/02/23 Rx suspension testosterone cypionate 200 mg/mL 50 mg (0.25 mL) SUBCUT Q7D #3 mL 10/01/23 10/02/23 Unknown Rx intramuscular oil (Depo-Testosterone) clopidogrel 75 mg tablet 75 mg PO DAILY #90 tabs 10/02/23 10/02/23 10/02/23 Rx magnesium oxide 400 mg (241.3 mg 400 mg PO BID 10/02/23 10/02/23 10/02/23 History magnesium) tablet Allergies Allergy/AdvReac Type Severity Reaction Status Date / Time bee venom protein (honey bee) Allergy Severe SOB, Verified 09/03/23 10:48 SWELLING AT SITE Vykkjzy-PTD-UeY Reductase Allergy Unknown unknown Verified 09/03/23 10:48 Inhibitor [Cvdypap-Uct-Wno Reductase Inhibitor] PFSH Acute PFSH: Medical History Presence of permanent cardiac pacemaker Carotid disease, bilateral Hyperlipidemia Acute gastrointestinal hemorrhage Acute anemia Anemia Acute on chronic kidney failure SOUTH (dyspnea on exertion) Iron deficiency CKD (chronic kidney disease) Chronic anticoagulation Diabetes Cervicalgia Prolonged QT interval COPD (chronic obstructive pulmonary disease) Degenerative arthritis Anxiety Venous insufficiency Peripheral neuropathy Type 2 diabetes mellitus Iron deficiency anemia Obstructive sleep apnea Pulmonary fibrosis Ischemic cardiomyopathy Carotid stenosis, right Abdominal aortic aneurysm (AAA) 3.0 cm to 5.5 cm in diameter in male s/p repair ASHD (arteriosclerotic heart disease) Hypertension DDD (degenerative disc disease) CHF (congestive heart failure) Atrial fibrillation Allergic rhinitis Surgical History History of AAA (abdominal aortic aneurysm) repair History of cranioplasty Status post colonoscopy (05/19/21) H/O esophagogastroduodenoscopy (05/19/21) Hx of knee surgery Hx of shoulder surgery History of colonoscopy Pacemaker Hx of CABG History of atherectomy History of cardiac radiofrequency ablation S/P AAA repair October 2017 at the [facility] Family History Father Anesthesia complication Cancer Mother CAD (coronary artery disease) Chronic kidney disease (CKD) Brother Diabetes Grandmother Lung disease Denies family history of Clotting disorder Dementia Suicide Bleeding disorder Stroke Social History Smoking and tobacco/nicotine status: current every day tobacco/nicotine user cigarettes Packs smoked per day: 0.5 Years cigarettes smoked: 50 [ Other cigarette details: Started at age 15] Alcohol intake: never Substance/Drug Use: never Lives independently: Yes Vitals/I&O/Wt Last Vital Signs Temp 98.3 F 10/02/23 13:26 Pulse 63 10/02/23 16:00 Resp 18 10/02/23 13:26 BP 129/72 10/02/23 16:00 Pulse Ox 99 10/02/23 16:00 O2 Del Method Room Air 10/02/23 16:50 10/02/23 10/02/23 10/02/23 06:59 14:59 22:59 Intake Total 1999 Balance 1999 Weight last 48 hrs Weight 139.706 kg Weight 139.706 kg Physical Exam Narrative: Obese male GCS 15 Active chest pain No active shortness of breath Nonfocal neuroexam S1, S2 Abdomen soft Currently patient is on room air Blood pressure is soft Data 10/03/23 04:18 10/03/23 04:18 A&P Assessment and plan (1) Cardiomyopathy due to hypertension, with heart failure: (2) DM2 (diabetes mellitus, type 2): Qualifiers: 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 Heparin Patient will need an angiogram will consult cardiology N.p.o. at midnight Target hemoglobin above 8 should be around 9 Will give him 1 unit PRBC Full code Cardiac diet for now n.p.o. after midnight Attestations Medical Necessity Statement*: More than 2 midnights anticipated Diagnoses Cardiomyopathy due to hypertension, with heart failure I11.0; I43 Type 2 diabetes mellitus without complication, without long-term current use of insulin E11.9 Diabetes mellitus correction insulin use: without termite exterminator use Diabetes mellitus complication status: without complication NSTEMI (non-ST elevated myocardial infarction) I21.4
--- NOTE | 2023-10-02 17:33 | USCV_ITS ---
Art Madrigal Age: 68 Gender: M : 1955 Exam Date: 10/02/2023 21:32 Ordering Phys: Julianne Brown MD Technologist: NISSA Exam Location: [facility] [place] Indication: NSTEMI, SOB, anemia s/p transfusion, seen 09/28 with same symptoms, hx CABG x 2, hx multiple MIs, pacer, COPD, CVA BP: 95 / 56 HR: 71 Rhythm: Paced Technical Quality: Adequate with [employer] MEASUREMENTS (Male / Female) Normal Values 2D ECHO LV Diastolic Diameter PLAX 6.9 cm 4.2 - 5.9 / 3.9 - 5.3 cm IVS Diastolic Thickness 1.4 cm 0.6 - 1.0 / 0.6 - 0.9 cm IVS Systolic Thickness 2.0 cm LVPW Diastolic Thickness 1.5 cm 0.6 - 1.0 / 0.6 - 0.9 cm LVPW Systolic Thickness 2.4 cm LVOT Diameter 2.5 cm LV Ejection Fraction 2D Teich 36.7 % LV Ejection Fraction MOD 2C 50.0 % LV Ejection Fraction 2C AL 48.7 % LA Diameter 5.6 cm Aorta at Sinotubular Diameter 4.1 cm IVC Diameter 1.9 cm M-MODE LA Ao Ratio MM 1.6 AV Cusp Separation MM 2.3 cm DOPPLER AV Peak Velocity 124.0 cm/s LVOT Peak Velocity 53.0 cm/s AV Area Cont Eq vti 2.4 cm squared AV Area Cont Eq pk 2.1 cm squared MV Area PHT 3.3 cm squared Mitral E to A Ratio 2.1 PV Peak Velocity 95.0 cm/s FINDINGS Left Ventricle Dyskinetic basal and mid inferior wall and basal septal segments. Moderate hypokinesia of the anteroseptal segmentsGrade III/IV diastolic dysfunction (restrictive filling pattern), severely elevated filling pressures. The LV ejection fraction is around 40% visual Right Ventricle Pacemaker wire is noted Right Atrium Pacemaker wire is noted.mildly increased right atrial size. Left Atrium Moderately increased left atrial size. Mitral Valve Thickened with mitral annular calcification Aortic Valve Thickened aortic valve. Tricuspid Valve No gross abnormalities noted Pulmonic Valve Mild pulmonary valve regurgitation. Pericardium No significant pericardial effusion Aorta Normal aortic annulus size. IVC Normal inferior vena cava. CONCLUSIONS Dyskinetic basal and mid inferior wall and basal septal segments. Moderate hypokinesia of the anteroseptal segmentsGrade III/IV diastolic dysfunction (restrictive filling pattern), severely elevated filling pressures. The LV ejection fraction is around 40% visual. Moderately increased left atrial size. Mildly increased right atrial size. Pacemaker wire is noted in the right atrium and right ventricle Thickened aortic valve. Mild pulmonary valve regurgitation. No pericardial effusion. Compared to the previous study from 05/18/2022, there may not be significant change Dr Miladys Armstrong MD [facility] (Electronically Signed) Final Date: 03 Oct 2023 13:26 S
[2023-10-02 17:34] LABS: Glucose Point of Care 162 mg/dL (70-110)
[2023-10-02] MEDS: insulin lispro 100 unit/1 mL SUBCUT (17:44)
[2023-10-02] MEDS: FUROsemide 10 mg/mL SDV 4mL 40 MG IVP (17:44)
[2023-10-02] MEDS: acetaminophen 500 mg Tablet PO ×2 (17:47→23:31)
--- NOTE | 2023-10-02 19:27 | ECG_ITS ---
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 Measurements Intervals [place] Rate: 68 P: 24 ME: 160 QRS: -23 QRSD: 129 T: 130 QT: 463 QTc: 494 Interpretive Statements SINUS RHYTHM INDETERMINATE AXIS ANTEROSEPTAL MYOCARDIAL INFARCTION , PROBABLY RECENT [40+ ms Q WAVE IN V1-V4] ACUTE GA Compared to ECG 10/02/2023 16:01:56 Indeterminate axis now present Myocardial infarct finding now present Intraventricular conduction delay no longer present T-wave abnormality no longer present Possible ischemia no longer present Electronically Signed On 10-03-2023 23:10:17 CDT by Miladys Armstrong M.D. [id number]
--- NOTE | 2023-10-02 19:54 | P.CONIM_ITS ---
Providers/Reason For Consult 2 Consulting Physician/Specialty*: SIMON Armstrong MD/cardiology Reason for Consult*: Elevated troponin T/shortness of breath Requesting Physician: Dr. Brown Attending Physician: Julianne Brown MD Primary Care Provider: Carla Manriquez MD History of Present Illness History of Present Illness Art Madrigal is a 68 year old male with multiple medical problems, is admitted to the hospital through the emergency room where he presented with complaints of shortness of breath, generalized weakness and some dizziness. He was found to have elevated troponin T. Cardiology consult is requested for further cardiac evaluation recommendations. This patient is known to have atherosclerotic heart disease, status post four- vessel coronary artery bypass surgery approximately 18 years ago, cardiomyopathy, status post permanent pacemaker placement, congestive heart failure chronic intermittent atrial fibrillation, abdominal aortic aneurysm repair, bilateral carotid artery disease, status post recent carotid stenting, was recently admitted to the hospital with smaller similar symptoms. He was only discharged home yesterday. He was found to have severe anemia and received 1 unit of blood transfusion. He had a GI workup which revealed features of gastric erosion with no evidence of any active bleed. His hemoglobin was 7.8 which went up to 8.8 following 1 unit of blood transfusion. The repeat hemoglobin before discharge was 8.2. This morning, as he woke up, started feeling short of breath and the generalized weakness. Also was somewhat tremulous/dizzy. For these complaints, he decided to come to the hospital. He also was having exertional chest discomfort/tightness, radiating across the chest, to the neck and also to the upper back for the last few days. Did not have any fever, chills or cough. Denies use the pain was mild to moderate. No other associated symptoms or radiation. Patient had the carotid stenting on the right side in July of this year at the [facility]. He went back for the stenting on the right side on 09/12/2023. According the patient, he had an uneventful postprocedure course. The patient had a myocardial perfusion imaging in December of last year.. He was found to have a small area of reversible defect in the distribution of the distal left anterior descending artery. Since the patient did not have any significant symptoms, it was decided to continue the medical treatment at that time. He has not had any coronary angiogram since then. The troponin T. The baseline was 157 today. 3 days ago, it was 22. The delta at 2 hours is -13. Review of Systems 2 Narrative: CONSTITUTIONAL: No fever or chills. Feeling of generalized weakness and shortness of breath as mentioned above EYES: No blurring of vision or other visual disturbances lately. ENT: No hoarseness of voice, auditory disturbances or sore throat. CARDIOVASCULAR: As mentioned above. RESPIRATORY: No significant cough. GASTROINTESTINAL: No hematemesis or melena. GENITOURINARY: No dysuria or hematuria. INTEGUMENTARY: No skin rashes or history of skin cancer. NEURO: No transient ischemic attacks or amaurosis. PSYCHIATRIC: No history of psychosis or major depression. HEMATOLOGIC: Anemia requiring blood transfusion as mentioned above ENDOCRINE: No history of polyuria or polydipsia. MUSCULOSKELETAL: No recent joint pain or swelling. ALLERGY/IMMUNOLOGY: As mentioned above. Medications/Allergies Home Medications Medication Instructions Recorded Confirmed Last Taken Type allopurinol 300 mg tablet 300 mg PO DAILY 08/06/19 10/02/23 10/02/23 History cetirizine 10 mg tablet (Zyrtec) 10 mg PO DAILY 08/06/19 10/02/23 10/02/23 History glipizide 10 mg tablet 10 mg PO BID 08/06/19 10/02/23 10/02/23 History montelukast 10 mg tablet 10 mg PO QPM 08/06/19 10/02/23 10/01/23 History (Singulair) multivitamin 1 tab PO DAILY 08/06/19 10/02/23 10/02/23 History pantoprazole 40 mg tablet,delayed 40 mg PO DAILY 08/06/19 10/02/23 10/02/23 History release (Protonix) fluticasone propionate 50 1 spray intranasal DAILY 12/29/19 10/02/23 10/02/23 History mcg/actuation nasal spray,suspension cholecalciferol (vitamin D3) 50 50 mcg PO DAILY 02/14/21 10/02/23 10/02/23 History mcg (2,000 unit) tablet (Vitamin D3) melatonin 10 mg tablet 10 mg PO BEDTIME 02/14/21 10/02/23 10/01/23 History cyanocobalamin (vitamin B-12) 1,000 mcg PO DAILY 08/07/21 10/02/23 10/02/23 History 1,000 mcg/15 mL oral liquid nebulizer #1 ea 11/10/21 10/02/23 Unknown Rx gemfibrozil 600 mg tablet 600 mg PO BID #180 tabs 01/25/22 10/02/23 10/02/23 Rx insulin glargine 100 unit/mL 64 unit SUBCUT BID 05/10/22 10/02/23 10/02/23 History subcutaneous solution rivaroxaban 20 mg tablet (Xarelto) 20 mg PO DAILY #90 tabs 05/10/22 10/02/23 10/02/23 Rx Milk thisle 500 mg PO DAILY 06/13/22 10/02/23 10/01/23 History Tumeric 1,500 mg PO DAILY 06/13/22 10/02/23 10/02/23 History isosorbide mononitrate 60 mg 60 mg PO BID #180 tabs 06/13/22 10/02/23 10/02/23 Rx tablet,extended release 24 hr omega-3 fatty acids 1,000 mg 2,000 mg PO TID 06/13/22 10/02/23 10/02/23 History capsule ranolazine 500 mg tablet,extended See Rx Instructions .Route 06/13/22 10/02/23 10/02/23 Rx release,12 hr .COMPLEX #180 tabs metoprolol tartrate 25 mg tablet 25 mg PO BID 30 days #180 tabs 12/26/22 10/02/23 10/02/23 Rx sulfasalazine 500 mg tablet 1 g (2 x 500 mg) PO BID #360 tabs 01/17/23 10/02/23 10/02/23 Rx mometasone-formoterol HFA 200 2 puff inhalation BID 03/18/23 10/02/23 10/02/23 History mcg-5 mcg/actuation aerosol inhaler (Dulera) 12 pairs of diabetic socks #1 ea 04/15/23 10/02/23 Unknown Rx Diabetic shoes with custom insoles #1 ea 04/15/23 10/02/23 Unknown Rx sacubitril 49 mg-valsartan 51 mg 1 tab PO BID #180 tabs 06/17/23 10/02/23 10/02/23 Rx tablet tramadol 50 mg tablet 50 mg PO BID PRN pain #60 tabs 08/07/23 10/02/23 09/29/23 Rx nitroglycerin 0.4 mg sublingual 0.4 mg sublingual Q5M PRN Chest 08/21/23 10/02/23 Unknown Rx tablet (Nitrostat) Pain #50 tabs alirocumab 150 mg/mL subcutaneous 150 mg SUBCUT .[id number] 09/30/23 10/02/23 Unknown History pen injector budesonide 160 mcg-glycopyr 9 2 inh inhalation BID 09/30/23 10/02/23 10/02/23 History mcg-formot 4.8 mcg/actuation HFA inhaler (Breztri Aerosphere) bumetanide 1 mg tablet See Rx Instructions .Route .COMPLEX 09/30/23 10/02/23 10/02/23 History carbamide peroxide 6.5 % ear drops 1 drp otic (ear) .[id number] 09/30/23 10/02/23 Unknown History carboxymethylcellulose sodium 0.5 1 drp ophthalmic (eye) QID 09/30/23 10/02/23 10/02/23 History % eye drops dextromethorphan-guaifenesin 10 10 ml PO Q4H PRN COUOGH/CONGESTION 09/30/23 10/02/23 Unknown History mg-100 mg/5 mL oral syrup empagliflozin 25 mg tablet 12.5 mg PO QAM 09/30/23 10/02/23 10/02/23 History ezetimibe 10 mg tablet 10 mg PO DAILY 09/30/23 10/02/23 10/02/23 History guaifenesin 100 mg/5 mL oral liquid 200 mg PO QID PRN MUCUS 09/30/23 10/02/23 Unknown History ipratropium bromide 17 1 puff inhalation QID 09/30/23 10/02/23 10/02/23 History mcg/actuation HFA aerosol inhaler ketoconazole 2 % shampoo See Rx Instructions .Route .COMPLEX 09/30/23 10/02/23 Unknown History ketotifen fumarate 0.025 % (0.035 1 drp ophthalmic (eye) BID 09/30/23 10/02/23 10/02/23 History %) eye drops levothyroxine 100 mcg tablet 100 mcg PO QAM 09/30/23 10/02/2324 History oxycodone-acetaminophen 10 mg-325 1 tab PO Q4H PRN Pain (Scale Score 09/30/23 10/02/23 Unknown History mg tablet (Percocet) 7-10) pentoxifylline 400 mg 400 mg PO BID 09/30/23 10/02/23 10/02/23 History tablet,extended release vitamin E (dl, acetate) 180 mg 180 mg PO DAILY 09/30/23 10/02/23 10/02/23 History (400 unit) capsule pantoprazole 40 mg tablet,delayed 40 mg PO BID 8 weeks #112 tabs 10/01/23 10/02/23 10/02/23 Rx release (Protonix) sucralfate 100 mg/mL oral 1 g (10 mL) PO BID #420 mL 10/01/23 10/02/23 10/02/23 Rx suspension testosterone cypionate 200 mg/mL 50 mg (0.25 mL) SUBCUT Q7D #3 mL 10/01/23 10/02/23 Unknown Rx intramuscular oil (Depo-Testosterone) clopidogrel 75 mg tablet 75 mg PO DAILY #90 tabs 10/02/23 10/02/23 10/02/23 Rx magnesium oxide 400 mg (241.3 mg 400 mg PO BID 10/02/23 10/02/23 10/02/23 History magnesium) tablet Allergies Allergy/AdvReac Type Severity Reaction Status Date / Time bee venom protein (honey bee) Allergy Severe SOB, Verified 09/03/23 10:48 SWELLING AT SITE [id number] Reductase Allergy Unknown unknown Verified 09/03/23 10:48 Inhibitor [Mtlolji-Hsk-Edn Reductase Inhibitor] Current Medications Generic Name Dose Route Start Last Admin Trade Name Freq PRN Reason Stop Dose Admin Acetaminophen 500 mg 10/02/23 17:30 10/02/23 17:47 Acetaminophen 500 Mg Tablet PO 500 mg Q4H PRN Administration fever Furosemide 40 mg 10/02/23 17:30 10/02/23 17:44 Furosemide 10 Mg/Ml Sdv 4ml IVP 40 mg Q24H ADARSH Administration Insulin Human Lispro 0 unit 10/02/23 18:00 10/02/23 17:44 Insulin Lispro 100 Unit/1 Ml SUBCUT 4 unit TIDWM ADARSH Administration Protocol PFSH Acute 2 PFSH: Medical History (Updated 10/02/23 @ 21:34 by Miladys Armstrong MD) Presence of permanent cardiac pacemaker Carotid disease, bilateral Hyperlipidemia Acute gastrointestinal hemorrhage Acute anemia Anemia Acute on chronic kidney failure SOUTH (dyspnea on exertion) Iron deficiency CKD (chronic kidney disease) Chronic anticoagulation Diabetes Cervicalgia Prolonged QT interval COPD (chronic obstructive pulmonary disease) Degenerative arthritis Anxiety Venous insufficiency Peripheral neuropathy Type 2 diabetes mellitus Iron deficiency anemia Obstructive sleep apnea Pulmonary fibrosis Ischemic cardiomyopathy Carotid stenosis, right Abdominal aortic aneurysm (AAA) 3.0 cm to 5.5 cm in diameter in male s/p repair ASHD (arteriosclerotic heart disease) Hypertension DDD (degenerative disc disease) CHF (congestive heart failure) Atrial fibrillation Allergic rhinitis Surgical History History of AAA (abdominal aortic aneurysm) repair History of cranioplasty Status post colonoscopy (05/19/21) H/O esophagogastroduodenoscopy (05/19/21) Hx of knee surgery Hx of shoulder surgery History of colonoscopy Pacemaker Hx of CABG History of atherectomy History of cardiac radiofrequency ablation S/P AAA repair October 2017 at the [facility] Family History Father Anesthesia complication Cancer Mother CAD (coronary artery disease) Chronic kidney disease (CKD) Brother Diabetes Grandmother Lung disease Denies family history of Clotting disorder Dementia Suicide Bleeding disorder Stroke Social History Smoking and tobacco/nicotine status: current every day tobacco/nicotine user cigarettes Packs smoked per day: 0.5 Years cigarettes smoked: 50 [ Other cigarette details: Started at age 15] Alcohol intake: never Substance/Drug Use: never Lives independently: Yes Vitals/I&O/Wt Last Vital Signs Temp 97.5 F L 10/02/23 17:34 Pulse 81 10/02/23 17:34 Resp 18 10/02/23 17:34 BP 95/56 10/02/23 17:34 Pulse Ox 97 10/02/23 17:34 O2 Del Method Room Air 10/02/23 17:34 10/02/23 10/02/23 10/02/23 06:59 14:59 22:59 Intake Total 2600 / 2600 Output Total 550 / 550 Balance 2049 Weight last 48 hrs Weight 308 lb Weight 308 lb Physical Exam 2 Narrative: GENERAL: The patient is alert and oriented times three. Not in any acute distress. Obese HEENT: Moderate pallor, no icterus or lymphadenopathy.Oral cavity: There are no mucous membrane lesions. NECK: Trachea appears to be central. No masses noted. No JVD or thyromegaly appreciated. RESPIRATORY: Chest is symmetrical. No intercostals muscle retraction or any accessory muscle activation. There is no chest wall tenderness. Breath sounds are heard bilaterally. No rales or rhonchi heard. No evidence of any consolidation. BREASTS: Deferred. HEART: The heart sounds are normal. No S3 or S4. Short systolic murmur in the lower sternal border. No diastolic murmurs.. No pericardial rub ABDOMEN: No vessel pulsations or distention. No tenderness. No organomegaly appreciated. Bowel sounds are normally heard. : Deferred. RECTAL: Deferred. LYMPHATIC: No lymphadenopathy noted in the neck. EXTREMITIES: No edema or cyanosis. No clubbing. MUSCULOSKELETAL: No acute joint deformities or swelling SKIN: There are no significant rashes or ecchymosis NEUROPSYCHIATRIC: The patient is alert and oriented x3. Appears to be in a good mood. No tremors or rigidity noted. Data 10/02/23 13:45 10/02/23 13:45 Other Labs: Laboratory Last Values WBC 9.58 10^3/uL (3.29-11.43) 10/02/23 13:45 RBC 2.73 10^6/uL (3.85-5.65) L 10/02/23 13:45 Hgb 7.90 g/dL (11.27-16.99) L 10/02/23 13:45 Hct 26.2 % (37-53) L 10/02/23 13:45 MCV 96.0 fl (82-101) 10/02/23 13:45 MCH 28.9 pg (27-33) 10/02/23 13:45 MCHC 30.2 g/dL (30-55) 10/02/23 13:45 RDW 21.1 % (12.1-15.1) H 10/02/23 13:45 Plt Count 412 10^3/cmm (157-399) H 10/02/23 13:45 MPV 10.1 fL (7.4-10.4) 10/02/23 13:45 Neut % (Auto) 79.2 % 10/02/23 13:45 Lymph % (Auto) 13.0 % 10/02/23 13:45 [place] % (Auto) 5.7 % 10/02/23 13:45 Eos % (Auto) 0.9 % 10/02/23 13:45 Baso % (Auto) 0.3 % 10/02/23 13:45 Neut # (Auto) 7.57 10^3/uL (1.8-7.7) 10/02/23 13:45 Lymph # (Auto) 1.3 10^3/uL (0.8-4.8) 10/02/23 13:45 [place] # (Auto) 0.6 10^3/uL (0.2-0.9) 10/02/23 13:45 Eos # (Auto) 0.1 10^3/uL (0.0-0.8) 10/02/23 13:45 Baso # (Auto) 0.0 10^3/uL (0.0-0.1) 10/02/23 13:45 Nucleated RBC % (auto) 0 % 10/02/23 13:45 Nucleated RBCs # 0.0 /100WBC 10/02/23 13:45 PT 17.50 SECONDS (12.1-14.9) H 10/02/23 13:45 INR 1.39 (0.8-1.2) H 10/02/23 13:45 APTT 40.4 SECONDS (23.9-36.7) H 10/02/23 13:45 Specimen Type Arterial 10/02/23 13:55 Sample Site Radial, left 10/02/23 13:55 ABG pH 7.45 (7.35-7.45) 10/02/23 13:55 ABG pCO2 33.3 mmHg (35-45) L 10/02/23 13:55 ABG pO2 76.0 mmHg (80.0-100.0) L 10/02/23 13:55 ABG PO2/FiO2 Ratio 0 10/02/23 13:55 ABG HCO3 22.9 mmol/L (22-26) 10/02/23 13:55 ABG O2 Saturation 96.1 10/02/23 13:55 ABG Base Excess -1.0 mmol/L (-2.0-2.0) 10/02/23 13:55 Gustavo Test Pos 10/02/23 13:55 A-a O2 Gradient 4.1 mmHg (5-10) L 10/02/23 13:55 Hematocrit 24.0 % (42-52) L 10/02/23 13:55 Hgb O2 Saturation 91.9 % (95-100) L 10/02/23 13:55 Carboxyhemoglobin 3.2 %THgb (0.4-20.1) 10/02/23 13:55 Methemoglobin 1.1 % (0.4-1.5) 10/02/23 13:55 Total Hemoglobin 7.8 g/dL (14-18) L 10/02/23 13:55 Sodium 136.0 mmol/L (131-143) 10/02/23 13:55 Potassium 3.7 mmol/L (3.5-5.0) 10/02/23 13:55 Glucose 165.0 mg/dL (70-115) H 10/02/23 13:55 Ionized Calcium 1.2 mmol/L (1.1-1.4) 10/02/23 13:55 O2 Delivery Device Room air 10/02/23 13:55 FiO2 21.0 % 10/02/23 13:55 Trophy Assembler ID Cak 10/02/23 13:55 Sodium 135 mmol/L (136-145) L 10/02/23 13:45 Potassium 3.7 mmol/L (3.5-5.1) 10/02/23 13:45 Chloride 100 mmol/L (98-107) 10/02/23 13:45 Carbon Dioxide 22 mmol/L (22-29) 10/02/23 13:45 Anion Gap 16.7 (5-19) 10/02/23 13:45 BUN 30 mg/dL (8-23) H 10/02/23 13:45 Creatinine 1.4 mg/dL (0.7-1.2) H 10/02/23 13:45 GFR Calculation 50.7 mL/min (90-130) L 10/02/23 13:45 Glucose 156 mg/dL (65-115) H 10/02/23 13:45 POC Glucose 177 mg/dL (70-110) H 10/02/23 20:27 Calculated Osmolality 289 mOsm/kg (285-295) 10/02/23 13:45 Calcium 8.8 mg/dL (8.5-10.5) 10/02/23 13:45 Total Bilirubin 0.2 mg/dL (0.15-1.2) 10/02/23 13:45 AST 14 U/L (0-40) 10/02/23 13:45 ALT 11 U/L (0-41) 10/02/23 13:45 Alkaline Phosphatase 92 U/L (40-130) 10/02/23 13:45 Troponin T Baseline 157 ng/L (0-15) H* 10/02/23 13:45 Troponin T 120 Minute 143.5 ng/L (0-15) H 10/02/23 15:25 Delta Troponin T -13.5 ABS# (0-10) L 10/02/23 15:25 NT-Pro-B Natriuret Pep 6595 pg/mL (0-125) H 10/02/23 13:45 Total Protein 6.6 g/dL (6.6-8.7) 10/02/23 13:45 Albumin 3.7 g/dL (3.5-5.2) 10/02/23 13:45 Globulin 2.9 g/dL (1.3-4.6) 10/02/23 13:45 Influenza Type A Ag negative (Negative) 10/02/23 13:50 Influenza Type B Ag negative (Negative) 10/02/23 13:50 Blood Type O Positive 10/02/23 15:25 Rho(D) Type Rh positive 10/02/23 15:25 Antibody Screen Negative 10/02/23 15:25 Crossmatch See Detail 10/02/23 15:25 EKG 1: Label Folder Interpretation: The EKG shows sinus rhythm with poor R wave progression. Diffuse ST-T changes in the anterolateral leads. QT prolongation with a QTc of 494. Other data: 12/13/22 Stress Test CONCLUSION: 1. No significant EKG changes with the LexiScan infusion. 2. No LexiScan induced chest pain or cardiac arrhythmia. 3. Normal blood pressure and heart rate response. 4. Sestamibi/sestamibi perfusion scan pending; see separate report. 12/13/22 Perfusion Scan IMPRESSIONS ?1. Small sized reversible perfusion abnormality of moderate severity of basal ?to apical anterior and apical zhou.? This is suggestive of ischemia in left ?anterior descending artery territory. ?2. The left ventricular ejection fraction is moderately reduced with a value of ?38%. ?3. There is moderate global hypokinesis with severe hypokinesis of mid to ?apical anterior zhou. ?4.? No EKG changes with Lexiscan infusion. Refer to separate report for ?details. 02/27/22 Head/ Neck CTA IMPRESSION: ? 1.? Bilateral significant stenoses involving the origins of the cervical internal carotid arteries at 70%. Not significantly progressed since the prior study. Stenosis due to combination of calcified plaque and intimal thickening. 2.? Mild atherosclerotic plaque through the intracranial carotid arteries but no high-grade stenosis or occlusion. 3.? Atherosclerotic plaque at the arch of the thoracic aorta. 4.? Focal mild atherosclerotic plaque in the mid RIGHT common carotid artery is unchanged. 01/30/22 Carotid doppler ?CONCLUSIONS ?Left ICA stenosis 70-99%.? Closer to 70% , no diastolic velocity? ?increase. ?Right ICA stenosis < 50%. ?Diffuse atherosclerotic plaque. 07/19/21 Echo ?CONCLUSIONS ?LV systolic function is mild to moderately reduced with EF of ?40-45%. Mild to moderate global hypokinesis noted ?Left atrium is severely dilated ?Aortic valve is thickened. ?Compared to prior echocardiogram from 04/05/2016, no significant ?changes are noted Cardiac catheterization on 12/13/2020 The left main appears to be totally occluded near the ostium. * The right coronary artery also appeared to be totally occluded at the ostium. * Sequential venous graft to the diagonal/obtuse marginal artery was found to be widely patent with no significant stenotic lesions. * Saphenous venous graft to the right coronary artery is subtotally occluded with some trickling of flow. The venous graft appears to be diffusely diseased. * The left internal mammary artery graft to the left artery descending artery was found to be patent. The PRADHAN itself was found to be very tortuous. No significant stenotic lesions were noted. A&P Assessment and plan (1) Elevated troponin: Most likely this patient had a recent non-ST relation myocardial infarction. The EKG is a history of anterolateral wall ischemia. The anemia might have precipitated the event. At this point, it may be appropriate to give blood transfusion to keep the hemoglobin between around 10. He may be kept on the Plavix and the aspirin for the time being. I may hold off on any heparin or Eliquis. (2) Cardiomyopathy due to hypertension, with heart failure: Careful IV diuresis would be appropriate. I may go ahead and do a repeat echocardiogram to evaluate LV ejection fraction and rule out any other pathology (3) Atherosclerotic heart disease of [place] coronary artery with other forms of angina pectoris: A repeat cardiac catheterization would be appropriate to reevaluate the coronary arteries. However we need to look for any source of ongoing bleeding. Since the patient has been taking Eliquis, we may need to wait for 2 to 3 days, before proceeding with the angiogram. (4) DM2 (diabetes mellitus, type 2): May continue on the current management. Qualifiers: Diabetes mellitus skilled nursing insulin use: without medical terminologist use Diabetes mellitus complication status: without complication Qualified Code(s): E11.9 - Type 2 diabetes mellitus without complications (5) Hyperlipidemia: Will continue on the current medications. Qualifiers: Hyperlipidemia type: mixed hyperlipidemia Qualified Code(s): E78.2 - Mixed hyperlipidemia (6) S/P AAA repair using bifurcation graft: Aneurysm sac has been shrinking. Will continue on the current follow-up evaluations (7) Presence of permanent cardiac pacemaker: The pacemaker function was found to be appropriate. Will continue on the current follow-up schedule. Plan Other problems are Chronic intermittent atrial fibrillation, on long-term oral anticoagulation, currently with a controlled ventricular response rate Anemia GI bleed Acute kidney injury Bilateral carotid artery disease, status post recent stent placement Based on the patient clinical progress and the results of the above, further recommendations will be made. Thank you for the opportunity to evaluate this patient and make these recommendations Consult Attestations 2 Medical Necessity Statement: Patient requires continued hospital stay for close monitoring and further management Coding Level of Care Code 17626 Diagnoses Elevated troponin R79.89 Cardiomyopathy due to hypertension, with heart failure I11.0; I43 Atherosclerotic heart disease of [place] coronary artery with other forms of angina pectoris I25.118 Type 2 diabetes mellitus without complication, without long-term current use of insulin E11.9 Diabetes mellitus skilled nursing insulin use: without medical terminologist use Diabetes mellitus complication status: without complication Mixed hyperlipidemia E78.2 Hyperlipidemia type: mixed hyperlipidemia S/P AAA repair using bifurcation graft Z95.828; Z86.79 Presence of permanent cardiac pacemaker Z95.0
[2023-10-02 20:37] LABS: Glucose Point of Care 177 mg/dL (70-110)
[2023-10-02] MEDS: insulin glargine 100 units/1 mL 40 UNIT SUBCUT (21:05)
[2023-10-02 21:19] LABS: Troponin 5 6HR Delta -16.9 ng/L (0-12)
[2023-10-02 21:20] LABS: Troponin 5 6HR 140.1 ng/L (0-15)
[2023-10-03] VITALS (8 sets, daily range): BP systolic 100–139; BP diastolic 54–74; PULSE 66–87; RESP 14–20; TEMP 36.4–36.8; O2SAT 95–100
[2023-10-03] MEDS: acetaminophen 500 mg Tablet PO ×2 (03:09→20:28)
[2023-10-03 05:07] LABS: Basophils % 0.2 %; Eosinophils # 0.2 10^3/uL (0.0-0.8); Hematocrit 28.4 % (37-53); Lymphocytes # 1.6 10^3/uL (0.8-4.8); Mean Corpuscular Volume 93.7 fl (82-101); Mean Platelet Volume 10.5 fL (7.4-10.4); Monocytes # 0.5 10^3/uL (0.2-0.9); Monocytes % 6.3 %; Neutrophils # 6.01 10^3/uL (1.8-7.7); Neutrophils % 71.7 %; Nucleated Red Blood Cells % 0 %; Platelet Count 394 10^3/cmm (157-399); Red Blood Count 3.03 10^6/uL (3.85-5.65); Red Cell Distribution Width 19.9 % (12.1-15.1)
[2023-10-03 05:32] LABS: Blood Urea Nitrogen 23 mg/dL (8-23); Calcium 8.4 mg/dL (8.5-10.5); Carbon Dioxide 24 mmol/L (22-29); Chloride 102 mmol/L (98-107); Creatinine Clr Calc Pharmacy 82.7138; Glomerular Filtration Rate 50.7 mL/min (90-130); Glucose 137 mg/dL (65-115); Magnesium 2.4 mg/dL (1.7-2.3); Osmolality Calculated 290 mOsm/kg (285-295); Phosphorus 3.9 mg/dL (2.5-4.5); Sodium 137 mmol/L (136-145)
[2023-10-03] MEDS: perflutren protein-a microsphr 0.22 mg/mL SDV 3 mL IV (06:18)
[2023-10-03 06:52] LABS: Glucose Point of Care 145 mg/dL (70-110)
--- NOTE | 2023-10-03 09:32 | PC.CHAP ---
Pastoral Care Encounter/Spiritual Assessment Type of Contact [] Declined foot and ankle surgeon visit [] Patient/Family/Request visit [] Outpatient visit [] Follow-up visit [] Physician referral [] Code/Alert [x] Routine visit [] Staff referral [] Actively dying [] Patient sleeping [] Family support [] [] Out of room [] Palliative care [] [] Receiving care in room [] Pre-surgical visit [] Trauma [] Long length of stay [] ICU visit [] Other: Relational/Emotional Strength [x] Patient feels connected with others/family/visitors/staff [] Distress [] Loneliness/isolation [] Abandonment Spirituality of Patient [x] Person of [place] [x] Attends Catholic of their [place] [x] Believes in Prayer [x] Reads Bible or Evangelical materials [] There are Spiritual issues to be addressed Color Card Maker Interventions [x] Prayer [x] Active listening [] Non-anxious presence [x] Spiritual/emotional support [] Crisis/trauma care [] Spiritual counseling [] Bereavement support [] Provided bereavement packet [] Provided Bible/devotional materials [] Provided toy/stuffed animal, coloring book to patient or family member [] Provided Communion [] Anointing/[place] [] Salvation [x] Completed spiritual assessment [] Other: Impact on Illness or Injury [] Angry [] Fearful [] Anxious [] Often cries [] Exhaustion [] Unable to work [] Unable to attend holiness [] Unable to walk/stand [] Unable to read [] Unable to drive [] Unable to eat/drink [] Unable to sleep [] Unable to be with family [] Patient intubated [] Other: Summary Time spent with patient 10 min
[2023-10-03] MEDS: clopidogrel 75 mg Tablet PO (10:51)
[2023-10-03] MEDS: sennosides-docusate Tablet 1 TAB PO (10:51)
[2023-10-03 11:47] LABS: Glucose Point of Care 149 mg/dL (70-110)
[2023-10-03] MEDS: ipratropium-albuterol 3 mL Neb INHALATION (15:21)
--- NOTE | 2023-10-03 15:37 | PC.RESP ---
Pt would like a order for portable nebulizer.
[2023-10-03 16:34] LABS: Glucose Point of Care 153 mg/dL (70-110)
--- NOTE | 2023-10-03 16:52 | PM.PN ---
Subjective Subjective: Patient is feeling okay. Has not had any chest pain. Received 1 unit of blood transfusion. The hemoglobin went up to 8.8 No new symptoms. Medications: Medication Review Details: Current Medications Acetaminophen (Acetaminophen 500 Mg Tablet) 500 mg PO Q4H PRN PRN Reason: fever Last Admin: 10/03/23 03:09 Dose: 500 mg Albuterol/Ipratropium (Ipratropium-Albuterol 3 Ml Neb) 3 ml INHALATION Q6H PRN PRN Reason: SHORTNESS OF BREATH Last Admin: 10/03/23 15:21 Dose: 3 ml Atorvastatin Calcium (Atorvastatin 40 Mg Tablet) 80 mg PO DAILY ADARSH Last Admin: 10/03/23 10:51 Dose: Not Given Clopidogrel Bisulfate (Clopidogrel 75 Mg Tablet) 75 mg PO DAILY ADARSH Last Admin: 10/03/23 10:51 Dose: 75 mg Furosemide (Furosemide 10 Mg/Ml Sdv 4ml) 40 mg IVP Q24H ADARSH Last Admin: 10/02/23 17:44 Dose: 40 mg Heparin Sodium (Porcine) (Heparin 5,000 Unit/Ml Inj 1 Ml) 0 unit IV PRN PRN; Protocol PRN Reason: Heparin weight-base protocol Dextrose (D5w) 500 mls @ 0 mls/hr IV ONCE PRN; Protocol PRN Reason: Adult Acute Hypoglycemia Prot Dextrose (D10w) 125 mls @ 750 mls/hr IV PRN PRN; Protocol PRN Reason: Adult Acute Hypoglycemia Nursing Protocol Dextrose (D10w) 250 mls @ 1,000 mls/hr IV PRN PRN; Protocol PRN Reason: Adult Acute Hypoglycemia Nursing Protocol Heparin Sodium/Sodium Chloride (Heparin Drip) 25,000 unit in 500 mls @ 0 mls/hr IV .Q0M ADARSH; Protocol Insulin Glargine (Insulin Glargine 100 Units/1 Ml) 40 unit SUBCUT BEDTIME ADARSH Last Admin: 10/02/23 21:05 Dose: 40 unit Insulin Human Lispro (Insulin Lispro 100 Unit/1 Ml) 0 unit SUBCUT TIDWM ADARSH; Protocol Last Admin: 10/03/23 15:04 Dose: Not Given Ondansetron HCl (Ondansetron 2 Mg/Ml Sdv 2 Ml) 4 mg IVP Q6H PRN PRN Reason: NAUSEA AND VOMITING Senna/Docusate Sodium (Sennosides-Docusate Tablet) 1 tab PO DAILY ADARSH Last Admin: 10/03/23 10:51 Dose: 1 tab Sodium Chloride (Sodium Chloride 0.9% 100 Ml Bag) 50 ml IV PRN PRN PRN Reason: Blood transfusion prime and flush Stop: 10/03/23 19:30 Vitals/I&O/Wt Last Vital Signs Temp 97.6 F 10/03/23 16:00 Pulse 67 10/03/23 16:00 Resp 16 10/03/23 16:00 BP 119/65 10/03/23 16:00 Pulse Ox 98 10/03/23 16:00 O2 Del Method Room Air 10/03/23 16:00 10/03/23 10/03/23 10/03/23 06:59 14:59 22:59 Intake Total 750 / 3710 240 / 240 Output Total 750 / 2100 Balance 0 / 1610 240 / 240 Weight last 48 hrs Weight 311 lb 2 oz Weight 308 lb Weight 308 lb Physical Exam Narrative: GENERAL: The patient is alert and oriented times three. Not in any acute distress. Obese HEENT: Moderate pallor, no icterus or lymphadenopathy.Oral cavity: There are no mucous membrane lesions. NECK: Trachea appears to be central. No masses noted. No JVD or thyromegaly appreciated. RESPIRATORY: Chest is symmetrical. No intercostals muscle retraction or any accessory muscle activation. There is no chest wall tenderness. Breath sounds are heard bilaterally. No rales or rhonchi heard. No evidence of any consolidation. BREASTS: Deferred. HEART: The heart sounds are normal. No S3 or S4. Short systolic murmur in the lower sternal border. No diastolic murmurs.. No pericardial rub ABDOMEN: No vessel pulsations or distention. No tenderness. No organomegaly appreciated. Bowel sounds are normally heard. : Deferred. RECTAL: Deferred. LYMPHATIC: No lymphadenopathy noted in the neck. EXTREMITIES: No edema or cyanosis. No clubbing. MUSCULOSKELETAL: No acute joint deformities or swelling SKIN: There are no significant rashes or ecchymosis NEUROPSYCHIATRIC: The patient is alert and oriented x3. Appears to be in a good mood. No tremors or rigidity noted. Data 10/04/23 04:50 10/04/23 04:50 Other Labs: Laboratory Last Values WBC 8.40 10^3/uL (3.29-11.43) 10/03/23 04:18 RBC 3.03 10^6/uL (3.85-5.65) L 10/03/23 04:18 Hgb 8.80 g/dL (11.27-16.99) L 10/03/23 04:18 Hct 28.4 % (37-53) L 10/03/23 04:18 MCV 93.7 fl (82-101) 10/03/23 04:18 MCH 29.0 pg (27-33) 10/03/23 04:18 MCHC 31.0 g/dL (30-55) 10/03/23 04:18 RDW 19.9 % (12.1-15.1) H 10/03/23 04:18 Plt Count 394 10^3/cmm (157-399) 10/03/23 04:18 MPV 10.5 fL (7.4-10.4) H 10/03/23 04:18 Neut % (Auto) 71.7 % 10/03/23 04:18 Lymph % (Auto) 19.0 % 10/03/23 04:18 [place] % (Auto) 6.3 % 10/03/23 04:18 Eos % (Auto) 2.0 % 10/03/23 04:18 Baso % (Auto) 0.2 % 10/03/23 04:18 Neut # (Auto) 6.01 10^3/uL (1.8-7.7) 10/03/23 04:18 Lymph # (Auto) 1.6 10^3/uL (0.8-4.8) 10/03/23 04:18 [place] # (Auto) 0.5 10^3/uL (0.2-0.9) 10/03/23 04:18 Eos # (Auto) 0.2 10^3/uL (0.0-0.8) 10/03/23 04:18 Baso # (Auto) 0.0 10^3/uL (0.0-0.1) 10/03/23 04:18 Nucleated RBC % (auto) 0 % 10/03/23 04:18 Nucleated RBCs # 0.0 /100WBC 10/03/23 04:18 PT 17.50 SECONDS (12.1-14.9) H 10/02/23 13:45 INR 1.39 (0.8-1.2) H 10/02/23 13:45 APTT 40.4 SECONDS (23.9-36.7) H 10/02/23 13:45 Specimen Type Arterial 10/02/23 13:55 Sample Site Radial, left 10/02/23 13:55 ABG pH 7.45 (7.35-7.45) 10/02/23 13:55 ABG pCO2 33.3 mmHg (35-45) L 10/02/23 13:55 ABG pO2 76.0 mmHg (80.0-100.0) L 10/02/23 13:55 ABG PO2/FiO2 Ratio 0 10/02/23 13:55 ABG HCO3 22.9 mmol/L (22-26) 10/02/23 13:55 ABG O2 Saturation 96.1 10/02/23 13:55 ABG Base Excess -1.0 mmol/L (-2.0-2.0) 10/02/23 13:55 Gustavo Test Pos 10/02/23 13:55 A-a O2 Gradient 4.1 mmHg (5-10) L 10/02/23 13:55 Hematocrit 24.0 % (42-52) L 10/02/23 13:55 Hgb O2 Saturation 91.9 % (95-100) L 10/02/23 13:55 Carboxyhemoglobin 3.2 %THgb (0.4-20.1) 10/02/23 13:55 Methemoglobin 1.1 % (0.4-1.5) 10/02/23 13:55 Total Hemoglobin 7.8 g/dL (14-18) L 10/02/23 13:55 Sodium 136.0 mmol/L (131-143) 10/02/23 13:55 Potassium 3.7 mmol/L (3.5-5.0) 10/02/23 13:55 Glucose 165.0 mg/dL (70-115) H 10/02/23 13:55 Ionized Calcium 1.2 mmol/L (1.1-1.4) 10/02/23 13:55 O2 Delivery Device Room air 10/02/23 13:55 FiO2 21.0 % 10/02/23 13:55 [employer] Laborer ID Cak 10/02/23 13:55 Sodium 137 mmol/L (136-145) 10/03/23 04:18 Potassium 4.0 mmol/L (3.5-5.1) 10/03/23 04:18 Chloride 102 mmol/L (98-107) 10/03/23 04:18 Carbon Dioxide 24 mmol/L (22-29) 10/03/23 04:18 Anion Gap 15.0 (5-19) 10/03/23 04:18 BUN 23 mg/dL (8-23) 10/03/23 04:18 Creatinine 1.4 mg/dL (0.7-1.2) H 10/03/23 04:18 GFR Calculation 50.7 mL/min (90-130) L 10/03/23 04:18 Glucose 137 mg/dL (65-115) H 10/03/23 04:18 POC Glucose 153 mg/dL (70-110) H 10/03/23 16:17 Calculated Osmolality 290 mOsm/kg (285-295) 10/03/23 04:18 Calcium 8.4 mg/dL (8.5-10.5) L 10/03/23 04:18 Phosphorus 3.9 mg/dL (2.5-4.5) 10/03/23 04:18 Magnesium 2.4 mg/dL (1.7-2.3) H 10/03/23 04:18 Total Bilirubin 0.2 mg/dL (0.15-1.2) 10/02/23 13:45 AST 14 U/L (0-40) 10/02/23 13:45 ALT 11 U/L (0-41) 10/02/23 13:45 Alkaline Phosphatase 92 U/L (40-130) 10/02/23 13:45 Troponin T Baseline 157 ng/L (0-15) H* 10/02/23 13:45 Troponin T 120 Minute 143.5 ng/L (0-15) H 10/02/23 15:25 Delta Troponin T -13.5 ABS# (0-10) L 10/02/23 15:25 Troponin T Hi Sens 6Hr 140.1 ng/L (0-15) H 10/02/23 20:45 Troponin T Hi Sens 6Hr Delta -16.9 ng/L (0-12) L 10/02/23 20:45 NT-Pro-B Natriuret Pep 6595 pg/mL (0-125) H 10/02/23 13:45 Total Protein 6.6 g/dL (6.6-8.7) 10/02/23 13:45 Albumin 3.7 g/dL (3.5-5.2) 10/02/23 13:45 Globulin 2.9 g/dL (1.3-4.6) 10/02/23 13:45 Influenza Type A Ag negative (Negative) 10/02/23 13:50 Influenza Type B Ag negative (Negative) 10/02/23 13:50 Blood Type O Positive 10/02/23 15:25 Rho(D) Type Rh positive 10/02/23 15:25 Antibody Screen Negative 10/02/23 15:25 Crossmatch See Detail 10/02/23 15:25 A&P Assessment and plan (1) Elevated troponin: Most likely this patient had a recent non-ST relation myocardial infarction. The EKG is suggestive of anterolateral wall ischemia. The hemoglobin seems to be stable at this time. If the hemoglobin continues to remain stable, may consider cardiac catheterization to further evaluate the coronary status as well as the graft status. (2) Cardiomyopathy due to hypertension, with heart failure: Careful IV diuresis would be appropriate. LV ejection fraction was found to be around 40%, visual. May continue the current management. (3) Atherosclerotic heart disease of [place] coronary artery with other forms of angina pectoris: A repeat cardiac catheterization would be appropriate to reevaluate the coronary arteries. However we like to see the hemoglobin is remaining stable, before proceeding with the angiogram (4) DM2 (diabetes mellitus, type 2): May continue on the current management. Qualifiers: Diabetes mellitus complication status: without complication Diabetes mellitus intermediate accountant insulin use: without mcc use Qualified Code(s): E11.9 - Type 2 diabetes mellitus without complications (5) Hyperlipidemia: Will continue on the current medications. Qualifiers: Hyperlipidemia type: mixed hyperlipidemia Qualified Code(s): E78.2 - Mixed hyperlipidemia (6) S/P AAA repair using bifurcation graft: Aneurysm sac has been shrinking. Will continue on the current follow-up evaluations (7) Presence of permanent cardiac pacemaker: The pacemaker function was found to be appropriate. Will continue on the current follow-up schedule. Plan Other problems are Chronic intermittent atrial fibrillation, currently in sinus rhythm. Response rate Anemia-status post blood transfusion, seems stable GI bleed Acute kidney injury Bilateral carotid artery disease, status post recent stent placement Repeat the BMP and CBC in the morning. If the hemoglobin is stable may consider a cardiac catheterization. Attestations Medical Necessity Statement*: Patient requires continued hospital stay for close monitoring and further management Coding Level of Care Code 22711 Diagnoses Elevated troponin R79.89 Cardiomyopathy due to hypertension, with heart failure I11.0; I43 Atherosclerotic heart disease of [place] coronary artery with other forms of angina pectoris I25.118 Type 2 diabetes mellitus without complication, without long-term current use of insulin E11.9 Diabetes mellitus complication status: without complication Diabetes mellitus mcc insulin use: without mcc use Mixed hyperlipidemia E78.2 Hyperlipidemia type: mixed hyperlipidemia S/P AAA repair using bifurcation graft Z95.828; Z86.79 Presence of permanent cardiac pacemaker Z95.0
[2023-10-03] MEDS: insulin lispro 100 unit/1 mL SUBCUT (17:12)
[2023-10-03] MEDS: insulin glargine 100 units/1 mL 40 UNIT SUBCUT (20:28)
[2023-10-03 20:42] LABS: Glucose Point of Care 165 mg/dL (70-110)
[2023-10-04] VITALS (9 sets, daily range): BP systolic 106–145; BP diastolic 66–78; PULSE 65–89; RESP 14–20; TEMP 36.4–36.9; O2SAT 95–98
[2023-10-04] MEDS: oxyCODONE-APAP 5-325 mg Tablet 1 TAB PO (01:35)
[2023-10-04 05:45] LABS: Basophils % 0.4 %; Eosinophils # 0.3 10^3/uL (0.0-0.8); Eosinophils % 3.3 %; Hematocrit 29.4 % (37-53); Lymphocytes # 1.7 10^3/uL (0.8-4.8); Lymphocytes % 21.7 %; Mean Corpuscular HGB Conc 30.6 g/dL (30-55); Mean Corpuscular Hemoglobin 28.9 pg (27-33); Mean Corpuscular Volume 94.5 fl (82-101); Mean Platelet Volume 10.3 fL (7.4-10.4); Monocytes # 0.6 10^3/uL (0.2-0.9); Monocytes % 7.7 %; Neutrophils # 5.17 10^3/uL (1.8-7.7); Neutrophils % 66.4 %; Nucleated Red Blood Cells % 0 %; Platelet Count 435 10^3/cmm (157-399); Red Blood Count 3.11 10^6/uL (3.85-5.65); White Blood Count 7.79 10^3/uL (3.29-11.43)
[2023-10-04 06:11] LABS: Anion Gap 15.4 (5-19); Blood Urea Nitrogen 18 mg/dL (8-23); Calcium 8.5 mg/dL (8.5-10.5); Carbon Dioxide 23 mmol/L (22-29); Chloride 102 mmol/L (98-107); Creatinine Clr Calc Pharmacy 104.8778; Glucose 142 mg/dL (65-115); Osmolality Calculated 288 mOsm/kg (285-295); Potassium 3.4 mmol/L (3.5-5.1); Sodium 137 mmol/L (136-145)
[2023-10-04 06:22] LABS: Glucose Point of Care 161 mg/dL (70-110)
[2023-10-04] MEDS: ipratropium-albuterol 3 mL Neb INHALATION ×2 (07:51→23:48)
[2023-10-04] MEDS: clopidogrel 75 mg Tablet PO (09:40)
[2023-10-04] MEDS: sennosides-docusate Tablet 1 TAB PO (09:40)
[2023-10-04] MEDS: insulin lispro 100 unit/1 mL SUBCUT ×2 (09:40→17:07)
[2023-10-04 11:23] LABS: Glucose Point of Care 139 mg/dL (70-110)
--- NOTE | 2023-10-04 11:56 | CTR_ITS ---
PROCEDURE INFORMATION: Exam: CTA Chest With Contrast Exam date and time: 10/04/2023 1:41 PM Age: 68 years old Clinical indication: Chest wall pain; Prior surgery; Surgery date: 6+ months; Surgery type: Cabg, pacemaker; Additional info: Pain in between shoulder blade TECHNIQUE: Imaging protocol: Computed tomographic angiography of the chest with contrast. Exam focused on the arteries. 3D rendering (Not supervised by radiologist): MIP and/or 3D reconstructed images were created by the technologist. Radiation optimization: All CT scans at this facility use at least one of these dose optimization techniques: automated exposure control; mA and/or kV adjustment per patient size (includes targeted exams where dose is matched to clinical indication); or iterative reconstruction. Contrast material: [id number]; Contrast volume: 75 ml; Contrast route: INTRAVENOUS (IV); COMPARISON: CT chest con [id number] 12/04/2022 08:16 RADIATION DOSE METRICS: Total DLP (mGy-cm): 657.11 FINDINGS: Pulmonary arteries: Normal. No pulmonary emboli. Aorta: Partially imaged stent graft in the abdominal aorta. The thoracic aorta is poorly opacified with contrast but there is no obvious dissection. No evidence of an aneurysm of the thoracic aorta. Lungs: Prominent interstitium throughout both lungs. Consider interstitial edema. Old calcified granuloma in the right lower lobe posteriorly. Pleural spaces: Unremarkable. No pneumothorax. No pleural effusion. Heart: Unremarkable. No cardiomegaly. No pericardial effusion. Coronary arteries: Extensive calcification of the [place] coronary arteries. The patient is status post multivessel CABG. Lymph nodes: Multiple small mediastinal lymph nodes similar in appearance to the previous study. Liver: The liver capsule is nodular suggesting a component of hepatic cirrhosis. Bones/joints: Mild stable compression fracture deformity of the midthoracic spine. Soft tissues: Unremarkable. CT/CT angio chest PE protcl [id number] IMPRESSION: 1. No evidence of PE and the thoracic aorta is grossly normal 2. Prominent interstitium in the periphery of both lungs. Consider interstitial edema 3. Status post CABG 4. Cirrhotic morphology of the liver
--- NOTE | 2023-10-04 11:56 | PM.PN ---
Subjective Subjective: Will request CT chest rule out aortic dissection Complaining of pain in between shoulder blades Hemoglobin stable Plan for coronary angiogram by tomorrow Spoke with Dr. Armstrong Vitals/I&O/Wt Last Vital Signs Temp 98.3 F 10/04/23 07:40 Pulse 88 10/04/23 07:51 Resp 18 10/04/23 07:51 BP 115/72 10/04/23 07:40 Pulse Ox 95 10/04/23 07:51 O2 Del Method Room Air 10/04/23 07:51 10/03/23 10/04/23 10/04/23 22:59 06:59 14:59 Intake Total 240 / 480 500 / 980 240 / 240 Output Total 850 / 850 450 / 450 Balance -610 / -370 500 / 130 -210 / -210 Weight last 48 hrs Weight 140.069 kg Weight 141.124 kg Weight 139.706 kg Weight 139.706 kg Physical Exam Narrative: Pleasant cooperative Nonfocal neuroexam Complaining of pain in between shoulder blades Pleasant cooperative sitting at the bedside nonfocal neuroexam No active shortness of breath No active chest pain Able to go to the bathroom on his own independently S1, S2 Paced rhythm Data 10/04/23 04:50 10/04/23 04:50 A&P Assessment and plan (1) Hypertension: Qualifiers: Hypertension type: primary hypertension Qualified Code(s): I10 - Essential (primary) hypertension (2) Cardiomyopathy due to hypertension, with heart failure: (3) NSTEMI (non-ST elevated myocardial infarction): (4) DM2 (diabetes mellitus, type 2): Qualifiers: Diabetes mellitus rat exterminator insulin use: without rat exterminator use Diabetes mellitus complication status: without complication Qualified Code(s): E11.9 - Type 2 diabetes mellitus without complications Plan Plan for CTA chest rule out obstruction Coronary angiogram most likely in the morning Will keep him n.p.o. after midnight Continue Plavix No active chest pain Mild reduced EF with heart failure exacerbation continue low-dose Lasix Gastric erosion Hemoglobin stable N.p.o. after midnight I will give him p.o. potassium Creatinine 1.1 Attestations Medical Necessity Statement*: Plan for intervention tomorrow Diagnoses Primary hypertension I10 Hypertension type: primary hypertension Cardiomyopathy due to hypertension, with heart failure I11.0; I43 NSTEMI (non-ST elevated myocardial infarction) I21.4 Type 2 diabetes mellitus without complication, without long-term current use of insulin E11.9 Diabetes mellitus rat exterminator insulin use: without retirement use Diabetes mellitus complication status: without complication
[2023-10-04 12:39] LABS: Magnesium 2.3 mg/dL (1.7-2.3)
[2023-10-04] MEDS: potassium chloride ER 20 mEq Tablet 40 MEQ PO (12:43)
[2023-10-04] MEDS: acetaminophen 500 mg Tablet PO ×3 (12:44→20:52)
[2023-10-04] MEDS: iohexol 350 mg/mL 500 mL Btl (per mL) IV (13:48)
--- NOTE | 2023-10-04 15:01 | PM.PN ---
Subjective Subjective: Patient seems to be doing okay. He was complaining of pain in the upper back between the shoulder blades. A CT was performed. He was found no evidence of any aneurysm or dissection. The hemoglobin seems to be his remained stable around 9. No unusual shortness of breath. No nausea or dizziness. Medications: Medication Review Details: Current Medications Acetaminophen (Acetaminophen 500 Mg Tablet) 500 mg PO Q4H PRN PRN Reason: fever Last Admin: 10/04/23 12:44 Dose: 500 mg Albuterol/Ipratropium (Ipratropium-Albuterol 3 Ml Neb) 3 ml INHALATION Q6H PRN PRN Reason: SHORTNESS OF BREATH Last Admin: 10/04/23 07:51 Dose: 3 ml Atorvastatin Calcium (Atorvastatin 40 Mg Tablet) 80 mg PO DAILY [facility] Last Admin: 10/04/23 07:22 Dose: Not Given Clopidogrel Bisulfate (Clopidogrel 75 Mg Tablet) 75 mg PO DAILY [facility] Last Admin: 10/04/23 09:40 Dose: 75 mg Furosemide (Furosemide 10 Mg/Ml Sdv 4ml) 40 mg IVP Q24H ADARSH Last Admin: 10/02/23 17:44 Dose: 40 mg Furosemide (Furosemide 20 Mg Tablet) 20 mg PO DAILY@0800 ADARSH Heparin Sodium (Porcine) (Heparin 5,000 Unit/Ml Inj 1 Ml) 0 unit IV PRN PRN; Protocol PRN Reason: Heparin weight-base protocol Dextrose (D5w) 500 mls @ 0 mls/hr IV ONCE PRN; Protocol PRN Reason: Adult Acute Hypoglycemia Prot Dextrose (D10w) 125 mls @ 750 mls/hr IV PRN PRN; Protocol PRN Reason: Adult Acute Hypoglycemia Nursing Protocol Dextrose (D10w) 250 mls @ 1,000 mls/hr IV PRN PRN; Protocol PRN Reason: Adult Acute Hypoglycemia Nursing Protocol Heparin Sodium/Sodium Chloride (Heparin Drip) 25,000 unit in 500 mls @ 0 mls/hr IV .Q0M [facility]; Protocol Insulin Glargine (Insulin Glargine 100 Units/1 Ml) 40 unit SUBCUT BEDTIME [facility] Last Admin: 10/03/23 20:28 Dose: 40 unit Insulin Human Lispro (Insulin Lispro 100 Unit/1 Ml) 0 unit SUBCUT TIDWM [facility]; Protocol Last Admin: 10/04/23 11:25 Dose: Not Given Magnesium Oxide (Magnesium Oxide 400 Mg Tablet) 400 mg PO BID [facility] Ondansetron HCl (Ondansetron 2 Mg/Ml Sdv 2 Ml) 4 mg IVP Q6H PRN PRN Reason: NAUSEA AND VOMITING Potassium Chloride (Potassium Chloride Er 20 Meq Tablet) 40 meq PO DAILY [facility] Last Admin: 10/04/23 12:43 Dose: 40 meq Senna/Docusate Sodium (Sennosides-Docusate Tablet) 1 tab PO DAILY [facility] Last Admin: 10/04/23 09:40 Dose: 1 tab Vitals/I&O/Wt Last Vital Signs Temp 98.3 F 10/04/23 07:40 Pulse 88 10/04/23 07:51 Resp 18 10/04/23 07:51 BP 115/72 10/04/23 07:40 Pulse Ox 95 10/04/23 07:51 O2 Del Method Room Air 10/04/23 07:51 10/04/23 10/04/23 10/04/23 06:59 14:59 22:59 Intake Total 500 / 980 240 / 240 Output Total 450 / 450 Balance 500 / 130 -210 / -210 Weight last 48 hrs Weight 308 lb 12.8 oz Weight 311 lb 2 oz Weight 308 lb Physical Exam Narrative: GENERAL: The patient is alert and oriented times three. Not in any acute distress. Obese HEENT: Moderate pallor, no icterus or lymphadenopathy.Oral cavity: There are no mucous membrane lesions. NECK: Trachea appears to be central. No masses noted. No JVD or thyromegaly appreciated. RESPIRATORY: Chest is symmetrical. No intercostals muscle retraction or any accessory muscle activation. There is no chest wall tenderness. Breath sounds are heard bilaterally. No rales or rhonchi heard. No evidence of any consolidation. BREASTS: Deferred. HEART: The heart sounds are normal. No S3 or S4. Short systolic murmur in the lower sternal border. No diastolic murmurs.. No pericardial rub ABDOMEN: No vessel pulsations or distention. No tenderness. No organomegaly appreciated. Bowel sounds are normally heard. : Deferred. RECTAL: Deferred. LYMPHATIC: No lymphadenopathy noted in the neck. EXTREMITIES: No edema or cyanosis. No clubbing. MUSCULOSKELETAL: No acute joint deformities or swelling SKIN: There are no significant rashes or ecchymosis NEUROPSYCHIATRIC: The patient is alert and oriented x3. Appears to be in a good mood. No tremors or rigidity noted. Data 10/04/23 04:50 10/04/23 04:50 Other Labs: Laboratory Last Values WBC 7.79 10^3/uL (3.29-11.43) 10/04/23 04:50 RBC 3.11 10^6/uL (3.85-5.65) L 10/04/23 04:50 Hgb 9.00 g/dL (11.27-16.99) L 10/04/23 04:50 Hct 29.4 % (37-53) L 10/04/23 04:50 MCV 94.5 fl (82-101) 10/04/23 04:50 MCH 28.9 pg (27-33) 10/04/23 04:50 MCHC 30.6 g/dL (30-55) 10/04/23 04:50 RDW 20.0 % (12.1-15.1) H 10/04/23 04:50 Plt Count 435 10^3/cmm (157-399) H 10/04/23 04:50 MPV 10.3 fL (7.4-10.4) 10/04/23 04:50 Neut % (Auto) 66.4 % 10/04/23 04:50 Lymph % (Auto) 21.7 % 10/04/23 04:50 [place] % (Auto) 7.7 % 10/04/23 04:50 Eos % (Auto) 3.3 % 10/04/23 04:50 Baso % (Auto) 0.4 % 10/04/23 04:50 Neut # (Auto) 5.17 10^3/uL (1.8-7.7) 10/04/23 04:50 Lymph # (Auto) 1.7 10^3/uL (0.8-4.8) 10/04/23 04:50 [place] # (Auto) 0.6 10^3/uL (0.2-0.9) 10/04/23 04:50 Eos # (Auto) 0.3 10^3/uL (0.0-0.8) 10/04/23 04:50 Baso # (Auto) 0.0 10^3/uL (0.0-0.1) 10/04/23 04:50 Nucleated RBC % (auto) 0 % 10/04/23 04:50 Nucleated RBCs # 0.0 /100WBC 10/04/23 04:50 PT 17.50 SECONDS (12.1-14.9) H 10/02/23 13:45 INR 1.39 (0.8-1.2) H 10/02/23 13:45 APTT 40.4 SECONDS (23.9-36.7) H 10/02/23 13:45 Specimen Type Arterial 10/02/23 13:55 Sample Site Radial, left 10/02/23 13:55 ABG pH 7.45 (7.35-7.45) 10/02/23 13:55 ABG pCO2 33.3 mmHg (35-45) L 10/02/23 13:55 ABG pO2 76.0 mmHg (80.0-100.0) L 10/02/23 13:55 ABG PO2/FiO2 Ratio 0 10/02/23 13:55 ABG HCO3 22.9 mmol/L (22-26) 10/02/23 13:55 ABG O2 Saturation 96.1 10/02/23 13:55 ABG Base Excess -1.0 mmol/L (-2.0-2.0) 10/02/23 13:55 Gustavo Test Pos 10/02/23 13:55 A-a O2 Gradient 4.1 mmHg (5-10) L 10/02/23 13:55 Hematocrit 24.0 % (42-52) L 10/02/23 13:55 Hgb O2 Saturation 91.9 % (95-100) L 10/02/23 13:55 Carboxyhemoglobin 3.2 %THgb (0.4-20.1) 10/02/23 13:55 Methemoglobin 1.1 % (0.4-1.5) 10/02/23 13:55 Total Hemoglobin 7.8 g/dL (14-18) L 10/02/23 13:55 Sodium 136.0 mmol/L (131-143) 10/02/23 13:55 Potassium 3.7 mmol/L (3.5-5.0) 10/02/23 13:55 Glucose 165.0 mg/dL (70-115) H 10/02/23 13:55 Ionized Calcium 1.2 mmol/L (1.1-1.4) 10/02/23 13:55 O2 Delivery Device Room air 10/02/23 13:55 FiO2 21.0 % 10/02/23 13:55 Broom Machine Operator ID Cak 10/02/23 13:55 Sodium 137 mmol/L (136-145) 10/04/23 04:50 Potassium 3.4 mmol/L (3.5-5.1) L 10/04/23 04:50 Chloride 102 mmol/L (98-107) 10/04/23 04:50 Carbon Dioxide 23 mmol/L (22-29) 10/04/23 04:50 Anion Gap 15.4 (5-19) 10/04/23 04:50 BUN 18 mg/dL (8-23) 10/04/23 04:50 Creatinine 1.1 mg/dL (0.7-1.2) 10/04/23 04:50 GFR Calculation 67.0 mL/min (90-130) L 10/04/23 04:50 Glucose 142 mg/dL (65-115) H 10/04/23 04:50 POC Glucose 139 mg/dL (70-110) H 10/04/23 11:17 Calculated Osmolality 288 mOsm/kg (285-295) 10/04/23 04:50 Calcium 8.5 mg/dL (8.5-10.5) 10/04/23 04:50 Phosphorus 3.9 mg/dL (2.5-4.5) 10/03/23 04:18 Magnesium 2.3 mg/dL (1.7-2.3) 10/04/23 04:50 Total Bilirubin 0.2 mg/dL (0.15-1.2) 10/02/23 13:45 AST 14 U/L (0-40) 10/02/23 13:45 ALT 11 U/L (0-41) 10/02/23 13:45 Alkaline Phosphatase 92 U/L (40-130) 10/02/23 13:45 Troponin T Baseline 157 ng/L (0-15) H* 10/02/23 13:45 Troponin T 120 Minute 143.5 ng/L (0-15) H 10/02/23 15:25 Delta Troponin T -13.5 ABS# (0-10) L 10/02/23 15:25 Troponin T Hi Sens 6Hr 140.1 ng/L (0-15) H 10/02/23 20:45 Troponin T Hi Sens 6Hr Delta -16.9 ng/L (0-12) L 10/02/23 20:45 NT-Pro-B Natriuret Pep 6595 pg/mL (0-125) H 10/02/23 13:45 Total Protein 6.6 g/dL (6.6-8.7) 10/02/23 13:45 Albumin 3.7 g/dL (3.5-5.2) 10/02/23 13:45 Globulin 2.9 g/dL (1.3-4.6) 10/02/23 13:45 Influenza Type A Ag negative (Negative) 10/02/23 13:50 Influenza Type B Ag negative (Negative) 10/02/23 13:50 Blood Type O Positive 10/02/23 15:25 Rho(D) Type Rh positive 10/02/23 15:25 Antibody Screen Negative 10/02/23 15:25 Crossmatch See Detail 10/02/23 15:25 A&P Assessment and plan (1) Elevated troponin: Most likely this patient had a recent non-ST relation myocardial infarction. The EKG is suggestive of anterolateral wall ischemia. The hemoglobin seems to be stable at this time. If the hemoglobin continues to remain stable, may consider cardiac catheterization to further evaluate the coronary status as well as the graft status. The hemoglobin went up to 9 today. If it continues to remain stable, may consider cardiac catheterization tomorrow. (2) Cardiomyopathy due to hypertension, with heart failure: May give IV Lasix on a as needed basis LV ejection fraction was found to be around 40%, visual. May continue the current management. (3) Atherosclerotic heart disease of [place] coronary artery with other forms of angina pectoris: A repeat cardiac catheterization would be appropriate to reevaluate the coronary arteries. Hemoglobin seems to be holding up. (4) DM2 (diabetes mellitus, type 2): May continue on the current management. Creatinine was 1.1 today. May repeat the BMP tomorrow Qualifiers: Diabetes mellitus assisted insulin use: without termination clerk use Diabetes mellitus complication status: without complication Qualified Code(s): E11.9 - Type 2 diabetes mellitus without complications (5) Hyperlipidemia: Will continue on the current medications. Qualifiers: Hyperlipidemia type: mixed hyperlipidemia Qualified Code(s): E78.2 - Mixed hyperlipidemia (6) S/P AAA repair using bifurcation graft: Aneurysm sac has been shrinking. Will continue on the current follow-up evaluations (7) Presence of permanent cardiac pacemaker: The pacemaker function was found to be appropriate. Will continue on the current follow-up schedule. Plan Other problems are Chronic intermittent atrial fibrillation, currently in sinus rhythm. Response rate Anemia-status post blood transfusion, seems stable GI bleed Acute kidney injury Bilateral carotid artery disease, status post recent stent placement BMP and CBC in the morning. If they are acceptable, consider cardiac catheterization tomorrow. Based on the results, further recommendations will be made Repeat the BMP and CBC in the morning. If the hemoglobin is stable may consider a cardiac catheterization. Attestations Medical Necessity Statement*: Patient requires continued hospital stay for close monitoring and further management Coding Level of Care Code 94215 Diagnoses Elevated troponin R79.89 Cardiomyopathy due to hypertension, with heart failure I11.0; I43 Atherosclerotic heart disease of [place] coronary artery with other forms of angina pectoris I25.118 Type 2 diabetes mellitus without complication, without long-term current use of insulin E11.9 Diabetes mellitus termination clerk insulin use: without termination clerk use Diabetes mellitus complication status: without complication Mixed hyperlipidemia E78.2 Hyperlipidemia type: mixed hyperlipidemia S/P AAA repair using bifurcation graft Z95.828; Z86.79 Presence of permanent cardiac pacemaker Z95.0
--- NOTE | 2023-10-04 15:15 | PC.SOCIAL ---
Pg 2 IMM Explained to pt Pg 2 IMM. No questions voiced. Provided pt a copy. Initialed, dated, & timed a copy & placed in chart.
[2023-10-04 16:59] LABS: Glucose Point of Care 207 mg/dL (70-110)
[2023-10-04] MEDS: magnesium oxide 400 mg tablet PO (17:07)
[2023-10-04 20:34] LABS: Glucose Point of Care 230 mg/dL (70-110)
[2023-10-04] MEDS: insulin glargine 100 units/1 mL 40 UNIT SUBCUT (20:40)
[2023-10-05] VITALS (13 sets, daily range): BP systolic 105–124; BP diastolic 64–76; PULSE 76–100; RESP 16–30; TEMP 36.4–37; O2SAT 89–97
[2023-10-05] MEDS: acetaminophen 500 mg Tablet PO ×2 (02:11→21:03)
[2023-10-05 05:55] LABS: Basophils % 0.4 %; Eosinophils # 0.2 10^3/uL (0.0-0.8); Eosinophils % 2.4 %; Hematocrit 27.4 % (37-53); Lymphocytes # 1.3 10^3/uL (0.8-4.8); Lymphocytes % 13.9 %; Mean Corpuscular HGB Conc 30.3 g/dL (30-55); Mean Corpuscular Hemoglobin 28.8 pg (27-33); Mean Corpuscular Volume 95.1 fl (82-101); Mean Platelet Volume 10.5 fL (7.4-10.4); Monocytes # 0.8 10^3/uL (0.2-0.9); Monocytes % 8.1 %; Neutrophils # 6.92 10^3/uL (1.8-7.7); Neutrophils % 74.9 %; Nucleated Red Blood Cells % 0 %; Platelet Count 393 10^3/cmm (157-399); Red Blood Count 2.88 10^6/uL (3.85-5.65); Red Cell Distribution Width 19.5 % (12.1-15.1); White Blood Count 9.24 10^3/uL (3.29-11.43)
[2023-10-05 06:16] LABS: Anion Gap 13.1 (5-19); Blood Urea Nitrogen 16 mg/dL (8-23); Calcium 8.1 mg/dL (8.5-10.5); Carbon Dioxide 24 mmol/L (22-29); Chloride 107 mmol/L (98-107); Creatinine Clr Calc Pharmacy 104.7421; Glucose 154 mg/dL (65-115); Osmolality Calculated 294 mOsm/kg (285-295); Potassium 4.1 mmol/L (3.5-5.1); Sodium 140 mmol/L (136-145)
[2023-10-05 06:27] LABS: Glucose Point of Care 166 mg/dL (70-110)
--- NOTE | 2023-10-05 07:45 | P.PN_ITS ---
Subjective 2 Subjective: Requested H&H CTA chest did not show any signs of aortic dissection Angiogram is unremarkable showing occluded diagonal PRADHAN open Patient is struggling with shoulder pain Vitals/I&O/Wt Last Vital Signs Temp 97.5 F L 10/05/23 04:00 Pulse 76 10/05/23 04:00 Resp 18 10/05/23 04:00 BP 116/64 10/05/23 04:00 Pulse Ox 94 10/05/23 04:00 O2 Del Method Room Air 10/05/23 04:00 10/04/23 10/05/23 10/05/23 22:59 06:59 14:59 Intake Total 240 / 720 Output Total 700 / 1150 475 / 1625 Balance -460 / -430 -475 / -905 Weight last 48 hrs Weight 139.706 kg Weight 140.069 kg Physical Exam 2 Narrative: Pleasant cooperative No active chest pain Nonfocal Assessment Mild send fluid overload Currently on room air Abdomen soft Morbid obesity S1, S2 Data 10/05/23 11:31 10/05/23 04:48 A&P Assessment and plan (1) Presence of permanent cardiac pacemaker: (2) Cardiomyopathy due to hypertension, with heart failure: (3) Hypertension: Qualifiers: Hypertension type: primary hypertension Qualified Code(s): I10 - Essential (primary) hypertension (4) NSTEMI (non-ST elevated myocardial infarction): (5) Atherosclerotic heart disease of [place] coronary artery with other forms of angina pectoris: (6) DM2 (diabetes mellitus, type 2): Qualifiers: Diabetes mellitus complication status: without complication Diabetes mellitus extermination supervisor insulin use: without snf use Qualified Code(s): E11.9 - Type 2 diabetes mellitus without complications (7) Other iron deficiency anemias: (8) Weakness: Plan Non-STEMI On Plavix CT chest did not show any sign of aortic dissection Echo unremarkable Plan for angiogram if H&H is stable Request another H&H this morning Patient is n.p.o. Will follow-up with Dr. Armstrong Patient has been given 1 unit PRBC during this visit. Patient likely can be discharged by Saturday Angiogram showed patent PRADHAN, occluded diagonal Hemoglobin has remained stable, I will be okay to discharge him on Plavix and Xarelto Attestations 2 Medical Necessity Statement*: Will follow-up with cardiology for today's plan Diagnoses Presence of permanent cardiac pacemaker Z95.0 Cardiomyopathy due to hypertension, with heart failure I11.0; I43 Primary hypertension I10 Hypertension type: primary hypertension NSTEMI (non-ST elevated myocardial infarction) I21.4 Atherosclerotic heart disease of [place] coronary artery with other forms of angina pectoris I25.118 Type 2 diabetes mellitus without complication, without long-term current use of insulin E11.9 Diabetes mellitus complication status: without complication Diabetes mellitus extermination supervisor insulin use: without snf use Other iron deficiency anemias D50.8 Weakness R53.1
[2023-10-05] MEDS: ipratropium-albuterol 3 mL Neb INHALATION ×2 (08:07→16:45)
[2023-10-05] MEDS: atorvastatin 40 mg Tablet 80 MG PO (08:26)
[2023-10-05] MEDS: aspirin 81 mg EC Tablet PO (08:26)
[2023-10-05] MEDS: diphenhydrAMINE 25 mg Capsule 50 MG PO (08:26)
[2023-10-05] MEDS: sennosides-docusate Tablet 1 TAB PO (08:26)
[2023-10-05] MEDS: magnesium oxide 400 mg tablet PO ×2 (08:26→18:20)
[2023-10-05] MEDS: potassium chloride ER 20 mEq Tablet 40 MEQ PO (08:26)
--- NOTE | 2023-10-05 08:33 | XACV_ITS ---
Exam Room: 2 Ht: 201 cm Wt: 140 kg BSA: 2.83 m2 Gender: Male : 1955 Any Known Allergies: Other Exam Priority: Routine Procedure(s): Procedure Description: Diagnostic procedure Procedure Description: Venous Graft Catheterization Procedure Description: PRADHAN Graft Catheterization Procedure Description: Coronary Angiography Diagnostic Cath Status: Urgent Diagnostic Findings * Right Coronary Artery is known occluded. Not injected. * Left Main: chronic total occlusion, ULYSSES: 0 flow. * Bypass grafts: PRADHAN to LAD is patent. SVG jump graft to Diagonal artery and OM:Limb to diagonal artery is occluded. Limb to OM is patent. SVG to RCA is known occluded. Not injected.. * Coronary angiography shows right dominance. Conclusions 1. Severe multivessel CAD. Patent PRADHAN to LAD. Patent SVG to OM. Jump graft limb to diagonal artery is occluded now. Recommendations * Aggressive medical therapy. * Outpatient cardiology follow up in 4 weeks. Interventional RX Recommendation: medical therapy and/or counseling Diagnostic RX Recommendation: medical therapy and/or counseling Pressures Phase:Rest AO : 102 / 51 ( 67 ) @ 10:04:00 AM Clinical Evaluation EBL: 5mL-10mL Procedural Details Procedure Consent Obtained. Pre-Procedure Time Out. Identified patient by full name and date of as verbalized by the patient/guarantor. Does the consent match the physician's order: Yes. Accurate & Complete Informed Consent: Yes. Inpatient/Outpatient History & Physical on Chart: Yes. If H&P is completed, is and addenduem needed: No. Visualize and Verify Site with Patient/Guarantor: N/A. Relevant Radiology Images available: Yes. The risks, benefits, and alternatives of sedation and/or procedure were discussed by physician. The patient agrees to continue. Procedure started. [facility] Clinical Fraility Score: 3: Managing Well. Heel Slicker Indications: Worsening Angina. Chest Pain Symptom Assessment: Typical Angina Symptoms. Cardiovascular Instability: No. Correct patient, site and procedure confirmed by cath team. PERRLA. Strong, equal hand logistics technician bilaterally. Lungs clear x 5 lobes. IV Site on Arrival: 18 gauge in the left anticubital. IV Fluids: 0.9% NaCl at KVO. 0 mL infused prior to laboratory animal facility supervisor. Pre Procedural Pulses: bilateral dorsalis pedis was Doppled. Pre Procedural Pulses: bilateral posterior tibial was Doppled. Oxygen started at 2liters/min via nasal canula. bilateral groins was prepped with chloroprep then draped in the usual sterile fashion. Physician notified. Baseline sample Acquired. HR: 76 BPM. Patient's family unavailable. Equipment: 6F - Radial. Cardiac Cath Pack. ACIST Manifold Kit Model BT 2000. Heparinized Saline (2 units/mL), 1000 mL bag. Physician arrived. Physician scrubbed in. Immediate Pre-Procedure Time Out. Correct Patient: Yes; Correct Procedure: Yes; Correct Site: Yes; Correct Patient Position: Yes; Correct Supplies: Yes; Dried Flammable Prep: Yes; Blood Products Available: N/A;. Lidocaine 1% infiltrated to the right groin. Arterial access obtained with micropuncture set. A 5 bangladeshi JL4 catheter in over wire. Cine of LCA performed, occluded. Catheter removed over the exchange J wire. A 5 bangladeshi JR4 catheter in over the exchange J wire. Jump graft to the OM and Diagonal visualized. Catheter redirected to the PRADHAN. PRADHAN to LAD visualized. Catheter removed over the exchange J wire. A Right femoral angiogram was performed to determine safe placement of closure device. A Mynx was successful obtaining hemostatsis at the Right Femoral artery insertion site. Lot # [id number]. Exp. . Post Procedure: Pulses reassessed and unchanged. PERRLA. Strong, equal hand logistics technician bilaterally. No VTE prophylaxis required. Medication's Wasted: Lidocaine 1% = 11 mL. Medication's Wasted: Heparin = 1000 Units mL. Total IV fluids: 50 mL. Post-op diagnosis: Occluded SVG-->RCA and SVG-->Diagonal. Complications: none. Estimated blood loss: 5mL-10mL. Responsiveness - Normal response to verbal stimuli; alert and oriented, PERRLA. Airway - Unaffected, no intervention required; spontaneous ventilation. Circulation: W/N/L, pulses unchanged. Nausea/Vomiting: No. Medication's Wasted: Other = Fentanyl 25 mcg. Procedure completed. Patient transferred by bed to 1st floor. Vital chart was stopped. Access Site Site: Right Femoral artery Sheath Size: 6 Fr Hemostasis Method: Mynx Hemostasis Success: Successful Procedure Medications Start: 8:51 AM Stop: 8:51 AM Medication: Versed Amount: 1 mg Route: I.V. Start: 8:54 AM Stop: 8:54 AM Medication: Fentanyl Amount: 50 mcg Route: I.V. Start: 8:57 AM Stop: 8:57 AM Medication: Versed Amount: 1 mg Route: I.V. Start: 9:16 AM Stop: 9:16 AM Medication: Fentanyl Amount: 25 mcg Route: I.V. I, the attending physician, have reviewed and verified all procedure medications. Yes, all medications given per verbal order Report Signatures Finalized by Contreras Carvajal MD on 10/12/2023 01:20 PM
--- NOTE | 2023-10-05 08:36 | PC.NURSE ---
pt taken to laborer shaft sinking at approx. 0830
--- NOTE | 2023-10-05 08:48 | W.PM.OPSUD ---
Surgery/Procedure H&P Update DATE OF PROCEDURE: October 05, 2023 DATE H&P PERFORMED: 10/02/23 H&P UPDATE INFORMATION: I have reviewed H&P completed within last 30 days, I have examined patient prior to procedure and No changes to prior documentation PREOP DIAGNOSIS: NSTEMI PRIMARY INDICATION FOR PROCEDURE: NSTEMI PLANNED PROCEDURE: Left heart cath with possible percutaneous coronary intervention PATIENT REASSESSED PRIOR TO SEDATION, WITH NO CHANGE NOTED: Yes PHYSICAL EXAM: alert, oriented x 3, clear to auscultation bilaterally and regular rate & rhythm AIRWAY EVAL/ANESTHESIA PLAN: normal airway, ASA III, Local Anesthesia, Risks, benefits & alternatives of sedation and/or procedure discussed and Patient agrees to continue as planned ADDITIONAL INFORMATION: Moderate sedation
--- NOTE | 2023-10-05 09:48 | PM.PN ---
Subjective Subjective: Patient had chest pain last night as well. Coronary angiogram was performed today that shows patent PRADHAN to LAD and patent SVG to OM. SVG to diagonal is occluded now ( was patent on previous angiogram from 2020). Medical therapy for that. Vitals/I&O/Wt Last Vital Signs Temp 97.6 F 10/05/23 08:52 Pulse 77 10/05/23 08:52 Resp 18 10/05/23 08:52 BP 113/66 10/05/23 08:52 Pulse Ox 97 10/05/23 08:52 O2 Del Method Room Air 10/05/23 08:08 10/04/23 10/05/23 10/05/23 22:59 06:59 14:59 Intake Total 240 / 720 Output Total 700 / 1150 475 / 1625 Balance -460 / -430 -475 / -905 Weight last 48 hrs Weight 308 lb Weight 308 lb 12.8 oz Physical Exam Narrative: GENERAL: Patient is alert, awake and oriented x3. [] NECK: No jugular vein distension. [] HEENT: No cyanosis. No icterus. No pallor. [] HEART: Regular S1 and S2. No murmur, rub or gallop. [] LUNGS: Clear to auscultate bilaterally. [] CENTRAL NERVOUS SYSTEM: Grossly nonfocal. [] EXTREMITIES: Lower extremities with 1+ edema bilaterally. Data 10/05/23 04:48 10/05/23 04:48 A&P Assessment and plan (1) Elevated troponin: . (2) Cardiomyopathy due to hypertension, with heart failure: (3) Atherosclerotic heart disease of [place] coronary artery with other forms of angina pectoris: (4) DM2 (diabetes mellitus, type 2): Qualifiers: Diabetes mellitus complication status: without complication Diabetes mellitus joint terminal attack controller insulin use: without joint terminal attack controller use Qualified Code(s): E11.9 - Type 2 diabetes mellitus without complications (5) Hyperlipidemia: Qualifiers: Hyperlipidemia type: mixed hyperlipidemia Qualified Code(s): E78.2 - Mixed hyperlipidemia (6) S/P AAA repair using bifurcation graft: (7) Presence of permanent cardiac pacemaker: Plan Patient underwent coronary angiogram demonstrates patent PRADHAN to LAD and SVG to OM. Medical therapy. Thank you for involving us with care of this patient. Please call with questions. Attestations Medical Necessity Statement*: Care expected to cross 2 midnights. Coding Level of Care Code Acute Code for Chg Fwd Diagnoses Elevated troponin R79.89 Cardiomyopathy due to hypertension, with heart failure I11.0; I43 Atherosclerotic heart disease of [place] coronary artery with other forms of angina pectoris I25.118 Type 2 diabetes mellitus without complication, without long-term current use of insulin E11.9 Diabetes mellitus complication status: without complication Diabetes mellitus joint terminal attack controller insulin use: without joint terminal attack controller use Mixed hyperlipidemia E78.2 Hyperlipidemia type: mixed hyperlipidemia S/P AAA repair using bifurcation graft Z95.828; Z86.79 Presence of permanent cardiac pacemaker Z95.0
[2023-10-05] MEDS: morphine 4 mg/mL SDV 1 mL 2 MG IVP (11:39)
[2023-10-05] MEDS: ondansetron 2 mg/ML SDV 2 mL 4 MG IVP (11:40)
[2023-10-05 11:43] LABS: Glucose Point of Care 165 mg/dL (70-110)
--- NOTE | 2023-10-05 12:00 | PC.NURSE ---
1200 pain on lower chest,left shoulder blade and abdomen notified dr baum. he will put the orders.
[2023-10-05] MEDS: lidocaine 2% viscous 15 ML, aluminum-mag hydrox-simethicon 30 ML, sucralfate oral liq 1 GM PO (13:31)
--- NOTE | 2023-10-05 14:40 | PC.NURSE ---
physician notification still complains of coughing and short of breath has coarse crackles on bases. PO Lasix not given this AM. Received tel order back to give one time 20 mg IV lasix.
[2023-10-05] MEDS: HYDROmorphone 1 mg/mL INJ 1 mL 0.400000000000000022 MG IVP ×3 (15:19→23:32)
--- NOTE | 2023-10-05 15:35 | PC.NURSE ---
pt stated GI cocktail helped the abdominal pain.
[2023-10-05] MEDS: FUROsemide 10 mg/mL SDV 2mL 20 MG IVP (15:41)
[2023-10-05 16:39] LABS: Glucose Point of Care 174 mg/dL (70-110)
[2023-10-05] MEDS: insulin lispro 100 unit/1 mL SUBCUT (18:20)
[2023-10-05 20:37] LABS: Glucose Point of Care 181 mg/dL (70-110)
[2023-10-05] MEDS: insulin glargine 100 units/1 mL 40 UNIT SUBCUT (20:56)
[2023-10-05 23:39] LABS: Glucose Point of Care 198 mg/dL (70-110)
[2023-10-06] VITALS (15 sets, daily range): BP systolic 95–118; BP diastolic 56–75; PULSE 78–93; RESP 14–22; TEMP 36.6–37.1; O2SAT 90–98
[2023-10-06] MEDS: morphine 4 mg/mL SDV 1 mL 2 MG IVP ×4 (02:37→18:55)
[2023-10-06] MEDS: HYDROmorphone 1 mg/mL INJ 1 mL 0.400000000000000022 MG IVP (03:52)
[2023-10-06] MEDS: ondansetron 2 mg/ML SDV 2 mL 4 MG IVP ×3 (04:01→18:55)
[2023-10-06] MEDS: ipratropium-albuterol 3 mL Neb INHALATION ×2 (04:24→08:52)
--- NOTE | 2023-10-06 05:25 | PC.NURSE ---
Patient's oxygen saturation dropped to 44 percent. When nurse walked into room, patient was resting with eyes closed. This nurse tapped on patient and asked patient are you okay? Patient woke up and took a large gasp and oxygen saturation quickly came back up to 95. Patient states he wears a CPAP at home at night. Dr. Gay notified. CPAP ordered.
--- NOTE | 2023-10-06 06:26 | PC.NURSE ---
Addendum entered by Emi Galvez RN 10/06/23 06:57: CT spine ordered. Original Note: Dr. Brown notified that patient had been in pain throughout the night even with PRN Dilaudid, Morphine, and Tylenol. Pain is in shoulders, chest, and neck and patient states he has had this pain for one week.
[2023-10-06 06:28] LABS: Glucose Point of Care 189 mg/dL (70-110)
[2023-10-06] MEDS: acetaminophen 500 mg Tablet PO (06:32)
--- NOTE | 2023-10-06 06:45 | CTR_ITS ---
PROCEDURE INFORMATION: Exam: CT Cervical Spine Without Contrast Exam date and time: 10/06/2023 9:18 AM Age: 68 years old Clinical indication: Pain; Other: Left shoulder; Prior surgery; Surgery date: 6+ months; Surgery type: Bilateral carotid stents, ; additional info: Shoulder pain TECHNIQUE: Imaging protocol: Computed tomography of the cervical spine without contrast. Radiation optimization: All CT scans at this facility use at least one of these dose optimization techniques: automated exposure control; mA and/or kV adjustment per patient size (includes targeted exams where dose is matched to clinical indication); or iterative reconstruction. COMPARISON: CR XR cervical spine fl/ex [id number] 01/18/2023 11:06 AM RADIATION DOSE METRICS: Total DLP (mGy-cm): 802.57 FINDINGS: Tubes, catheters and devices: Pacemaker wires. Bones: There is demineralization of the visualized bones. There is mild loss of height of the C7, T1 and T2 vertebral bodies. Moderate anterior C1-C2 degenerative disease. Mild curvature of the cervicothoracic spine convex to the left. Multilevel uncovertebral joint hypertrophy causing mild multilevel neural foraminal bony narrowing. Lungs: There are bilateral apical fibrotic changes. Pleural spaces: Small bilateral pleural effusions. Vasculature: There are bilateral internal carotid artery stents. Soft tissues: Unremarkable. CT/CT cervical spin wo con* [id number] IMPRESSION: Multilevel degenerative disease of the cervical spine with mild bony canal stenosis and mild bony neural foraminal narrowing.
--- NOTE | 2023-10-06 08:12 | P.PN_ITS ---
Subjective 2 Subjective: Patient is doing well. No chest pain. His creatinine trend up today. Vitals/I&O/Wt Last Vital Signs Temp 98.0 F 10/06/23 04:00 Pulse 80 10/06/23 07:32 Resp 16 10/06/23 07:32 BP 95/56 10/06/23 07:32 Pulse Ox 91 10/06/23 07:32 O2 Del Method Nasal Cannula 10/06/23 07:32 O2 Flow Rate 3 10/06/23 04:28 10/05/23 10/06/23 10/06/23 22:59 06:59 14:59 Intake Total 600 / 600 500 / 1100 Output Total 490 / 740 350 / 1090 Balance 110 / -140 150 / 10 Weight last 48 hrs Weight 308 lb Physical Exam 2 Narrative: GENERAL: Patient is alert, awake and oriented x3. [] NECK: No jugular vein distension. [] HEENT: No cyanosis. No icterus. No pallor. [] HEART: Regular S1 and S2. No murmur, rub or gallop. [] LUNGS: Clear to auscultate bilaterally. [] CENTRAL NERVOUS SYSTEM: Grossly nonfocal. [] EXTREMITIES: Lower extremities with 1+ edema bilaterally. Data 10/06/23 08:58 10/06/23 08:58 A&P Assessment and plan (1) Elevated troponin: . (2) Cardiomyopathy due to hypertension, with heart failure: (3) Atherosclerotic heart disease of [place] coronary artery with other forms of angina pectoris: (4) DM2 (diabetes mellitus, type 2): Qualifiers: Diabetes mellitus group home insulin use: without long term care administrator use Diabetes mellitus complication status: without complication Qualified Code(s): E11.9 - Type 2 diabetes mellitus without complications (5) Hyperlipidemia: Qualifiers: Hyperlipidemia type: mixed hyperlipidemia Qualified Code(s): E78.2 - Mixed hyperlipidemia (6) S/P AAA repair using bifurcation graft: (7) Presence of permanent cardiac pacemaker: Plan Patient underwent coronary angiogram demonstrated patent PRADHAN to LAD and SVG to OM. Medical therapy. Creatinine trended up. Gentle fluid. Monitor renal function today. Thank you for involving us with care of this patient. Please call with questions. Attestations 2 Medical Necessity Statement*: Care expected to cross 2 midnights. Coding Level of Care Code Acute Code for Chg Fwd Diagnoses Elevated troponin R79.89 Cardiomyopathy due to hypertension, with heart failure I11.0; I43 Atherosclerotic heart disease of [place] coronary artery with other forms of angina pectoris I25.118 Type 2 diabetes mellitus without complication, without long-term current use of insulin E11.9 Diabetes mellitus long term care administrator insulin use: without long term care administrator use Diabetes mellitus complication status: without complication Mixed hyperlipidemia E78.2 Hyperlipidemia type: mixed hyperlipidemia S/P AAA repair using bifurcation graft Z95.828; Z86.79 Presence of permanent cardiac pacemaker Z95.0
[2023-10-06 09:21] LABS: Basophils % 0.4 %; Eosinophils % 0.3 %; Hematocrit 27.2 % (37-53); Lymphocytes # 1.2 10^3/uL (0.8-4.8); Lymphocytes % 10.4 %; Mean Corpuscular HGB Conc 29.8 g/dL (30-55); Mean Corpuscular Hemoglobin 28.6 pg (27-33); Mean Corpuscular Volume 96.1 fl (82-101); Mean Platelet Volume 10.3 fL (7.4-10.4); Monocytes # 1.1 10^3/uL (0.2-0.9); Monocytes % 9.6 %; Neutrophils # 8.75 10^3/uL (1.8-7.7); Neutrophils % 78.9 %; Nucleated Red Blood Cells % 0 %; Platelet Count 454 10^3/cmm (157-399); Red Blood Count 2.83 10^6/uL (3.85-5.65); Red Cell Distribution Width 19.4 % (12.1-15.1); White Blood Count 11.07 10^3/uL (3.29-11.43)
[2023-10-06 09:39] LABS: Anion Gap 13.3 (5-19); Blood Urea Nitrogen 20 mg/dL (8-23); Calcium 8.1 mg/dL (8.5-10.5); Carbon Dioxide 25 mmol/L (22-29); Chloride 101 mmol/L (98-107); Glomerular Filtration Rate 46.8 mL/min (90-130); Glucose 206 mg/dL (65-115); Osmolality Calculated 287 mOsm/kg (285-295); Potassium 5.3 mmol/L (3.5-5.1); Sodium 134 mmol/L (136-145)
[2023-10-06 09:40] LABS: Creatinine Clr Calc Pharmacy 76.8109
[2023-10-06] MEDS: magnesium oxide 400 mg tablet PO ×2 (10:09→17:05)
[2023-10-06] MEDS: FUROsemide 20 mg Tablet PO (10:09)
[2023-10-06] MEDS: potassium chloride ER 20 mEq Tablet 40 MEQ PO (10:10)
[2023-10-06] MEDS: rivaroxaban 10 mg Tablet 20 MG PO (10:10)
[2023-10-06] MEDS: clopidogrel 75 mg Tablet PO (10:10)
[2023-10-06] MEDS: sennosides-docusate Tablet 1 TAB PO (10:10)
[2023-10-06] MEDS: insulin lispro 100 unit/1 mL SUBCUT ×3 (10:11→17:05)
--- NOTE | 2023-10-06 11:15 | PM.PN ---
Subjective Subjective: Patient doing well Discharge held secondary to worsening creatinine Otherwise no significant complaints Vitals/I&O/Wt Last Vital Signs Temp 98.1 F 10/07/23 08:00 Pulse 76 10/07/23 08:23 Resp 16 10/07/23 08:23 BP 93/56 10/07/23 09:12 Pulse Ox 96 10/07/23 08:23 O2 Del Method Nasal Cannula 10/07/23 09:12 O2 Flow Rate 3 10/07/23 09:12 10/06/23 10/07/23 10/07/23 22:59 06:59 14:59 Intake Total 240 / 720 340 / 340 Output Total 375 / 375 275 / 650 Balance -135 / 345 -275 / 70 340 / 340 Physical Exam Narrative: Sign of fluid overload present Hemodynamically stable Slightly low blood pressure Awake and alert Currently on room air Pleasant cooperative Nonfocal neuroexam Data 10/07/23 08:52 10/07/23 08:52 A&P Assessment and plan (1) Congestive heart failure: Qualifiers: Heart failure chronicity: acute on chronic Heart failure type: unspecified Qualified Code(s): I50.9 - Heart failure, unspecified (2) NSTEMI (non-ST elevated myocardial infarction): (3) DM2 (diabetes mellitus, type 2): Qualifiers: Diabetes mellitus jail insulin use: without superintendent container terminal use Diabetes mellitus complication status: without complication Qualified Code(s): E11.9 - Type 2 diabetes mellitus without complications (4) Cervical radiculopathy due to degenerative joint disease of spine: Plan Non-STEMI Medical management Chronically occluded vessel Contrast-induced nephropathy Monitor kidney function Diastolic CHF continue diuretics Intermittent use of oxygen Acute GI bleed status post blood transfusion in the past Current hemoglobin stable Monitor for now Patient was given a unit of blood in the hospital He may resume Plavix and Xarelto at discharge Shoulder pain is likely cervical radiculopathy No sign of aortic dissection Attestations Medical Necessity Statement*: Discharge likely on Saturday Diagnoses Congestive heart failure I50.9 Heart failure chronicity: acute on chronic Heart failure type: unspecified NSTEMI (non-ST elevated myocardial infarction) I21.4 Type 2 diabetes mellitus without complication, without long-term current use of insulin E11.9 Diabetes mellitus jail insulin use: without jail use Diabetes mellitus complication status: without complication Cervical radiculopathy due to degenerative joint disease of spine M47.22
--- NOTE | 2023-10-06 11:31 | PC.NURSE ---
Provider ordered to stop the discharge orders for today since patients creatinine level is higher today.
[2023-10-06 12:04] LABS: Glucose Point of Care 219 mg/dL (70-110)
[2023-10-06 16:58] LABS: Glucose Point of Care 175 mg/dL (70-110)
--- NOTE | 2023-10-06 17:08 | PC.NURSE ---
Patient was given morphine 2 mg IVP and zofran 2mg at 1255. Student nurse, Jodie, scanned these medications and watched nurse give them. Waste was witnessed by YEIMY Cameron. Patient asked when he could get another dose of pain medication at 1700 and nursing reviewed MAR and noticed that scanned above medications were not saved.
[2023-10-06 20:52] LABS: Glucose Point of Care 245 mg/dL (70-110)
[2023-10-06] MEDS: insulin glargine 100 units/1 mL 40 UNIT SUBCUT (21:36)
[2023-10-07] VITALS (14 sets, daily range): BP systolic 87–117; BP diastolic 51–68; PULSE 73–86; RESP 15–27; TEMP 36.5–36.9; O2SAT 92–100
[2023-10-07 06:31] LABS: Glucose Point of Care 196 mg/dL (70-110)
[2023-10-07] MEDS: ipratropium-albuterol 3 mL Neb INHALATION ×3 (08:20→21:08)
[2023-10-07] MEDS: insulin lispro 100 unit/1 mL SUBCUT ×3 (09:06→18:02)
[2023-10-07] MEDS: sennosides-docusate Tablet 1 TAB PO (09:07)
[2023-10-07] MEDS: clopidogrel 75 mg Tablet PO (09:07)
[2023-10-07] MEDS: rivaroxaban 10 mg Tablet 20 MG PO (09:07)
[2023-10-07] MEDS: magnesium oxide 400 mg tablet PO ×2 (09:07→18:02)
[2023-10-07 09:17] LABS: Basophils % 0.2 %; Eosinophils # 0.1 10^3/uL (0.0-0.8); Eosinophils % 0.9 %; Hematocrit 26.5 % (37-53); Lymphocytes # 1.1 10^3/uL (0.8-4.8); Lymphocytes % 10.6 %; Mean Corpuscular HGB Conc 29.1 g/dL (30-55); Mean Corpuscular Hemoglobin 27.6 pg (27-33); Mean Platelet Volume 10.5 fL (7.4-10.4); Monocytes % 9.4 %; Neutrophils # 8.26 10^3/uL (1.8-7.7); Neutrophils % 78.4 %; Nucleated Red Blood Cells % 0.2 %; Platelet Count 427 10^3/cmm (157-399); Red Blood Count 2.79 10^6/uL (3.85-5.65); White Blood Count 10.54 10^3/uL (3.29-11.43)
--- NOTE | 2023-10-07 09:22 | PC.CHAP ---
Pastoral Care Encounter/Spiritual Assessment Type of Contact [] Declined drill press set up operator visit [] Patient/Family/Request visit [] Outpatient visit [] Follow-up visit [] Physician referral [] Code/Alert [x] Routine visit [] Staff referral [] Actively dying [] Patient sleeping [] Family support [] [] Out of room [] Palliative care [] [x] Receiving care in room [] Pre-surgical visit [] Trauma [] Long length of stay [] ICU visit [] Other: Relational/Emotional Strength [] Patient feels connected with others/family/visitors/staff [] Distress [] Loneliness/isolation [] Abandonment Spirituality of Patient [] Person of [place] [] Attends Taoism of their [place] [] Believes in Prayer [] Reads Bible or Methodist materials [] There are Spiritual issues to be addressed Rn Research Interventions [x] Prayer [] Active listening [] Non-anxious presence [] Spiritual/emotional support [] Crisis/trauma care [] Spiritual counseling [] Bereavement support [] Provided bereavement packet [] Provided Bible/devotional materials [] Provided toy/stuffed animal, coloring book to patient or family member [] Provided Communion [] Anointing/[place] [] Salvation [] Completed spiritual assessment [] Other: Impact on Illness or Injury [] Angry [] Fearful [] Anxious [] Often cries [] Exhaustion [] Unable to work [] Unable to attend rastafari [] Unable to walk/stand [] Unable to read [] Unable to drive [] Unable to eat/drink [] Unable to sleep [] Unable to be with family [] Patient intubated [] Other: Summary Time spent with patient
[2023-10-07 09:28] LABS: Anion Gap 16.5 (5-19); Blood Urea Nitrogen 33 mg/dL (8-23); Calcium 8.4 mg/dL (8.5-10.5); Carbon Dioxide 23 mmol/L (22-29); Chloride 98 mmol/L (98-107); Creatinine Clr Calc Pharmacy 67.7743; Glomerular Filtration Rate 40.5 mL/min (90-130); Glucose 185 mg/dL (65-115); Osmolality Calculated 286 mOsm/kg (285-295); Potassium 5.5 mmol/L (3.5-5.1); Sodium 132 mmol/L (136-145)
[2023-10-07] MEDS: FUROsemide 40 mg Tablet PO (10:35)
--- NOTE | 2023-10-07 11:18 | P.PN_ITS ---
Subjective 2 Subjective: Creatinine 1.7 Discharge on hold Continue Lasix Monitor hemoglobin Patient is not endorsing new complaints Vitals/I&O/Wt Last Vital Signs Temp 98.1 F 10/07/23 08:00 Pulse 76 10/07/23 08:23 Resp 16 10/07/23 08:23 BP 93/56 10/07/23 09:12 Pulse Ox 96 10/07/23 08:23 O2 Del Method Nasal Cannula 10/07/23 09:12 O2 Flow Rate 3 10/07/23 09:12 10/06/23 10/07/23 10/07/23 22:59 06:59 14:59 Intake Total 240 / 720 340 / 340 Output Total 375 / 375 275 / 650 Balance -135 / 345 -275 / 70 340 / 340 Physical Exam 2 Narrative: soft distended abdomen Signs of fluid overload present Currently on 2 L Nonfocal neuroexam S1, S2 Pleasant cooperative Data 10/07/23 08:52 10/07/23 08:52 A&P Assessment and plan (1) Cardiomyopathy due to hypertension, with heart failure: (2) Congestive heart failure: Qualifiers: Heart failure chronicity: acute on chronic Heart failure type: u nspecified Qualified Code(s): I50.9 - Heart failure, unspecified (3) NSTEMI (non-ST elevated myocardial infarction): (4) DM2 (diabetes mellitus, type 2): Qualifiers: Diabetes mellitus termite control service representative insulin use: without assisted use Diabetes mellitus complication status: without complication Qualified Code(s): E11.9 - Type 2 diabetes mellitus without complications (5) Other iron deficiency anemias: Plan Contrast-induced nephropathy Creatinine 1.7 today Clinically patient looks fluid overload Continue Lasix Monitor blood pressure Non-STEMI Medical management Anemia secondary to GI bleed: Monitor hemoglobin No need of blood transfusion as of now Shoulder pain likely cervical radiculopathy no sign of aortic dissection And plan to discharge patient once creatinine starts trending down History of carotid disease, Continue Xarelto with [place] Attestations 2 Medical Necessity Statement*: Discharge likely tomorrow if creatinine trending down Diagnoses Cardiomyopathy due to hypertension, with heart failure I11.0; I43 Congestive heart failure I50.9 Heart failure chronicity: acute on chronic Heart failure type: unspecified NSTEMI (non-ST elevated myocardial infarction) I21.4 Type 2 diabetes mellitus without complication, without long-term current use of insulin E11.9 Diabetes mellitus termite control service representative insulin use: without termite control service representative use Diabetes mellitus complication status: without complication Other iron deficiency anemias D50.8
[2023-10-07 12:48] LABS: Glucose Point of Care 230 mg/dL (70-110)
[2023-10-07 13:57] LABS: Hematocrit 25.4 % (37-53)
[2023-10-07 17:36] LABS: Glucose Point of Care 232 mg/dL (70-110)
--- NOTE | 2023-10-07 18:04 | P.PN_ITS ---
Subjective 2 Subjective: Patient had the cardiac catheterization on Saturday. The angiogram did not reveal any revascularizable lesions. It was decided to continue medical treatment. The patient developed some contrast-induced kidney injury. Medications: Medication Review Details: Current Medications Acetaminophen (Acetaminophen 500 Mg Tablet) 500 mg PO Q4H PRN PRN Reason: fever Last Admin: 10/06/23 06:32 Dose: 500 mg Albuterol/Ipratropium (Ipratropium-Albuterol 3 Ml Neb) 3 ml INHALATION Q6H PRN PRN Reason: SHORTNESS OF BREATH Last Admin: 10/07/23 16:53 Dose: 3 ml Atorvastatin Calcium (Atorvastatin 40 Mg Tablet) 80 mg PO DAILY ADARSH Last Admin: 10/07/23 09:08 Dose: Not Given Clopidogrel Bisulfate (Clopidogrel 75 Mg Tablet) 75 mg PO DAILY ADARSH Last Admin: 10/07/23 09:07 Dose: 75 mg Furosemide (Furosemide 10 Mg/Ml Sdv 4ml) 40 mg IVP Q24H ADARSH Last Admin: 10/02/23 17:44 Dose: 40 mg Heparin Sodium (Porcine) (Heparin 5,000 Unit/Ml Inj 1 Ml) 0 unit IV PRN PRN; Protocol PRN Reason: Heparin weight-base protocol Dextrose (D5w) 500 mls @ 0 mls/hr IV ONCE PRN; Protocol PRN Reason: Adult Acute Hypoglycemia Prot Dextrose (D10w) 125 mls @ 750 mls/hr IV PRN PRN; Protocol PRN Reason: Adult Acute Hypoglycemia Nursing Protocol Dextrose (D10w) 250 mls @ 1,000 mls/hr IV PRN PRN; Protocol PRN Reason: Adult Acute Hypoglycemia Nursing Protocol Heparin Sodium/Sodium Chloride (Heparin Drip) 25,000 unit in 500 mls @ 0 mls/hr IV .Q0M ADARSH; Protocol Insulin Glargine (Insulin Glargine 100 Units/1 Ml) 40 unit SUBCUT BEDTIME ADARSH Last Admin: 10/06/23 21:36 Dose: 40 unit Insulin Human Lispro (Insulin Lispro 100 Unit/1 Ml) 0 unit SUBCUT TIDWM ADARSH; Protocol Last Admin: 10/07/23 13:20 Dose: 8 unit Magnesium Oxide (Magnesium Oxide 400 Mg Tablet) 400 mg PO BID ADARSH Last Admin: 10/07/23 09:07 Dose: 400 mg Ondansetron HCl (Ondansetron 2 Mg/Ml Sdv 2 Ml) 4 mg IVP Q6H PRN PRN Reason: NAUSEA AND VOMITING Last Admin: 10/06/23 18:55 Dose: 4 mg Rivaroxaban (Rivaroxaban 10 Mg Tablet) 20 mg PO DAILY [facility] Last Admin: 10/07/23 09:07 Dose: 20 mg Senna/Docusate Sodium (Sennosides-Docusate Tablet) 1 tab PO DAILY [facility] Last Admin: 10/07/23 09:07 Dose: 1 tab Tramadol HCl (Tramadol 50 Mg Tablet) 50 mg PO Q6H PRN PRN Reason: MODERATE PAIN Vitals/I&O/Wt Last Vital Signs Temp 98.4 F 10/07/23 16:00 Pulse 86 10/07/23 16:55 Resp 16 10/07/23 16:55 BP 91/61 10/07/23 16:00 Pulse Ox 95 10/07/23 16:55 O2 Del Method Nasal Cannula 10/07/23 16:55 O2 Flow Rate 3 10/07/23 16:55 10/07/23 10/07/23 10/07/23 06:59 14:59 22:59 Intake Total 680 / 680 Output Total 275 / 650 200 / 200 Balance -275 / 70 480 / 480 Physical Exam 2 Narrative: GENERAL: The patient is alert and oriented times three. Not in any acute distress. HEENT: No significant pallor, icterus or lymphadenopathy.Oral cavity: There are no mucous membrane lesions. NECK: Trachea appears to be central. No masses noted. No JVD or thyromegaly appreciated. RESPIRATORY: Chest is symmetrical. No intercostals muscle retraction or any accessory muscle activation. There is no chest wall tenderness. Breath sounds are heard bilaterally. No rales or rhonchi heard. No evidence of any consolidation. BREASTS: Deferred. HEART: The heart sounds are normal. No S3 or S4. No significant murmurs. No pericardial rub ABDOMEN: No vessel pulsations or distention. No tenderness. No organomegaly appreciated. Bowel sounds are normally heard. : Deferred. RECTAL: Deferred. LYMPHATIC: No lymphadenopathy noted in the neck. EXTREMITIES: No edema or cyanosis. No clubbing. Right groin has no hematoma or bleeding. MUSCULOSKELETAL: No acute joint deformities or swelling SKIN: There are no significant rashes or ecchymosis NEUROPSYCHIATRIC: The patient is alert and oriented x3. Appears to be in a good mood. No tremors or rigidity noted. Data 10/08/23 04:44 10/08/23 04:44 Other Labs: Laboratory Last Values WBC 10.54 10^3/uL (3.29-11.43) 10/07/23 08:52 RBC 2.79 10^6/uL (3.85-5.65) L 10/07/23 08:52 Hgb 7.70 g/dL (11.27-16.99) L 10/07/23 13:45 Hct 25.4 % (37-53) L 10/07/23 13:45 MCV 95.0 fl (82-101) 10/07/23 08:52 MCH 27.6 pg (27-33) 10/07/23 08:52 MCHC 29.1 g/dL (30-55) L 10/07/23 08:52 RDW 19.0 % (12.1-15.1) H 10/07/23 08:52 Plt Count 427 10^3/cmm (157-399) H 10/07/23 08:52 MPV 10.5 fL (7.4-10.4) H 10/07/23 08:52 Neut % (Auto) 78.4 % 10/07/23 08:52 Lymph % (Auto) 10.6 % 10/07/23 08:52 Guthrie % (Auto) 9.4 % 10/07/23 08:52 Eos % (Auto) 0.9 % 10/07/23 08:52 Baso % (Auto) 0.2 % 10/07/23 08:52 Neut # (Auto) 8.26 10^3/uL (1.8-7.7) H 10/07/23 08:52 Lymph # (Auto) 1.1 10^3/uL (0.8-4.8) 10/07/23 08:52 Guthrie # (Auto) 1.0 10^3/uL (0.2-0.9) H 10/07/23 08:52 Eos # (Auto) 0.1 10^3/uL (0.0-0.8) 10/07/23 08:52 Baso # (Auto) 0.0 10^3/uL (0.0-0.1) 10/07/23 08:52 Nucleated RBC % (auto) 0.2 % 10/07/23 08:52 Nucleated RBCs # 0.0 /100WBC 10/07/23 08:52 PT 17.50 SECONDS (12.1-14.9) H 10/02/23 13:45 INR 1.39 (0.8-1.2) H 10/02/23 13:45 APTT 40.4 SECONDS (23.9-36.7) H 10/02/23 13:45 Specimen Type Arterial 10/02/23 13:55 Sample Site Radial, left 10/02/23 13:55 ABG pH 7.45 (7.35-7.45) 10/02/23 13:55 ABG pCO2 33.3 mmHg (35-45) L 10/02/23 13:55 ABG pO2 76.0 mmHg (80.0-100.0) L 10/02/23 13:55 ABG PO2/FiO2 Ratio 0 10/02/23 13:55 ABG HCO3 22.9 mmol/L (22-26) 10/02/23 13:55 ABG O2 Saturation 96.1 10/02/23 13:55 ABG Base Excess -1.0 mmol/L (-2.0-2.0) 10/02/23 13:55 Gustavo Test Pos 10/02/23 13:55 A-a O2 Gradient 4.1 mmHg (5-10) L 10/02/23 13:55 Hematocrit 24.0 % (42-52) L 10/02/23 13:55 Hgb O2 Saturation 91.9 % (95-100) L 10/02/23 13:55 Carboxyhemoglobin 3.2 %THgb (0.4-20.1) 10/02/23 13:55 Methemoglobin 1.1 % (0.4-1.5) 10/02/23 13:55 Total Hemoglobin 7.8 g/dL (14-18) L 10/02/23 13:55 Sodium 136.0 mmol/L (131-143) 10/02/23 13:55 Potassium 3.7 mmol/L (3.5-5.0) 10/02/23 13:55 Glucose 165.0 mg/dL (70-115) H 10/02/23 13:55 Ionized Calcium 1.2 mmol/L (1.1-1.4) 10/02/23 13:55 O2 Delivery Device Room air 10/02/23 13:55 FiO2 21.0 % 10/02/23 13:55 Make Up Operator Helper ID Cak 10/02/23 13:55 Sodium 132 mmol/L (136-145) L 10/07/23 08:52 Potassium 5.5 mmol/L (3.5-5.1) H 10/07/23 08:52 Chloride 98 mmol/L (98-107) 10/07/23 08:52 Carbon Dioxide 23 mmol/L (22-29) 10/07/23 08:52 Anion Gap 16.5 (5-19) 10/07/23 08:52 BUN 33 mg/dL (8-23) H 10/07/23 08:52 Creatinine 1.7 mg/dL (0.7-1.2) H 10/07/23 08:52 GFR Calculation 40.5 mL/min (90-130) L 10/07/23 08:52 Glucose 185 mg/dL (65-115) H 10/07/23 08:52 POC Glucose 232 mg/dL (70-110) H 10/07/23 17:31 Calculated Osmolality 286 mOsm/kg (285-295) 10/07/23 08:52 Calcium 8.4 mg/dL (8.5-10.5) L 10/07/23 08:52 Phosphorus 3.9 mg/dL (2.5-4.5) 10/03/23 04:18 Magnesium 2.3 mg/dL (1.7-2.3) 10/04/23 04:50 Total Bilirubin 0.2 mg/dL (0.15-1.2) 10/02/23 13:45 AST 14 U/L (0-40) 10/02/23 13:45 ALT 11 U/L (0-41) 10/02/23 13:45 Alkaline Phosphatase 92 U/L (40-130) 10/02/23 13:45 Troponin T Baseline 157 ng/L (0-15) H* 10/02/23 13:45 Troponin T 120 Minute 143.5 ng/L (0-15) H 10/02/23 15:25 Delta Troponin T -13.5 ABS# (0-10) L 10/02/23 15:25 Troponin T Hi Sens 6Hr 140.1 ng/L (0-15) H 10/02/23 20:45 Troponin T Hi Sens 6Hr Delta -16.9 ng/L (0-12) L 10/02/23 20:45 NT-Pro-B Natriuret Pep 6595 pg/mL (0-125) H 10/02/23 13:45 Total Protein 6.6 g/dL (6.6-8.7) 10/02/23 13:45 Albumin 3.7 g/dL (3.5-5.2) 10/02/23 13:45 Globulin 2.9 g/dL (1.3-4.6) 10/02/23 13:45 Influenza Type A Ag negative (Negative) 10/02/23 13:50 Influenza Type B Ag negative (Negative) 10/02/23 13:50 Blood Type O Positive 10/02/23 15:25 Rho(D) Type Rh positive 10/02/23 15:25 Antibody Screen Negative 10/02/23 15:25 Crossmatch See Detail 10/02/23 15:25 A&P Assessment and plan (1) Contrast-induced nephropathy: The BUN/creatinine seems to be going up. May continue the careful IV hydration (2) Atherosclerotic heart disease of [place] coronary artery with other forms of angina pectoris: Repeat cardiac catheterization findings as mentioned before (3) DM2 (diabetes mellitus, type 2): Continue on the current management Qualifiers: Diabetes mellitus complication status: without complication Diabetes mellitus penitentiary insulin use: without penitentiary use Qualified Code(s): E11.9 - Type 2 diabetes mellitus without complications (4) Hyperlipidemia: Will continue on the current medications. Qualifiers: Hyperlipidemia type: mixed hyperlipidemia Qualified Code(s): E78.2 - Mixed hyperlipidemia (5) S/P AAA repair using bifurcation graft: Aneurysm sac has been shrinking. Will continue on the current follow-up evaluations (6) Presence of permanent cardiac pacemaker: The pacemaker function was found to be appropriate. Will continue on the current follow-up schedule. Plan Other problems are Anemia, etiology? May need further workup. Attestations 2 Medical Necessity Statement*: Deferred to the primary Coding Level of Care Code 72063 Diagnoses Contrast-induced nephropathy N14.11; T50.8X5A Atherosclerotic heart disease of [place] coronary artery with other forms of angina pectoris I25.118 Type 2 diabetes mellitus without complication, without long-term current use of insulin E11.9 Diabetes mellitus complication status: without complication Diabetes mellitus buttermaker insulin use: without penitentiary use Mixed hyperlipidemia E78.2 Hyperlipidemia type: mixed hyperlipidemia S/P AAA repair using bifurcation graft Z95.828; Z86.79 Presence of permanent cardiac pacemaker Z95.0
[2023-10-07] MEDS: TRAMadol 50 mg Tablet PO (20:09)
[2023-10-07] MEDS: insulin glargine 100 units/1 mL 40 UNIT SUBCUT (20:10)
[2023-10-07] MEDS: acetaminophen 500 mg Tablet PO (20:12)
[2023-10-07 21:33] LABS: Glucose Point of Care 211 mg/dL (70-110)
[2023-10-08] VITALS (7 sets, daily range): BP systolic 97–118; BP diastolic 59–62; PULSE 76–85; RESP 16–21; TEMP 36.8–36.9; O2SAT 95–96
[2023-10-08] MEDS: acetaminophen 500 mg Tablet PO (04:18)
[2023-10-08] MEDS: TRAMadol 50 mg Tablet PO (04:18)
[2023-10-08 05:17] LABS: Basophils % 0.3 %; Eosinophils # 0.2 10^3/uL (0.0-0.8); Eosinophils % 1.4 %; Hematocrit 25.8 % (37-53); Lymphocytes # 1.1 10^3/uL (0.8-4.8); Lymphocytes % 9.3 %; Mean Corpuscular HGB Conc 29.1 g/dL (30-55); Mean Corpuscular Hemoglobin 27.4 pg (27-33); Mean Corpuscular Volume 94.2 fl (82-101); Mean Platelet Volume 10.4 fL (7.4-10.4); Monocytes # 0.9 10^3/uL (0.2-0.9); Monocytes % 7.9 %; Neutrophils # 9.44 10^3/uL (1.8-7.7); Neutrophils % 80.6 %; Nucleated Red Blood Cells % 0.3 %; Platelet Count 435 10^3/cmm (157-399); Red Blood Count 2.74 10^6/uL (3.85-5.65); White Blood Count 11.71 10^3/uL (3.29-11.43)
[2023-10-08 05:37] LABS: Blood Urea Nitrogen 41 mg/dL (8-23); Calcium 8.3 mg/dL (8.5-10.5); Carbon Dioxide 20 mmol/L (22-29); Chloride 99 mmol/L (98-107); Creatinine Clr Calc Pharmacy 72.0102; Glomerular Filtration Rate 43.5 mL/min (90-130); Glucose 233 mg/dL (65-115); Osmolality Calculated 290 mOsm/kg (285-295); Sodium 131 mmol/L (136-145)
[2023-10-08 06:39] LABS: Glucose Point of Care 228 mg/dL (70-110)
[2023-10-08] MEDS: ipratropium-albuterol 3 mL Neb INHALATION (08:26)
--- NOTE | 2023-10-08 09:08 | PC.CHAP ---
Pastoral Care Encounter/Spiritual Assessment Type of Contact [] Declined skills trainer visit [] Patient/Family/Request visit [] Outpatient visit [] Follow-up visit [] Physician referral [] Code/Alert [x] Routine visit [] Staff referral [] Actively dying [] Patient sleeping [] Family support [] [] Out of room [] Palliative care [] [] Receiving care in room [] Pre-surgical visit [] Trauma [] Long length of stay [] ICU visit [] Other: Relational/Emotional Strength [x] Patient feels connected with others/family/visitors/staff [] Distress [] Loneliness/isolation [] Abandonment Spirituality of Patient [x] Person of [place] [x] Attends Religion of their [place] [x] Believes in Prayer [x] Reads Bible or Yarsanism materials [] There are Spiritual issues to be addressed Applications Instructor Interventions [x] Prayer [x] Active listening [] Non-anxious presence [x] Spiritual/emotional support [] Crisis/trauma care [] Spiritual counseling [] Bereavement support [] Provided bereavement packet [] Provided Bible/devotional materials [] Provided toy/stuffed animal, coloring book to patient or family member [] Provided Communion [] Anointing/[place] [] Salvation [x] Completed spiritual assessment [] Other: Impact on Illness or Injury [] Angry [] Fearful [] Anxious [] Often cries [] Exhaustion [] Unable to work [] Unable to attend jehovah's witness [] Unable to walk/stand [] Unable to read [] Unable to drive [] Unable to eat/drink [] Unable to sleep [] Unable to be with family [] Patient intubated [] Other: Summary Time spent with patient 5 min
[2023-10-08] MEDS: rivaroxaban 10 mg Tablet 20 MG PO (09:32)
[2023-10-08] MEDS: sennosides-docusate Tablet 1 TAB PO (09:32)
[2023-10-08] MEDS: insulin lispro 100 unit/1 mL SUBCUT (09:33)
[2023-10-08] MEDS: magnesium oxide 400 mg tablet PO (09:33)
[2023-10-08] MEDS: clopidogrel 75 mg Tablet PO (09:33)
--- NOTE | 2023-10-08 09:58 | P.PN_ITS ---
Subjective 2 Subjective: Patient is feeling okay. The kidney function seems to be improving. No chest pain or shortness of breath. Vitals are stable. Medications: Medication Review Details: Current Medications Acetaminophen (Acetaminophen 500 Mg Tablet) 500 mg PO Q4H PRN PRN Reason: fever Last Admin: 10/08/23 04:18 Dose: 500 mg Albuterol/Ipratropium (Ipratropium-Albuterol 3 Ml Neb) 3 ml INHALATION Q6H PRN PRN Reason: SHORTNESS OF BREATH Last Admin: 10/08/23 08:26 Dose: 3 ml Atorvastatin Calcium (Atorvastatin 40 Mg Tablet) 80 mg PO DAILY [facility] Last Admin: 10/08/23 09:31 Dose: Not Given Clopidogrel Bisulfate (Clopidogrel 75 Mg Tablet) 75 mg PO DAILY [facility] Last Admin: 10/08/23 09:33 Dose: 75 mg Furosemide (Furosemide 10 Mg/Ml Sdv 4ml) 40 mg IVP Q24H ADARSH Last Admin: 10/02/23 17:44 Dose: 40 mg Heparin Sodium (Porcine) (Heparin 5,000 Unit/Ml Inj 1 Ml) 0 unit IV PRN PRN; Protocol PRN Reason: Heparin weight-base protocol Dextrose (D5w) 500 mls @ 0 mls/hr IV ONCE PRN; Protocol PRN Reason: Adult Acute Hypoglycemia Prot Dextrose (D10w) 125 mls @ 750 mls/hr IV PRN PRN; Protocol PRN Reason: Adult Acute Hypoglycemia Nursing Protocol Dextrose (D10w) 250 mls @ 1,000 mls/hr IV PRN PRN; Protocol PRN Reason: Adult Acute Hypoglycemia Nursing Protocol Heparin Sodium/Sodium Chloride (Heparin Drip) 25,000 unit in 500 mls @ 0 mls/hr IV .Q0M ADARSH; Protocol Insulin Glargine (Insulin Glargine 100 Units/1 Ml) 40 unit SUBCUT BEDTIME ADARSH Last Admin: 10/07/23 20:10 Dose: 40 unit Insulin Human Lispro (Insulin Lispro 100 Unit/1 Ml) 0 unit SUBCUT TIDWM ADARSH; Protocol Last Admin: 10/08/23 09:33 Dose: 8 unit Magnesium Oxide (Magnesium Oxide 400 Mg Tablet) 400 mg PO BID [facility] Last Admin: 10/08/23 09:33 Dose: 400 mg Ondansetron HCl (Ondansetron 2 Mg/Ml Sdv 2 Ml) 4 mg IVP Q6H PRN PRN Reason: NAUSEA AND VOMITING Last Admin: 10/06/23 18:55 Dose: 4 mg Rivaroxaban (Rivaroxaban 10 Mg Tablet) 20 mg PO DAILY [facility] Last Admin: 10/08/23 09:32 Dose: 20 mg Senna/Docusate Sodium (Sennosides-Docusate Tablet) 1 tab PO DAILY [facility] Last Admin: 10/08/23 09:32 Dose: 1 tab Sodium Chloride (Saline Nasal [place] 44ml Btl) 1 spray NASAL PRN PRN PRN Reason: DRYNESS Tramadol HCl (Tramadol 50 Mg Tablet) 50 mg PO Q6H PRN PRN Reason: MODERATE PAIN Last Admin: 10/08/23 04:18 Dose: 50 mg Vitals/I&O/Wt Last Vital Signs Temp 98.2 F 10/08/23 07:46 Pulse 79 10/08/23 08:32 Resp 16 10/08/23 08:27 BP 118/62 10/08/23 07:46 Pulse Ox 95 10/08/23 08:27 O2 Del Method Room Air 10/08/23 08:27 O2 Flow Rate 3 10/08/23 04:16 10/07/23 10/08/23 10/08/23 22:59 06:59 14:59 Intake Total 720 / 1400 600 / 2000 480 / 480 Output Total 200 / 400 300 / 700 Balance 520 / 1000 300 / 1300 480 / 480 Physical Exam 2 Narrative: GENERAL: The patient is alert and oriented times three. Not in any acute distress. HEENT: No significant pallor, icterus or lymphadenopathy.Oral cavity: There are no mucous membrane lesions. NECK: Trachea appears to be central. No masses noted. No JVD or thyromegaly appreciated. RESPIRATORY: Chest is symmetrical. No intercostals muscle retraction or any accessory muscle activation. There is no chest wall tenderness. Breath sounds are heard bilaterally. No rales or rhonchi heard. No evidence of any consolidation. BREASTS: Deferred. HEART: The heart sounds are normal. No S3 or S4. No significant murmurs. No pericardial rub ABDOMEN: No vessel pulsations or distention. No tenderness. No organomegaly appreciated. Bowel sounds are normally heard. : Deferred. RECTAL: Deferred. LYMPHATIC: No lymphadenopathy noted in the neck. EXTREMITIES: No edema or cyanosis. No clubbing. Right groin has no hematoma or bleeding. MUSCULOSKELETAL: No acute joint deformities or swelling SKIN: There are no significant rashes or ecchymosis NEUROPSYCHIATRIC: The patient is alert and oriented x3. Appears to be in a good mood. No tremors or rigidity noted. Data 10/08/23 10:07 10/08/23 04:44 Other Labs: Laboratory Last Values WBC 11.71 10^3/uL (3.29-11.43) H 10/08/23 04:44 RBC 2.74 10^6/uL (3.85-5.65) L 10/08/23 04:44 Hgb 7.50 g/dL (11.27-16.99) L 10/08/23 04:44 Hct 25.8 % (37-53) L 10/08/23 04:44 MCV 94.2 fl (82-101) 10/08/23 04:44 MCH 27.4 pg (27-33) 10/08/23 04:44 MCHC 29.1 g/dL (30-55) L 10/08/23 04:44 RDW 19.0 % (12.1-15.1) H 10/08/23 04:44 Plt Count 435 10^3/cmm (157-399) H 10/08/23 04:44 MPV 10.4 fL (7.4-10.4) 10/08/23 04:44 Neut % (Auto) 80.6 % 10/08/23 04:44 Lymph % (Auto) 9.3 % 10/08/23 04:44 [place] % (Auto) 7.9 % 10/08/23 04:44 Eos % (Auto) 1.4 % 10/08/23 04:44 Baso % (Auto) 0.3 % 10/08/23 04:44 Neut # (Auto) 9.44 10^3/uL (1.8-7.7) H 10/08/23 04:44 Lymph # (Auto) 1.1 10^3/uL (0.8-4.8) 10/08/23 04:44 [place] # (Auto) 0.9 10^3/uL (0.2-0.9) 10/08/23 04:44 Eos # (Auto) 0.2 10^3/uL (0.0-0.8) 10/08/23 04:44 Baso # (Auto) 0.0 10^3/uL (0.0-0.1) 10/08/23 04:44 Nucleated RBC % (auto) 0.3 % 10/08/23 04:44 Nucleated RBCs # 0.0 /100WBC 10/08/23 04:44 PT 17.50 SECONDS (12.1-14.9) H 10/02/23 13:45 INR 1.39 (0.8-1.2) H 10/02/23 13:45 APTT 40.4 SECONDS (23.9-36.7) H 10/02/23 13:45 Specimen Type Arterial 10/02/23 13:55 Sample Site Radial, left 10/02/23 13:55 ABG pH 7.45 (7.35-7.45) 10/02/23 13:55 ABG pCO2 33.3 mmHg (35-45) L 10/02/23 13:55 ABG pO2 76.0 mmHg (80.0-100.0) L 10/02/23 13:55 ABG PO2/FiO2 Ratio 0 10/02/23 13:55 ABG HCO3 22.9 mmol/L (22-26) 10/02/23 13:55 ABG O2 Saturation 96.1 10/02/23 13:55 ABG Base Excess -1.0 mmol/L (-2.0-2.0) 10/02/23 13:55 Gustavo Test Pos 10/02/23 13:55 A-a O2 Gradient 4.1 mmHg (5-10) L 10/02/23 13:55 Hematocrit 24.0 % (42-52) L 10/02/23 13:55 Hgb O2 Saturation 91.9 % (95-100) L 10/02/23 13:55 Carboxyhemoglobin 3.2 %THgb (0.4-20.1) 10/02/23 13:55 Methemoglobin 1.1 % (0.4-1.5) 10/02/23 13:55 Total Hemoglobin 7.8 g/dL (14-18) L 10/02/23 13:55 Sodium 136.0 mmol/L (131-143) 10/02/23 13:55 Potassium 3.7 mmol/L (3.5-5.0) 10/02/23 13:55 Glucose 165.0 mg/dL (70-115) H 10/02/23 13:55 Ionized Calcium 1.2 mmol/L (1.1-1.4) 10/02/23 13:55 O2 Delivery Device Room air 10/02/23 13:55 FiO2 21.0 % 10/02/23 13:55 Sap Portal Consultant ID Cak 10/02/23 13:55 Sodium 131 mmol/L (136-145) L 10/08/23 04:44 Potassium 5.0 mmol/L (3.5-5.1) 10/08/23 04:44 Chloride 99 mmol/L (98-107) 10/08/23 04:44 Carbon Dioxide 20 mmol/L (22-29) L 10/08/23 04:44 Anion Gap 17.0 (5-19) 10/08/23 04:44 BUN 41 mg/dL (8-23) H 10/08/23 04:44 Creatinine 1.6 mg/dL (0.7-1.2) H 10/08/23 04:44 GFR Calculation 43.5 mL/min (90-130) L 10/08/23 04:44 Glucose 233 mg/dL (65-115) H 10/08/23 04:44 POC Glucose 228 mg/dL (70-110) H 10/08/23 06:31 Calculated Osmolality 290 mOsm/kg (285-295) 10/08/23 04:44 Calcium 8.3 mg/dL (8.5-10.5) L 10/08/23 04:44 Phosphorus 3.9 mg/dL (2.5-4.5) 10/03/23 04:18 Magnesium 2.3 mg/dL (1.7-2.3) 10/04/23 04:50 Total Bilirubin 0.2 mg/dL (0.15-1.2) 10/02/23 13:45 AST 14 U/L (0-40) 10/02/23 13:45 ALT 11 U/L (0-41) 10/02/23 13:45 Alkaline Phosphatase 92 U/L (40-130) 10/02/23 13:45 Troponin T Baseline 157 ng/L (0-15) H* 10/02/23 13:45 Troponin T 120 Minute 143.5 ng/L (0-15) H 10/02/23 15:25 Delta Troponin T -13.5 ABS# (0-10) L 10/02/23 15:25 Troponin T Hi Sens 6Hr 140.1 ng/L (0-15) H 10/02/23 20:45 Troponin T Hi Sens 6Hr Delta -16.9 ng/L (0-12) L 10/02/23 20:45 NT-Pro-B Natriuret Pep 6595 pg/mL (0-125) H 10/02/23 13:45 Total Protein 6.6 g/dL (6.6-8.7) 10/02/23 13:45 Albumin 3.7 g/dL (3.5-5.2) 10/02/23 13:45 Globulin 2.9 g/dL (1.3-4.6) 10/02/23 13:45 Influenza Type A Ag negative (Negative) 10/02/23 13:50 Influenza Type B Ag negative (Negative) 10/02/23 13:50 Blood Type O Positive 10/02/23 15:25 Rho(D) Type Rh positive 10/02/23 15:25 Antibody Screen Negative 10/02/23 15:25 Crossmatch See Detail 10/02/23 15:25 A&P Assessment and plan (1) Contrast-induced nephropathy: The BUN/creatinine seems to be improving. (2) Atherosclerotic heart disease of [place] coronary artery with other forms of angina pectoris: Repeat cardiac catheterization findings as mentioned before. Continue on the medical treatment (3) DM2 (diabetes mellitus, type 2): Continue on the current management. The blood sugar seems to be fairly under control. Qualifiers: Diabetes mellitus complication status: without complication Diabetes mellitus retirement insulin use: without retirement use Qualified Code(s): E11.9 - Type 2 diabetes mellitus without complications (4) Hyperlipidemia: Will continue on the current medications. Qualifiers: Hyperlipidemia type: mixed hyperlipidemia Qualified Code(s): E78.2 - Mixed hyperlipidemia (5) S/P AAA repair using bifurcation graft: Aneurysm sac has been shrinking. Will continue on the current follow-up evaluations (6) Presence of permanent cardiac pacemaker: The pacemaker function was found to be appropriate. Will continue on the current follow-up schedule. 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
[2023-10-08 10:18] LABS: Hematocrit 26.1 % (37-53)
--- NOTE | 2023-10-08 10:45 | PM.DCS ---
Discharge Providers Date of Admission: 10/02/23 16:12 Date of Discharge: October 08, 2023 Attending Provider at Admission: Julianne Brown MD Attending Provider at Discharge: Julianne Brown MD Primary Care Provider: Carla Manriquez MD Diagnoses at Discharge Discharge Diagnosis (1) Presence of permanent cardiac pacemaker: Status: Acute (2) Cardiomyopathy due to hypertension, with heart failure: Status: Acute (3) Hypertension: Status: Acute Qualifiers: Hypertension type: primary hypertension Qualified Code(s): I10 - Essential (primary) hypertension (4) NSTEMI (non-ST elevated myocardial infarction): Status: Acute (5) Atherosclerotic heart disease of [place] coronary artery with other forms of angina pectoris: Status: Acute (6) DM2 (diabetes mellitus, type 2): Status: Acute Qualifiers: Diabetes mellitus complication status: without complication Diabetes mellitus group home insulin use: without group home use Qualified Code(s): E11.9 - Type 2 diabetes mellitus without complications (7) Other iron deficiency anemias: Status: Acute (8) Weakness: Status: Acute Reason for Visit Reason for Visit: weakness, SOB Hospital Course Hospital Course 68-year-old male who was recently discharged from the hospital after an EGD for upper GI bleed EGD showed gastric erosion nonbleeding ulcers. Patient was discharged on Xarelto and Plavix. Patient returns with chief complaint of low blood pressure generalized weakness and chest pain. He was diagnosed with non-STEMI, cardiology was consulted patient went for an angiogram which showedpatent PRADHAN to LAD and patent SVG to OM. SVG to diagonal is occluded now ( was patent on previous angiogram from 2020). Recommended medical therapy. Patient gets pain in his shoulder, CTA chest was done which did not show aortic dissection, echo did not show any signs of aortic dissection. He does have significant past medical history of coronary disease carotid disease aortic aneurysm repair. His hemoglobin remained stable, he required a unit of blood on this admission to keep his hemoglobin above 8 with target of 9. I have referred patient to [facility] operator in [place] for enteroscopy. Patient was monitored in the hospital for contrast-induced nephropathy, creatinine trending down now Patient is hemodynamically stable He has been asked to hold his Xarelto for the next 2 to 3 days get his CBC checked Physical Exam Narrative: Awake and alert GCS 15 Currently on room air No active chest pain Pleasant cooperative Discharge Data Studies Completed and Pending Completed Studies During Hospitalization Category Date Time Status CTA chest [CT angio chest PE protcl [id number]] Routine Cat Scan 10/04/23 11:56 Completed XR chest 1V portable [id number] Stat Exams 10/02/23 13:26 Completed CV. echo wo/w contrast [id number] Routine Ultrasound 10/02/23 17:33 Completed Pending at discharge Category Date Time Status [employer]IT[employer] CONS[employer]ANT request for service Routine Exams 10/05/23 08:33 Ordered Basic Metabolic Panel AM LABS Lab 10/06/23 04:00 Ordered Complete Blood Count w/Auto AM LABS Lab 10/06/23 04:00 Ordered Radiology Impressions Chest X-Ray 10/02/23 13:26 IMPRESSION: Stable abnormal chest. The findings appear to be secondary to chronic congestive heart failure. Definite acute abnormality is not readily identifiable. Chest CTA 10/04/23 11:56 IMPRESSION: 1. No evidence of PE and the thoracic aorta is grossly normal 2. Prominent interstitium in the periphery of both lungs. Consider interstitial edema 3. Status post CABG 4. Cirrhotic morphology of the liver Laboratory Results WBC 9.24 10^3/uL (3.29-11.43) 10/05/23 04:48 RBC 2.88 10^6/uL (3.85-5.65) L 10/05/23 04:48 Hgb 9.00 g/dL (11.27-16.99) L 10/05/23 11:31 Hct 30.0 % (37-53) L 10/05/23 11:31 MCV 95.1 fl (82-101) 10/05/23 04:48 MCH 28.8 pg (27-33) 10/05/23 04:48 MCHC 30.3 g/dL (30-55) 10/05/23 04:48 RDW 19.5 % (12.1-15.1) H 10/05/23 04:48 Plt Count 393 10^3/cmm (157-399) 10/05/23 04:48 MPV 10.5 fL (7.4-10.4) H 10/05/23 04:48 Neut % (Auto) 74.9 % 10/05/23 04:48 Lymph % (Auto) 13.9 % 10/05/23 04:48 [place] % (Auto) 8.1 % 10/05/23 04:48 Eos % (Auto) 2.4 % 10/05/23 04:48 Baso % (Auto) 0.4 % 10/05/23 04:48 Neut # (Auto) 6.92 10^3/uL (1.8-7.7) 10/05/23 04:48 Lymph # (Auto) 1.3 10^3/uL (0.8-4.8) 10/05/23 04:48 [place] # (Auto) 0.8 10^3/uL (0.2-0.9) 10/05/23 04:48 Eos # (Auto) 0.2 10^3/uL (0.0-0.8) 10/05/23 04:48 Baso # (Auto) 0.0 10^3/uL (0.0-0.1) 10/05/23 04:48 Nucleated RBC % (auto) 0 % 10/05/23 04:48 Nucleated RBCs # 0.0 /100WBC 10/05/23 04:48 PT 17.50 SECONDS (12.1-14.9) H 10/02/23 13:45 INR 1.39 (0.8-1.2) H 10/02/23 13:45 APTT 40.4 SECONDS (23.9-36.7) H 10/02/23 13:45 Specimen Type Arterial 10/02/23 13:55 Sample Site Radial, left 10/02/23 13:55 ABG pH 7.45 (7.35-7.45) 10/02/23 13:55 ABG pCO2 33.3 mmHg (35-45) L 10/02/23 13:55 ABG pO2 76.0 mmHg (80.0-100.0) L 10/02/23 13:55 ABG PO2/FiO2 Ratio 0 10/02/23 13:55 ABG HCO3 22.9 mmol/L (22-26) 10/02/23 13:55 ABG O2 Saturation 96.1 10/02/23 13:55 ABG Base Excess -1.0 mmol/L (-2.0-2.0) 10/02/23 13:55 Gustavo Test Pos 10/02/23 13:55 A-a O2 Gradient 4.1 mmHg (5-10) L 10/02/23 13:55 Hematocrit 24.0 % (42-52) L 10/02/23 13:55 Hgb O2 Saturation 91.9 % (95-100) L 10/02/23 13:55 Carboxyhemoglobin 3.2 %THgb (0.4-20.1) 10/02/23 13:55 Methemoglobin 1.1 % (0.4-1.5) 10/02/23 13:55 Total Hemoglobin 7.8 g/dL (14-18) L 10/02/23 13:55 Sodium 136.0 mmol/L (131-143) 10/02/23 13:55 Potassium 3.7 mmol/L (3.5-5.0) 10/02/23 13:55 Glucose 165.0 mg/dL (70-115) H 10/02/23 13:55 Ionized Calcium 1.2 mmol/L (1.1-1.4) 10/02/23 13:55 O2 Delivery Device Room air 10/02/23 13:55 FiO2 21.0 % 10/02/23 13:55 Order Management Specialist ID Cak 10/02/23 13:55 Sodium 140 mmol/L (136-145) 10/05/23 04:48 Potassium 4.1 mmol/L (3.5-5.1) 10/05/23 04:48 Chloride 107 mmol/L (98-107) 10/05/23 04:48 Carbon Dioxide 24 mmol/L (22-29) 10/05/23 04:48 Anion Gap 13.1 (5-19) 10/05/23 04:48 BUN 16 mg/dL (8-23) 10/05/23 04:48 Creatinine 1.1 mg/dL (0.7-1.2) 10/05/23 04:48 GFR Calculation 67.0 mL/min (90-130) L 10/05/23 04:48 Glucose 154 mg/dL (65-115) H 10/05/23 04:48 POC Glucose 198 mg/dL (70-110) H 10/05/23 23:31 Calculated Osmolality 294 mOsm/kg (285-295) 10/05/23 04:48 Calcium 8.1 mg/dL (8.5-10.5) L 10/05/23 04:48 Phosphorus 3.9 mg/dL (2.5-4.5) 10/03/23 04:18 Magnesium 2.3 mg/dL (1.7-2.3) 10/04/23 04:50 Total Bilirubin 0.2 mg/dL (0.15-1.2) 10/02/23 13:45 AST 14 U/L (0-40) 10/02/23 13:45 ALT 11 U/L (0-41) 10/02/23 13:45 Alkaline Phosphatase 92 U/L (40-130) 10/02/23 13:45 Troponin T Baseline 157 ng/L (0-15) H* 10/02/23 13:45 Troponin T 120 Minute 143.5 ng/L (0-15) H 10/02/23 15:25 Delta Troponin T -13.5 ABS# (0-10) L 10/02/23 15:25 Troponin T Hi Sens 6Hr 140.1 ng/L (0-15) H 10/02/23 20:45 Troponin T Hi Sens 6Hr Delta -16.9 ng/L (0-12) L 10/02/23 20:45 NT-Pro-B Natriuret Pep 6595 pg/mL (0-125) H 10/02/23 13:45 Total Protein 6.6 g/dL (6.6-8.7) 10/02/23 13:45 Albumin 3.7 g/dL (3.5-5.2) 10/02/23 13:45 Globulin 2.9 g/dL (1.3-4.6) 10/02/23 13:45 Influenza Type A Ag negative (Negative) 10/02/23 13:50 Influenza Type B Ag negative (Negative) 10/02/23 13:50 Blood Type O Positive 10/02/23 15:25 Rho(D) Type Rh positive 10/02/23 15:25 Antibody Screen Negative 10/02/23 15:25 Crossmatch See Detail 10/02/23 15:25 Vitals Last Vital Signs Temp 98.0 F 10/06/23 04:00 Pulse 89 10/06/23 05:12 Resp 20 H 10/06/23 04:28 BP 100/69 10/06/23 04:00 Pulse Ox 91 10/06/23 04:28 O2 Del Method Nasal Cannula 10/06/23 04:28 O2 Flow Rate 3 10/06/23 04:28 Discharge Plan Discharge Patient Disposition: Home Condition: Stable Prescriptions: Continued cetirizine [Zyrtec] 10 mg tablet 10 mg PO DAILY pantoprazole [Protonix] 40 mg tablet,delayed release (DR/EC) 40 mg PO DAILY allopurinol 300 mg tablet 300 mg PO DAILY multivitamin Tablet 1 tab PO DAILY glipizide 10 mg tablet 10 mg PO BID montelukast [Singulair] 10 mg tablet 10 mg PO QPM insulin glargine 100 unit/mL solution 64 unit SUBCUT BID fluticasone propionate 50 mcg/actuation spray,suspension 1 spray INTRANASAL DAILY Rx Instructions: administer into each nostril cyanocobalamin (vitamin B-12) 1,000 mcg/15 mL liquid 1,000 mcg PO DAILY (TYSHAWN) nebulizer See Rx Instructions .Route .MEDSUPPLY Qty: 1 0RF Rx Instructions: Nebulizer and supplies As directed gemfibrozil 600 mg tablet 600 mg PO BID Qty: 180 3RF Dulera 200-5 mcg/actuation HFA aerosol inhaler 2 puff inhalation BID tramadol 50 mg tablet 50 mg PO BID PRN (Reason: pain) Qty: 60 2RF Milk thisle 500 mg PO DAILY Tumeric capsule 1,500 mg PO DAILY ranolazine 500 mg tablet extended release 12 hr See Rx Instructions .ROUTE .COMPLEX Qty: 180 3RF Dose Instruction: TAKE ONE TABLET BY MOUTH TWICE A DAY FOR HEART. *SWALLOW WHOLE- DO NOT CRUSH,BREAK OR CHEW* Rx Instructions: TAKE ONE TABLET BY MOUTH TWICE A DAY FOR HEART. *SWALLOW WHOLE- DO NOT CRUSH,BREAK OR CHEW* metoprolol tartrate 25 mg tablet 25 mg PO BID 30 Days Qty: 180 3RF sulfasalazine 500 mg tablet 1 g PO BID Qty: 360 1RF Rx Instructions: give with food (meal/snack) (DME) 12 pairs of diabetic socks See Rx Instructions .Route .MEDSUPPLY Qty: 1 0RF Rx Instructions: As directed by [facility] (DME) Diabetic shoes with custom insoles See Rx Instructions .Route .MEDSUPPLY Qty: 1 0RF Rx Instructions: As directed BY [facility] and [facility] medical nitroglycerin [Nitrostat] 0.4 mg tablet, sublingual 0.4 mg SUBLINGUAL Q5M PRN (Reason: Chest Pain) Qty: 50 3RF testosterone cypionate [Depo-Testosterone] 200 mg/mL oil 50 mg SUBCUT Q7D Qty: 3 0RF clopidogrel 75 mg tablet 75 mg PO DAILY Qty: 90 3RF cholecalciferol (vitamin D3) [Vitamin D3] 50 mcg (2,000 unit) Tablet 50 mcg PO DAILY melatonin 10 mg Tablet 10 mg PO BEDTIME omega-3 fatty acids 1,000 mg capsule 2,000 mg PO TID ketoconazole 2 % Shampoo See Rx Instructions .ROUTE .COMPLEX Rx Instructions: USE SHAMPOO TO AFFECTED AREAS(S) DIRECTED. A WASH TO AFFECTEDA AREAS ON FACE/SCALP/ LATHER, ALLOW TO SIT 1-2 MINUTES BEFORE RINSING. FOLLOW WITH NORMAL FACE WASH. USE TWICE WEEKLY FOR 4 WEEKS. ketotifen fumarate 0.025 % (0.035 %) Drops 1 drp OPHTHALMIC (EYE) BID Rx Instructions: administer at least 8 hours apart dextromethorphan-guaifenesin 10-100 mg/5 mL Syrup 10 ml PO Q4H PRN (Reason: COUOGH/CONGESTION) guaifenesin 100 mg/5 mL Liquid 200 mg PO QID PRN (Reason: MUCUS) pentoxifylline 400 mg Tablet Extended Release 400 mg PO BID Rx Instructions: must administer with a meal/food levothyroxine 100 mcg Tablet 100 mcg PO QAM oxycodone-acetaminophen [Percocet] 10-325 mg Tablet 1 tab PO Q4H PRN (Reason: Pain (Scale Score 7-10)) carboxymethylcellulose sodium 0.5 % Drops 1 drp OPHTHALMIC (EYE) QID carbamide peroxide 6.5 % Drops 1 drp otic (ear) .[id number] bumetanide 1 mg Tablet See Rx Instructions .ROUTE .COMPLEX Rx Instructions: TAKE 2 TABLETS BY MOUTH IN THE MORNING AND 1 TABLET EVERY EVENING. ezetimibe 10 mg Tablet 10 mg PO DAILY ipratropium bromide 17 mcg/actuation Hfa Aerosol Inhaler 1 puff INHALATION QID vitamin E (dl, acetate) 180 mg (400 unit) Capsule 180 mg PO DAILY empagliflozin 25 mg Tablet 12.5 mg PO QAM alirocumab 150 mg/mL Pen Injector 150 mg SUBCUT .[id number] Breztri Aerosphere 160-9-4.8 mcg/actuation Hfa Aerosol Inhaler 2 inh INHALATION BID sucralfate 100 mg/mL Suspension 1 g PO BID Qty: 420 1RF pantoprazole [Protonix] 40 mg tablet,delayed release (DR/EC) 40 mg PO BID 56 Days Qty: 112 1RF magnesium oxide 400 mg (241.3 mg magnesium) tablet 400 mg PO BID Held Xarelto 20 mg tablet 20 mg PO DAILY Qty: 90 3RF Hold Instructions: Resume on 10/11/23. Rx Instructions: must administer with evening meal sacubitril-valsartan 49-51 mg tablet 1 tab PO BID Qty: 180 3RF Hold Instructions: Resume on 10/21/23. Discontinued isosorbide mononitrate 60 mg tablet extended release 24 hr 60 mg PO BID Qty: 180 3RF Discharge Orders: Discharge Order (Routine); Ordered 10/08/23 Ordered By: Julianne Brown Referrals: Carla Manriquez MD [Primary Care Provider] - 10/10/23 9:00 am () lOga New FNP [Nurse Practitioner] - 10/16/23 3:30 pm () Sunil Heath MD [Referring] - 7-10 days (GI for enteroscopy) Discharge Diet: Cardiac and Diabetic Discharge Activity: Increase activity as tolerated Patient Instructions: Heart Failure (DC), Heart Catheterization (DC), CHF Stoplight, Opioid Safety, Post Angiogram Home Care Instructions, Post Heart Attack Stoplight Discharge Attestations Time Spent in Discharge Care*: greater than 30 min Quality Metrics Clinical Quality Measures [ No reported AMI, CVA or VTE this stay] Coding Level of Care Code Acute Code for Chg Fwd Diagnoses Presence of permanent cardiac pacemaker Z95.0 Cardiomyopathy due to hypertension, with heart failure I11.0; I43 Primary hypertension I10 Hypertension type: primary hypertension NSTEMI (non-ST elevated myocardial infarction) I21.4 Atherosclerotic heart disease of [place] coronary artery with other forms of angina pectoris I25.118 Type 2 diabetes mellitus without complication, without long-term current use of insulin E11.9 Diabetes mellitus complication status: without complication 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
== END 2023-10-08 12:26 | disposition home or self-care (01) | DRG 281 ==
LOC: ER 15:09 → MEDSURG 16:13 → CSU 10-05 09:38
PROVIDERS: Internal Medicine; Admitting Provider Internal Medicine; Emergency Provider Physician Assistant; PCP Family Medicine; Visit Provider Internal Medicine
DX: I21.4 Non-ST elevation (NSTEMI) myocardial infarction (principal); I13.0 Hypertensive heart and chronic kidney disease with heart failure and stage 1 through stage 4 chronic kidney disease, or unspecified chronic kidney disease; I50.32 Chronic diastolic (congestive) heart failure; I48.20 Chronic atrial fibrillation, unspecified; I25.810 Atherosclerosis of coronary artery bypass graft(s) without angina pectoris; N17.9 Acute kidney failure, unspecified; E78.2 Mixed hyperlipidemia; D63.1 Anemia in chronic kidney disease; E11.22 Type 2 diabetes mellitus with diabetic chronic kidney disease; N18.9 Chronic kidney disease, unspecified; E11.40 Type 2 diabetes mellitus with diabetic neuropathy, unspecified; J44.9 Chronic obstructive pulmonary disease, unspecified; F41.9 Anxiety disorder, unspecified; D50.8 Other iron deficiency anemias; G47.33 Obstructive sleep apnea (adult) (pediatric); I25.5 Ischemic cardiomyopathy; I25.10 Atherosclerotic heart disease of native coronary artery without angina pectoris; F17.210 Nicotine dependence, cigarettes, uncomplicated; E66.01 Morbid (severe) obesity due to excess calories; K25.9 Gastric ulcer, unspecified as acute or chronic, without hemorrhage or perforation; N14.11 Contrast-induced nephropathy; T50.8X5A Adverse effect of diagnostic agents, initial encounter; M50.10 Cervical disc disorder with radiculopathy, unspecified cervical region; Z68.34 Body mass index [BMI] 34.0-34.9, adult; Z79.01 Long term (current) use of anticoagulants; Z79.02 Long term (current) use of antithrombotics/antiplatelets; Z79.84 Long term (current) use of oral hypoglycemic drugs; Z79.4 Long term (current) use of insulin; Z95.0 Presence of cardiac pacemaker
CPT/HCPCS: 36415; 36416; 36430; 36600; 71045; 71275; 72125; 80048; 80051; 80053; 82330; 82805; 82962; 83735; 83880; 84100; 84484; 85014; 85018; 85025; 85610; 85730; 86850; 86900; 86920; 87804; 93005; 93455; 94640; 96372; 96374; 96375; 96376; 99152; 99153; 99285; C1760; C1769; C1887; C1894; C8929; G0269; J1170; J1644; J1815; J1940; J2250; J2270; J2405; J3010; J7030; P9016; Q9956; Q9967